=== PATIENT | female | born 1935 | race Caucasian/White ===

== ENCOUNTER → 2017-03-25 14:22 | Outpatient (CLI) | payer MEDICARE, BC, SELFPAY ==
--- NOTE | 2017-03-25 14:25 | HPBI_ITS ---
MAMMOGRAPHY - UNILATERAL SCREENING: RIGHT BREAST REASON FOR EXAM: Female, 82 years old. Routine annual screening examination (unilateral). PERTINENT HISTORY: Personal history of breast cancer. Prior left mastectomy and radiation therapy. TECHNIQUE: Digital unilateral breast jazmyn (3D mammographic acquisition) in the CC and MLO projections. 2-D mediolateral oblique (MLO) and craniocaudad (CC) views of both breasts were obtained. CAD: Full Field Digital Mammography with Computer Added Detection was performed. COMPARISON: Comparison is made with prior study dated March 20, 2016. FINDINGS: Breast Composition: There are scattered areas of fibroglandular density. There are no dominant masses or suspicious calcifications. No other significant abnormalities are identified. There has been no significant change since the prior study. BI/UNILAT RT SCRN W/CAD IMPRESSION: Stable unilateral screening mammogram. Yearly follow-up mammogram recommended. (A) ASSESSMENT CATEGORY: BIRADS Category 1: Negative. A letter regarding these results will be sent to the patient by the facility within 30 days. Approximately 10% of breast cancers are not detected by mammography. A normal mammogram should not delay biopsy of a clinically suspicious abnormality. [id number] Electronically Signed: Igor Rajan MD at 15:45 EST Tel [phone], Service support ,
== END ==
PROVIDERS: Family Provider Internal Medicine; PCP Internal Medicine; Visit Provider Internal Medicine
DX: Z12.31 Encounter for screening mammogram for malignant neoplasm of breast (principal); Z85.3 Personal history of malignant neoplasm of breast
CPT/HCPCS: 77061; 77063; 77067; G0279

== ENCOUNTER 2017-05-03 03:47 | Emergency (ER) | payer MEDICARE, BC, SELFPAY ==
[2017-05-03 03:48] VITALS: BP 157/85; PULSE 90; RESP 20; TEMP 36.6; O2SAT 96; BMI 31.2
--- NOTE | 2017-05-03 04:08 | CT_ITS ---
STUDY: CT BRAIN WITHOUT CONTRAST REASON FOR EXAM: Female, 82 years old. Injury RADIATION DOSAGE (If Supplied By Facility): CTDIvol = ( 44.99 ) mGy, DLP = ( 796.11 ) mGycm TECHNIQUE: Transaxial CT imaging of the brain was performed without administration of intravenous contrast material. Individualized dose optimization techniques were used for this CT. COMPARISON: 07/31/2015 FINDINGS: Normal soft tissue structures. There is hyperostosis frontalis internus. Normal size ventricles and extra-axial spaces for the patient's age. There are areas of decreased attenuation within the white matter tracts of the supratentorial brain, consistent with microvascular disease changes. Normal basal ganglia and thalami. Normal brainstem. Normal cerebellum. There is no intracranial hemorrhage. There are no findings of an acute ischemic infarction. Right ethmoid sinus disease. Mild bilateral mastoid sinus disease. CT/Brain/Head without Contrast IMPRESSION: No fracture or hemorrhage. Electronically Signed: Adeel Kwong MD at 4:59 EST Tel , Service support ,
--- NOTE | 2017-05-03 04:09 | EKG12_ITS ---
Test Reason : FALL Blood Pressure : / mmHG Vent. Rate : 082 BPM Atrial Rate : 082 BPM P-R Int : 182 ms QRS Dur : 090 ms QT Int : 400 ms P-R-T Axes : 091 -29 018 degrees QTc Int : 467 ms Normal sinus rhythm Inferior infarct , age undetermined Abnormal ECG Confirmed by BEE VAZQUEZ ([id number]), news assignment editor BERRY DEL ROSARIO ([id number]) on 05/06/2017 1:36:29 PM Referred By: Jessica Cohn Confirmed By:BEE VAZQUEZ
[2017-05-03 04:25] LABS: Absolute Lymphocyte Count 1.72 X10^3/ul (0.83-4.51); Absolute Neutrophil Count 5.8 X10^3/uL (2.0-7.7); Basophil# 0.03 X10^3/uL; Basophil% 0.4 % (0-1); Eosinophils% 1.2 % (0-5); Hematocrit 36.5 % (37-47); Hemoglobin 11.6 g/dl (12.0-15.0); Lymphocyte # 1.72 X10^3/ul (4.0); Mean Corp Hgb Conc 31.8 g/gl (32-36); Mean Corpuscular Hgb 29.1 pg (27.0-32.0); Mean Corpuscular Volume 91.7 fL (81-99); Mean Platelet Vol. 9.6 fl (6.2-12.0); Monocyte% 6.1 % (0-10); Neutrophil # 5.81 X10^3/uL (2.7-7.7); Neutrophil % 70.8 % (47-70); Platelet Count 222 K/mm3 (150-450); RBC Distribution Width SD 56.3 fl (35.1-43.9); Red Blood Count 3.98 M/mm3 (4.2-5.4); White Blood Count 8.2 K/mm3 (4.4-11.0)
[2017-05-03 04:26] LABS: POSITIVE COUNT NO; POSITIVE DIFFERENTIAL NO; POSITIVE MORPHOLOGY NO
[2017-05-03 04:34] LABS: International Normalized Ratio 2.7; Prothrombin Time (Protime)PT. 28.4 SECONDS (11.7-14.9)
--- NOTE | 2017-05-03 04:35 | ED.DCSUM_ITS ---
- ER Visit Summary Date of Service: 05/03/17 Chief Complaint: Skin tears History of Present Illness: The patient is a 82 F brought by EMS after a fall at home after getting up prior to arrival. She states she got up out of bed at prodromal lightheaded symptoms causing her to fall. She did bump the right side of her head on the ground. Denies any headache, nausea, vomiting. She is on Coumadin for history of PE. Also skin tears to the right upper and forearm. No active bleeding. Tetanus less than 5 years ago. Denies any pain in the extremities. No neck or back pain. No recent illness of cough or shortness of breath. No chest pains. No urinary symptoms. No recent nausea, vomiting, diarrhea. Physical Examination: General: Alert and oriented ?3, no acute distress HEENT: Normocephalic, small contusion right judaism. No hemotympanum, no facial bone tenderness. Moist mucosa membranes Neck: supple, nontender. Cardiovascular: Regular rate and rhythm, no murmurs Respiratory: Normal breath sounds, symmetric, no distress Abdomen: Soft, nontender, nondistended Extremities: Nontender, no edema, pulses intact ?4 Neuro: no focal neurological deficits. Skin: There is skin tear right distal posterior arm along with elbow, there is no active bleeding. Forearm noted skin flap superficial approximately 4 cm in length, no active bleeding. Test Results: EKG: Sinus, rate 82, no ST changes. T-wave inversion in leads III and V2. Old compared to previous EKG in July 2015. Labs hemoglobin 11.6, creatinine 0.92. Sodium 137, potassium 3.9. INR 2.7. CT head: No intracranial process. Emergency Department Course and Treatment: Patient no focal neurological deficits. Syncopal episode EKG and stable labs. CT head due to head injury is normal. Patient laceration flap was repaired using a total of 10, 5-0 nylon sutures with good approximation. There was stellate laceration with the flap requiring additional repair. Skin tears in elbow and upper arm superficial. Wound care discussed. Patient to follow-up with PCP for reevaluation and suture removal as an outpatient. She was ambulated in the department with no return of symptoms. She is to return to ED if any worsening symptoms. All questions were answered. Treatment Plan: [] Disposition: Discharge Impression: 1. Syncope 2. Right forearm laceration 3. Skin tears This note was generated with [employer] dictation software. It may contain incorrect words, spelling, and punctuation that were not noted in review of the chart prior to signing ED Disposition - Plan for ED Patient: Disposition: Home or Assisted Living Chief Complaint: Wound Diagnosis: Syncope, Forearm laceration, Skin tear Instructions: ED Fainting Unkn Cause, ED Laceration All, ED Avulsion Dermal Referrals: Jessica Cohn MD [Primary Care Provider] - 10 Day for suture removal
[2017-05-03 04:38] LABS: Anion Gap 7 (5-15); BUN 22 mg/dL (7-18); BUN/Creat Ratio 23.8 RATIO (10-20); Calcium,Total 8.8 mg/dL (8.5-10.1); Chloride 100 mmol/L (98-107); Creatinine, Serum 0.92 mg/dL (0.55-1.02); EST Glomerular Filtration Rate 62 mL/min (>60); Est Glom Filt Rate - Afr Amer 75 mL/min (>60); Estimated Creatinine Clearance 43.15 ml/min; Glucose 121 mg/dL (74-106); Potassium 3.9 mmol/L (3.5-5.1); Sodium Level 137 mmol/L (136-145)
[2017-05-03 05:44] VITALS: BP 168/88; PULSE 84; RESP 17; O2SAT 95
== END 2017-05-03 06:08 | disposition home or self-care (01) ==
PROVIDERS: Emergency Provider Emergency Medicine; Family Provider Internal Medicine; PCP Internal Medicine
DX: S51.811A Laceration without foreign body of right forearm, initial encounter (principal); R55 Syncope and collapse; S51.011A Laceration without foreign body of right elbow, initial encounter; S00.83XA Contusion of other part of head, initial encounter; W19.XXXA Unspecified fall, initial encounter; Y93.9 Activity, unspecified; Y92.9 Unspecified place or not applicable; I10 Essential (primary) hypertension; E78.00 Pure hypercholesterolemia, unspecified; E03.9 Hypothyroidism, unspecified; Z85.72 Personal history of non-Hodgkin lymphomas; Z86.711 Personal history of pulmonary embolism; Z79.01 Long term (current) use of anticoagulants; Z79.899 Other long term (current) drug therapy
CPT/HCPCS: 12002; 70450; 80048; 85025; 85610; 93005; 99285; A4216

== ENCOUNTER → 2017-06-07 15:08 | Outpatient (CLI) | payer MEDICARE, BC, SELFPAY ==
[2017-06-07 15:26] LABS: Prothrombin Time Fingerstick 36.2 SEC (11.9-14.4)
== END ==
PROVIDERS: Family Provider Internal Medicine; PCP Internal Medicine; Visit Provider Internal Medicine
DX: Z79.899 Other long term (current) drug therapy (principal); Z79.01 Long term (current) use of anticoagulants
CPT/HCPCS: 36416; 85610

== ENCOUNTER → 2017-06-18 11:12 | Outpatient (CLI) | payer MEDICARE, BC, SELFPAY ==
[2017-06-18 11:19] LABS: Mucous, Urine 0 SEEN /hpf (<or=2+)
[2017-06-18 12:24] LABS: Color, Urine Yellow (Yellow); Glucose, Dipstick Normal (Normal); Ketone-Dipstick Negative (Negative); Leukocyte Esterase-Dipstick 100 /ul (Negative); Nitrite-Dipstick Positive (Negative); Occult Blood-Urine 25 /ul (Negative); Protein-Dipstick Negative (Negative); Urine Bilirubin Dipstick Negative (Negative); Urine Clarity Sl. Cloudy (Clear); Urine Urobilinogen Normal (Normal); Urine pH 6.5 (5.0 - 8.0)
[2017-06-18 12:40] LABS: Bacteria 4+ /hpf (None Seen); Red Blood Cells-Urine 0-5 SEEN /hpf (0-5); Squamous Epithelial Cells - UA 0-5 SEEN /hpf (5-10); White Blood Cells 5-10 SEEN /hpf (0-5)
== END ==
PROVIDERS: Family Provider Internal Medicine; PCP Internal Medicine; Visit Provider Internal Medicine
DX: N39.0 Urinary tract infection, site not specified (principal)
CPT/HCPCS: 81001

== ENCOUNTER → 2017-06-26 11:32 | Outpatient (CLI) | payer MEDICARE, BC, SELFPAY ==
[2017-06-26 14:53] LABS: Cholesterol 151 mg/dL (200); High Density Lipoprotein 44 mg/dL; T4 Free Direct 1.05 ng/dL (0.76-1.46); Thyroid Stim Hormone (TSH) 1.65 uIU/mL (0.358-3.74); Triglycerides 201 mg/dL; Very Low Density Lipoprotein 40 mg/dL (5-40)
== END ==
PROVIDERS: Family Provider Internal Medicine; PCP Internal Medicine; Visit Provider Internal Medicine
DX: I10 Essential (primary) hypertension (principal); E03.9 Hypothyroidism, unspecified
CPT/HCPCS: 36415; 80061; 84439; 84443

== ENCOUNTER → 2017-12-18 12:23 | Outpatient (CLI) | payer MEDICARE, BC, SELFPAY ==
[2017-12-18 14:14] LABS: Erythrocyte Sedimentation Rate 42 mm/hr (0-30)
[2017-12-18 14:17] LABS: Immature Platelet Fraction 1.6 % (1.0-7.9); RET-HE 23.7 pg (30-35); Reticulocyte Count 2.06 % (0.5-1.5)
[2017-12-18 14:27] LABS: CRP 8.41 mg/L (0.0-3.0); Rheumatoid Factor < 10.0 IU/mL (<15)
[2017-12-20 04:13] LABS: Rapid Plasmin Reagin (RPR) NONREACTIVE (NONREACTIVE)
== END ==
PROVIDERS: Family Provider Internal Medicine; PCP Internal Medicine; Referring Provider Nurse Practitioner Acute Care; Visit Provider Nurse Practitioner Acute Care
DX: L40.50 Arthropathic psoriasis, unspecified (principal)
CPT/HCPCS: 36415; 85045; 85652; 86140; 86431; 86592

== ENCOUNTER 2017-12-27 17:17 | Inpatient (IN) | payer MEDICARE, BC, SELFPAY ==
[2017-12-27] VITALS (11 sets, daily range): BP systolic 115–193; BP diastolic 64–110; PULSE 82–141; RESP 17–24; TEMP 36.7–36.9; O2SAT 93–97; BMI 33.9; BMI 33.2
--- NOTE | 2017-12-27 17:35 | RAD_ITS ---
STUDY: X-RAY CHEST REASON FOR EXAM: Female, 82 years old. Shortness of breath TECHNIQUE: Single AP portable view of the chest. COMPARISON: 10/20/2013 FINDINGS: Lungs are mildly hypoinflated. Slight interstitial prominence in the perihilar regions suggesting pulmonary edema. Questionable right upper lobe infiltrate. Lungs are otherwise clear. There is no demonstrated pleural abnormality. There is moderate cardiac enlargement. Normal mediastinum and tobias. Normal visualized pulmonary arteries. There is atherosclerotic tortuosity of the aortic arch and descending thoracic aorta. There are diffuse degenerative changes of the visualized thoracic spine. Normal visualized ribs, clavicles, and shoulders. There is no demonstrated abnormality of the visualized soft tissue structures of the upper abdomen. RAD/Chest 1 View (Portable) IMPRESSION: Mildly hypoinflated lungs. Slight perihilar vascular/interstitial prominence. Questionable right upper lobe infiltrate. Electronically Signed: Mitchell Jeffers DO at 18:08 EDT Tel , Service support ,
--- NOTE | 2017-12-27 17:36 | EKG12_ITS ---
Test Reason : AFIB Blood Pressure : / mmHG Vent. Rate : 138 BPM Atrial Rate : 138 BPM P-R Int : 176 ms QRS Dur : 102 ms QT Int : 280 ms P-R-T Axes : 000 -62 051 degrees QTc Int : 424 ms Sinus tachycardia Left axis deviation Abnormal ECG Confirmed by MERCED BARDALES, LILIANE ([id number]), communications editor BERRY DEL ROSARIO ([id number]) on 12/30/2017 3:12:07 PM Referred By: ALFRED Confirmed By:LILIANE BLACKWOOD MD
[2017-12-27] MEDS: Aspirin 81 MG TAB.CHEW 324 MG PO (17:51)
[2017-12-27 17:52] LABS: Absolute Lymphocyte Count 2.03 X10^3/ul (0.83-4.51); Absolute Neutrophil Count 7.2 X10^3/uL (2.0-7.7); Basophil# 0.03 X10^3/uL; Basophil% 0.3 % (0-1); Eosinophil# 0.05 X10^3/uL; Eosinophils% 0.5 % (0-5); Lymphocyte # 2.03 X10^3/ul (4.0); Lymphocyte % 20.2 % (19-41); Mean Corp Hgb Conc 30.8 g/gl (32-36); Mean Corpuscular Hgb 28.9 pg (27.0-32.0); Mean Platelet Vol. 9.6 fl (6.2-12.0); Monocyte# 0.71 X10^3/uL; Monocyte% 7.1 % (0-10); Neutrophil % 71.6 % (47-70); Platelet Count 225 K/mm3 (150-450); RBC Distribution Width CV 17.1 % (11.6-14.6); RBC Distribution Width SD 58.6 fl (35.1-43.9); Red Blood Count 4.15 M/mm3 (4.2-5.4); White Blood Count 10.1 K/mm3 (4.4-11.0)
[2017-12-27 17:53] LABS: POSITIVE COUNT NO; POSITIVE DIFFERENTIAL NO; POSITIVE MORPHOLOGY NO
[2017-12-27] MEDS: Metoprolol Tartrate 5 MG/5 ML Vial IV (17:53)
[2017-12-27 17:55] LABS: Prothrombin Time (Protime)PT. 13.1 SECONDS (11.7-14.9)
[2017-12-27 17:56] LABS: Partial Thromboplast Time 28.4 Seconds (24.1-36.2)
--- NOTE | 2017-12-27 17:58 | EKG12_ITS ---
Test Reason : REPEAT EKG Blood Pressure : / mmHG Vent. Rate : 098 BPM Atrial Rate : 267 BPM P-R Int : 000 ms QRS Dur : 090 ms QT Int : 338 ms P-R-T Axes : 000 -61 033 degrees QTc Int : 431 ms Atrial flutter with variable A-V block Left axis deviation Abnormal ECG Confirmed by MERCED BARDALES, LILIANE ([id number]), television news video editor BERRY DEL ROSARIO ([id number]) on 12/30/2017 3:16:30 PM Referred By: Confirmed By:LILIANE BLACKWOOD MD
--- NOTE | 2017-12-27 18:00 | ED.VISSUMM ---
- ER Visit Summary Date of Service: 12/27/17 Chief Complaint: Irregular heart rate History of Present Illness: The patient is a 82 F who went to see her doctor today. She has had 1 week of bilateral leg swelling. She then developed a cough for several days. She also developed dyspnea on exertion and then dyspnea at rest. Her daughter has been sick with bronchitis and thought maybe she had the same. Was noted at her doctor's office that she had a variable heart rate anywhere from 80-130s. And she was sent to the emergency department. Patient has a history of hypertension high cholesterol. History of left-sided mastectomy due to breast cancer, non-Hodgkin's lymphoma and hypothyroidism. She is a long-term smoker. There is a questionable history of pulmonary embolism and the patient was on Coumadin but states that she was never formally told that she had a blood clot. She states that she has never had a stress test. Physical Examination: Gen: Well-nourished well-developed Head: Normocephalic atraumatic Eyes: Perrl EOMI ENT: TMs clear no rhinorrhea moist mucous membranes Neck: Supple no lymphadenopathy no JVD nontender CVS: Irregularly irregular tachycardic rhythm no murmurs normal S1-S2 Respiratory: No distress patient has rales bilaterally and rhonchi chest nontender Abdomen: Soft nontender nondistended normal bowel sounds no masses Back: Nontender Extremity: Nontender no edema Skin: Normal color no rash Neuro: alert orientated ?3 CN II-XII intact normal strength sensation reflexes gait cerebellar Psych: Normal affect normal mood Test Results: Initial EKG shows atrial fibrillation at a rate of 138 and repeat EKG demonstrates A. fib with a rate of 98. White count 10.1 hemoglobin of 12. INR 1 PTT 28.4. Magnesium 1.9. Lactic acid 0.9. Natruretic peptide 271.8. Troponin less than 0.015. 133. Chest x-ray shows possible right-sided infiltrate and right sided mass. CT [place] of the chest did not demonstrate any pulmonary embolism or dissection. Noted pulmonary hypertension, pulmonary edema, consolidation on the right and a spiculated lung nodule. Emergency Department Course and Treatment: Patient received IV metoprolol which is slowed her heart rate down into the 80s and her is remained in A. fib. She has received Lasix Lovenox Levaquin and aspirin. Her plan is admission into the hospital for further treatment and evaluation. Impression: 1. New onset atrial fibrillation with rapid ventricular response 2. Right-sided pneumonia 3. Spiculated lung nodule This note was generated with [employer] dictation software. It may contain incorrect words, spelling, and punctuation that were not noted in review of the chart prior to signing ED Disposition - Plan for ED Patient: Chief Complaint: Shortness of Breath Referrals: Danie Sparks MD [Primary Care Provider] -
[2017-12-27 18:07] LABS: ALB/GLOB Ratio 0.9 RATIO (0.9-2.4); AST(SGOT) 18 U/L (15-37); Alanine Aminotransfer ALT/SGPT 23 U/L (13-56); Albumin, Serum 3.4 g/dL (3.2-5.0); Alkaline Phosphatase 129 U/L (45-117); Anion Gap 8 (5-15); BUN 19 mg/dL (7-18); BUN/Creat Ratio 27.3 RATIO (10-20); Calcium,Total 8.9 mg/dL (8.5-10.1); Chloride 98 mmol/L (98-107); EST Glomerular Filtration Rate 86 mL/min (>60); Est Glom Filt Rate - Afr Amer 104 mL/min (>60); Globulin 3.7 g/dL (2.2-4.2); Glucose 103 mg/dL (74-106); Lipase 184 U/L (73-393); Magnesium 1.9 mg/dL (1.6-2.6); Potassium 3.8 mmol/L (3.5-5.1); Protein, Total 7.1 g/dL (6.4-8.2); Sodium Level 133 mmol/L (136-145)
--- NOTE | 2017-12-27 18:15 | CT_ITS ---
STUDY: CTA CHEST REASON FOR EXAM: Female, 82 years old. Shortness of breath RADIATION DOSAGE (If Supplied By Facility): CTDIvol = ( 17.58 ) mGy, DLP = ( 600.72 ) mGycm TECHNIQUE: The examination was performed with the intravenous administration of 100 ml of Isovue 370 contrast material. Post-processing of the angiographic images was performed, with multiplanar reformation and 3D reconstruction. Individualized dose optimization techniques were used for this CT. COMPARISON: None. FINDINGS: Grossly unremarkable thyroid Normal enhancement of the main pulmonary artery and right and left pulmonary arteries. Normal enhancement of the bilateral peripheral pulmonary arteries. There is no demonstrated pulmonary embolism. There is prominence of the main pulmonary arteries without peripheral pulmonary vascular congestion, suggesting pulmonary hypertension. There is atherosclerotic calcification of the aortic arch with tortuosity. There is no demonstrated aortic dissection. Moderate cardiomegaly. Normal pericardium. Normal mediastinum. Soft tissue prominence in the right hilar region measuring 2 x 2 centimeter. Normal visualized trachea and bronchi. Lungs are mildly hypoinflated. Mild diffuse interstitial edema and vascular congestion is noted. Right lower lobe consolidation with effusion. Mildly spiculated nodule in the right middle lobe noted measuring 9 x 6 mm. In the anterior right upper lobe, there is an area of possible scarring versus nodule measuring 2.9 cm. Normal pleura. Normal chest wall structures. There are degenerative changes of thoracic spine. Normal visualized upper abdomen. CT/CTA Chest W/WO Contrast IMPRESSION: 1. Negative for pulmonary embolism or thoracic aortic dissection 2. Pulmonary artery hypertension 3. Pulmonary edema suggesting early CHF. Right lower lobe consolidation and effusion 4. Spiculated nodule in the right middle lobe as above. Additional area of scarring or masslike consolidation in the anterior right upper lobe. Nonspecific right hilar soft tissue prominence. Malignancy cannot be excluded Electronically Signed: Mitchell Jeffers DO at 19:14 EDT Tel , Service support ,
[2017-12-27 18:16] LABS: Lactic Acid 0.9 mmol/L (0.4-2.0)
[2017-12-27 18:34] LABS: BNP,B-Type NATRIURETIC PEPTIDE 271.8 pg/mL (0-100)
[2017-12-27 19:50] LABS: Mucous, Urine 0 SEEN /hpf (<or=2+); Red Blood Cells-Urine 0 SEEN /hpf (0-5)
[2017-12-27 19:55] LABS: Color, Urine Yellow (Yellow); Glucose, Dipstick Normal (Normal); Ketone-Dipstick Negative (Negative); Leukocyte Esterase-Dipstick 100 /ul (Negative); Nitrite-Dipstick Negative (Negative); Occult Blood-Urine 10 /ul (Negative); Protein-Dipstick 30 mg/dl (Negative); Specific Gravity, Urine 1.005 (1.002-1.030); Urine Bilirubin Dipstick Negative (Negative); Urine Clarity Sl. Cloudy (Clear); Urine Urobilinogen Normal (Normal)
[2017-12-27] MEDS: Furosemide 100 MG/10 ML Vial 60 MG IV (20:02)
[2017-12-27] MEDS: levoFLOXacin IV 750 MG/150 ML BAG 100 MG IV (20:02)
--- NOTE | 2017-12-27 20:02 | PCM.HP.STD ---
Problem List (1) Atrial fibrillation with RVR Status: Acute (2) Tobacco abuse Status: Chronic (3) Heart failure Status: Acute Qualifiers: Heart failure chronicity: unspecified (4) Lung mass Status: Acute History of Present Illness Date of Admission: 12/27/17 Chief Complaint: irregular heart rate. The patient is a 82 year old F with a significant history of hypertension, hyperlipidemia, hypothyroidism, psoriasis; breast cancer status post mastectomy; non-Hodgkin's lymphoma; questionable PE treated with Coumadin who was sent from her PCPs office because of irregularly irregular heart rhythm on the same day of admission.. Patient went to her PCPs office because she was having flulike symptoms of runny nose; cough, tiredness for 1 week. Her daughter had bronchitis so patient and her daughter thought that the patient might had also developed bronchitis Associated with her symptoms is increasing swelling in her bilateral legs. She denies any orthopnea or PND. At the emergency department there was radiographic evidence of pulmonary infiltrates and spiculated mass. Patient was given Lasix IV; and Levaquin for probable pneumonia. Also patient was given metoprolol IV because she was found to be in A. fib with RVR which brought her heart rate from 140 into the 80s. Past Medical History Past Medical History (Chronic Problems): Chronic Problems (Last Reviewed 12/27/17 @ 20:54 by Chris Garcia MD) History of Coumadin therapy (Chronic) Osteopenia (Chronic) Chronic back pain (Chronic) History of ankle fracture (Chronic) Leg swelling (Chronic) Edema leg (Chronic) Tobacco abuse (Chronic) Tobacco abuse counseling (Chronic) History of non-Hodgkin's lymphoma (Chronic) Hypertension (Chronic) Hypercholesteremia (Chronic) Incontinence of urine (Chronic) Balance disorder (Chronic) Venous insufficiency (Chronic) Obesity (Chronic) Breast cancer, left (Chronic) Psoriasis of scalp (Chronic) History of sinus problem (Chronic) Ulcer (Chronic) Hypothyroidism (Chronic) Pulmonary embolism (Chronic) Osteoarthritis (Chronic) Depression (Chronic) Breast cancer (Chronic) Non Hodgkin's lymphoma (Chronic) Medical History: Medical History (Last Reviewed 12/27/17 @ 20:54 by Chris Garcia MD) Chronic back pain (Chronic) M54.9, G89.29 History of ankle fracture (Chronic) Z87.81 Psoriasis of scalp (Chronic) L40.9 History of hysterectomy (Acute) Z98.890, Z90.710 History of sinus problem (Chronic) Ulcer (Chronic) Hypothyroidism (Chronic) E03.9 Pulmonary embolism (Chronic) I26.99 Osteoarthritis (Chronic) M19.90 Depression (Chronic) F32.9 Breast cancer (Chronic) C50.919 Non Hodgkin's lymphoma (Chronic) C85.90 History of gout Z87.39 History of pelvic fracture Z87.81 Allergies amoxicillin Adverse Reaction (Severe, Verified 12/27/17 17:18) Nausea/Vom/Diarrhea Penicillins [PCN] Adverse Reaction (Severe, Verified 12/27/17 17:18) Unknown CAN NOT FUNCTION tape Allergy (Severe, Uncoded 12/27/17 17:18) bruising Home Medications: Ambulatory Orders Medication Instructions Recorded Lisinopril/Hydrochlorothiazide 1 tab PO DAILY 16 [Zestoretic 20-12.5 mg Tablet] apremilast 30 mg tablet 30 mg PO BID 05/16/17 clobetasol 0.05 % shampoo 1 applic TOPICAL QDAY 05/16/17 primidone 50 mg tablet 150 mg PO BID tab 18 metoprolol tartrate 25 mg tablet 25 mg PO BID #180 tab 08/29/17 Allopurinol [Zyloprim] 300 mg PO DAILY 12/27/17 Aspirin E.C. [Ecotrin] 81 mg PO DAILY 12/27/17 Cholecalciferol (Vitamin D3) 400 unit PO TID 12/27/17 [Vitamin D3] Duloxetine HCl 30 mg PO DAILY 12/27/17 Levothyroxine Sodium [Synthroid] 50 mcg PO DAILY 12/27/17 Pramipexole Di-HCl [Mirapex] 0.25 mg PO QHS 12/27/17 Pravastatin Sodium 40 mg PO QHS 12/27/17 Surgical History: Surgical History (Last Reviewed 12/27/17 @ 20:54 by Chris Garcia MD) Excision of skin cancer on nose (Acute) History of mastectomy Z98.890, Z90.10 history of skin graph on nose Surgical History: - Lives: With Family Smoking Status: Current every day smoker Tobacco Use: Cigarettes Alcohol: None - *Family History Paternal Family History: Family History (Last Reviewed 12/28/17 @ 02:04 by Crhis Garcia MD) Mother Breast cancer Hypertension Father Lung cancer Alcoholism Brother Asthma Alcoholism Cancer Depression Heart disease Hypertension Liver disease Sister Alcoholism Cancer Heart disease Hypertension Thyroid disorder History Items: - - Patient's father at the age of 75 from lung cancer. Patient's mother at the age of 55 from metastatic breast cancer. Review of Systems Constitutional: Denies: Chills, Fever, Weight Change HEENT: Reports: - - Rhinorrhea. Denies: Head Aches, Sinus Congestion, Sinus Drainage Cardiovascular: Reports: Edema. Denies: Chest Pain, Palpitations Respiratory: Reports: Cough, Shortness of Breath. Denies: Sputum production Gastrointestinal: Denies: Abdominal Pain, Nausea, Vomiting Genitourinary: Denies: Dysuria Musculoskeletal: Denies: Joint Pain, Joint Tenderness Skin: Denies: Rash, Wounds Neurological: Denies: Numbness, Tingling, Focal weakness Psychiatric: Denies: Anxiety, Depression, Homicidal Ideations, Suicidal Ideations Hematologic/ Lymphatic: Denies: Easy Bruising, Easy Bleeding VTE Information - Inpt Only VTE Present on Admission: No VTE Mechan Device Prophylaxis: None VTE Pharm Prophylaxis ordered?: No Reason prophylaxis not ordered:: Treatment Not Indicated - On treatment dose anticoagulation for A. fib. Patient Problems: Active and Suspected Problems (Last Reviewed 12/27/17 @ 20:54 by Chris Garcia MD) Atrial fibrillation with RVR (Acute) Heart failure (Acute) Lung mass (Acute) - Physical Exam General: Alert, Oriented x3, Cooperative HEENT: Atraumatic, PERRLA, EOMI, Normocephalic Neck: Supple, No JVD, Negative Carotid Bruits Lungs: Diminished Cardiovascular: No murmurs, Irregular Rate Abdomen: Bowel Sounds Present, Soft, Non Tender Extremities: Capillary Refill Less than 3 Seconds, Edema - Bilateral legs Skin: No rashes, No breakdown Musculoskeletal: No Tenderness to Palpation of Joints or Extremities Neurological: Cranial nerves II-XII grossly intact Psych/Mental Status: Normal Affect, Appropriate Vital Signs Temp Pulse Resp BP Pulse Ox 98.4 F 103 H 24 H 139/102 H 95 12/27/17 17:18 12/27/17 18:01 12/27/17 18:01 12/27/17 18:01 12/27/17 18:01 Oxygen Flow Rate (L/min) 2 Oxygen Delivery Method Nasal Cannula Weight: 92.4 kg Body Mass Index (BMI) 33.9 Laboratory Tests Past 24 Hrs 12/27/17 12/27/17 12/27/17 17:30 17:30 17:30 WBC 10.1 RBC 4.15 L Hgb 12.0 Hct 39.0 MCV 94.0 MCH 28.9 MCHC 30.8 L RDW 17.1 H RDW Differential 58.6 H Plt Count 225 MPV 9.6 Immature Gran % (Auto) 0.300 Neut % (Auto) 71.6 H Lymph % (Auto) 20.2 [place] % (Auto) 7.1 Eos % (Auto) 0.5 Baso % (Auto) 0.3 Absolute Neuts (auto) 7.2 Absolute Lymphs (auto) 2.03 Total Counted Not Reportable PT 13.1 INR 1.0 APTT 28.4 Sodium 133 L Potassium 3.8 Chloride 98 Carbon Dioxide 27.0 Anion Gap 8 BUN 19 H Creatinine 0.70 Estim Creat Clear Calc 39.70 Est GFR (MDRD) Af Amer 104 Est GFR (MDRD) Non-Af 86 BUN/Creatinine Ratio 27.3 H Glucose 103 Lactic Acid Calcium 8.9 Magnesium 1.9 Total Bilirubin 0.30 AST 18 ALT 23 Alkaline Phosphatase 129 H Troponin I < 0.015 B-Natriuretic Peptide Total Protein 7.1 Albumin 3.4 Globulin 3.7 Albumin/Globulin Ratio 0.9 Lipase 184 Urine Color Urine Clarity Urine pH Ur Specific [place] Urine Protein Urine Glucose (UA) Urine Ketones Urine Occult Blood Urine Nitrite Urine Bilirubin Urine Urobilinogen Ur Leukocyte Esterase Urine RBC Urine WBC Ur Squamous Epith Cells Urine Bacteria Urine Mucus 12/27/17 12/27/17 12/27/17 17:30 17:46 19:39 WBC RBC Hgb Hct MCV MCH MCHC RDW RDW Differential Plt Count MPV Immature Gran % (Auto) Neut % (Auto) Lymph % (Auto) [place] % (Auto) Eos % (Auto) Baso % (Auto) Absolute Neuts (auto) Absolute Lymphs (auto) Total Counted PT INR APTT Sodium Potassium Chloride Carbon Dioxide Anion Gap BUN Creatinine Estim Creat Clear Calc Est GFR (MDRD) Af Amer Est GFR (MDRD) Non-Af BUN/Creatinine Ratio Glucose Lactic Acid 0.9 Calcium Magnesium Total Bilirubin AST ALT Alkaline Phosphatase Troponin I B-Natriuretic Peptide 271.8 H Total Protein Albumin Globulin Albumin/Globulin Ratio Lipase Urine Color Pending Urine Clarity Pending Urine pH Pending Ur Specific [place] Pending Urine Protein Pending Urine Glucose (UA) Pending Urine Ketones Pending Urine Occult Blood Pending Urine Nitrite Pending Urine Bilirubin Pending Urine Urobilinogen Pending Ur Leukocyte Esterase Pending Urine RBC Pending Urine WBC Pending Ur Squamous Epith Cells Pending Urine Bacteria Pending Urine Mucus Pending Assessment/Plan All Active Problems (Last Reviewed 12/27/17 @ 20:54 by Chris Garcia MD) Atrial fibrillation with RVR (Acute) Heart failure (Acute) Lung mass (Acute) Malaise and fatigue (Acute) Acute sinusitis (Acute) Urinary tract infection (Acute) History of breast cancer in adulthood (Resolved) Excision of skin cancer on nose (Acute) History of hysterectomy (Acute) The patient is a 82 year old F with a significant history of hypertension, hyperlipidemia, hypothyroidism, psoriasis breast cancer status post mastectomy; non-Hodgkin's lymphoma; questionable PE treated with Coumadin who was sent from her PCPs office because of irregularly irregular heart rhythm and found to have Afib with RVR; radiographic evidence of pulmonary infiltrates and spiculated mass. Heart failure Unspecified at this time whether preserved ejection fraction or reduced ejection fraction. We will order echocardiogram in a.m. Home lisinopril with hydrochlorothiazide continued. Patient takes metoprolol tartrate at home. Will change metoprolol titrate to metoprolol succinate which has been studied for heart failure. Daily weights Fluid restriction Tariq wrap to bilateral lower extremities. Patient was treated with Levaquin at the emergency department. Patient has no fever, no chills;no elevated white count. She reports some mild shortness of breath. Pneumonia is less likely. A. fib with RVR Received treatment dose Lovenox in the emergency department and IV metoprolol Lovenox x1 dose in the a.m. Metoprolol p.o. as above Metoprolol IV as needed for heart rate >110. TSH unremarkable. Magnesium ordered. Echocardiogram ordered. Cardiology consulted to optimize management Spiculated mass The patient is a smoker; elderly and has a history of breast cancer placing patient at a higher risk of malignancy. Oncology consulted to optimize management. Hypertension emergency Patient noted to have blood pressure of 193/110 on admission. Her elevated blood pressure could have thrown her into flash pulmonary edema and A. fib. Metoprolol; Lisinopril and HCTZ as above Trend blood pressures and titrate blood pressure meds. Hypothyroidism Synthroid continued Tobacco abuse Counseled Nicotine ordered. Psoriasis Apremilast continued. DVT prophylaxis Not indicated in the setting of therapeutic treatment for A. fib. Code Visit Inpatient E&M: 39459 Init Hosp L3
[2017-12-27] MEDS: Enoxaparin 100 MG/ML Syringe 90 MG SC (20:03)
[2017-12-27 20:27] LABS: White Blood Cells 0-5 SEEN /hpf (0-5)
[2017-12-27 20:28] LABS: Bacteria 1+ /hpf (None Seen); Squamous Epithelial Cells - UA 0-5 SEEN /hpf (5-10)
--- NOTE | 2017-12-27 21:32 | ECHOD_ITS ---
Version 2 Reason For Study: CHF Procedure This was a 2D Doppler, Color Flow transthoracic echocardiogram. Myocardial strain analysis was performed in this exam to aid in the assessment of cardiac function. Exam performed portable in patient room. Left Ventricle Normal LV size. Mild concentric left ventricular hypertrophy. Left ventricular systolic function is normal. The estimated ejection fraction is 40 %. Unable to assess diastolic dysfunction due to arrhythmia. No regional wall motion abnormalities noted. Right Ventricle Normal RV size. Normal systolic function. Atria The left atrium is moderately enlarged. The right atrium is moderately enlarged. Mitral Valve Normal mitral valve. Mild (1+) eccentric mitral valve insufficiency. Tricuspid Valve Normal tricuspid valve. Mild to moderate (1-2+) tricuspid valve insufficiency. Pulmonary artery systolic pressure is 36 mmHg. Aortic Valve Trisinus/trileaflet aortic valve. Mild focal aortic valve calcification. Pulmonic Valve Normal pulmonic valve. Mild (1+) pulmonic valve insufficiency. Great Vessels Normal aortic root. The pulmonary artery is normal size. Normal inferior vena cava. Pericardium/Pleural No pericardial effusion. MMode/2D Measurements & Calculations LVIDd: 4.6 cm IVSd: 1.3 cm Ao root diam: 3.6 cm LVIDs: 3.5 cm LVPWd: 1.5 cm LA dimension: 4.6 cm RVDd: 3.5 cm FS: 24.3 % LAV(MOD-bp): 82.1 ml LVAd ap4: 22.9 cm2 SV(MOD-sp4): 26.7 ml LAV(MOD-bp) Indexed: 41.6 ml/m2 EDV(MOD-sp4): 57.8 ml LAV(MOD-sp2): 66.2 ml EDV(sp4-el): 60.2 ml LAV(MOD-sp4): 99.3 ml LVAs ap4: 15.2 cm2 ESV(MOD-sp4): 31.1 ml ESV(sp4-el): 31.5 ml EF(MOD-sp4): 46.2 % EF(sp4-el): 47.6 % SV(sp4-el): 28.7 ml LA A4 area: 27.2 cm2 RA A4 area: 25.4 cm2 Time Measurements MV dec time: 0.18 sec Doppler Measurements & Calculations MV E max william: 136.4 cm/sec Lat Peak E' William: 9.4 cm/sec Med Peak E' William: 9.0 cm/sec MV A max william: 46.9 cm/sec E/E' lat: 14.5 E/E' med: 15.2 MV E/A: 2.9 MV V2 max: 165.3 cm/sec Ao V2 max: 169.4 cm/sec LV V1 max: 135.2 cm/sec MV max P.9 mmHg Ao max P.5 mmHg LV V1 max P.4 mmHg MV V2 mean: 68.8 cm/sec MV mean P.7 mmHg MV V2 VTI: 30.8 cm PA V2 max: 74.1 cm/sec TR max william: 285.1 cm/sec TR max P.5 mmHg Interpretation Summary Normal LV size. Mild concentric left ventricular hypertrophy. Left ventricular systolic function is normal. The estimated ejection fraction is 40 %. Unable to assess diastolic dysfunction due to arrhythmia. The left atrium is moderately enlarged. The right atrium is moderately enlarged. Pulmonary artery systolic pressure is 36 mmHg. The global longitudinal strain = -16.7% (abnormal). The global longitudinal strain is mildly abnormal. Compared to previous study, the left ventricular systolic function has worsened.. Ordering Physician: Chris Garcia Referring Physician: Danie Sparks Performed By: Arturo Jaime RCS
[2017-12-27] MEDS: Pravastatin 40 MG Tablet PO (22:20)
[2017-12-27] MEDS: Pramipexole Di-HCl 0.25 MG Tablet PO (22:20)
[2017-12-27] MEDS: Metoprolol(XL)Succ 50 MG Tablet PO (22:21)
[2017-12-27] MEDS: 0.9% NaCl Peripheral Flush Adult/Peds IV (22:22)
[2017-12-28] VITALS (15 sets, daily range): BP systolic 101–145; BP diastolic 57–91; PULSE 71–105; RESP 16; TEMP 36.5–36.9; O2SAT 93–97
[2017-12-28] MEDS: Levothyroxine 50 MCG Tablet PO (06:20)
[2017-12-28] MEDS: Enoxaparin 100 MG/ML Syringe 90 MG SC (06:22)
[2017-12-28 06:32] LABS: Absolute Lymphocyte Count 1.87 X10^3/ul (0.83-4.51); Absolute Neutrophil Count 4.3 X10^3/uL (2.0-7.7); Basophil# 0.02 X10^3/uL; Basophil% 0.3 % (0-1); Eosinophil# 0.07 X10^3/uL; Hematocrit 35.1 % (37-47); Hemoglobin 10.8 g/dl (12.0-15.0); Lymphocyte # 1.87 X10^3/ul (4.0); Lymphocyte % 27.8 % (19-41); Mean Corp Hgb Conc 30.8 g/gl (32-36); Mean Corpuscular Hgb 29.1 pg (27.0-32.0); Mean Corpuscular Volume 94.6 fL (81-99); Mean Platelet Vol. 9.3 fl (6.2-12.0); Monocyte# 0.49 X10^3/uL; Monocyte% 7.3 % (0-10); Neutrophil # 4.26 X10^3/uL (2.7-7.7); Neutrophil % 63.3 % (47-70); POSITIVE COUNT NO; POSITIVE DIFFERENTIAL NO; POSITIVE MORPHOLOGY NO; Platelet Count 180 K/mm3 (150-450); RBC Distribution Width CV 16.9 % (11.6-14.6); RBC Distribution Width SD 58.4 fl (35.1-43.9); Red Blood Count 3.71 M/mm3 (4.2-5.4); White Blood Count 6.7 K/mm3 (4.4-11.0)
[2017-12-28 06:53] LABS: Anion Gap 8 (5-15); BUN 20 mg/dL (7-18); BUN/Creat Ratio 24.5 RATIO (10-20); Calcium,Total 8.7 mg/dL (8.5-10.1); Chloride 96 mmol/L (98-107); Creatinine, Serum 0.82 mg/dL (0.55-1.02); EST Glomerular Filtration Rate 71 mL/min (>60); Est Glom Filt Rate - Afr Amer 86 mL/min (>60); Estimated Creatinine Clearance 48.42 ml/min; Glucose 96 mg/dL (74-106); Potassium 3.7 mmol/L (3.5-5.1); Sodium Level 135 mmol/L (136-145)
[2017-12-28 06:58] LABS: Magnesium 1.7 mg/dL (1.6-2.6)
--- NOTE | 2017-12-28 07:54 | EKG12_ITS ---
Test Reason : A-FIB/FLUTTER Blood Pressure : / mmHG Vent. Rate : 075 BPM Atrial Rate : 278 BPM P-R Int : 000 ms QRS Dur : 090 ms QT Int : 426 ms P-R-T Axes : 000 -36 018 degrees QTc Int : 475 ms Atrial flutter with variable A-V block Left axis deviation Inferior infarct , age undetermined Abnormal ECG When compared with ECG of 27-DEC-2017 18:03, MANUAL COMPARISON REQUIRED, DATA IS UNCONFIRMED Confirmed by MERCED BARDALES, LILIANE ([id number]), legal editor BERRY DEL ROSARIO ([id number] on 01/02/2018 4:07:26 PM Referred By: Mallory Sherman Confirmed By:LILIANE BLACKWOOD MD
--- NOTE | 2017-12-28 08:05 | PCM.PROGNOTE ---
Patient Problems: Active and Suspected Problems (Last Updated 12/28/17 @ 09:46 by Nai Del Angel MD) Atrial fibrillation with RVR (Acute) Heart failure (Acute) Lung mass (Acute) Subjective: Chief complaint: Follow-up after admission for new onset A. fib with RVR, mild acute CHF, probable community acquired pneumonia and right lung nodule. Patient seen and examined. No acute events overnight. This morning, she reports that her breathing is better. She denied any chest pain or palpitations. She complains of cough with sputum production, yellow sputum. Denies fever chills. She stated that the sinus rhythm, blood pressure stable, pulse ox is 96% on 1 L. - Physical Exam General: Alert, Oriented x3, Cooperative, No apparent distress HEENT: Atraumatic, PERRLA, EOMI, Normocephalic Oral: Moist Mucosa, No Gingival or Mucosal Lesions/ Ulcerations Neck: Supple, No JVD, Negative Carotid Bruits, Trachea Midline, Thyroid Normal Size and Texture Lungs: Clear to auscultation, No rhonchi, No wheeze, No rales, Diminished Cardiovascular: Regular rate, Regular Rhythm, Normal S1, Normal S2, PMI Normal Abdomen: Bowel Sounds Present, Soft, Non Tender, Non-Distended, No Hepato-splenomegaly Extremities: No clubbing, No cyanosis, Edema - Trace edema. Skin: No rashes, No breakdown Lymphatic: No Cervical, Supraclavicular, or Inguinal Adenopathy Neurological: Cranial nerves II-XII grossly intact, Motor Exam 5/5 strength throughout Psych/Mental Status: Normal Affect, Appropriate, Alert and oriented to time, place, person, mood and affect Vital Signs Temp Pulse Resp BP Pulse Ox 97.7 F L 84 16 101/57 L 93 12/28/17 03:20 12/28/17 06:55 12/28/17 03:20 12/28/17 03:20 12/28/17 07:30 Oxygen Flow Rate (L/min) 1 Oxygen Delivery Method Nasal Cannula Weight: 199 lb 1.239 oz Body Mass Index (BMI) 33.2 Intake and Output for Last 24 Hours 12/26/17 12/27/17 12/28/17 23:59 23:59 23:59 Intake Total 833 / 833 Output Total 200 / 200 Balance 633 / 633 Microbiology Past 72 Hours 12/27/17 22:50 Influenza Types A,B Direct FA (MIRIAN) - Final Mucosa - Nasopharyngeal Laboratory Tests Past 24 Hrs 12/27/17 12/27/17 12/27/17 17:30 17:30 17:30 WBC 10.1 RBC 4.15 L Hgb 12.0 Hct 39.0 MCV 94.0 MCH 28.9 MCHC 30.8 L RDW 17.1 H RDW Differential 58.6 H Plt Count 225 MPV 9.6 Immature Gran % (Auto) 0.300 Neut % (Auto) 71.6 H Lymph % (Auto) 20.2 Schley % (Auto) 7.1 Eos % (Auto) 0.5 Baso % (Auto) 0.3 Absolute Neuts (auto) 7.2 Absolute Lymphs (auto) 2.03 Total Counted Not Reportable PT 13.1 INR 1.0 APTT 28.4 Sodium 133 L Potassium 3.8 Chloride 98 Carbon Dioxide 27.0 Anion Gap 8 BUN 19 H Creatinine 0.70 Estim Creat Clear Calc 39.70 Est GFR (MDRD) Af Amer 104 Est GFR (MDRD) Non-Af 86 BUN/Creatinine Ratio 27.3 H Glucose 103 Lactic Acid Calcium 8.9 Magnesium 1.9 Total Bilirubin 0.30 AST 18 ALT 23 Alkaline Phosphatase 129 H Troponin I < 0.015 B-Natriuretic Peptide Total Protein 7.1 Albumin 3.4 Globulin 3.7 Albumin/Globulin Ratio 0.9 Lipase 184 TSH Urine Color Urine Clarity Urine pH Ur Specific [place] Urine Protein Urine Glucose (UA) Urine Ketones Urine Occult Blood Urine Nitrite Urine Bilirubin Urine Urobilinogen Ur Leukocyte Esterase Urine RBC Urine WBC Ur Squamous Epith Cells Urine Bacteria Urine Mucus 12/27/17 12/27/17 12/27/17 17:30 17:30 17:46 WBC RBC Hgb Hct MCV MCH MCHC RDW RDW Differential Plt Count MPV Immature Gran % (Auto) Neut % (Auto) Lymph % (Auto) [place] % (Auto) Eos % (Auto) Baso % (Auto) Absolute Neuts (auto) Absolute Lymphs (auto) Total Counted PT INR APTT Sodium Potassium Chloride Carbon Dioxide Anion Gap BUN Creatinine Estim Creat Clear Calc Est GFR (MDRD) Af Amer Est GFR (MDRD) Non-Af BUN/Creatinine Ratio Glucose Lactic Acid 0.9 Calcium Magnesium Total Bilirubin AST ALT Alkaline Phosphatase Troponin I B-Natriuretic Peptide 271.8 H Total Protein Albumin Globulin Albumin/Globulin Ratio Lipase TSH 1.70 Urine Color Urine Clarity Urine pH Ur Specific [place] Urine Protein Urine Glucose (UA) Urine Ketones Urine Occult Blood Urine Nitrite Urine Bilirubin Urine Urobilinogen Ur Leukocyte Esterase Urine RBC Urine WBC Ur Squamous Epith Cells Urine Bacteria Urine Mucus 12/27/17 12/28/17 12/28/17 19:39 06:08 06:08 WBC 6.7 RBC 3.71 L Hgb 10.8 L Hct 35.1 L MCV 94.6 MCH 29.1 MCHC 30.8 L RDW 16.9 H RDW Differential 58.4 H Plt Count 180 MPV 9.3 Immature Gran % (Auto) 0.300 Neut % (Auto) 63.3 Lymph % (Auto) 27.8 [place] % (Auto) 7.3 Eos % (Auto) 1.0 Baso % (Auto) 0.3 Absolute Neuts (auto) 4.3 Absolute Lymphs (auto) 1.87 Total Counted Not Reportable PT INR APTT Sodium 135 L Potassium 3.7 Chloride 96 L Carbon Dioxide 31.0 Anion Gap 8 BUN 20 H Creatinine 0.82 Estim Creat Clear Calc 48.42 Est GFR (MDRD) Af Amer 86 Est GFR (MDRD) Non-Af 71 BUN/Creatinine Ratio 24.5 H Glucose 96 Lactic Acid Calcium 8.7 Magnesium Total Bilirubin AST ALT Alkaline Phosphatase Troponin I B-Natriuretic Peptide Total Protein Albumin Globulin Albumin/Globulin Ratio Lipase TSH Urine Color Yellow Urine Clarity Sl. Cloudy Urine pH 7.0 Ur Specific [place] 1.005 Urine Protein 30 H Urine Glucose (UA) Normal Urine Ketones Negative Urine Occult Blood 10 H Urine Nitrite Negative Urine Bilirubin Negative Urine Urobilinogen Normal Ur Leukocyte Esterase 100 H Urine RBC 0 SEEN Urine WBC 0-5 SEEN Ur Squamous Epith Cells 0-5 SEEN Urine Bacteria 1+ Urine Mucus 0 SEEN 12/28/17 06:08 WBC RBC Hgb Hct MCV MCH MCHC RDW RDW Differential Plt Count MPV Immature Gran % (Auto) Neut % (Auto) Lymph % (Auto) [place] % (Auto) Eos % (Auto) Baso % (Auto) Absolute Neuts (auto) Absolute Lymphs (auto) Total Counted PT INR APTT Sodium Potassium Chloride Carbon Dioxide Anion Gap BUN Creatinine Estim Creat Clear Calc Est GFR (MDRD) Af Amer Est GFR (MDRD) Non-Af BUN/Creatinine Ratio Glucose Lactic Acid Calcium Magnesium 1.7 Total Bilirubin AST ALT Alkaline Phosphatase Troponin I B-Natriuretic Peptide Total Protein Albumin Globulin Albumin/Globulin Ratio Lipase TSH Urine Color Urine Clarity Urine pH Ur Specific [place] Urine Protein Urine Glucose (UA) Urine Ketones Urine Occult Blood Urine Nitrite Urine Bilirubin Urine Urobilinogen Ur Leukocyte Esterase Urine RBC Urine WBC Ur Squamous Epith Cells Urine Bacteria Urine Mucus Clinical Impression(s) from Imaging Studies Chest X-Ray 12/27/17 17:35 IMPRESSION: Mildly hypoinflated lungs. Slight perihilar vascular/interstitial prominence. Questionable right upper lobe infiltrate. Electronically Signed: Mitchell Jeffers DO at 18:08 EDT Tel , Service support , Chest CTA 12/27/17 18:15 IMPRESSION: 1. Negative for pulmonary embolism or thoracic aortic dissection 2. Pulmonary artery hypertension 3. Pulmonary edema suggesting early CHF. Right lower lobe consolidation and effusion 4. Spiculated nodule in the right middle lobe as above. Additional area of scarring or masslike consolidation in the anterior right upper lobe. Nonspecific right hilar soft tissue prominence. Malignancy cannot be excluded Electronically Signed: Mitchell Jeffers DO at 19:14 EDT Tel , Service support , Medical Necessity - Tobacco Use Smoking Status: Current every day smoker Tobacco Use: Cigarettes Assessment/Plan All Active Problems (Last Updated 12/28/17 @ 09:46 by Nai Del Angel MD) Atrial fibrillation with RVR (Acute) Heart failure (Acute) Lung mass (Acute) This is an 82 years old female patient was sent from her PCPs office for irregular heart rate and shortness of breath, found to have new onset A. fib with RVR, mild acute CHF, probable pneumonia and right lung nodule. #1 new onset A. fib with RVR: Returning back to sinus rhythm. Telemetry today reviewed and revealed normal sinus rhythm, heart rate has been around 90s, blood pressure stable. EKG from yesterday reviewed, revealed A. fib with RVR, no acute ischemic changes. Troponin are negative. Serum electrolytes including potassium and magnesium were normal. TSH is normal. 2D echocardiogram done, awaiting the report. She is on oral metoprolol for rate control, started on Eliquis for anticoagulation. Cardiology consulted. Plan to continue same treatment. #2 acute CHF, unspecified type: She is on IV Lasix, started on lisinopril and metoprolol. 2D echocardiogram performed as above, awaiting the results. Her symptoms improved, she is down to 1 L of oxygen. #3 right lung nodule: CTA chest revealed right middle lobe nodule measuring about 9 x 6 mm. Patient is a longtime smoker. She is at high risk for lung cancer. Oncology consulted. #4 probable community-acquired pneumonia: This is based on chest x-ray and CTA chest findings. She has been complaining of cough with sputum over the last few days. She is afebrile, no leukocytosis. She received 1 dose of Levaquin in the ER. Plan to continue p.o. Levaquin empirically. #5 hypertension: Blood pressure stable, continue lisinopril and metoprolol. #6 hypothyroidism: TSH is normal, continue levothyroxine. #7 hyperlipidemia: Continue statins. #8 DVT prophylaxis: Started on Eliquis. Other chronic medical problems: Stable, continue current medications. #1 gout. #2 history of breast cancer. #3 history of non-Hodgkin's lymphoma. #4 hyperlipidemia. #5 depression. This note was generated with [employer] software. It may contain incorrect words, spelling, and punctuation that were not noted in checking the note before signing. Code Visit Inpatient E&M: 19773 Subs Hosp L2
[2017-12-28] MEDS: Furosemide 40 MG/4 ML Vial IV ×2 (09:00→17:34)
[2017-12-28] MEDS: Aspirin E.C. 81 MG Tablet PO (09:00)
[2017-12-28] MEDS: DULoxetine Hcl 30 MG Capsule PO (09:00)
[2017-12-28] MEDS: Primidone 50 MG Tablet 150 MG PO ×2 (09:00→17:34)
[2017-12-28] MEDS: Metoprolol(XL)Succ 50 MG Tablet PO (09:00)
[2017-12-28] MEDS: Allopurinol 300 MG Tablet PO (09:00)
[2017-12-28] MEDS: Lisinopril 20 MG Tablet PO (09:01)
[2017-12-28] MEDS: 0.9% NaCl Peripheral Flush Adult/Peds IV ×2 (09:01→17:34)
[2017-12-28] MEDS: hydroCHLOROthiazide 12.5mg 12.5 MG PO (09:01)
--- NOTE | 2017-12-28 09:03 | PCM.CONS.C ---
Reason for Consult Date of Consultation: 12/28/17 Reason for Consultation: Shortness of breath History of Present Illness: The patient is a 82 year old F with no previous cardiac history who presented to the emergency room because She has had 1 week of bilateral leg swelling. She then developed a cough for several days. She also developed dyspnea on exertion and then dyspnea at rest. Her daughter has been sick with bronchitis and thought maybe she had the same. She went to see her primary care physician and was noted at her doctor's office that she had a variable heart rate anywhere from 80-130s. And she was sent to the emergency department. Patient has a history of hypertension high cholesterol. History of left-sided mastectomy due to breast cancer, non-Hodgkin's lymphoma and hypothyroidism. She is a long-term smoker. There is a questionable history of pulmonary embolism and the patient was on Coumadin but states that she was never formally told that she had a blood clot. In the emergency room she was noted to be in atrial fibrillation with rapid ventricular response rate. She was admitted to the hospital and cardiology was called for further evaluation. Past Medical History Allergies/Adverse Reactions: Allergies amoxicillin Adverse Reaction (Severe, Verified 12/27/17 17:18) Nausea/Vom/Diarrhea Penicillins [PCN] Adverse Reaction (Severe, Verified 12/27/17 17:18) Unknown CAN NOT FUNCTION tape Allergy (Severe, Uncoded 12/27/17 17:18) bruising Home Medications: Ambulatory Orders Medication Instructions Recorded Lisinopril/Hydrochlorothiazide 1 tab PO DAILY 09/12/15 [Zestoretic 20-12.5 mg Tablet] apremilast 30 mg tablet 30 mg PO BID 05/16/17 clobetasol 0.05 % shampoo 1 applic TOPICAL QDAY 05/16/17 primidone 50 mg tablet 150 mg PO BID tab 06/17/17 metoprolol tartrate 25 mg tablet 25 mg PO BID #180 tab 08/29/17 Allopurinol [Zyloprim] 300 mg PO DAILY 12/27/17 Aspirin E.C. [Ecotrin] 81 mg PO DAILY 12/27/17 Cholecalciferol (Vitamin D3) 400 unit PO TID 12/27/17 [Vitamin D3] Duloxetine HCl 30 mg PO DAILY 12/27/17 Levothyroxine Sodium [Synthroid] 50 mcg PO DAILY 11/02/18 Pramipexole Di-HCl [Mirapex] 0.25 mg PO QHS 12/27/17 Pravastatin Sodium 40 mg PO QHS 12/27/17 Past Medical History (Chronic Problems): Chronic Problems (Last Reviewed 12/27/17 @ 20:54 by Chris Garcia MD) History of Coumadin therapy (Chronic) Osteopenia (Chronic) Chronic back pain (Chronic) History of ankle fracture (Chronic) Leg swelling (Chronic) Edema leg (Chronic) Tobacco abuse (Chronic) Tobacco abuse counseling (Chronic) History of non-Hodgkin's lymphoma (Chronic) Hypertension (Chronic) Hypercholesteremia (Chronic) Incontinence of urine (Chronic) Balance disorder (Chronic) Venous insufficiency (Chronic) Obesity (Chronic) Breast cancer, left (Chronic) Psoriasis of scalp (Chronic) History of sinus problem (Chronic) Ulcer (Chronic) Hypothyroidism (Chronic) Pulmonary embolism (Chronic) Osteoarthritis (Chronic) Depression (Chronic) Breast cancer (Chronic) Non Hodgkin's lymphoma (Chronic) Surgical History: mastectomy, - - *Family History Paternal Family History: Family History (Last Reviewed 12/28/17 @ 02:04 by Chris Garcia MD) Mother Breast cancer Hypertension Father Lung cancer Alcoholism Brother Asthma Alcoholism Cancer Depression Heart disease Hypertension Liver disease Sister Alcoholism Cancer Heart disease Hypertension Thyroid disorder History Items: - - Patient's father at the age of 75 from lung cancer. Patient's mother at the age of 55 from metastatic breast cancer. Lives: With Family Smoking Status: Current every day smoker Tobacco Use: Cigarettes Alcohol: None Drugs: None Review of Systems - Review of Systems General: Denies: Fever, Night Sweats, Fatigue Cardiovascular: Reports: Shortness of Breath, Shortness of Breath at Rest, Peripheral Edema. Denies: Chest Discomfort, Orthopnea, PND, Palpitations, Lightheadedness, Dizziness, Near Syncope, Syncope Respiratory: Denies: Cough, Sputum Production, Hemoptysis Gastrointestinal: Denies: Hematemesis, Hematochezia, Melena Genitourinary: Denies: Dysuria, Hematuria Muscoloskeletal: Denies: Myalgias Skin: Denies: Rash Neurological: Denies: Dizziness Psychiatric: Denies: Anxiety Endocrine: Denies: Unexplained Weight Loss Hematologic/ Lymphatic: Denies: Anemia Subjectve: Pleasant lady in no apparent distress Objective: Vital Signs Temp Pulse Resp BP Pulse Ox 97.7 F L 84 16 101/57 L 93 12/28/17 03:20 12/28/17 06:55 12/28/17 03:20 12/28/17 03:20 12/28/17 07:30 Oxygen Flow Rate (L/min) 1 Oxygen Delivery Method Nasal Cannula Weight: 199 lb 1.239 oz Body Mass Index (BMI) 33.2 Intake and Output for Last 24 Hours 12/26/17 12/27/17 12/28/17 23:59 23:59 23:59 Intake Total 833 / 833 Output Total 200 / 200 Balance 633 / 633 General: Awake, Alert, Oriented x 3 HEENT: PERRL, EOMI, Sclera Non Icteric Neck: Supple, Good ROM, No Lymph Node Enlargement Lungs: Diminished Kvng Bases Cardiovascular: Irregular Rhythm, Normal S1, Normal S2, No Murmurs, No Rubs, No Gallops Vascular: No Carotid Bruits, Normal Femoral Pulses, Normal Radial Pulses, Normal Dorsalis Pedal Pulse, Normal Posterior Tibial Pulses Abdomen: Bowel Sounds Present, Soft, Non Tender, No HSM, No Organomegaly Extremities: No Cyanosis, No Clubbing, Bilateral Edema +1 Neurological: No Focal Motor or Sensory Deficit 12/27/17 17:30: WBC 10.1, RBC 4.15 L, Hgb 12.0, Hct 39.0, MCV 94.0, MCH 28.9, MCHC 30.8 L, RDW 17.1 H, RDW Differential 58.6 H, Plt Count 225, MPV 9.6, Immature Gran % (Auto) 0.300, Neut % (Auto) 71.6 H, Lymph % (Auto) 20.2, [place] % (Auto) 7.1, Eos % (Auto) 0.5, Baso % (Auto) 0.3, Absolute Neuts (auto) 7.2, Total Counted Not Reportable 12/27/17 17:30: PT 13.1, INR 1.0, APTT 28.4 12/27/17 17:30: Sodium 133 L, Potassium 3.8, Chloride 98, Carbon Dioxide 27.0, Anion Gap 8, BUN 19 H, Creatinine 0.70, Est GFR (MDRD) Af Amer 104, Est GFR (MDRD) Non-Af 86, BUN/Creatinine Ratio 27.3 H, Glucose 103, Calcium 8.9, Magnesium 1.9, Total Bilirubin 0.30, Troponin I < 0.015 12/27/17 17:30: B-Natriuretic Peptide 271.8 H 12/27/17 17:46: Lactic Acid 0.9 12/27/17 19:39: Urine Color Yellow, Urine Clarity Sl. Cloudy, Urine pH 7.0, Ur Specific [place] 1.005, Urine Protein 30 H, Urine Glucose (UA) Normal, Urine Ketones Negative, Urine Occult Blood 10 H, Urine Nitrite Negative, Urine Bilirubin Negative, Urine Urobilinogen Normal, Ur Leukocyte Esterase 100 H, Urine RBC 0 SEEN, Urine WBC 0-5 SEEN 12/28/17 06:08: WBC 6.7, RBC 3.71 L, Hgb 10.8 L, Hct 35.1 L, MCV 94.6, MCH 29.1, MCHC 30.8 L, RDW 16.9 H, RDW Differential 58.4 H, Plt Count 180, MPV 9.3, Immature Gran % (Auto) 0.300, Neut % (Auto) 63.3, Lymph % (Auto) 27.8, [place] % (Auto) 7.3, Eos % (Auto) 1.0, Baso % (Auto) 0.3, Absolute Neuts (auto) 4.3, Total Counted Not Reportable 12/28/17 06:08: Sodium 135 L, Potassium 3.7, Chloride 96 L, Carbon Dioxide 31.0, Anion Gap 8, BUN 20 H, Creatinine 0.82, Est GFR (MDRD) Af Amer 86, Est GFR (MDRD) Non-Af 71, BUN/Creatinine Ratio 24.5 H, Glucose 96, Calcium 8.7 12/28/17 06:08: Magnesium 1.7 Rhythm: EKG: Atrial fibrillation with a rate of approximately 98 bpm ECHO: Mild reduction in global left ventricular systolic function estimated to be 45% plus minus Assessment/Plan 1. Congestive heart failure Patient presents with shortness of breath bilateral pitting edema elevated natruretic peptide level. The above together with the x-ray findings are consistent with congestive heart failure. The etiology is likely secondary to the atrial fibrillation. Recommendation would be to institute IV diuresis Increase beta-linda for better rate control Continue MAITE inhibitor due to left ventricular systolic dysfunction After her rate has been better controlled she will be scheduled for a noninvasive test for ischemia. 2. Hypertension Her blood pressure appears to be under good control but would continue to optimize it. Continue MAITE inhibitor and beta-linda. 3. Atrial fibrillation She does have atrial fibrillation with a rapid ventricular response rate. My recommendation will be to increase her beta-linda to 50 mg twice a day She will continue with anticoagulation and we can discuss whether she will continue with warfarin or a factor X inhibitor Thank you for allowing me to participate in the care of your patient. Please don't hesitate to call if any issues arise
--- NOTE | 2017-12-28 09:20 | CON.PCM_ITS ---
Reason for Consult Date of Consultation: 12/28/17 Reason for Consultation: Shortness of breath History of Present Illness: The patient is a 82 year old F with no previous cardiac history who presented to the emergency room because She has had 1 week of bilateral leg swelling. She then developed a cough for several days. She also developed dyspnea on exertion and then dyspnea at rest. Her daughter has been sick with bronchitis and thought maybe she had the same. She went to see her primary care physician and was noted at her doctor's office that she had a variable heart rate anywhere from 80-130s. And she was sent to the emergency department. Patient has a history of hypertension high cholesterol. History of left-sided mastectomy due to breast cancer, non-Hodgkin's lymphoma and hypothyroidism. She is a long-term smoker. There is a questionable history of pulmonary embolism and the patient was on Coumadin but states that she was never formally told that she had a blood clot. In the emergency room she was noted to be in atrial fibrillation with rapid ventricular response rate. She was admitted to the hospital and cardiology was called for further evaluation. Past Medical History Allergies/Adverse Reactions: Allergies amoxicillin Adverse Reaction (Severe, Verified 12/27/17 17:18) Nausea/Vom/Diarrhea Penicillins [PCN] Adverse Reaction (Severe, Verified 12/27/17 17:18) Unknown CAN NOT FUNCTION tape Allergy (Severe, Uncoded 12/27/17 17:18) bruising Home Medications: Ambulatory Orders Medication Instructions Recorded Lisinopril/Hydrochlorothiazide 1 tab PO DAILY 09/12/15 [Zestoretic 20-12.5 mg Tablet] apremilast 30 mg tablet 30 mg PO BID 05/16/17 clobetasol 0.05 % shampoo 1 applic TOPICAL QDAY 05/16/17 primidone 50 mg tablet 150 mg PO BID tab 06/17/17 metoprolol tartrate 25 mg tablet 25 mg PO BID #180 tab 08/29/17 Allopurinol [Zyloprim] 300 mg PO DAILY 12/27/17 Aspirin E.C. [Ecotrin] 81 mg PO DAILY 12/27/17 Cholecalciferol (Vitamin D3) 400 unit PO TID 12/27/17 [Vitamin D3] Duloxetine HCl 30 mg PO DAILY 12/27/17 Levothyroxine Sodium [Synthroid] 50 mcg PO DAILY 11/02/18 Pramipexole Di-HCl [Mirapex] 0.25 mg PO QHS 12/27/17 Pravastatin Sodium 40 mg PO QHS 12/27/17 Past Medical History (Chronic Problems): Chronic Problems (Last Reviewed 12/27/17 @ 20:54 by Chris Garcia MD) History of Coumadin therapy (Chronic) Osteopenia (Chronic) Chronic back pain (Chronic) History of ankle fracture (Chronic) Leg swelling (Chronic) Edema leg (Chronic) Tobacco abuse (Chronic) Tobacco abuse counseling (Chronic) History of non-Hodgkin's lymphoma (Chronic) Hypertension (Chronic) Hypercholesteremia (Chronic) Incontinence of urine (Chronic) Balance disorder (Chronic) Venous insufficiency (Chronic) Obesity (Chronic) Breast cancer, left (Chronic) Psoriasis of scalp (Chronic) History of sinus problem (Chronic) Ulcer (Chronic) Hypothyroidism (Chronic) Pulmonary embolism (Chronic) Osteoarthritis (Chronic) Depression (Chronic) Breast cancer (Chronic) Non Hodgkin's lymphoma (Chronic) Surgical History: mastectomy, - - *Family History Paternal Family History: Family History (Last Reviewed 12/28/17 @ 02:04 by Chris Garcia MD) Mother Breast cancer Hypertension Father Lung cancer Alcoholism Brother Asthma Alcoholism Cancer Depression Heart disease Hypertension Liver disease Sister Alcoholism Cancer Heart disease Hypertension Thyroid disorder History Items: - - Patient's father at the age of 75 from lung cancer. Patient's mother at the age of 55 from metastatic breast cancer. Lives: With Family Smoking Status: Current every day smoker Tobacco Use: Cigarettes Alcohol: None Drugs: None Review of Systems - Review of Systems General: Denies: Fever, Night Sweats, Fatigue Cardiovascular: Reports: Shortness of Breath, Shortness of Breath at Rest, Peripheral Edema. Denies: Chest Discomfort, Orthopnea, PND, Palpitations, Light headedness, Dizziness, Near Syncope, Syncope Respiratory: Denies: Cough, Sputum Production, Hemoptysis Gastrointestinal: Denies: Hematemesis, Hematochezia, Melena Genitourinary: Denies: Dysuria, Hematuria Muscoloskeletal: Denies: Myalgias Skin: Denies: Rash Neurological: Denies: Dizziness Psychiatric: Denies: Anxiety Endocrine: Denies: Unexplained Weight Loss Hematologic/ Lymphatic: Denies: Anemia Subjectve: Pleasant lady in no apparent distress Objective: Vital Signs Temp Pulse Resp BP Pulse Ox 97.7 F L 84 16 101/57 L 93 12/28/17 03:20 12/28/17 06:55 12/28/17 03:20 12/28/17 03:20 12/28/17 07:30 Oxygen Flow Rate (L/min) 1 Oxygen Delivery Method Nasal Cannula Weight: 199 lb 1.239 oz Body Mass Index (BMI) 33.2 Intake and Output for Last 24 Hours 12/26/17 12/27/17 12/28/17 23:59 23:59 23:59 Intake Total 833 / 833 Output Total 200 / 200 Balance 633 / 633 General: Awake, Alert, Oriented x 3 HEENT: PERRL, EOMI, Sclera Non Icteric Neck: Supple, Good ROM, No Lymph Node Enlargement Lungs: Diminished Kvng Bases Cardiovascular: Irregular Rhythm, Normal S1, Normal S2, No Murmurs, No Rubs, No Gallops Vascular: No Carotid Bruits, Normal Femoral Pulses, Normal Radial Pulses, Normal Dorsalis Pedal Pulse, Normal Posterior Tibial Pulses Abdomen: Bowel Sounds Present, Soft, Non Tender, No HSM, No Organomegaly Extremities: No Cyanosis, No Clubbing, Bilateral Edema +1 Neurological: No Focal Motor or Sensory Deficit 12/27/17 17:30: WBC 10.1, RBC 4.15 L, Hgb 12.0, Hct 39.0, MCV 94.0, MCH 28.9, MCHC 30.8 L, RDW 17.1 H, RDW Differential 58.6 H, Plt Count 225, MPV 9.6, Immature Gran % (Auto) 0.300, Neut % (Auto) 71.6 H, Lymph % (Auto) 20.2, Wolfe % (Auto) 7.1, Eos % (Auto) 0.5, Baso % (Auto) 0.3, Absolute Neuts (auto) 7.2, Total Counted Not Reportable 12/27/17 17:30: PT 13.1, INR 1.0, APTT 28.4 12/27/17 17:30: Sodium 133 L, Potassium 3.8, Chloride 98, Carbon Dioxide 27.0, Anion Gap 8, BUN 19 H, Creatinine 0.70, Est GFR (MDRD) Af Amer 104, Est GFR (MDRD) Non-Af 86, BUN/Creatinine Ratio 27.3 H, Glucose 103, Calcium 8.9, Magnesium 1.9, Total Bilirubin 0.30, Troponin I < 0.015 12/27/17 17:30: B-Natriuretic Peptide 271.8 H 12/27/17 17:46: Lactic Acid 0.9 12/27/17 19:39: Urine Color Yellow, Urine Clarity Sl. Cloudy, Urine pH 7.0, Ur Specific [place] 1.005, Urine Protein 30 H, Urine Glucose (UA) Normal, Urine Ketones Negative, Urine Occult Blood 10 H, Urine Nitrite Negative, Urine Bilirubin Negative, Urine Urobilinogen Normal, Ur Leukocyte Esterase 100 H, Urine RBC 0 SEEN, Urine WBC 0-5 SEEN 12/28/17 06:08: WBC 6.7, RBC 3.71 L, Hgb 10.8 L, Hct 35.1 L, MCV 94.6, MCH 29.1, MCHC 30.8 L, RDW 16.9 H, RDW Differential 58.4 H, Plt Count 180, MPV 9.3, Immature Gran % (Auto) 0.300, Neut % (Auto) 63.3, Lymph % (Auto) 27.8, Wolfe % (Auto) 7.3, Eos % (Auto) 1.0, Baso % (Auto) 0.3, Absolute Neuts (auto) 4.3, Total Counted Not Reportable 12/28/17 06:08: Sodium 135 L, Potassium 3.7, Chloride 96 L, Carbon Dioxide 31.0, Anion Gap 8, BUN 20 H, Creatinine 0.82, Est GFR (MDRD) Af Amer 86, Est GFR (MDRD) Non-Af 71, BUN/Creatinine Ratio 24.5 H, Glucose 96, Calcium 8.7 12/28/17 06:08: Magnesium 1.7 Rhythm: EKG: Atrial fibrillation with a rate of approximately 98 bpm ECHO: Mild reduction in global left ventricular systolic function estimated to be 45% plus minus Assessment/Plan 1. Congestive heart failure * Patient presents with shortness of breath bilateral pitting edema elevated natruretic peptide level. The above together with the x-ray findings are consistent with congestive heart failure. The etiology is likely secondary to the atrial fibrillation. * Recommendation would be to institute IV diuresis * Increase beta-linda for better rate control * Continue MAITE inhibitor due to left ventricular systolic dysfunction * After her rate has been better controlled she will be scheduled for a noninvasive test for ischemia. * 2. Hypertension * Her blood pressure appears to be under good control but would continue to optimize it. * Continue MAITE inhibitor and beta-linda. * 3. Atrial fibrillation * She does have atrial fibrillation with a rapid ventricular response rate. My recommendation will be to increase her beta-linda to 50 mg twice a day * She will continue with anticoagulation and we can discuss whether she will continue with warfarin or a factor X inhibitor * * Thank you for allowing me to participate in the care of your patient. Please don't hesitate to call if any issues arise
--- NOTE | 2017-12-28 10:40 | CASEMGMT ---
RN RANDEE Face to Face with patient for initial transition planning/care coordination assessment. RN CM introduced self and role at [facility]. Patient sitting in chair, alert and oriented. Patient willing to participate in assessment and is able to answer all questions appropriately. Care providers, pharmacy, and demographics verified. Patient wishes to discharge home, denies need for home health at this time. Patient states she has no further needs or concerns at this time. CM to follow for discharge planning needs that may arise. PCP: [facility]: Patient states she sees and neurologist Preferred Pharmacy: [facility] Insurance: Khris MAURICIO Prescription Benefit: BCBS Living Will/HPOA: LNOK: Daughter Living Arrangements: Patient lives with daughter in 1st floor apt. Transportation: Daughter DME/HHC: Patient has cane. Denies need for HHC. Currently on oxygen, will monitor need for home oxygen, patient ok with [employer] for DME Disposition Plan: Patient to discharge home with family support and follow-up plans in place. Sharon LOW, RN, CM
[2017-12-28] MEDS: levoFLOXacin 750 MG Tablet PO (12:15)
--- NOTE | 2017-12-28 16:30 | CON.PCM_ITS ---
Consult Referring Physician: Dr. Arenas Consult Results: Right middle lobe nodule and Hilar node. 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 In February 2012 she was diagnosed with left breast cancer, had left modified radical mastectomy and sentinel node biopsy on March 24, 2012 for stage IA(pT1c N0 M0) tumor size was 1.5 cm, sentinel node negative, ER/RI positive, HER-2 negative. She received adjuvant Arimidex from March 2012 to April 2017. She started Xgeva in February 2015 for osteopenia, bone density in February 2016 was normal so Xgeva was discontinued. She was admitted with SOB, CTA on 12/27/2017 showed 9 mm spiculated nodule in right middle lobe and right hilar nodule and possible scarring in right upper lobe. She is feeling better now. Past Medical History: Chronic Problems (Last Updated 12/28/17 @ 09:46 by Nai Del Angel MD) Tobacco abuse (Chronic) History of non-Hodgkin's lymphoma (Chronic) Hypertension (Chronic) Hypercholesteremia (Chronic) Obesity (Chronic) Breast cancer, left (Chronic) Hypothyroidism (Chronic) Pulmonary embolism (Chronic) Osteoarthritis (Chronic) Depression (Chronic) Past Medical/Surgical History: Past Medical History - Most Recent Inpatient Visit Past Medical History Start: 12/27/17 21:37 Text: Status: Complete Freq: ONCE Protocol: Document 12/27/17 22:03 HS (Rec: 12/27/17 22:06 [id number]) BMI Required to complete PMH What is Patient's BMI 33.2 Past Medical History Unable History Recalled Yes Query Text:Pt Unable/Family Not Present Neurologic Medical History Hx Stroke/TIA No Hx Dementia/Alzheimer's No Hx Parkinson's Disease No Hx Seizures No Hx Multiple Sclerosis No Hx Migraines No Cardiac Medical History VTE Present on Admission No Hx of Deep Vein Thrombosis/VTE/PE Unsure Hx Hypertension Yes Hx Chest Pain/Angina No Hx Heart Attack No Hx Cardiac Surgery/Stents/Etc. No Hx Heart Failure No Hx Pacemaker/AICD No Hx Irregular Heartbeat and/or Afib No Hx Anticoagulant Therapy Yes: Aspirin Query Text:(Coumadin, Aspirin, Plavix, Xarelto, etc.) Hx Pain in Legs when Walking/Leg Cramps No Respiratory Medical History Hx COPD No Hx Emphysema No Smoking Status Current every day smoker Tobacco Use Cigarettes Hx Tobacco Use in last 12 months Yes Sent to [facility] Yes Hx Sleep Apnea No Do you snore loudly (louder than talking No or can be heard through closed doors)? Do you often feel tired/ fatigued/ Yes sleepy during daytime? Has anyone observed you stop breathing No during sleep? STOP Results Positive GI Medical History Hx Ulcer No Hx Hepatitis No Hx Cirrhosis No Hx GI Bleed No Hx Unplanned Weight Loss No Genitourinary Medical History Indwelling Catheter in Place on Arrival/ No Admission Hx Renal Disease No Hx Dialysis No Musculoskeletal History Hx Arthritis No Hx Rheumatoid Arthritis No Endocrine Medical History Hx Diabetes No Hx Thyroid Disease Yes Hematologic Medical History Hx of Blood Transfusion No Hx of Transfusion in last 3 Months No Ever experience any problems with No transfusion(s)? Hx of Preganancy in last 3 Months N/A Nurse Filling Out Transfusion & [facility]SMUCKER Questions: Date: 12/27/17 Time: 22:06 Psycho/Social Medical History Hx Depression Yes Hx Anxiety Yes Hx Behavior Disorder No Hx Alcohol Use No Hx Substance Use No Other Medical History Hx Blood Disorders No Hx Anemia No Hx Cancer Yes: BREAST CANCER,NON- HOGDKINS Wound/Pressure Injury Present on Arrival No /Admission Query Text:If yes, chart assessment in Shift/Clinical Findings Central Line/PICC/VAD Present on Arrival No /Admission Antibiotics within last 7 days? No Risk for Readmission Number of Risk Factors 4 At Risk for Readmission Patient is At Risk For Readmission Patient is eligible for Call Back Y Past Medical History (Last Updated 12/28/17 @ 09:46 by Nai Del Angel MD) Hypothyroidism (Chronic) Pulmonary embolism (Chronic) Osteoarthritis (Chronic) Depression (Chronic) History of gout (Chronic) History of pelvic fracture (Chronic) Past Surgical History (Last Updated 12/28/17 @ 09:46 by Nai Del Angel MD) History of mastectomy (Acute) history of skin graph (Acute) Paternal Family History: Family History (Last Reviewed 12/28/17 @ 02:04 by Chris Garcia MD) Mother Breast cancer Hypertension Father Lung cancer Alcoholism Brother Asthma Alcoholism Cancer Depression Heart disease Hypertension Liver disease Sister Alcoholism Cancer Heart disease Hypertension Thyroid disorder Family History: - - Patient's father at the age of 75 from lung cancer. Patient's mother at the age of 55 from metastatic breast cancer. - Social History Lives: With Family Smoking Status: Current every day smoker Tobacco Use: Cigarettes Alcohol: None Drugs: None Allergies/Adverse Reactions: Allergy/AdvReac Type Severity Reaction Status Date / Time amoxicillin AdvReac Severe Nausea/Vom/ Verified 12/27/17 17:18 Diarrhea Penicillins [PCN] AdvReac Severe Unknown Verified 12/27/17 17:18 tape Allergy Severe bruising Uncoded 12/27/17 17:18 Review of Systems Constitutional:: Denies: Fever, Sweats, Weight loss, Appetite change, Chills Cardiovascular:: Denies: Chest pain, Palpitations, Dyspnea on exertion, Orthopnea, PND, Shortness of breath Respiratory: Denies: Cough, Hemoptysis, Shortness of Breath, Wheezing Gastrointestinal:: Denies: Abdominal pain, Nausea, Vomiting, Diarrhea, Constipat ion, Hematochezia Genitourinary: Denies: Dysuria, Hematuria, 15, Flank pain Musculoskeletal:: Reports: Arthritis Skin: Denies: Rash, Skin Changes, Wounds Neurological:: Reports: - - Using a walker to ambulate.. Denies: Headache, Dizziness, Visual changes, Tinnitus, Hearing loss Psychiatric: Denies: Anxiety, Depression, Homicidal Ideations, Suicidal Ideations Vital Signs Height 5 ft 5 in Weight: 90.3 kg Weight in Pounds 199.1 lbs Pulse Ox 96 Temperature 97.9 F Pulse Rate 93 Respiratory Rate 16 Blood Pressure 124/66 Blood Pressure Position Semi-Fowlers - Physical Exam General: Alert, Oriented x3, No apparent distress HEENT: Atraumatic, PERRLA, EOMI, Normocephalic Oropharynx:: Dry mucosa Neck:: Supple, Trachea midline. Negative for: JVD, bilateral Cardiac:: Normal S1, Normal S2, Irregular rate. Negative for: Murmur Lungs: Clear to auscultation, Excusion symmetrical. Negative for: Rhonchi, Wheezes Extremities:: Negative for: Cyanosis, Edema Neurological: Unsteady Gait - Using a walker. Laboratory Data: Microbiology 12/27/17 22:50 Influenza Types A,B Direct FA (MIRIAN) - Final Mucosa - Nasopharyngeal Laboratory Tests 12/28/17 12/28/17 12/28/17 Range/Units 06:08 06:08 06:08 WBC 6.7 (4.4-11.0) K/mm3 RBC 3.71 L (4.2-5.4) M/mm3 Hgb 10.8 L (12.0-15.0) g/dl Hct 35.1 L (37-47) % MCV 94.6 (81-99) fL MCH 29.1 (27.0-32.0) pg MCHC 30.8 L (32-36) g/gl RDW 16.9 H (11.6-14.6) % RDW Differential 58.4 H (35.1-43.9) fl Plt Count 180 (150-450) K/mm3 MPV 9.3 (6.2-12.0) fl Immature Gran % (Auto) 0.300 (0.0-0.9) % Neut % (Auto) 63.3 (47-70) % Lymph % (Auto) 27.8 (19-41) % [place] % (Auto) 7.3 (0-10) % Eos % (Auto) 1.0 (0-5) % Baso % (Auto) 0.3 (0-1) % Absolute Neuts (auto) 4.3 (2.0-7.7) X10^3/uL Absolute Lymphs (auto) 1.87 (0.83-4.51) X10^3/ul Total Counted Not Reportable PT (11.7-14.9) SECONDS INR APTT (24.1-36.2) Seconds Sodium 135 L (136-145) mmol/L Potassium 3.7 (3.5-5.1) mmol/L Chloride 96 L (98-107) mmol/L Carbon Dioxide 31.0 (21.0-32.0) mmol/L Anion Gap 8 (5-15) BUN 20 H (7-18) mg/dL Creatinine 0.82 (0.55-1.02) mg/dL Estim Creat Clear Calc 48.42 ml/min Est GFR (MDRD) Af Amer 86 (>60) mL/min Est GFR (MDRD) Non-Af 71 (>60) mL/min BUN/Creatinine Ratio 24.5 H (10-20) RATIO Glucose 96 (74-106) mg/dL Lactic Acid (0.4-2.0) mmol/L Calcium 8.7 (8.5-10.1) mg/dL Magnesium 1.7 (1.6-2.6) mg/dL Total Bilirubin (0.20-1.00) mg/dL AST (15-37) U/L ALT (13-56) U/L Alkaline Phosphatase (45-117) U/L Troponin I (<0.045) ng/mL B-Natriuretic Peptide (0-100) pg/mL Total Protein (6.4-8.2) g/dL Albumin (3.2-5.0) g/dL Globulin (2.2-4.2) g/dL Albumin/Globulin Ratio (0.9-2.4) RATIO Lipase (73-393) U/L TSH (0.358-3.74) uIU/mL Urine Color (Yellow) Urine Clarity (Clear) Urine pH (5.0 - 8.0) Ur Specific [place] (1.002-1.030) Urine Protein (Negative) mg/dl Urine Glucose (UA) (Normal) mg/dl Urine Ketones (Negative) mg/dl Urine Occult Blood (Negative) /ul Urine Nitrite (Negative) Urine Bilirubin (Negative) mg/dL Urine Urobilinogen (Normal) mg/dl Ur Leukocyte Esterase (Negative) /ul Urine RBC (0-5) /hpf Urine WBC (0-5) /hpf Ur Squamous Epith Cells (5-10) /hpf Urine Bacteria (None Seen) /hpf Urine Mucus (<or=2+) /hpf 12/27/17 12/27/17 12/27/17 Range/Units 19:39 17:46 17:30 WBC (4.4-11.0) K/mm3 RBC (4.2-5.4) M/mm3 Hgb (12.0-15.0) g/dl Hct (37-47) % MCV (81-99) fL MCH (27.0-32.0) pg MCHC (32-36) g/gl RDW (11.6-14.6) % RDW Differential (35.1-43.9) fl Plt Count (150-450) K/mm3 MPV (6.2-12.0) fl Immature Gran % (Auto) (0.0-0.9) % Neut % (Auto) (47-70) % Lymph % (Auto) (19-41) % [place] % (Auto) (0-10) % Eos % (Auto) (0-5) % Baso % (Auto) (0-1) % Absolute Neuts (auto) (2.0-7.7) X10^3/uL Absolute Lymphs (auto) (0.83-4.51) X10^3/ul Total Counted PT (11.7-14.9) SECONDS INR APTT (24.1-36.2) Seconds Sodium (136-145) mmol/L Potassium (3.5-5.1) mmol/L Chloride (98-107) mmol/L Carbon Dioxide (21.0-32.0) mmol/L Anion Gap (5-15) BUN (7-18) mg/dL Creatinine (0.55-1.02) mg/dL Estim Creat Clear Calc ml/min Est GFR (MDRD) Af Amer (>60) mL/min Est GFR (MDRD) Non-Af (>60) mL/min BUN/Creatinine Ratio (10-20) RATIO Glucose (74-106) mg/dL Lactic Acid 0.9 (0.4-2.0) mmol/L Calcium (8.5-10.1) mg/dL Magnesium (1.6-2.6) mg/dL Total Bilirubin (0.20-1.00) mg/dL AST (15-37) U/L ALT (13-56) U/L Alkaline Phosphatase (45-117) U/L Troponin I (<0.045) ng/mL B-Natriuretic Peptide (0-100) pg/mL Total Protein (6.4-8.2) g/dL Albumin (3.2-5.0) g/dL Globulin (2.2-4.2) g/dL Albumin/Globulin Ratio (0.9-2.4) RATIO Lipase (73-393) U/L TSH 1.70 (0.358-3.74) uIU/mL Urine Color Yellow (Yellow) Urine Clarity Sl. Cloudy (Clear) Urine pH 7.0 (5.0 - 8.0) Ur Specific [place] 1.005 (1.002-1.030) Urine Protein 30 H (Negative) mg/dl Urine Glucose (UA) Normal (Normal) mg/dl Urine Ketones Negative (Negative) mg/dl Urine Occult Blood 10 H (Negative) /ul Urine Nitrite Negative (Negative) Urine Bilirubin Negative (Negative) mg/dL Urine Urobilinogen Normal (Normal) mg/dl Ur Leukocyte Esterase 100 H (Negative) /ul Urine RBC 0 SEEN (0-5) /hpf Urine WBC 0-5 SEEN (0-5) /hpf Ur Squamous Epith Cells 0-5 SEEN (5-10) /hpf Urine Bacteria 1+ (None Seen) /hpf Urine Mucus 0 SEEN (<or=2+) /hpf 12/27/17 12/27/17 12/27/17 Range/Units 17:30 17:30 17:30 WBC (4.4-11.0) K/mm3 RBC (4.2-5.4) M/mm3 Hgb (12.0-15.0) g/dl Hct (37-47) % MCV (81-99) fL MCH (27.0-32.0) pg MCHC (32-36) g/gl RDW (11.6-14.6) % RDW Differential (35.1-43.9) fl Plt Count (150-450) K/mm3 MPV (6.2-12.0) fl Immature Gran % (Auto) (0.0-0.9) % Neut % (Auto) (47-70) % Lymph % (Auto) (19-41) % [place] % (Auto) (0-10) % Eos % (Auto) (0-5) % Baso % (Auto) (0-1) % Absolute Neuts (auto) (2.0-7.7) X10^3/uL Absolute Lymphs (auto) (0.83-4.51) X10^3/ul Total Counted PT 13.1 (11.7-14.9) SECONDS INR 1.0 APTT 28.4 (24.1-36.2) Seconds Sodium 133 L (136-145) mmol/L Potassium 3.8 (3.5-5.1) mmol/L Chloride 98 (98-107) mmol/L Carbon Dioxide 27.0 (21.0-32.0) mmol/L Anion Gap 8 (5-15) BUN 19 H (7-18) mg/dL Creatinine 0.70 (0.55-1.02) mg/dL Estim Creat Clear Calc 39.70 ml/min Est GFR (MDRD) Af Amer 104 (>60) mL/min Est GFR (MDRD) Non-Af 86 (>60) mL/min BUN/Creatinine Ratio 27.3 H (10-20) RATIO Glucose 103 (74-106) mg/dL Lactic Acid (0.4-2.0) mmol/L Calcium 8.9 (8.5-10.1) mg/dL Magnesium 1.9 (1.6-2.6) mg/dL Total Bilirubin 0.30 (0.20-1.00) mg/dL AST 18 (15-37) U/L ALT 23 (13-56) U/L Alkaline Phosphatase 129 H (45-117) U/L Troponin I < 0.015 (<0.045) ng/mL B-Natriuretic Peptide 271.8 H (0-100) pg/mL Total Protein 7.1 (6.4-8.2) g/dL Albumin 3.4 (3.2-5.0) g/dL Globulin 3.7 (2.2-4.2) g/dL Albumin/Globulin Ratio 0.9 (0.9-2.4) RATIO Lipase 184 (73-393) U/L TSH (0.358-3.74) uIU/mL Urine Color (Yellow) Urine Clarity (Clear) Urine pH (5.0 - 8.0) Ur Specific [place] (1.002-1.030) Urine Protein (Negative) mg/dl Urine Glucose (UA) (Normal) mg/dl Urine Ketones (Negative) mg/dl Urine Occult Blood (Negative) /ul Urine Nitrite (Negative) Urine Bilirubin (Negative) mg/dL Urine Urobilinogen (Normal) mg/dl Ur Leukocyte Esterase (Negative) /ul Urine RBC (0-5) /hpf Urine WBC (0-5) /hpf Ur Squamous Epith Cells (5-10) /hpf Urine Bacteria (None Seen) /hpf Urine Mucus (<or=2+) /hpf 12/27/ Range/Units 17:30 WBC 10.1 (4.4-11.0) K/mm3 RBC 4.15 L (4.2-5.4) M/mm3 Hgb 12.0 (12.0-15.0) g/dl Hct 39.0 (37-47) % MCV 94.0 (81-99) fL MCH 28.9 (27.0-32.0) pg MCHC 30.8 L (32-36) g/gl RDW 17.1 H (11.6-14.6) % RDW Differential 58.6 H (35.1-43.9) fl Plt Count 225 (150-450) K/mm3 MPV 9.6 (6.2-12.0) fl Immature Gran % (Auto) 0.300 (0.0-0.9) % Neut % (Auto) 71.6 H (47-70) % Lymph % (Auto) 20.2 (19-41) % [place] % (Auto) 7.1 (0-10) % Eos % (Auto) 0.5 (0-5) % Baso % (Auto) 0.3 (0-1) % Absolute Neuts (auto) 7.2 (2.0-7.7) X10^3/uL Absolute Lymphs (auto) 2.03 (0.83-4.51) X10^3/ul Total Counted Not Reportable PT (11.7-14.9) SECONDS INR APTT (24.1-36.2) Seconds Sodium (136-145) mmol/L Potassium (3.5-5.1) mmol/L Chloride (98-107) mmol/L Carbon Dioxide (21.0-32.0) mmol/L Anion Gap (5-15) BUN (7-18) mg/dL Creatinine (0.55-1.02) mg/dL Estim Creat Clear Calc ml/min Est GFR (MDRD) Af Amer (>60) mL/min Est GFR (MDRD) Non-Af (>60) mL/min BUN/Creatinine Ratio (10-20) RATIO Glucose (74-106) mg/dL Lactic Acid (0.4-2.0) mmol/L Calcium (8.5-10.1) mg/dL Magnesium (1.6-2.6) mg/dL Total Bilirubin (0.20-1.00) mg/dL AST (15-37) U/L ALT (13-56) U/L Alkaline Phosphatase (45-117) U/L Troponin I (<0.045) ng/mL B-Natriuretic Peptide (0-100) pg/mL Total Protein (6.4-8.2) g/dL Albumin (3.2-5.0) g/dL Globulin (2.2-4.2) g/dL Albumin/Globulin Ratio (0.9-2.4) RATIO Lipase (73-393) U/L TSH (0.358-3.74) uIU/mL Urine Color (Yellow) Urine Clarity (Clear) Urine pH (5.0 - 8.0) Ur Specific [place] (1.002-1.030) Urine Protein (Negative) mg/dl Urine Glucose (UA) (Normal) mg/dl Urine Ketones (Negative) mg/dl Urine Occult Blood (Negative) /ul Urine Nitrite (Negative) Urine Bilirubin (Negative) mg/dL Urine Urobilinogen (Normal) mg/dl Ur Leukocyte Esterase (Negative) /ul Urine RBC (0-5) /hpf Urine WBC (0-5) /hpf Ur Squamous Epith Cells (5-10) /hpf Urine Bacteria (None Seen) /hpf Urine Mucus (<or=2+) /hpf Diagnostic Data: Diagnostic Data Chest X-Ray 12/27/17 17:35 IMPRESSION: Mildly hypoinflated lungs. Slight perihilar vascular/interstitial prominence. Questionable right upper lobe infiltrate. Electronically Signed: Mitchell Jeffers DO at 18:08 EDT Tel , Service support , Chest CTA 12/27/17 18:15 IMPRESSION: 1. Negative for pulmonary embolism or thoracic aortic dissection 2. Pulmonary artery hypertension 3. Pulmonary edema suggesting early CHF. Right lower lobe consolidation and effusion 4. Spiculated nodule in the right middle lobe as above. Additional area of scarring or masslike consolidation in the anterior right upper lobe. Nonspecific right hilar soft tissue prominence. Malignancy cannot be excluded Electronically Signed: Mitchell Jeffers DO at 19:14 EDT Tel , Service support , Assessment and Plan History of Left breast cancer, NHL with Right Lung density, hilar node and RML. Discussed findings with Pt and daughter, needs further work up. Suggestion: Repeat CT chest and obtain Pulmonary consult for FOB and Bx. She will need a PET/CT as outpatient. Will follow up. Medications: Prescriptions This Visit Medication Instructions Recorded Allopurinol [Zyloprim] 300 mg PO DAILY 12/27/17 Aspirin E.C. [Ecotrin] 81 mg PO DAILY 12/27/17 Cholecalciferol (Vitamin D3) 400 unit PO TID 12/27/17 [Vitamin D3] Duloxetine HCl 30 mg PO DAILY 12/27/17 Levothyroxine Sodium [Synthroid] 50 mcg PO DAILY 12/27/17 Pramipexole Di-HCl [Mirapex] 0.25 mg PO QHS 12/27/17 Pravastatin Sodium 40 mg PO QHS 12/27/17 Medications Added to Medication List This Visit Category Date Time Status Allopurinol [Zyloprim] Med 12/28/17 08:00 Active 300 mg PO DAILYCM Apixaban [Eliquis] Med 12/28/17 22:00 Active 5 mg PO BID Duloxetine Hcl [Cymbalta] Med 12/28/17 10:00 Active 30 mg PO DAILY Furosemide [Lasix] Med 12/28/17 10:00 Active 40 mg IV BIDLX Lisinopril [Zestril] Med 12/28/17 10:00 Active 20 mg PO DAILY Metoprolol Tartrate [Lopressor (Beta Brittnee)] Med 12/28/17 22:00 Active 50 mg PO BID Primidone [Mysoline] Med 12/28/17 08:00 Active 150 mg PO BIDCM levoFLOXacin tablet [Levaquin tablet] Med 12/30/17 10:00 Active 750 mg PO Q48 Primary Care Provider: Danie Sparks MD Referring Provider: - Problem List (1) Lung mass Status: Acute (2) History of non-Hodgkin's lymphoma Status: Chronic Code Visit Office Visits / Consults: [id number] IP Consult [id number]
[2017-12-28] MEDS: APIXABAN 5 MG TABLET PO (21:26)
[2017-12-28] MEDS: Pravastatin 40 MG Tablet PO (21:26)
[2017-12-28] MEDS: Pramipexole Di-HCl 0.25 MG Tablet PO (21:27)
[2017-12-28] MEDS: Metoprolol Tartrate 50 MG Tablet PO (21:28)
[2017-12-29 03:10] VITALS: PULSE 80
[2017-12-29 03:30] VITALS: BP 94/50; PULSE 90; RESP 18; TEMP 37.2; O2SAT 95
[2017-12-29] MEDS: Levothyroxine 50 MCG Tablet PO (03:46)
[2017-12-29] MEDS: 0.9% NaCl Peripheral Flush Adult/Peds IV (05:53)
[2017-12-29 06:11] LABS: Absolute Lymphocyte Count 1.47 X10^3/ul (0.83-4.51); Absolute Neutrophil Count 3.6 X10^3/uL (2.0-7.7); Basophil# 0.02 X10^3/uL; Basophil% 0.3 % (0-1); Eosinophil# 0.06 X10^3/uL; Hematocrit 35.1 % (37-47); Hemoglobin 10.8 g/dl (12.0-15.0); Lymphocyte # 1.47 X10^3/ul (4.0); Lymphocyte % 25.3 % (19-41); Mean Corp Hgb Conc 30.8 g/gl (32-36); Mean Corpuscular Volume 94.1 fL (81-99); Mean Platelet Vol. 9.8 fl (6.2-12.0); Monocyte% 10.3 % (0-10); Neutrophil # 3.62 X10^3/uL (2.7-7.7); Neutrophil % 62.6 % (47-70); Platelet Count 180 K/mm3 (150-450); RBC Distribution Width CV 16.9 % (11.6-14.6); RBC Distribution Width SD 55.6 fl (35.1-43.9); Red Blood Count 3.73 M/mm3 (4.2-5.4); White Blood Count 5.8 K/mm3 (4.4-11.0)
[2017-12-29 06:13] LABS: POSITIVE COUNT NO; POSITIVE DIFFERENTIAL NO; POSITIVE MORPHOLOGY NO
[2017-12-29 06:18] LABS: Anion Gap 9 (5-15); BUN 27 mg/dL (7-18); BUN/Creat Ratio 26.5 RATIO (10-20); Calcium,Total 8.6 mg/dL (8.5-10.1); Chloride 95 mmol/L (98-107); Creatinine, Serum 1.02 mg/dL (0.55-1.02); EST Glomerular Filtration Rate 55 mL/min (>60); Est Glom Filt Rate - Afr Amer 67 mL/min (>60); Estimated Creatinine Clearance 38.92 ml/min; Glucose 96 mg/dL (74-106); Potassium 3.5 mmol/L (3.5-5.1); Sodium Level 135 mmol/L (136-145)
[2017-12-29 06:57] VITALS: PULSE 77
[2017-12-29 07:22] VITALS: O2SAT 95
--- NOTE | 2017-12-29 08:10 | CON.PCM_ITS ---
Problem List (1) Atrial fibrillation with RVR Status: Acute (2) Heart failure Status: Acute Qualifiers: Heart failure chronicity: unspecified (3) Tobacco abuse Status: Chronic (4) History of non-Hodgkin's lymphoma Status: Chronic (5) Hypertension Status: Chronic Qualifiers: Hypertension type: essential hypertension Qualified Code(s): I10 - Essential (primary) hypertension (6) Hypercholesteremia Status: Chronic (7) Obesity Status: Chronic Qualifiers: Body mass index: BMI 40.0-44.9 (8) Breast cancer, left Status: Chronic (9) Hypothyroidism Status: Chronic (10) Osteoarthritis Status: Chronic (11) Depression Status: Chronic Reason for Consult Date of Consultation: 12/29/17 Reason for Consultation: Lung nodule History of Present Illness: The patient is a 82 year old F, with past medical history listed below, who presented to [facility] on December 27, 2017 as a referral from her primary care physician. Patient reportedly presented complaining of a one- week of bilateral leg swelling, cough and dyspnea on exertion. While at the physician's office, patient was noted to have highly variable heart rate. Patient had no history of atrial fibrillation and was sent to the ER for evaluation. While in the emergency room, patient did have a CT of the chest for evaluation of possible PE that noted a right lower lobe nodule. Pulmonary has been consulted for recommendations. Patient reports subjective improvement following hospitalization. Patient has been treated with diuretic therapy and rate control. Patient is currently on Eliquis therapy and tolerating well. Patient denies any complications such as epistaxis, hemoptysis, melena or hematochezia. Patient feels her lower extremities are much improved compared to previous. Patient does report a remote history of non-Hodgkin's lymphoma in the groin. Patient did receive chemo and radiation and is reportedly in remission. Patient also reports a history of left breast cancer that did not require radiation or chemotherapy per the patient. Patient has never been told of previous lung nodules that she is aware of. Patient has had multiple CT scans and PET scans in the past secondary to her history of malignancy. Patient denies any chest pain, nausea, vomiting, fever or chills. Patient has had weight gain that she attributes to lower extremity edema. Patient feels her dyspnea on exertion is much improved compared to previous. Patient denies any environmental exposures such as TB or asbestos. Patient does report a [id number] smoking history, but quit some time ago. Patient did have a pulmonary function test in 2015, but does not routinely follow with pulmonary. Review of systems otherwise negative x10 systems. Past Medical History Past Medical History (Chronic Problems): Chronic Problems (Last Updated 12/28/17 @ 09:46 by Nai Del Angel MD) Tobacco abuse (Chronic) History of non-Hodgkin's lymphoma (Chronic) Hypertension (Chronic) Hypercholesteremia (Chronic) Obesity (Chronic) Breast cancer, left (Chronic) Hypothyroidism (Chronic) Pulmonary embolism (Chronic) Osteoarthritis (Chronic) Depression (Chronic) Medical History: Medical History (Last Updated 12/28/17 @ 09:46 by Nai Del Angel MD) Hypothyroidism (Chronic) E03.9 Pulmonary embolism (Chronic) I26.99 Osteoarthritis (Chronic) M19.90 Depression (Chronic) F32.9 History of gout Z87.39 History of pelvic fracture Z87.81 Allergies amoxicillin Adverse Reaction (Severe, Verified 12/27/17 17:18) Nausea/Vom/Diarrhea Penicillins [PCN] Adverse Reaction (Severe, Verified 12/27/17 17:18) Unknown CAN NOT FUNCTION tape Allergy (Severe, Uncoded 12/27/17 17:18) bruising Home Medications: Ambulatory Orders Medication Instructions Recorded Lisinopril/Hydrochlorothiazide 1 tab PO DAILY 09/12/15 [Zestoretic 20-12.5 mg Tablet] apremilast 30 mg tablet 30 mg PO BID 05/16/17 clobetasol 0.05 % shampoo 1 applic TOPICAL QDAY 05/16/17 primidone 50 mg tablet 150 mg PO BID tab 06/17/17 metoprolol tartrate 25 mg tablet 25 mg PO BID #180 tab 08/29/17 Allopurinol [Zyloprim] 300 mg PO DAILY 12/27/17 Aspirin E.C. [Ecotrin] 81 mg PO DAILY 12/27/17 Cholecalciferol (Vitamin D3) 400 unit PO TID 12/27/17 [Vitamin D3] Duloxetine HCl 30 mg PO DAILY 12/27/17 Levothyroxine Sodium [Synthroid] 50 mcg PO DAILY 12/27/17 Pramipexole Di-HCl [Mirapex] 0.25 mg PO QHS 12/27/17 Pravastatin Sodium 40 mg PO QHS 12/27/17 Surgical History: Surgical History (Last Updated 12/28/17 @ 09:46 by Nai Del Angel MD) History of mastectomy Z98.890, Z90.10 history of skin graph on nose Surgical History: mastectomy, - Lives: With Family Smoking Status: Current every day smoker Tobacco Use: Cigarettes Alcohol: None Drugs: None - *Family History Paternal Family History: Family History (Last Reviewed 12/28/17 @ 02:04 by Chris Garcia MD) Mother Breast cancer Hypertension Father Lung cancer Alcoholism Brother Asthma Alcoholism Cancer Depression Heart disease Hypertension Liver disease Sister Alcoholism Cancer Heart disease Hypertension Thyroid disorder History Items: - - Patient's father at the age of 75 from lung cancer. Patient's mother at the age of 55 from metastatic breast cancer. Review of Systems Comment: See HPI Patient Problems: Active and Suspected Problems (Last Updated 12/28/17 @ 09:46 by Nai Del Angel MD) Atrial fibrillation with RVR (Acute) Heart failure (Acute) Lung mass (Acute) Objective: CT of the chest was personally reviewed. Agree with formal interpretation. Patient does have what appears to be scar tissue versus round atelectasis in the right lower lobe. There are some areas of chronic interstitial thickening. Complete PFT (02/03/2015): Irreversible mild large airways obstructive ventilatory defect with a symmetric reduction diffusing capacity. (FVC 74%, FEV1 81%, TLC 87%, DLCO 52%) Echo (December 27, 2017): EF 40% with moderately enlarged atria. Pulmonary artery pressure estimated at 36 mmHg. There was a reduction in EF compared to previous study. - Physical Exam General: Alert, Oriented x3, Cooperative, No apparent distress, Well developed, Well nourished, - - Obese. Speaking in full sentences. HEENT: Atraumatic, PERRLA, EOMI, Normocephalic, - - No scleral icterus or injection noted. Oral: Moist Mucosa, No Gingival or Mucosal Lesions/ Ulcerations Neck: Supple, No JVD, No Nodes Lungs: No rhonchi, No wheeze, No rales, Diminished, - - No dullness to percussion. Symmetric expansion. Cardiovascular: Normal S1, Normal S2, No murmurs, Irregular Rate, No rub noted, No Gallop Abdomen: Bowel Sounds Present, Soft, Non Tender, Non-Distended, Obese Extremities: No clubbing, No cyanosis, Edema - Tariq bandages in place. 2+ lower extremity Skin: No rashes, No breakdown Musculoskeletal: No Tenderness to Palpation of Joints or Extremities Lymphatic: No Cervical, Supraclavicular, or Inguinal Adenopathy Neurological: Cranial nerves II-XII grossly intact, Neuro grossly intact, Motor Exam 5/5 strength throughout Psych/Mental Status: Alert and oriented to time, place, person, mood and affect Vital Signs Temp Pulse Resp BP Pulse Ox 37.2 C 77 18 94/50 L 95 12/29/17 03:30 12/29/17 06:57 12/29/17 03:30 12/29/17 03:30 12/29/17 07:22 Oxygen Flow Rate (L/min) 1 Oxygen Delivery Method Room Air Weight: 89 kg Body Mass Index (BMI) 33.2 Intake and Output for Last 24 Hours 12/27/17 12/28/17 12/29/17 23:59 23:59 22:59 Intake Total 1313 / 1313 270 / 270 Output Total 450 / 450 600 / 600 Balance 863 / 863 -330 / -330 Microbiology Past 72 Hours 12/27/17 22:50 Influenza Types A,B Direct FA (MIRIAN) - Final Mucosa - Nasopharyngeal Laboratory Tests Past 24 Hrs 12/29/17 12/29/17 05:22 05:22 WBC 5.8 RBC 3.73 L Hgb 10.8 L Hct 35.1 L MCV 94.1 MCH 29.0 MCHC 30.8 L RDW 16.9 H RDW Differential 55.6 H Plt Count 180 MPV 9.8 Immature Gran % (Auto) 0.500 Neut % (Auto) 62.6 Lymph % (Auto) 25.3 [place] % (Auto) 10.3 H Eos % (Auto) 1.0 Baso % (Auto) 0.3 Absolute Neuts (auto) 3.6 Absolute Lymphs (auto) 1.47 Total Counted Not Reportable Sodium 135 L Potassium 3.5 Chloride 95 L Carbon Dioxide 31.0 Anion Gap 9 BUN 27 H Creatinine 1.02 Estim Creat Clear Calc 38.92 Est GFR (MDRD) Af Amer 67 Est GFR (MDRD) Non-Af 55 L BUN/Creatinine Ratio 26.5 H Glucose 96 Calcium 8.6 Clinical Impression(s) from Imaging Studies Chest X-Ray 12/27/17 17:35 IMPRESSION: Mildly hypoinflated lungs. Slight perihilar vascular/interstitial prominence. Questionable right upper lobe infiltrate. Electronically Signed: Mitchell Jeffers DO at 18:08 EDT Tel , Service support , Chest CTA 12/27/17 18:15 IMPRESSION: 1. Negative for pulmonary embolism or thoracic aortic dissection 2. Pulmonary artery hypertension 3. Pulmonary edema suggesting early CHF. Right lower lobe consolidation and effusion 4. Spiculated nodule in the right middle lobe as above. Additional area of scarring or masslike consolidation in the anterior right upper lobe. Nonspecific right hilar soft tissue prominence. Malignancy cannot be excluded Electronically Signed: Mitchell Jeffers DO at 19:14 EDT Tel , Service support , Assessment/Plan All Active Problems (Last Updated 12/28/17 @ 09:46 by Nai Del Angel MD) Atrial fibrillation with RVR (Acute) Heart failure (Acute) Lung mass (Acute) RECOMMENDATIONS: 1. Okay to discharge from a pulmonary perspective 2. Follow-up in 4-6 weeks with nurse practitioner in our office for pulmonary function test and CT 3. Repeat CT chest at 3 months 4. Okay to discontinue antibiotics. No steroids indicated 5. Possible PET scan as an outpatient IMPRESSIONS: 1. Lung nodule Patient with a spiculated right middle lobe lung nodule. It is unclear if this represents a malignant process given patient's presentation of acute fluid overload with congestive heart failure. Patient does state that she would want to know if this were cancer and would be willing to undergo surgery or biopsy if necessary. Given its location, CT-guided biopsy would likely be indicated, but clinical suspicion for round atelectasis is significant. After review of the risks, benefits and alternatives, we will arrange for patient to follow-up in our office in 4-6 weeks. Patient can have complete pulmonary function test to ensure that she is still a resection candidate. Repeat CT scan can be completed at 3 months with possible PET scan if findings persist. 2. Acute combined CHF secondary to new onset A. fib with RVR Patient is being followed by cardiology. Patient's echocardiogram does show a reduction in EF compared to previous. Patient is tolerating anticoagulation well. Patient has responded to IV Lasix therapy. Patient is on medical management. Clinical suspicion for congestive heart failure leading to infiltrates noted on CT scan of the chest. Okay from my perspective to discontinue antibiotics as patient has not had any leukocytosis. Patient is not wheezing, so steroids are likely not indicated. 3. History of Hodgkin's lymphoma and breast cancer Patient does have a history of multiple cancers in the past. Patient presents with a new lung nodule. Patient is followed with oncology as an outpatient. See plan for lung nodule above. 4. Advanced age/hypertension/hypothyroidism/hyperlipidemia/gout/depression/obesity Complicates care, management, recovery and prognosis. Okay to continue baseline medications from my perspective. Code Visit Inpatient E&M: 82873 Init Hosp L2
--- NOTE | 2017-12-29 08:34 | PCM.PN.CARD ---
Subjectve: Doing better Objective: Vital Signs Temp Pulse Resp BP Pulse Ox 98.9 F 77 18 94/50 L 95 12/29/17 03:30 12/29/17 06:57 12/29/17 03:30 12/29/17 03:30 12/29/17 07:22 Oxygen Flow Rate (L/min) 1 Oxygen Delivery Method Room Air Weight: 196 lb 3.382 oz Body Mass Index (BMI) 33.2 Intake and Output for Last 24 Hours 12/27/17 12/28/17 12/29/17 23:59 23:59 22:59 Intake Total 1313 / 1313 270 / 270 Output Total 450 / 450 600 / 600 Balance 863 / 863 -330 / -330 General: Awake, Alert, Oriented x 3 HEENT: PERRL, EOMI, Sclera Non Icteric Neck: Supple, Good ROM, No Lymph Node Enlargement Lungs: Clear to auscultation Cardiovascular: Irregular Rhythm, Normal S1, Normal S2, No Murmurs, No Rubs, No Gallops Vascular: No Carotid Bruits, Normal Femoral Pulses, Normal Radial Pulses, Normal Dorsalis Pedal Pulse, Normal Posterior Tibial Pulses Abdomen: Bowel Sounds Present, Soft, Non Tender, No HSM, No Organomegaly Extremities: No Cyanosis, No Clubbing, No edema Skin: No Rashes Lymphatic: No Lymph Node Enlargement Neurological: No Focal Motor or Sensory Deficit Psych/Mental Status: Appropriate 12/29/17 05:22: WBC 5.8, RBC 3.73 L, Hgb 10.8 L, Hct 35.1 L, MCV 94.1, MCH 29.0, MCHC 30.8 L, RDW 16.9 H, RDW Differential 55.6 H, Plt Count 180, MPV 9.8, Immature Gran % (Auto) 0.500, Neut % (Auto) 62.6, Lymph % (Auto) 25.3, [place] % (Auto) 10.3 H, Eos % (Auto) 1.0, Baso % (Auto) 0.3, Absolute Neuts (auto) 3.6, Total Counted Not Reportable 12/29/17 05:22: Sodium 135 L, Potassium 3.5, Chloride 95 L, Carbon Dioxide 31.0, Anion Gap 9, BUN 27 H, Creatinine 1.02, Est GFR (MDRD) Af Amer 67, Est GFR (MDRD) Non-Af 55 L, BUN/Creatinine Ratio 26.5 H, Glucose 96, Calcium 8.6 Rhythm: EKG: ECHO: Stress Test: Cardiac Cath: PCI: CT Surgery: Holter monitor: EPS: PPM: CXR: Chest CT Scan: Medical Necessity - Tobacco Use Smoking Status: Current every day smoker Tobacco Use: Cigarettes Assessment/Plan 1. Congestive heart failure Patient presents with shortness of breath bilateral pitting edema elevated natruretic peptide level. The above together with the x-ray findings are consistent with congestive heart failure. The etiology is likely secondary to the atrial fibrillation. Recommendation would be to continue po diuresis Increase beta-linda for better rate control Continue MAITE inhibitor due to left ventricular systolic dysfunction After her rate has been better controlled she will be scheduled for a noninvasive test for ischemia. 2. Hypertension Her blood pressure appears to be under good control but would continue to optimize it. Continue MAITE inhibitor and beta-linda. 3. Atrial fibrillation She does have atrial fibrillation with a rapid ventricular response rate. My recommendation will be to increase her beta-linda to 50 mg twice a day She will continue with anticoagulation and we can discuss whether long-term she will continue with warfarin or a factor X inhibitor. This is due to possible interaction with the primidone. Thank you for allowing me to participate in the care of your patient. Please don't hesitate to call if any issues arise
--- NOTE | 2017-12-29 08:38 | PN.CARD_ITS ---
Subjectve: Doing better Objective: Vital Signs Temp Pulse Resp BP Pulse Ox 98.9 F 77 18 94/50 L 95 12/29/17 03:30 12/29/17 06:57 12/29/17 03:30 12/29/17 03:30 12/29/17 07:22 Oxygen Flow Rate (L/min) 1 Oxygen Delivery Method Room Air Weight: 196 lb 3.382 oz Body Mass Index (BMI) 33.2 Intake and Output for Last 24 Hours 12/27/17 12/28/17 12/29/17 23:59 23:59 22:59 Intake Total 1313 / 1313 270 / 270 Output Total 450 / 450 600 / 600 Balance 863 / 863 -330 / -330 General: Awake, Alert, Oriented x 3 HEENT: PERRL, EOMI, Sclera Non Icteric Neck: Supple, Good ROM, No Lymph Node Enlargement Lungs: Clear to auscultation Cardiovascular: Irregular Rhythm, Normal S1, Normal S2, No Murmurs, No Rubs, No Gallops Vascular: No Carotid Bruits, Normal Femoral Pulses, Normal Radial Pulses, Normal Dorsalis Pedal Pulse, Normal Posterior Tibial Pulses Abdomen: Bowel Sounds Present, Soft, Non Tender, No HSM, No Organomegaly Extremities: No Cyanosis, No Clubbing, No edema Skin: No Rashes Lymphatic: No Lymph Node Enlargement Neurological: No Focal Motor or Sensory Deficit Psych/Mental Status: Appropriate 12/29/17 05:22: WBC 5.8, RBC 3.73 L, Hgb 10.8 L, Hct 35.1 L, MCV 94.1, MCH 29.0, MCHC 30.8 L, RDW 16.9 H, RDW Differential 55.6 H, Plt Count 180, MPV 9.8, Immature Gran % (Auto) 0.500, Neut % (Auto) 62.6, Lymph % (Auto) 25.3, [place] % (Auto) 10.3 H, Eos % (Auto) 1.0, Baso % (Auto) 0.3, Absolute Neuts (auto) 3.6, Total Counted Not Reportable 12/29/17 05:22: Sodium 135 L, Potassium 3.5, Chloride 95 L, Carbon Dioxide 31.0, Anion Gap 9, BUN 27 H, Creatinine 1.02, Est GFR (MDRD) Af Amer 67, Est GFR (MDRD) Non-Af 55 L, BUN/Creatinine Ratio 26.5 H, Glucose 96, Calcium 8.6 Rhythm: EKG: ECHO: Stress Test: Cardiac Cath: PCI: CT Surgery: Holter monitor: EPS: PPM: CXR: Chest CT Scan: Medical Necessity - Tobacco Use Smoking Status: Current every day smoker Tobacco Use: Cigarettes Assessment/Plan 1. Congestive heart failure * Patient presents with shortness of breath bilateral pitting edema elevated natruretic peptide level. The above together with the x-ray findings are consistent with congestive heart failure. The etiology is likely secondary to the atrial fibrillation. * Recommendation would be to continue po diuresis * Increase beta-linda for better rate control * Continue MAITE inhibitor due to left ventricular systolic dysfunction * After her rate has been better controlled she will be scheduled for a noninvasive test for ischemia. * 2. Hypertension * Her blood pressure appears to be under good control but would continue to optimize it. * Continue MAITE inhibitor and beta-linda. * 3. Atrial fibrillation * She does have atrial fibrillation with a rapid ventricular response rate. My recommendation will be to increase her beta-linda to 50 mg twice a day * She will continue with anticoagulation and we can discuss whether long-term she will continue with warfarin or a factor X inhibitor. This is due to possible interaction with the primidone. * * Thank you for allowing me to participate in the care of your patient. Please don't hesitate to call if any issues arise
--- NOTE | 2017-12-29 08:59 | DCINST_ITS ---
- Discharge Diagnoses Current Active Problems: Current Active and Chronic Problems (Last Updated 12/28/17 @ 09:46 by Nai Del Angel MD) Atrial fibrillation with RVR (Acute) Heart failure (Acute) Lung mass (Acute) You will use the following diet at home:: Cardiac Your food should be the consistency of: Regular Discharge Activity: Return to Normal Activity Weight Bearing Status: Weight bearing as tolerated Call your doctor if you observe: Fever of 101 or Higher, Shortness of breath, Dizziness, Fainting spells, Swelling in the ankles, Chest pain, Increased palpitations (irregular heartbeat), Uncontrolled pain Instructions: Discharge Instructions for Heart Failure, Discharge Instructions for Atrial Fibrillation, Apixaban Oral tablet Allergies/Adverse Reactions: Allergies amoxicillin Adverse Reaction (Severe, Verified 12/27/17 17:18) Nausea/Vom/Diarrhea Penicillins [PCN] Adverse Reaction (Severe, Verified 12/27/17:18) Unknown CAN NOT FUNCTION tape Allergy (Severe, Uncoded 12/27/17 17:18) bruising Medications to take at Discharge Lisinopril/Hydrochlorothiazide [Zestoretic 20-12.5 mg Tablet] 1 tab PO DAILY 09/12/15 apremilast 30 mg tablet 30 mg PO BID 05/16/17 clobetasol 0.05 % shampoo 1 applic TOPICAL QDAY 05/16/17 primidone 50 mg tablet 150 mg PO BID tab 06/17/17 Allopurinol [Zyloprim] 300 mg PO DAILY 12/27/17 Cholecalciferol (Vitamin D3) [Vitamin D3] 400 unit PO TID 12/27/17 Duloxetine HCl 30 mg PO DAILY 12/27/17 Levothyroxine Sodium [Synthroid] 50 mcg PO DAILY 12/27/17 Pramipexole Di-HCl [Mirapex] 0.25 mg PO QHS 12/27/17 Pravastatin Sodium 40 mg PO QHS 12/27/17 Apixaban [Eliquis] 5 mg PO BID #90 tab 12/29/17 Furosemide [Lasix] 40 mg PO DAILY #30 tab 12/29/17 Metoprolol Tartrate [Lopressor (beta linda)] 50 mg PO BID #90 tab 12/29/17 The following prescriptions were given: Furosemide [Lasix] 40 mg PO DAILY #30 tab Apixaban [Eliquis] 5 mg PO BID #90 tab Metoprolol Tartrate [Lopressor (beta linda)] 50 mg PO BID #90 tab Primary Care Physician: Danie Sparks MD [Primary Care Provider] - Please follow up with your Primary Care Physician in: 1 week. Test Results: Test results from this visit will be discussed in further detail at your follow- up appointment, if applicable. Please Follow Up With: Yousif Santiago MD When: 2-4 weeks. Please Follow Up With: Blas Del Toro MD When: 4-6 weeks. Please Follow Up With: Chris Teixeira MD When: please call his office.
[2017-12-29 09:01] VITALS: BP 126/55; PULSE 99; RESP 16; TEMP 36.7; O2SAT 96
[2017-12-29] MEDS: Allopurinol 300 MG Tablet PO (09:01)
[2017-12-29] MEDS: Primidone 50 MG Tablet 150 MG PO (09:01)
[2017-12-29] MEDS: Lisinopril 20 MG Tablet PO (09:07)
[2017-12-29] MEDS: APIXABAN 5 MG TABLET PO (09:08)
[2017-12-29] MEDS: DULoxetine Hcl 30 MG Capsule PO (09:08)
[2017-12-29] MEDS: Furosemide 40 MG Tablet PO (09:08)
[2017-12-29 09:09] VITALS: PULSE 99
[2017-12-29] MEDS: Metoprolol Tartrate 50 MG Tablet PO (09:09)
--- NOTE | 2017-12-29 12:25 | PCM.DC.SUM ---
Discharge Date and Diagnosis Date of Admission: 12/27/17 Date of Discharge: 12/29/17 - Primary Discharge Diagnosis #1 new onset A. fib with RVR. #2 acute systolic CHF, secondary to acute A. fib with RVR. #3 right lung nodule. #4 pneumonia, ruled out. - Secondary Discharge Diagnosis Chronic Problems (Last Updated 12/28/17 @ 09:46 by Nai Del Angel MD) Tobacco abuse (Chronic) History of non-Hodgkin's lymphoma (Chronic) Hypertension (Chronic) Hypercholesteremia (Chronic) Obesity (Chronic) Breast cancer, left (Chronic) Hypothyroidism (Chronic) Pulmonary embolism (Chronic) Osteoarthritis (Chronic) Depression (Chronic) Hospital Course and Treatment Imaging Results: Clinical Impression(s) from Imaging Studies Chest X-Ray 12/27/17 17:35 IMPRESSION: Mildly hypoinflated lungs. Slight perihilar vascular/interstitial prominence. Questionable right upper lobe infiltrate. Electronically Signed: Mitchell Jeffers DO at 18:08 EDT Tel , Service support , Chest CTA 12/27/17 18:15 IMPRESSION: 1. Negative for pulmonary embolism or thoracic aortic dissection 2. Pulmonary artery hypertension 3. Pulmonary edema suggesting early CHF. Right lower lobe consolidation and effusion 4. Spiculated nodule in the right middle lobe as above. Additional area of scarring or masslike consolidation in the anterior right upper lobe. Nonspecific right hilar soft tissue prominence. Malignancy cannot be excluded Electronically Signed: Mitchell Jeffers DO at 19:14 EDT Tel , Service support , Dr. Santiago, cardiology. Dr. Del Toro, pulmonology. Dr. Teixeira, oncology. Procedures: 2-D Echocardiogram, EKG Summary of Care Provided: Patient seen and examined on the day of discharge and appeared to be stable to be discharged home. She has been off oxygen, no more shortness of breath. Her vital signs are stable. This is an 82 years old female patient was sent from her PCPs office for irregular heart rate and shortness of breath, found to have new onset A. fib with RVR, mild acute CHF and right lung nodule. #1 new onset A. fib with RVR: Treated with IV metoprolol and she returned back in sinus rhythm. With oral metoprolol, heart rate remained around 80s-90s, blood pressure was stable. 2D echocardiogram revealed ejection fraction of 40%, moderately enlarged right and left atrium, pulmonary artery pressure of 36. She was started on Eliquis for anticoagulation. Cardiology consulted and recommended medical therapy at this time, plan for noninvasive testing for cardiac ischemia as outpatient. Serum electrolytes and TSH were normal. Patient discharged home on metoprolol for rate control, on Eliquis for anticoagulation, plan for cardiac workup in 2-4 weeks for noninvasive cardiac testing. #2 acute systolic CHF,: Attributed to A. fib with RVR. Treated with IV Lasix as well as lisinopril and metoprolol. 2D echocardiogram reviewed as above. Initially, she required up to 2 L of oxygen and we were able to take her off oxygen and her pulse ox maintained on room air. She was discharged on Lasix 40 mg p.o. daily, discharged on metoprolol and lisinopril, plan to follow-up with cardiology as above. #3 right lung nodule: CTA chest revealed right middle lobe nodule measuring about 9 x 6 mm. Patient is a longtime smoker. Pulmonology consulted and recommended to repeat CT scan chest in 4-6 weeks, plan to follow-up with pulmonology as outpatient. #4 probable community-acquired pneumonia: Ruled out. Patient received 2 doses of oral Levaquin. #5 hypertension: Blood pressure stable, continued lisinopril and HCTZ, started on metoprolol. #6 hypothyroidism: TSH was normal, continued on levothyroxine. #7 hyperlipidemia: Continued on statins. Patient discharged home in a stable medical condition, discharged on Eliquis for anticoagulation, metoprolol for rate control for new onset A. fib with RVR, discharged on Lasix, lisinopril and metoprolol for CHF, plan to follow-up with cardiology in 2-4 weeks for noninvasive cardiac testing, follow-up with pulmonology in 4-[address] scan chest for right lower lung nodule, recommended follow-up with PCP in 1 week, follow-up with oncology according to Dr. Teixeira. This note was generated with trueAnthemation software. It may contain incorrect words, spelling, and punctuation that were not noted in checking the note before signing. - Physical Exam General: Alert, Cooperative, No apparent distress HEENT: Atraumatic, PERRLA, EOMI Oral: Moist Mucosa, No Gingival or Mucosal Lesions/ Ulcerations Neck: Supple, No JVD, Negative Carotid Bruits, Trachea Midline, Thyroid Normal Size and Texture Lungs: Clear to auscultation, Normal air movement, No rhonchi, No wheeze, No rales Cardiovascular: Regular rate, Regular Rhythm, Normal S1, Normal S2, PMI Normal Abdomen: Bowel Sounds Present, Soft, Non Tender, Non-Distended, No Hepato-splenomegaly, Obese Extremities: No clubbing, No cyanosis, Edema - Trace edema. Skin: No rashes, No breakdown Lymphatic: No Cervical, Supraclavicular, or Inguinal Adenopathy Neurological: Cranial nerves II-XII grossly intact, Neuro grossly intact Psych/Mental Status: Normal Affect, Appropriate Vital Signs Temp Pulse Resp BP Pulse Ox 98.1 F 99 16 126/55 H 96 12/29/17 09:01 12/29/17 09:09 12/29/17 09:01 12/29/17 09:01 12/29/17 09:01 Oxygen Flow Rate (L/min) 1 Oxygen Delivery Method Room Air Weight: 196 lb 3.382 oz Body Mass Index (BMI) 33.2 Intake and Output for Last 24 Hours 12/27/17 12/28/17 12/29/17 23:59 23:59 22:59 Intake Total 1313 / 1313 270 / 270 Output Total 450 / 450 600 / 600 Balance 863 / 863 -330 / -330 Microbiology Past 72 Hours 12/27/17 22:50 Influenza Types A,B Direct FA (MIRIAN) - Final Mucosa - Nasopharyngeal Laboratory Tests Past 24 Hrs 12/29/17 12/29/17 05:22 05:22 WBC 5.8 RBC 3.73 L Hgb 10.8 L Hct 35.1 L MCV 94.1 MCH 29.0 MCHC 30.8 L RDW 16.9 H RDW Differential 55.6 H Plt Count 180 MPV 9.8 Immature Gran % (Auto) 0.500 Neut % (Auto) 62.6 Lymph % (Auto) 25.3 [place] % (Auto) 10.3 H Eos % (Auto) 1.0 Baso % (Auto) 0.3 Absolute Neuts (auto) 3.6 Absolute Lymphs (auto) 1.47 Total Counted Not Reportable Sodium 135 L Potassium 3.5 Chloride 95 L Carbon Dioxide 31.0 Anion Gap 9 BUN 27 H Creatinine 1.02 Estim Creat Clear Calc 38.92 Est GFR (MDRD) Af Amer 67 Est GFR (MDRD) Non-Af 55 L BUN/Creatinine Ratio 26.5 H Glucose 96 Calcium 8.6 Discharge Activity: Return to Normal Activity Weight Bearing Status: Weight bearing as tolerated Call your doctor if you observe: Fever of 101 or Higher, Shortness of breath, Dizziness, Fainting spells, Swelling in the ankles, Chest pain, Increased palpitations (irregular heartbeat), Uncontrolled pain Home Medications: Medications to take at Discharge Lisinopril/Hydrochlorothiazide [Zestoretic 20-12.5 mg Tablet] 1 tab PO DAILY 09/12/15 apremilast 30 mg tablet 30 mg PO BID 05/16/17 clobetasol 0.05 % shampoo 1 applic TOPICAL QDAY 05/16/17 primidone 50 mg tablet 150 mg PO BID tab 06/17/17 Allopurinol [Zyloprim] 300 mg PO DAILY 12/27/17 Cholecalciferol (Vitamin D3) [Vitamin D3] 400 unit PO TID 12/27/17 Duloxetine HCl 30 mg PO DAILY 12/27/17 Levothyroxine Sodium [Synthroid] 50 mcg PO DAILY 12/27/17 Pramipexole Di-HCl [Mirapex] 0.25 mg PO QHS 12/27/17 Pravastatin Sodium 40 mg PO QHS 12/27/17 Apixaban [Eliquis] 5 mg PO BID #90 tab 12/29/17 Furosemide [Lasix] 40 mg PO DAILY #30 tab 12/29/17 Metoprolol Tartrate [Lopressor (beta linda)] 50 mg PO BID #90 tab 12/29/17 Following Prescrptions Were Given to Patient: Furosemide [Lasix] 40 mg PO DAILY #30 tab Apixaban [Eliquis] 5 mg PO BID #90 tab Metoprolol Tartrate [Lopressor (beta linda)] 50 mg PO BID #90 tab Primary Care Physician: Danie Sparks MD [Primary Care Provider] - Please follow up with your Primary Care Physician in: 1 week. Please Follow Up With: Yousif Santiago MD When: 2-4 weeks. Please Follow Up With: Blas Del Toro MD When: 4-6 weeks. Please Follow Up With: Chris Teixeira MD When: please call his office. Patient Instructions: Apixaban Oral tablet, Discharge Instructions for Atrial Fibrillation, Discharge Instructions for Heart Failure Medical Necessity - Tobacco Use Smoking Status: Current every day smoker Tobacco Use: Cigarettes Meaningful Use Info Meaningful Use Diagnoses (Choose all that apply): CHF - CHF MAITE/ARB ordered at discharge?: Yes Documented LVEF (%): 40 Code Visit Inpatient E&M: 71296 Disch Hosp
--- NOTE | 2017-12-29 12:32 | DS.PCM_ITS ---
Discharge Date and Diagnosis Date of Admission: 12/27/17 Date of Discharge: 12/29/17 - Primary Discharge Diagnosis #1 new onset A. fib with RVR. #2 acute systolic CHF, secondary to acute A. fib with RVR. #3 right lung nodule. #4 pneumonia, ruled out. - Secondary Discharge Diagnosis Chronic Problems (Last Updated 12/28/17 @ 09:46 by Nai Del Angel MD) Tobacco abuse (Chronic) History of non-Hodgkin's lymphoma (Chronic) Hypertension (Chronic) Hypercholesteremia (Chronic) Obesity (Chronic) Breast cancer, left (Chronic) Hypothyroidism (Chronic) Pulmonary embolism (Chronic) Osteoarthritis (Chronic) Depression (Chronic) Hospital Course and Treatment Imaging Results: Clinical Impression(s) from Imaging Studies Chest X-Ray 12/27/17 17:35 IMPRESSION: Mildly hypoinflated lungs. Slight perihilar vascular/interstitial prominence. Questionable right upper lobe infiltrate. Electronically Signed: Mitchell Jeffers DO at 18:08 EDT Tel , Service support , Chest CTA 12/27/17 18:15 IMPRESSION: 1. Negative for pulmonary embolism or thoracic aortic dissection 2. Pulmonary artery hypertension 3. Pulmonary edema suggesting early CHF. Right lower lobe consolidation and effusion 4. Spiculated nodule in the right middle lobe as above. Additional area of scarring or masslike consolidation in the anterior right upper lobe. Nonspecific right hilar soft tissue prominence. Malignancy cannot be excluded Electronically Signed: Mitchell Jeffers DO at 19:14 EDT Tel , Service support , Dr. Santiago, cardiology. Dr. Del Toro, pulmonology. Dr. Teixeira, oncology. Procedures: 2-D Echocardiogram, EKG Summary of Care Provided: Patient seen and examined on the day of discharge and appeared to be stable to be discharged home. She has been off oxygen, no more shortness of breath. Her vital signs are stable. This is an 82 years old female patient was sent from her PCPs office for irregular heart rate and shortness of breath, found to have new onset A. fib with RVR, mild acute CHF and right lung nodule. #1 new onset A. fib with RVR: Treated with IV metoprolol and she returned back in sinus rhythm. With oral metoprolol, heart rate remained around 80s-90s, blood pressure was stable. 2D echocardiogram revealed ejection fraction of 40%, moderately enlarged right and left atrium, pulmonary artery pressure of 36. She was started on Eliquis for anticoagulation. Cardiology consulted and mariana mmended medical therapy at this time, plan for noninvasive testing for cardiac ischemia as outpatient. Serum electrolytes and TSH were normal. Patient discharged home on metoprolol for rate control, on Eliquis for anticoagulation, plan for cardiac workup in 2-4 weeks for noninvasive cardiac testing. #2 acute systolic CHF,: Attributed to A. fib with RVR. Treated with IV Lasix as well as lisinopril and metoprolol. 2D echocardiogram reviewed as above. Initially, she required up to 2 L of oxygen and we were able to take her off oxygen and her pulse ox maintained on room air. She was discharged on Lasix 40 mg p.o. daily, discharged on metoprolol and lisinopril, plan to follow-up with cardiology as above. #3 right lung nodule: CTA chest revealed right middle lobe nodule measuring about 9 x 6 mm. Patient is a longtime smoker. Pulmonology consulted and recommended to repeat CT scan chest in 4-6 weeks, plan to follow-up with pulmonology as outpatient. #4 probable community-acquired pneumonia: Ruled out. Patient received 2 doses of oral Levaquin. #5 hypertension: Blood pressure stable, continued lisinopril and HCTZ, started on metoprolol. #6 hypothyroidism: TSH was normal, continued on levothyroxine. #7 hyperlipidemia: Continued on statins. Patient discharged home in a stable medical condition, discharged on Eliquis for anticoagulation, metoprolol for rate control for new onset A. fib with RVR, discharged on Lasix, lisinopril and metoprolol for CHF, plan to follow-up with cardiology in 2-4 weeks for noninvasive cardiac testing, follow-up with pulmonology in 4-[address] scan chest for right lower lung nodule, recommended follow-up with PCP in 1 week, follow-up with oncology according to Dr. Teixeira. This note was generated with E96ation software. It may contain incorrect words, spelling, and punctuation that were not noted in checking the note before signing. - Physical Exam General: Alert, Cooperative, No apparent distress HEENT: Atraumatic, PERRLA, EOMI Oral: Moist Mucosa, No Gingival or Mucosal Lesions/ Ulcerations Neck: Supple, No JVD, Negative Carotid Bruits, Trachea Midline, Thyroid Normal Size and Texture Lungs: Clear to auscultation, Normal air movement, No rhonchi, No wheeze, No rales Cardiovascular: Regular rate, Regular Rhythm, Normal S1, Normal S2, PMI Normal Abdomen: Bowel Sounds Present, Soft, Non Tender, Non-Distended, No Hepato- splenomegaly, Obese Extremities: No clubbing, No cyanosis, Edema - Trace edema. Skin: No rashes, No breakdown Lymphatic: No Cervical, Supraclavicular, or Inguinal Adenopathy Neurological: Cranial nerves II-XII grossly intact, Neuro grossly intact Psych/Mental Status: Normal Affect, Appropriate Vital Signs Temp Pulse Resp BP Pulse Ox 98.1 F 99 16 126/55 H 96 12/29/17 09:01 12/29/17 09:09 12/29/17 09:01 12/29/17 09:01 12/29/17 09:01 Oxygen Flow Rate (L/min) 1 Oxygen Delivery Method Room Air Weight: 196 lb 3.382 oz Body Mass Index (BMI) 33.2 Intake and Output for Last 24 Hours 12/27/17 12/28/17 12/29/17 23:59 23:59 22:59 Intake Total 1313 / 1313 270 / 270 Output Total 450 / 450 600 / 600 Balance 863 / 863 -330 / -330 Microbiology Past 72 Hours 12/27/17 22:50 Influenza Types A,B Direct FA (MIRIAN) - Final Mucosa - Nasopharyngeal Laboratory Tests Past 24 Hrs 12/29/17 12/29/17 05:22 05:22 WBC 5.8 RBC 3.73 L Hgb 10.8 L Hct 35.1 L MCV 94.1 MCH 29.0 MCHC 30.8 L RDW 16.9 H RDW Differential 55.6 H Plt Count 180 MPV 9.8 Immature Gran % (Auto) 0.500 Neut % (Auto) 62.6 Lymph % (Auto) 25.3 [place] % (Auto) 10.3 H Eos % (Auto) 1.0 Baso % (Auto) 0.3 Absolute Neuts (auto) 3.6 Absolute Lymphs (auto) 1.47 Total Counted Not Reportable Sodium 135 L Potassium 3.5 Chloride 95 L Carbon Dioxide 31.0 Anion Gap 9 BUN 27 H Creatinine 1.02 Estim Creat Clear Calc 38.92 Est GFR (MDRD) Af Amer 67 Est GFR (MDRD) Non-Af 55 L BUN/Creatinine Ratio 26.5 H Glucose 96 Calcium 8.6 Discharge Activity: Return to Normal Activity Weight Bearing Status: Weight bearing as tolerated Call your doctor if you observe: Fever of 101 or Higher, Shortness of breath, Dizziness, Fainting spells, Swelling in the ankles, Chest pain, Increased palpitations (irregular heartbeat), Uncontrolled pain Home Medications: Medications to take at Discharge Lisinopril/Hydrochlorothiazide [Zestoretic 20-12.5 mg Tablet] 1 tab PO DAILY 09/12/15 apremilast 30 mg tablet 30 mg PO BID 05/16/17 clobetasol 0.05 % shampoo 1 applic TOPICAL QDAY 05/16/17 primidone 50 mg tablet 150 mg PO BID tab 06/17/17 Allopurinol [Zyloprim] 300 mg PO DAILY 12/27/17 Cholecalciferol (Vitamin D3) [Vitamin D3] 400 unit PO TID 12/27/17 Duloxetine HCl 30 mg PO DAILY 12/27/17 Levothyroxine Sodium [Synthroid] 50 mcg PO DAILY 12/27/17 Pramipexole Di-HCl [Mirapex] 0.25 mg PO QHS 12/27/17 Pravastatin Sodium 40 mg PO QHS 12/27/17 Apixaban [Eliquis] 5 mg PO BID #90 tab 12/29/17 Furosemide [Lasix] 40 mg PO DAILY #30 tab 12/29/17 Metoprolol Tartrate [Lopressor (beta linda)] 50 mg PO BID #90 tab 12/29/17 Following Prescrptions Were Given to Patient: Furosemide [Lasix] 40 mg PO DAILY #30 tab Apixaban [Eliquis] 5 mg PO BID #90 tab Metoprolol Tartrate [Lopressor (beta linda)] 50 mg PO BID #90 tab Primary Care Physician: Danie Sparks MD [Primary Care Provider] - Please follow up with your Primary Care Physician in: 1 week. Please Follow Up With: Yousif Santiago MD When: 2-4 weeks. Please Follow Up With: Blas Del Toro MD When: 4-6 weeks. Please Follow Up With: Chris Teixeira MD When: please call his office. Patient Instructions: Apixaban Oral tablet, Discharge Instructions for Atrial Fibrillation, Discharge Instructions for Heart Failure Medical Necessity - Tobacco Use Smoking Status: Current every day smoker Tobacco Use: Cigarettes Meaningful Use Info Meaningful Use Diagnoses (Choose all that apply): CHF - CHF MAITE/ARB ordered at discharge?: Yes Documented LVEF (%): 40 Code Visit Inpatient E&M: 62046 Disch Hosp
--- NOTE | 2017-12-30 13:34 | CASEMGMT ---
RN CM DC PHONE CALL DISCHARGE DATE: 08/28/17 DISCHARGE DISPOSITION: Home LACE/STRATA: 11/27 No answer. Message left introducing role of CM and purpose of call. Call back information given. Latesha LOW RN AC
== END 2017-12-29 10:07 | disposition home or self-care (01) | DRG 308 ==
LOC: ED 20:43 → PCU 20:54
PROVIDERS: Admitting Provider Hospitalist; Emergency Provider Emergency Medicine; Family Provider Internal Medicine; PCP Internal Medicine; Visit Provider Hospitalist
DX: I48.91 Unspecified atrial fibrillation (principal); I50.21 Acute systolic (congestive) heart failure; I11.0 Hypertensive heart disease with heart failure; R91.1 Solitary pulmonary nodule; E03.9 Hypothyroidism, unspecified; M19.90 Unspecified osteoarthritis, unspecified site; F17.210 Nicotine dependence, cigarettes, uncomplicated; L40.9 Psoriasis, unspecified; M10.9 Gout, unspecified; Z85.72 Personal history of non-Hodgkin lymphomas; F32.9 Major depressive disorder, single episode, unspecified; Z90.10 Acquired absence of unspecified breast and nipple; E66.9 Obesity, unspecified; Z85.3 Personal history of malignant neoplasm of breast; Z68.33 Body mass index [BMI] 33.0-33.9, adult; E78.00 Pure hypercholesterolemia, unspecified
CPT/HCPCS: 36415; 71045; 71275; 80048; 80053; 81001; 83605; 83690; 83735; 83880; 84443; 84484; 85025; 85610; 85730; 87040; 87804; 93005; 93306; 99283; J7050; Q9957; Q9967; A4216; J1940

== ENCOUNTER 2018-01-07 12:01 | Emergency (ER) | payer MEDICARE, BC, SELFPAY ==
[2018-01-07] VITALS (7 sets, daily range): BP systolic 105–165; BP diastolic 57–100; PULSE 72–128; RESP 16–23; TEMP 36.4; O2SAT 93–97; BMI 31.1
--- NOTE | 2018-01-07 12:30 | RAD_ITS ---
STUDY: X-RAY CHEST REASON FOR EXAM: Female, 82 years old. Shortness of breath. Fluid retention. TECHNIQUE: Single AP portable view of the chest. COMPARISON: Comparison is made with prior study dated December 27, 2017. FINDINGS: EKG electrodes are seen Increased vascular markings and central vascular congestion in keeping with CHF. Scattered calcified granulomas. There is no demonstrated pleural abnormality. Normal size heart. Normal mediastinum and tobias. Normal visualized pulmonary arteries. There is atherosclerotic tortuosity of the aortic arch and descending thoracic aorta. Normal visualized thoracic spine. Normal visualized ribs, clavicles, and shoulders. There is no demonstrated abnormality of the visualized soft tissue structures of the upper abdomen. RAD/Chest 1 View (Portable) IMPRESSION: Mild cardiomegaly. Findings in keeping with a mild degree of CHF. Electronically Signed: Igor Rajan MD at 13:50 EST Tel [phone], Service support ,
--- NOTE | 2018-01-07 12:30 | EKG12_ITS ---
Test Reason : Blood Pressure : / mmHG Vent. Rate : 133 BPM Atrial Rate : 141 BPM P-R Int : 000 ms QRS Dur : 090 ms QT Int : 326 ms P-R-T Axes : 000 -54 014 degrees QTc Int : 485 ms Atrial fibrillation with rapid ventricular response Left axis deviation Inferior infarct ,age undetermined Anterior infarct , age undetermined Abnormal ECG Confirmed by MERCED BARDALES, LILIANE ([id number]), senior editor BERRY DEL ROSARIO ([id number]) on 01/10/2018 2:41:45 PM Referred By: Danie Sparks Confirmed By:LILIANE BLACKWOOD MD
[2018-01-07] MEDS: Metoprolol Tartrate 5 MG/5 ML Vial IV ×2 (12:39→14:19)
[2018-01-07] MEDS: Aspirin 81 MG TAB.CHEW 324 MG PO (12:40)
[2018-01-07 12:59] LABS: Absolute Lymphocyte Count 1.75 X10^3/ul (0.83-4.51); Absolute Neutrophil Count 5.8 X10^3/uL (2.0-7.7); Basophil# 0.03 X10^3/uL; Basophil% 0.4 % (0-1); Eosinophil# 0.04 X10^3/uL; Eosinophils% 0.5 % (0-5); Hematocrit 36.7 % (37-47); Hemoglobin 11.1 g/dl (12.0-15.0); Lymphocyte # 1.75 X10^3/ul (4.0); Lymphocyte % 21.3 % (19-41); Mean Corp Hgb Conc 30.2 g/gl (32-36); Mean Corpuscular Hgb 28.7 pg (27.0-32.0); Mean Corpuscular Volume 94.8 fL (81-99); Monocyte% 7.3 % (0-10); Neutrophil # 5.78 X10^3/uL (2.7-7.7); Neutrophil % 70.3 % (47-70); Platelet Count 249 K/mm3 (150-450); RBC Distribution Width SD 58.8 fl (35.1-43.9); Red Blood Count 3.87 M/mm3 (4.2-5.4); White Blood Count 8.2 K/mm3 (4.4-11.0)
[2018-01-07 13:00] LABS: POSITIVE COUNT NO; POSITIVE DIFFERENTIAL NO; POSITIVE MORPHOLOGY NO
[2018-01-07 13:18] LABS: Anion Gap 7 (5-15); BUN 27 mg/dL (7-18); BUN/Creat Ratio 30.5 RATIO (10-20); Calcium,Total 8.8 mg/dL (8.5-10.1); Chloride 98 mmol/L (98-107); Creatinine, Serum 0.88 mg/dL (0.55-1.02); EST Glomerular Filtration Rate 65 mL/min (>60); Est Glom Filt Rate - Afr Amer 79 mL/min (>60); Estimated Creatinine Clearance 45.12 ml/min; Glucose 99 mg/dL (74-106); Potassium 3.4 mmol/L (3.5-5.1); Sodium Level 136 mmol/L (136-145)
--- NOTE | 2018-01-07 13:43 | ED.DCSUM_ITS ---
- ER Visit Summary Date of Service: 01/07/18 Chief Complaint: Shortness of breath History of Present Illness: The patient is a [address] Santiago and Dr. Sparks. She reports that she had new onset of atrial fibrillation earlier this month. She was discharged from the hospital December 29. She reports is been short of breath since December 30. She states that she cannot since palpitations. She reports that her shortness of breath is moderate when she walks around. It is unchanged with laying flat. She reports she has a light cough that is productive yellow sputum without blood. No fever or chills. She denies any chest pain. Physical Examination: Vitals: 97.5, 165/92, 128, 16, 95% on room air which is not hypoxic. General: Well-nourished and well-developed. Head: Normocephalic atraumatic. Neck: Supple, no lymphadenopathy. No JVD. Nontender. Cardiovascular: Tachycardic irregular rhythm with a 2 out of 6 systolic murmur. Respiratory: No respiratory distress. Clear to auscultation bilaterally. No crackles. Abdominal: Soft, nontender, nondistended, normal bowel sounds. No guarding, rebound, or peritoneal signs. Back: Nontender. Extremities: Nontender, 1+ edema of the lower extremities bilaterally. Skin: Normal color, no rash. Neurologic: Alert and oriented ?3. Cranial nerves II through XII are intact. Normal strength and sensation. Psych: Normal affect. Test Results: EKG is A. fib at 133 and is unchanged from December 28. Troponin is negative. Chem-7 is more for BUN of 27. CBC is more for an H&H 10.8 and 35.1. Chest x-ray shows cardiomegaly and mild CHF. Emergency Department Course and Treatment: Patient was given Lopressor IV, aspirin p.o., and Lasix IV. She feels much improved and is resting comfortably. Her heart rate has decreased into the 80s. Treatment Plan: Patient was discussed with Dr. Santiago. She has had a full evaluation for this this month already. [place] that admission to the hospital would only result in changing her medications. Patient would like to go home. She will have her metoprolol increased to 75 mg twice a day. Instructed follow- up Dr. Santiago this month as previously scheduled. Return to the emergency department for any worsening symptoms. Disposition: To home in improved and stable condition. Impression: 1. Atrial fibrillation with RVR. 2. Coagulopathy on Eliquis. 3. Mild CHF. This note was generated with femenin[employer] dictation software. It may contain incorrect words, spelling, and punctuation that were not noted in review of the chart prior to signing ED Disposition - Plan for ED Patient: Disposition: Home or Assisted Living Chief Complaint: Shortness of Breath Instructions: ED Afib Prescriptions: Metoprolol Tartrate 75 mg PO BID #60 tablet Referrals: Yousif Santiago MD [STAFF PHYSICIAN] - Keep Rene appointment Additional Instructions: Increase your metoprolol to 75 mg twice a day. If you check and your heart rate is more than 110 take another 25 mg of metoprolol.
[2018-01-07] MEDS: Furosemide 40 MG/4 ML Vial IV (14:19)
[2018-01-07] MEDS: Metoprolol Tartrate 25 MG Tablet PO (14:19)
== END 2018-01-07 15:42 | disposition home or self-care (01) ==
LOC: ED 12:44
PROVIDERS: Emergency Provider Emergency Medicine; Family Provider Internal Medicine; PCP Internal Medicine
DX: I48.91 Unspecified atrial fibrillation (principal); R79.1 Abnormal coagulation profile; Z79.01 Long term (current) use of anticoagulants; I11.0 Hypertensive heart disease with heart failure; I50.9 Heart failure, unspecified; R01.1 Cardiac murmur, unspecified; E78.00 Pure hypercholesterolemia, unspecified; E03.9 Hypothyroidism, unspecified; F32.9 Major depressive disorder, single episode, unspecified; M19.90 Unspecified osteoarthritis, unspecified site; M10.9 Gout, unspecified; L40.9 Psoriasis, unspecified; Z85.72 Personal history of non-Hodgkin lymphomas; Z86.711 Personal history of pulmonary embolism; Z79.899 Other long term (current) drug therapy; Z87.891 Personal history of nicotine dependence
CPT/HCPCS: 71045; 80048; 84484; 85025; 93005; 96374; 96375; 99285; J7030; A4216; J1940

== ENCOUNTER → 2018-01-29 10:24 | Outpatient (CLI) | payer MEDICARE, BC, SELFPAY ==
[2018-01-28 14:26] VITALS: BMI 33.3
== END ==
PROVIDERS: Family Provider Internal Medicine; PCP Internal Medicine; Referring Provider Nurse Practitioner Family; Visit Provider Nurse Practitioner Family
DX: L97.922 Non-pressure chronic ulcer of unspecified part of left lower leg with fat layer exposed (principal)
CPT/HCPCS: 87070; 87077; 87186; 87205

== ENCOUNTER → 2018-02-10 12:49 | Outpatient (CLI) | payer MEDICARE, BC, SELFPAY ==
[2018-02-04 10:21] VITALS: BMI 33.3
== END ==
PROVIDERS: Family Provider Internal Medicine; PCP Internal Medicine; Referring Provider Internal Medicine Cardiovascular Disease; Visit Provider Internal Medicine Cardiovascular Disease
DX: I50.42 Chronic combined systolic (congestive) and diastolic (congestive) heart failure (principal); I27.21 Secondary pulmonary arterial hypertension; I48.92 Unspecified atrial flutter; I43 Cardiomyopathy in diseases classified elsewhere; I36.1 Nonrheumatic tricuspid (valve) insufficiency
CPT/HCPCS: 93225; 93226

== ENCOUNTER → 2018-03-19 14:44 | Outpatient (CLI) | payer MEDICARE, BC, SELFPAY ==
[2018-03-11 14:58] VITALS: BMI 33.3
--- NOTE | 2018-03-19 14:47 | CT_ITS ---
STUDY: CT CHEST WITH CONTRAST REASON FOR EXAM: Female, 82 years old. Lung nodule. History of breast cancer with left mastectomy. History of pleural effusion and pericardial effusion. RADIATION DOSAGE (If Supplied By Facility): CTDIvol = ( 17.4 ) mGy, DLP = ( 484.78 ) mGycm TECHNIQUE: Transaxial imaging was performed following intravenous administration of 100 ml of Isovue 300 contrast material. Multiplanar coronal and sagittal images were reformatted. Individualized dose optimization techniques were used for this CT. COMPARISON: CTA of the chest, December 27, 2017. CT of the chest, November 16, 2013. FINDINGS: The lungs are well expanded. There is no enlarging area of consolidation along the medial aspect of the right upper lobe with associated volume loss. There is a 6 mm calcified granuloma along the horizontal fissure adjacent to the above area of collapse. This appears stable. There is a 6 mm nodular density in the right middle lobe seen on image 39 of series 4 which appears unchanged from the previous study. The small area of consolidation in the medial aspect of the right middle lobe which appears to have increased in size when compared to the previous examination. This is best seen on image 67 of series 4. No spiculated right middle lobe mass is seen to correlate with the previous examination.. There is a right pleural effusion with atelectasis which appears increased when compared to the previous examination. Vague groundglass infiltrates are again seen throughout both lungs most marked in the lower lobes. The heart is enlarged. There is minimal pericardial thickening versus minimal pericardial fluid.. There are calcifications of the coronary arteries. There are fatty centered paratracheal lymph nodes one containing calcifications which appear stable. Minimal AP window lymphadenopathy is also again noted. Normal hilar regions. Normal enhanced pulmonary arteries. There is atherosclerotic calcification of the aortic arch with tortuosity and elongation of the aortic arch and descending thoracic aorta. There is an increased kyphosis of the thoracic spine. There is evidence of left mastectomy. There is a stable calcification in the left thyroid. Calcified granulomata are again seen within the spleen. There is no change in abdominal findings when compared to the prior study. Small retrocrural lymph nodes are again noted on the right. CT/Chest WITH Contrast IMPRESSION: 1. Enlarging areas of consolidation/mass in the medial right upper lobe and right middle lobe when compared to the prior study. 2. Stable nodular density in the right upper lobe. No spiculated mass is seen in the right middle lobe as described on the prior study. 3. Enlarging right pleural effusion. 4. Vague stable groundglass infiltrates throughout both lungs. 5. Stable cardiomegaly. Stable mediastinal lymphadenopathy. 6. No other interval change. Electronically Signed: Eddie Sanderson DO at 16:48 EST Tel [phone], Service support ,
--- OUTSIDE RECORDS SUMMARY | 2018-05-21 15:40 | XMS RPT_ITS ---
:1935 Author Organization OHIP Support Name Relationship Address Phone R Unavailable Unavailable Unavailable SEGUNDO, MANSANETTE Unavailable [address] + [place] [address] R Unavailable Unavailable Unavailable SEGUNDO, MANSANETTE Unavailable A[address] + [place] [address] R Unavailable Unavailable Unavailable SEGUNDO, MANSANETTE Unavailable [address] + [place] [address] R Unavailable Unavailable Unavailable SEGUNDO, MANSANETTE Unavailable [address] + [place] [address] R Unavailable Unavailable Unavailable SEGUNDO, MANSANETTE Unavailable [address] + [place] [address] R Unavailable Unavailable Unavailable SEGUNDO, MANSANETTE Unavailable [address] + [place] [address] R Unavailable Unavailable Unavailable SEGUNDO, MANSANETTE Unavailable [address] + [place] [address] R Unavailable Unavailable Unavailable SEGUNDO, MANSANETTE Unavailable [address] + [place] [address] R Unavailable Unavailable Unavailable SEGUNDO, MANSANETTE Unavailable [address] + [place] [address] R Unavailable Unavailable Unavailable SEGUNDO, MANSANETTE Unavailable [address] + [place] [address] R Unavailable Unavailable Unavailable SEGUNDO, MANSANETTE Unavailable [address] + [place] [address] R Unavailable Unavailable Unavailable SEGUNDO, MANSANETTE Unavailable [address] + [place] [address] R Unavailable Unavailable Unavailable SEGUNDO, MANSANETTE Unavailable [address] + [place] [address] R Unavailable Unavailable Unavailable SEGUNDO, MANSANETTE Unavailable [address] + [place] [address] R Unavailable Unavailable Unavailable SEGUNDO, MANSANETTE Unavailable [address] + [place] [address] R Unavailable Unavailable Unavailable SEGUNDO, MANSANETTE Unavailable [address] + [place] [address] R Unavailable Unavailable Unavailable SEGUNDO, MANSANETTE Unavailable [address] + [place] [address] R Unavailable Unavailable Unavailable SEGUNDO, MANSANETTE Unavailable [address] + [place] [address] R Unavailable Unavailable Unavailable SEGUNDO, MANSANETTE Unavailable [address] + [place] [address] R Unavailable Unavailable Unavailable SEGUNDO, MANSANETTE Unavailable [address] + [place] [address] R Unavailable Unavailable Unavailable SEGUNDO, MANSANETTE Unavailable [address] + [place] [address] R Unavailable Unavailable Unavailable SEGUNDO, MANSANETTE Unavailable [address] + [place] [address] R Unavailable Unavailable Unavailable SEGUNDO, MANSANETTE Unavailable [address] + [place] [address] R Unavailable Unavailable Unavailable SEGUNDO, MANSANETTE Unavailable [address] + [place] [address] R Unavailable Unavailable Unavailable SEGUNDO, MANSANETTE Unavailable [address] + [place] [address] R Unavailable Unavailable Unavailable SEGUNDO, MANSANETTE Unavailable [address] + [place] [address] [place] [address] R Unavailable Unavailable Unavailable SEGUNDO, MANSANETTE Unavailable [address] + [place] [address] R Unavailable Unavailable Unavailable SEGUNDO, MANSANETTE Unavailable [address] + [place] [address] R Unavailable Unavailable Unavailable SEGUNDO, MANSANETTE Unavailable [address] + [place] [address] R Unavailable Unavailable Unavailable SEGUNDO, MANSANETTE Unavailable [address] + [place] [address] R Unavailable Unavailable Unavailable SEGUNDO, MANSANETTE Unavailable [address] + [place] [address] R Unavailable Unavailable Unavailable SEGUNDO, MANSANETTE Unavailable [address] + [place] [address] R Unavailable Unavailable Unavailable SEGUNDO, MANSANETTE Unavailable [address] + [place] [address] R Unavailable Unavailable Unavailable SEGUNDO, MANSANETTE Unavailable [address] + [place] [address] R Unavailable Unavailable Unavailable SEGUNDO, MANSANETTE Unavailable [address] + [place] [address] R Unavailable Unavailable Unavailable SEGUNDO, MANSANETTE Unavailable [address] + [place] [address] R Unavailable Unavailable Unavailable SEGUNDO, MANSANETTE Unavailable [address] + [place] [address] R Unavailable Unavailable Unavailable SEGUNDO, MANSANETTE Unavailable [address] + [place] [address] R Unavailable Unavailable Unavailable SEGUNDO, MANSANETTE Unavailable [address] + [place] [address] Care Team Providers Name Role Phone GERARDO MELENDEZ Referring Unavailable GERARDO MELENDEZ Referring Unavailable GERARDO MELENDEZ Referring Unavailable AMARI WRIGHT ([facility]) Attending Unavailable AMARI WRIGHT ([facility]) Referring Unavailable AMARI WRIGHT (NITRIC ACID CONCENTRATOR OPERATOR) Attending Unavailable AMARI WRIGHT (NITRIC ACID CONCENTRATOR OPERATOR) Referring Unavailable GANTA, GERARDO Referring Unavailable Bubba De Leon EMERGENCY DEPT TECH-C Attending Unavailable Oleghe, Efewongbe Referring Unavailable Jack, Yousif Attending Unavailable Jack, Yousif Referring Unavailable Oleghe, Efewongbe Primary Care Unavailable Shayy Castaneda Attending Unavailable Shayy Castaneda Referring Unavailable Oleghe, Efewongbe Primary Care Unavailable Jack, Rogers Attending Unavailable Jack, Yousif Referring Unavailable Oleghe, Efewongbe Attending Unavailable Oleghe, Efewongbe Referring Unavailable Chris Teixeira Attending Unavailable Chris Teixeira Referring Unavailable Oleghe, Efewongbe Primary Care Unavailable Jack, Rogers Consulting Unavailable Blas Del Toro Consulting Unavailable Chris Teixeira Attending Unavailable Oleghe, Efewongbe Referring Unavailable Oleghe, Efewongbe Primary Care Unavailable Chris Teixeira Attending Unavailable Ganta, Gerardo Primary Care Unavailable Chris Teixeira Consulting Unavailable Ganta, Gerardo Primary Care Unavailable Kodak Thurston Attending Unavailable Oleghe, Efewongbe Attending Unavailable Ganta, Gerardo Referring Unavailable Ganta, Gerardo Primary Care Unavailable Oleghe, Efewongbe Attending Unavailable Oleghe, Efewongbe Referring Unavailable Ganta, Gerardo Primary Care Unavailable Oleghe, Efewongbe Attending Unavailable Ganta, Gerardo Referring Unavailable Ganta, Gerardo Primary Care Unavailable Oleghe, Efewongbe Attending Unavailable Oleghe, Efewongbe Referring Unavailable Oleghe, Efewongbe Primary Care Unavailable Oleghe, Efewongbe Attending Unavailable Oleghe, Efewongbe Primary Care Unavailable Oleghe, Efewongbe Attending Unavailable Oleghe, Efewongbe Referring Unavailable Oleghe, Efewongbe Primary Care Unavailable Oleghe, Efewongbe Attending Unavailable Oleghe, Efewongbe Referring Unavailable Oleghe, Efewongbe Primary Care Unavailable Oleghe, Efewongbe Attending Unavailable Oleghe, Efewongbe Referring Unavailable Oleghe, Efewongbe Primary Care Unavailable Chris Teixeira Attending Unavailable Oleghe, Efewongbe Referring Unavailable Oleghe, Efewongbe Primary Care Unavailable Chris Teixeira Consulting Unavailable Mallory Sherman EMERGENCY DEPT TECH-C Attending Unavailable LaneOvidioa EMERGENCY DEPT TECH-C Referring Unavailable Olee, Efewongbe Primary Care Unavailable Lane Mallory EMERGENCY DEPT TECH-C Attending Unavailable Lane, [place] EMERGENCY DEPT TECH-C Referring Unavailable Olee, Efewongbe Primary Care Unavailable Evangelina Ross Attending Unavailable Bubba De Leon EMERGENCY DEPT TECH-C Attending Unavailable Olee, Efewongbe Referring Unavailable Oleghe, Efewongbe Primary Care Unavailable Agyepong, Chris Admitting Unavailable Jack, Rogers Consulting Unavailable Ashelfah, Ghasem Attending Unavailable Prah, Chris Consulting Unavailable Alverto, Blas Consulting Unavailable Agyepong, Chris Admitting Unavailable Agyepong, Chris Attending Unavailable Oleghe, Efewongbe Primary Care Unavailable Jack, Rogers Consulting Unavailable Agyepong, Chris Consulting Unavailable Agyepong, Chris Admitting Unavailable Ashelfah, Ghasem Attending Unavailable Oleghe, Efewongbe Primary Care Unavailable Jack, Rogers Consulting Unavailable Ali, Asaf Consulting Unavailable Ashelfah, Ghasem Consulting Unavailable Ashelfah, Ghasem Referring Unavailable Agyepong, Chris Admitting Unavailable Praaraceli, Chris Attending Unavailable Oleghe, Efewongbe Primary Care Unavailable Jack, Yousif Consulting Unavailable Prah, Chris Consulting Unavailable Ashelfah, Ghasem Consulting Unavailable Agyepong, Chris Admitting Unavailable Jack, Rogers Attending Unavailable Oleghe, Efewongbe Primary Care Unavailable Jack, Rogers Consulting Unavailable Prah, Chris Consulting Unavailable Alverto, Blas Consulting Unavailable Ashelfah, Ghasem Consulting Unavailable Agyepong, Chris Admitting Unavailable Ashelfah, Ghasem Attending Unavailable Oleghe, Efewongbe Primary Care Unavailable Jack, Rogers Consulting Unavailable Prah, Chris Consulting Unavailable Alverto, Blas Consulting Unavailable Ashelfah, Ghasem Consulting Unavailable Agyepong, Chris Admitting Unavailable Blas Del Toro Attending Unavailable Oleghe, Efewongbe Primary Care Unavailable Jack, Rogers Consulting Unavailable Prah, Chris Consulting Unavailable Alverto, Blas Consulting Unavailable Ashelfah, Ghasem Consulting Unavailable Prah, Chris Attending Unavailable Oleghe, Efewongbe Referring Unavailable Oleghe, Efewongbe Primary Care Unavailable Prah, Chris Consulting Unavailable Bubba De Leon EMERGENCY DEPT TECH-C Attending Unavailable Oleghe, Efewongbe Referring Unavailable Oleghe, Efewongbe Primary Care Unavailable Pedro Muhammad Attending Unavailable Yousif Santiago Attending Unavailable Chris Garcia Referring Unavailable Shayy Castaneda Attending Unavailable Oleghe, Efewongbe Referring Unavailable July Hummel Attending Unavailable Jack, Rogers Attending Unavailable Oleghe, Efewongbe Referring Unavailable De Leon, Bubba EMERGENCY DEPT TECH-C Attending Unavailable Oleghe, Efewongbe Referring Unavailable De LeonBubba EMERGENCY DEPT TECH-C Attending Unavailable De Leon, Bubba EMERGENCY DEPT TECH-C Referring Unavailable Oleghe, Efewongbe Primary Care Unavailable Nolt, Cassidy Attending Unavailable PROBLEMS PROBLEMS DATE TYPE CONDITION / CODE ATTENDING STATUS SOURCE 01/29/2018 Unknown L97.922 - De Leon Bubba Active [place] Non-pressure chronic EMERGENCY DEPT TECH-C Community ulcer of unspecified Hospital part of left lower Repository leg with fat layer exposed / L97.922(ICD-10) 01/22/2018 Unknown I10 - Essential Jack, Rogers Active [place] (primary) Community hypertension / Hospital I10(ICD-10) Repository 01/22/2018 Unknown I48.91 - Unspecified Jack, Rogers Active [place] atrial fibrillation Community / I48.91(ICD-10) Hospital Repository 01/22/2018 Unknown I50.42 - Chronic Jack, Rogers Active [place] combined systolic Community (congestive) and Hospital diastolic Repository (congestive) heart failure / I50.42(ICD-10) 01/15/2018 Unknown R91.1 - Solitary Castaneda, Active [place] pulmonary nodule / [facility] R91.1(ICD-10) Hospital Repository 01/15/2018 Unknown R06.02 - Shortness Castaneda, Active [place] of breath / [facility] R06.02(ICD-10) Hospital Repository 01/07/2018 Unknown R00.0 - Tachycardia, De LeonBubba smith Active [place] unspecified / EMERGENCY DEPT TECH-C Community R00.0(ICD-10) Hospital Repository 01/02/2018 Unknown C50.912 - Malignant Chris Teixeira Active [place] neoplasm of Community unspecified site of Hospital left female breast / Repository C50.912(ICD-10) 01/02/2018 Unknown Z85.3 - Personal Chris Teixeira Active [place] history of malignant Community neoplasm of breast / Hospital Z85.3(ICD-10) Repository 11/18/2017 Unknown Z85.72 - Personal Chris Teixeira Active [place] history of Community [facility] lymphomas / Repository Z85.72(ICD-10) 07/11/2017 Unknown Z78.0 - Asymptomatic Oleghe, Active [place] menopausal state / [facility] Z78.0(ICD-10) Hospital Repository 06/18/2017 Unknown N39.0 - Urinary Oleghe, Active [place] tract infection, [facility] site not specified / Hospital N39.0(ICD-10) Repository 06/17/2017 Unknown E03.9 - Oleghe, Active [place] Hypothyroidism, [facility] unspecified / Hospital E03.9(ICD-10) Repository 05/16/2017 Unknown G89.29 - Other Oleghe, Active [place] chronic pain / [facility] G89.29(ICD-10) Hospital Repository 08/31/2016 Active Other specified NA Active [place] hypothyroidism / [facility] E03.8(ICD-10) [place] Repository 08/31/2016 Active 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0210 0.55-1.02 mg/dL High CREATININE WB 1.3 Performed By: #### L9100.0200 #### [facility] Point of Care [address] [place], [place] [address] CHEST WITH CONTRAST Observed: 03/19/2018 Status: F Source: [place] 2:47 PM [facility] REPOSITORY [facility] Imaging Services [address] [place] [address] Chest WITH Contrast MR#: [id number] Acct: [id number] Name: JANESSA RAYMOND Rep #: [id number] : 1935 F 82 From: Eddie Sanderson DO PCP: Danie Sparks MD Status: REG CLI Study: Chest WITH Contrast Date of Exam: 03/19/18 Exam# [id number] Ordering Dr: Chris Teixeira MD STUDY: CT CHEST WITH CONTRAST REASON FOR EXAM: Female, 82 years old. Lung nodule. History of breast cancer with left mastectomy. History of pleural effusion and pericardial effusion. RADIATION DOSAGE (If Supplied By Facility): CTDIvol = ( 17.4 ) mGy, DLP = ( 484.78 ) mGycm TECHNIQUE: Transaxial imaging was performed following intravenous administration of 100 ml of Isovue 300 contrast material. Multiplanar coronal and sagittal images were reformatted. Individualized dose optimization techniques were used for this CT. COMPARISON: CTA of the chest, December 27, 2017. CT of the chest, November 16, 2013. FINDINGS: The lungs are well expanded. There is no enlarging area of consolidation along the medial aspect of the right upper lobe with associated volume loss. There is a 6 mm calcified granuloma along the horizontal fissure adjacent to the above area of collapse. This appears stable. There is a 6 mm nodular density in the right middle lobe seen on image 39 of series 4 which appears unchanged from the previous study. The small area of consolidation in the medial aspect of the right middle lobe which appears to have increased in size when compared to the previous examination. This is best seen on image 67 of series 4. No spiculated right middle lobe mass is seen to correlate with the previous examination.. There is a right pleural effusion with atelectasis which appears increased when compared to the previous examination. Vague groundglass infiltrates are again seen throughout both lungs most marked in the lower lobes. The heart is enlarged. There is minimal pericardial thickening versus minimal pericardial fluid.. There are calcifications of the coronary arteries. There are fatty centered paratracheal lymph nodes one containing calcifications which appear stable. Minimal AP window lymphadenopathy is also again noted. Normal hilar regions. Normal enhanced pulmonary arteries. There is atherosclerotic calcification of the aortic arch with tortuosity and elongation of the aortic arch and descending thoracic aorta. There is an increased kyphosis of the thoracic spine. There is evidence of left mastectomy. There is a stable calcification in the left thyroid. Calcified granulomata are again seen within the spleen. There is no change in abdominal findings when compared to the prior study. Small retrocrural lymph nodes are again noted on the right. CT/Chest WITH Contrast IMPRESSION: 1. Enlarging areas of consolidation/mass in the medial right upper lobe and right middle lobe when compared to the prior study. 2. Stable nodular density in the right upper lobe. No spiculated mass is seen in the right middle lobe as described on the prior study. 3. Enlarging right pleural effusion. 4. Vague stable groundglass infiltrates throughout both lungs. 5. Stable cardiomegaly. Stable mediastinal lymphadenopathy. 6. No other interval change. Electronically Signed: Eddie Sanderson DO at 16:48 EST Tel [phone], Service support , CC: Danie Sparks MD; Chris Teixeira MD Outfitter Cabin: Signed INTERNAL MEDICINE Observed: 03/11/2018 Status: F Source: [place] OFFICE VISIT 4:49 PM [facility] [address] [place] [address] [address] [place] [address] OFFICE VISIT Date of Service: 03/11/18 MR#: [id number] Acct: [id number] Name: JANESSA RAYMOND Rep #: [id number] : 1935 Provider: Danie Sparks MD Age/Sex: 82/F Location: [facility] Status: Signed Intake Vital Signs03/11/18 Body Mass Index (BMI) 33.3 03/11/18 Height 5 ft 5 in Intake Visit Reasons: 6 wk FU Chief Complaint: f/u visit Is patient in pain?: No Allergies amoxicillin Adverse Reaction (Severe, Verified 02/04/18 10:16) Nausea/Vom/Diarrhea Penicillins [PCN] Adverse Reaction (Severe, Verified 02/04/18 10:16) Unknown tape Allergy (Severe, Uncoded 02/04/18 10:16) bruising Medications apremilast 30 mg tablet 30 mg PO BID 05/16/17 [History Confirmed 02/04/18] clobetasol 0.05 % shampoo 1 applic TOPICAL QDAY 05/16/17 [History Confirmed 02/04/18] Allopurinol [Zyloprim] 300 mg PO DAILY 12/27/17 [History Confirmed 02/04/18] Cholecalciferol (Vitamin D3) [Vitamin D3] 400 unit PO TID 12/27/17 [History Confirmed 02/04/18] Duloxetine HCl 30 mg PO DAILY 12/27/17 [History Confirmed 02/04/18] Levothyroxine Sodium [Synthroid] 50 mcg PO DAILY 12/27/17 [History Confirmed 02/04/18] Pramipexole Di-HCl [Mirapex] 0.25 mg PO QHS 12/27/17 [History Confirmed 02/04/18] nicotine 21mg/24hr-14mg/24hr-7mg/24hr daily transderm patch,sequential 1 patch TRANSDERMAL QDAY #70 patch 01/10/18 [Rx Confirmed 02/04/18] apixaban 5 mg tablet 5 mg PO BID #180 tab 01/22/18 [Rx Confirmed 02/04/18] furosemide 40 mg tablet 40 mg PO DAILY #90 tab 01/22/18 [Rx Confirmed 02/04/18] lisinopril 20 mg-hydrochlorothiazide 12.5 mg tablet 1 tab PO DAILY #90 tab 01/22/18 [Rx Confirmed 02/04/18] metoprolol tartrate 100 mg tablet 100 mg PO BID #60 tab 01/22/18 [Rx Confirmed 02/04/18] pravastatin 40 mg tablet 40 mg PO DAILY #90 tab 01/22/18 [Rx Confirmed 02/04/18] buspirone 5 mg tablet 5 mg PO BID #60 tab 01/28/18 [Rx Confirmed 02/04/18] levofloxacin 500 mg tablet 500 mg PO DAILY #7 tab 01/31/18 [Rx Confirmed 02/04/18] fluconazole 200 mg tablet 200 mg PO .weekly tab 02/04/18 [History Confirmed 02/04/18] diltiazem CD 120 mg capsule,extended release 24 hr 120 mg PO DAILY #30 cap 02/14/18 [Rx] gabapentin 100 mg capsule 100 mg PO DAILY cap 03/11/18 [History Confirmed 03/11/18] Post menopausal: Yes PFSH Medical History Chronic combined systolic and diastolic CHF (congestive heart failure) (Acute) Atrial flutter with controlled response (Acute) Hyperlipidemia (Chronic) Essential (primary) hypertension (Chronic) Lung nodule (Acute) Atrial fibrillation with RVR (Resolved 12/27/17) Tobacco abuse (Chronic) Pulmonary embolism (Chronic) Anxiety and depression (Chronic) Breast cancer, left (Chronic) History of gout (Chronic) History of pelvic fracture (Chronic) Hypothyroidism (Chronic) Non-Hodgkin lymphoma (Chronic) Obesity (Chronic) Osteoarthritis (Chronic) Surgical History History of mastectomy (Resolved) history of skin graph (Resolved) Family History Mother Breast cancer Hypertension Father Lung cancer Alcoholism Brother Asthma Alcoholism Cancer Depression Heart disease Hypertension Liver disease Sister Alcoholism Cancer Heart disease Hypertension Thyroid disorder Social History Smoking Status: Former smoker quit date: 01/14/18 pack-years: 20 how long ago did patient quit smokin, 1ppd second hand exposure: Yes alcohol intake: never substance use type: does not use what type of physical activity do you participate in: walking frequency: daily HPI HPI Chief Complaint: f/u visit Details: JANESSA RAYMOND, is a 82yo F who presents to the office today for follow-up of her chronic medical conditions. She has no acute concerns at this time. Her daughter is concerned about falls and weakness which is become more profound since her hospital admission. She walks with a walker however her daughter states that she still appears very unsteady and is not able to do as much. Her daughter is her primary palliative care physician and is concerned that it may become more difficult to care for her. She denies any history/current episodes of irregular heart beat or palpitations. She also denies chest pain or shortness of breath. ROS Const Constitutional: No weight change, body ache, chills, fatigue, sleep problems, fever(s), change in appetite, snoring, weakness, frequent falls, headache(s) or excessive sweating Eyes Eyes: No change in vision, eye pain, light sensitivity or blurry vision ENT ENT: No headache(s), abnormal hearing, ear pain, tinnitus, nasal congestion, sore throat or neck pain Resp Respiratory: No snoring, cough, shortness of breath or wheezing Cardio Cardiology: No excessive sweating, chest pain at rest, chest pain with exertion, shortness of breath, dyspnea on exertion, palpitations, orthopnea or lightheadedness Gastro GI: No abdominal pain, change in bowel habits, constipation, diarrhea, vomiting, nausea/dyspepsia or cramping Genitourinary-Female: No burning urination, painful urination, urinary incontinence, urinary frequency, abnormal vaginal bleeding, pelvic pain or other Musc Musculoskeletal: No neck pain, abnormal walking, joint pain, back pain, limited range of motion, numbness or tingling Skin Skin: No redness, dry skin, itching, lesions, wounds or rash Neuro Neurology: No weakness, frequent falls, headache(s), abnormal hearing, abnormal walking, numbness, tingling, abnormal speech, dizziness or memory loss Psych Psychiatric: No change in appetite, No memory loss, No anxiety, No depression, No Thoughts of harming yourself/Others Endo Endocrine: No fatigue, excessive sweating, cold intolerance, increased thirst/drinking, heat intolerance, flushing or increased hunger Aller/Imm Allergy/Immunologic: No wheezing, itchy eyes, hives or seasonal allergy symptoms Diogo/Lymp Hematologic/Lymphatic: No easy bleeding, easy bruising or enlarged lymph nodes Exam Const General: cooperative, no acute distress Orientation: alert, awake, oriented x3 [facility] Head: atraumatic, normocephalic, normal to inspection Ears: hearing grossly normal bilaterally Resp Effort AND Inspection: normal respiratory effort, able to speak in complete sentences Auscultation: Bilateral: Clear to Auscultation Cardio Rate: regular rate Heart Sounds: S1 normal, S2 normal GI Palpation: soft, no hepatosplenomegaly Neuro General: alert, awake, oriented x3, moves all extremities, CN's II-XI intact bilaterally Extrem Other: Bilateral pitting edema extending up to the knees. 2+. Psych Appearance: grossly normal Mood: congruent mood Affect: normal affect Assessment AND Plan 1. Physical debility R53.81 Plan Patient and daughter admits that she is not able to do as much as she used to. Concern for falls. Referred to physical therapy. Orders Referrals: 2. Hypertension I10 Plan Blood pressure appears to be in the low end today at 104/66 mmHg. She states that at home her blood pressure is an average around 120. I have advised that they keep a log and call the office on Saturday. If blood pressure remains persistently low, will adjust her medications. For now continue current medication. Increased fluid intake recommended. 3. Screening for breast cancer Z12.31 Plan Mammogram ordered. Follow-up with results. This note was generated with Hyleteation software. It may contain incorrect words, spelling, and punctuation that were not noted in checking the note before signing. Plan Detail Other Orders Orders: Coding Level of Care Code Off vis,est,level 3 Diagnoses Physical debility R53.81 Hypertension I10 Screening for breast cancer Z12.31 03/11/18 1649 <Electronically signed by Danie Sparks MD> Date Danie Sparks MD Cosigner Signature: Date (if applicable) CC: PROGRESS Observed: 02/13/2018 Status: COMPLETED Source: [place] 1:29 PM [facility] [place] REPOSITORY O ID: [id number] Author: Karen (Rn) Codi Glass, RN Service: (none) Author Type: Registered Nurse Type: Progress Notes Filed: 02/13/2018 1:29 PM Note Text: PRIMARY CARE COORDINATION QUICK NOTE Provider Action/FYI Noted. No need for care coordination at this time. Patient identified by name and date . Eda Colin RN., BSN Accountant Controller INTERNAL MEDICINE Observed: 02/04/2018 Status: F Source: [place] OFFICE VISIT 11:03 AM [facility] [place] REPOSITORY [facility] [address] [place] [address] [address] [place] [address] OFFICE VISIT Date of Service: 02/04/18 MR#: [id number] Acct: [id number] Name: JANESSA RAYMOND Rep #: [id number] : 1935 Provider: Bubba De Leon NP Age/Sex: 82/F Location: [facility] Status: Signed Intake Vital Signs02/04/18 Body Mass Index (BMI) 33.3 02/04/18 Height 5 ft 5 in 02/04/18 Weight: 195 lb 02/04/18 Body Mass Index (BMI) 32.4 02/04/18 Blood Pressure 97/63 02/04/18 Blood Pressure Location Lt brachial Intake Visit Reasons: recheck wound, may be getting worse Chief Complaint: Wound on leg drg AND bleeds Is patient in pain?: No Allergies amoxicillin Adverse Reaction (Severe, Verified 02/04/18 10:16) Nausea/Vom/Diarrhea Penicillins [PCN] Adverse Reaction (Severe, Verified 02/04/18 10:16) Unknown tape Allergy (Severe, Uncoded 02/04/18 10:16) bruising Medications apremilast 30 mg tablet 30 mg PO BID 05/16/17 [History Confirmed 02/04/18] clobetasol 0.05 % shampoo 1 applic TOPICAL QDAY 05/16/17 [History Confirmed 02/04/18] primidone 50 mg tablet 150 mg PO BID tab 06/17/17 [History Confirmed 02/04/18] Allopurinol [Zyloprim] 300 mg PO DAILY 12/27/17 [History Confirmed 02/04/18] Cholecalciferol (Vitamin D3) [Vitamin D3] 400 unit PO TID 12/27/17 [History Confirmed 02/04/18] Duloxetine HCl 30 mg PO DAILY 12/27/17 [History Confirmed 02/04/18] Levothyroxine Sodium [Synthroid] 50 mcg PO DAILY 12/27/17 [History Confirmed 02/04/18] Pramipexole Di-HCl [Mirapex] 0.25 mg PO QHS 12/27/17 [History Confirmed 02/04/18] nicotine 21mg/24hr-14mg/24hr-7mg/24hr daily transderm patch,sequential 1 patch TRANSDERMAL QDAY #70 patch 01/10/18 [Rx Confirmed 02/04/18] apixaban 5 mg tablet 5 mg PO BID #180 tab 01/22/18 [Rx Confirmed 02/04/18] furosemide 40 mg tablet 40 mg PO DAILY #90 tab 01/22/18 [Rx Confirmed 02/04/18] lisinopril 20 mg-hydrochlorothiazide 12.5 mg tablet 1 tab PO DAILY #90 tab 01/22/18 [Rx Confirmed 02/04/18] metoprolol tartrate 100 mg tablet 100 mg PO BID #60 tab 01/22/18 [Rx Confirmed 02/04/18] pravastatin 40 mg tablet 40 mg PO DAILY #90 tab 01/22/18 [Rx Confirmed 02/04/18] buspirone 5 mg tablet 5 mg PO BID #60 tab 01/28/18 [Rx Confirmed 02/04/18] levofloxacin 500 mg tablet 500 mg PO DAILY #7 tab 01/31/18 [Rx Confirmed 02/04/18] fluconazole 200 mg tablet 200 mg PO .weekly tab 02/04/18 [History Confirmed 02/04/18] [facility] Medical History Chronic combined systolic and diastolic CHF (congestive heart failure) (Acute) Atrial flutter with controlled response (Acute) Hyperlipidemia (Chronic) Essential (primary) hypertension (Chronic) Lung nodule (Acute) Atrial fibrillation with RVR (Resolved 12/27/17) Tobacco abuse (Chronic) Pulmonary embolism (Chronic) Anxiety and depression (Chronic) Breast cancer, left (Chronic) History of gout (Chronic) History of pelvic fracture (Chronic) Hypothyroidism (Chronic) Non-Hodgkin lymphoma (Chronic) Obesity (Chronic) Osteoarthritis (Chronic) Surgical History History of mastectomy (Resolved) history of skin graph (Resolved) Family History Mother Breast cancer Hypertension Father Lung cancer Alcoholism Brother Asthma Alcoholism Cancer Depression Heart disease Hypertension Liver disease Sister Alcoholism Cancer Heart disease Hypertension Thyroid disorder Social History Smoking Status: Former smoker quit date: 01/14/18 pack-years: 20 how long ago did patient quit smokin, 1ppd second hand exposure: Yes alcohol intake: never substance use type: does not use what type of physical activity do you participate in: walking frequency: daily HPI HPI Chief Complaint: Wound on leg drg AND bleeds Details: JANESSA RAYMOND, is a 82 F who presents to the office today for a follow-up of her nonhealing wound to left lower extremity. She has a past medical history as listed above. The patient states that she is concerned because after she removes the dressing, her daughter notes some bleeding. They do note that overall the size of the wound is improving. A wound culture was done previously which showed Pseudomonas RNS and the patient was started on Levaquin which she is tolerating well. She has 2 days left. She denies any systemic signs of infection. The only other complaint she has is lower extremity edema which she has not been using her compression stockings for due to the pain from the wound. She does note she was seen by dermatology regarding skin irritation to the right lower extremity and he diagnosed her with a fungal infection and started her on weekly fluconazole. The patient otherwise denies any fever, chills, nausea, vomiting, worsening shortness of breath, chest pain or pressure, palpitations, orthopnea, syncope or presyncopal episodes. ROS Const Constitutional: No chills, fatigue, fever(s), frequent falls, malaise, weakness, sleep problems or change in appetite Eyes Eyes: No blurry vision, change in vision, double vision, discharge or visual disturbances ENT ENT: No abnormal hearing, ear pain, ear pressure, tinnitus or dizziness/vertigo Resp Respiratory: No cough, shortness of breath or wheezing Cardio Cardiology: No chest pain at rest, chest pain with exertion, shortness of breath, dyspnea on exertion, generalized swelling, irregular heart rhythm, lightheadedness, orthopnea, fast heart rate or palpitations Gastro GI: No abdominal pain, change in bowel habits, constipation, diarrhea, nausea/dyspepsia or vomiting Genitourinary-Female: No difficulty urinating, burning urination, painful urination, urinary incontinence, urinary frequency, urinary urgency, urinary hesitancy, urinary retention, Frequent nighttime urination/ nocturia, sexual problems, genital lesions, abnormal vaginal bleeding, pelvic pain, vaginal dryness, vaginal odor or Vaginal Itching Musc Musculoskeletal: No joint pain, back pain, joint swelling, limited range of motion, numbness or tingling Skin Skin: Positive for wounds (Both lower legs); no change in skin color, itching or rash Breast Breast: No breast lump or breast pain Neuro Neurology: No frequent falls, weakness, visual disturbances, abnormal hearing, numbness, tingling, unsteady gait/balance, dizziness, loss of vision or memory loss Psych Psychiatric: No change in appetite, No memory loss, No anxiety, No depression, No Thoughts of harming yourself/Others Endo Endocrine: No fatigue, heat intolerance, increased thirst/drinking, increased hunger or increased urination Aller/Imm Allergy/Immunologic: No wheezing, itchy eyes or seasonal allergy symptoms Diogo/Lymp Hematologic/Lymphatic: No easy bleeding, easy bruising or enlarged lymph nodes Exam Const General: cooperative, comfortable, no acute distress Nutritional Appearance: well nourished, obese Orientation: alert, oriented x3 Limitations: mental status not altered Resp Effort AND Inspection: normal respiratory effort, able to speak in complete sentences, normal respiratory pattern, symmetric chest movement, no audible wheezes, no cough Auscultation: Bilateral: Clear to Auscultation Cardio Palpation: normal PMI Rate: regular rate Rhythm: abnormal rhythm Heart Sounds: S1 normal, S2 normal Skin Other: Nonhealing ulcer to left lower extremity with adherent slough present in moderate amount of drainage on bandage that is serosanguineous. Measurements are 3 x 2 x 0.1 cm less than 1 cm of erythema extending from the wound bed, overall size and site appearance seems to be improving Neuro General: alert, awake, oriented x3, CN's II-XI intact bilaterally Speech: speech normal Gait: normal gait Motor: muscle tone normal throughout Extrem General: edema Laterality: bilateral Location: Bilateral lower extremeties Psych Appearance: grossly normal Mental Status: mental status grossly normal Affect: anxious affect Attitude: cooperative Thought Process: normal Assessment AND Plan Problems 1. Nonhealing ulcer of left lower extremity with fat layer exposed L97.922 Plan The patient was seen and examined and patient and daughter was updated on the plan of care. Overall, the appearance of the wound and the size of the wound is improving and the patient is tolerating her antibiotic well as the culture did show Pseudomonas. The patients wound care will consist of: Elayne moistened dressing changes daily. Patient to continue with compression stockings for edema management and encourage leg elevation and salt restriction. Patient educated on the importance of diet on wound healing and instructed to increase protein and vitamin C intake. Patient verbalized understanding. Patient and daughter educated on signs and symptoms of cellulitis and infection that would require urgent medical attention. Patient to follow-up in 2 weeks or sooner if needed. Discussed with patient and daughter that if they continue to have concern for wound healing, that a referral to the wound healing center will be indicated Plan Detail Follow Up 2 Weeks Coding Level of Care Code Off vis,est,level 3 Diagnoses Nonhealing ulcer of left lower extremity with fat layer exposed L97.922 02/04/18 1103 <Electronically signed by Bubba ROSA> Date Bubba ROSA Cosigner Signature: Date (if applicable) CC: Observed: 01/29/2018 Status: F Source: [place] CULTURE, WOUND 10:34 AM [facility] [place] REPOSITORY Gram Stain Gram Stain 3+ Red Blood Cells 2+ Gram negative rods Wound Culture ORGANISM 1: Pseudomonas aeroginosa Amount Growth 3+ ORGANISM 2: Staphylococcus cohnii urealyti Amount Growth Rare ORGANISM 3: Staphylococcus epidermidis Amount Growth Rare Pseudomonas aeroginosa: REACTION Cefepime $ <=1 S Ceftazidime *NF 2 S Ciprofloxacin $ <=0.25 S Gentamicin $ <=1 S Imipenem *NF 0.5 S Levofloxacin $ 0.25 S Piperacillin/Tazobactam $$ <=4 S Tobramycin $ <=1 S (NF) indicates non-formulary drug at [facility]. Approval by Infectious Disease Specialist required before non-formulary drugs may be ordered and/or dispensed. Staphylococcus cohnii urealyti: REACTION Benzylpenicillin NF 0.12 R Cefoxitin *NF + Clindamycin $$ 2 I Inducable Clindamycin Resistan - Erythromycin $ >=8 R Gentamicin $ <=0.5 S Levofloxacin $ 0.5 S Oxacillin NF 0.5 R Tigecycline $$$$ <=0.12 S Rifampin $$ <=0.5 S Tetracycline NF <=1 S Vancomycin $ <=0.5 S (NF) indicates non-formulary drug at [facility]. Approval by Infectious Disease Specialist required before non-formulary drugs may be ordered and/or dispensed. * CLSI guidelines does not recommend testing of cephalosporins. This interpretation is deduced from Beta-lactam/penicillin results. Staphylococcus epidermidis: REACTION Benzylpenicillin NF >=0.5 R Cefoxitin *NF - Clindamycin $$ <=0.25 S Inducable Clindamycin Resistan - Erythromycin $ >=8 R Gentamicin $ <=0.5 S Levofloxacin $ <=0.12 S Linezolid $$$$ 1 S Oxacillin NF <=0.25 S Tigecycline $$$$ <=0.12 S Rifampin $$ <=0.5 S Tetracycline NF 2 S Vancomycin $ 1 S (NF) indicates non-formulary drug at [facility]. Approval by Infectious Disease Specialist required before non-formulary drugs may be ordered and/or dispensed. * CLSI guidelines does not recommend testing of cephalosporins. This interpretation is deduced from Beta-lactam/penicillin results. Performed By: #### M100.1400 #### [facility] [place], [address] INTERNAL MEDICINE Observed: 01/29/2018 Status: F Source: [place] OFFICE VISIT 8:45 AM [facility] [address] [place] [address] [address] [place] [address] OFFICE VISIT Date of Service: 01/28/18 MR#: [id number] Acct: [id number] Name: JANESSA RAYMOND Rep #: [id number] : 1935 Provider: Bubba De Leon NP Age/Sex: 82/F Location: [facility] Status: Signed Intake Vital Signs01/28/18 Body Mass Index (BMI) 33.3 01/28/18 Height 5 ft 5 in 01/28/18 Weight: 198 lb 01/28/18 Body Mass Index (BMI) 32.9 01/28/18 Blood Pressure 116/72 Intake Visit Reasons: 3 MO F/U Chief Complaint: Acute anxiety and sore to left lower leg Is patient in pain?: No Allergies amoxicillin Adverse Reaction (Severe, Verified 01/28/18 14:22) Nausea/Vom/Diarrhea Penicillins [PCN] Adverse Reaction (Severe, Verified 01/28/18 14:22) Unknown tape Allergy (Severe, Uncoded 01/28/18 14:22) bruising Medications apremilast 30 mg tablet 30 mg PO BID 05/16/17 [History Confirmed 01/28/18] clobetasol 0.05 % shampoo 1 applic TOPICAL QDAY 05/16/17 [History Confirmed 01/28/18] primidone 50 mg tablet 150 mg PO BID tab 06/17/17 [History Confirmed 01/28/18] Allopurinol [Zyloprim] 300 mg PO DAILY 12/27/17 [History Confirmed 01/28/18] Cholecalciferol (Vitamin D3) [Vitamin D3] 400 unit PO TID 12/27/17 [History Confirmed 01/28/18] Duloxetine HCl 30 mg PO DAILY 12/27/17 [History Confirmed 01/28/18] Levothyroxine Sodium [Synthroid] 50 mcg PO DAILY 12/27/17 [History Confirmed 01/28/18] Pramipexole Di-HCl [Mirapex] 0.25 mg PO QHS 12/27/17 [History Confirmed 01/28/18] nicotine 21mg/24hr-14mg/24hr-7mg/24hr daily transderm patch,sequential 1 patch TRANSDERMAL QDAY #70 patch 01/10/18 [Rx Confirmed 01/28/18] apixaban 5 mg tablet 5 mg PO BID #180 tab 01/22/18 [Rx Confirmed 01/28/18] furosemide 40 mg tablet 40 mg PO DAILY #90 tab 01/22/18 [Rx Confirmed 01/28/18] lisinopril 20 mg-hydrochlorothiazide 12.5 mg tablet 1 tab PO DAILY #90 tab 01/22/18 [Rx Confirmed 01/28/18] metoprolol tartrate 100 mg tablet 100 mg PO BID #60 tab 01/22/18 [Rx Confirmed 01/28/18] pravastatin 40 mg tablet 40 mg PO DAILY #90 tab 01/22/18 [Rx Confirmed 01/28/18] buspirone 5 mg tablet 5 mg PO BID #60 tab 01/28/18 [Rx Confirmed 01/28/18] [facility] Medical History Chronic combined systolic and diastolic CHF (congestive heart failure) (Acute) Atrial flutter with controlled response (Acute) Hyperlipidemia (Chronic) Essential (primary) hypertension (Chronic) Lung nodule (Acute) Atrial fibrillation with RVR (Resolved 12/27/17) Tobacco abuse (Chronic) Pulmonary embolism (Chronic) Anxiety and depression (Chronic) Breast cancer, left (Chronic) History of gout (Chronic) History of pelvic fracture (Chronic) Hypothyroidism (Chronic) Non-Hodgkin lymphoma (Chronic) Obesity (Chronic) Osteoarthritis (Chronic) Surgical History History of mastectomy (Resolved) history of skin graph (Resolved) Family History Mother Breast cancer Hypertension Father Lung cancer Alcoholism Brother Asthma Alcoholism Cancer Depression Heart disease Hypertension Liver disease Sister Alcoholism Cancer Heart disease Hypertension Thyroid disorder Social History Smoking Status: Former smoker quit date: 01/14/18 pack-years: 20 how long ago did patient quit smokin, 1ppd second hand exposure: Yes alcohol intake: never substance use type: does not use what type of physical activity do you participate in: walking frequency: daily HPI HPI Chief Complaint: Acute anxiety and sore to left lower leg Details: JANESSA RAYMOND, is a 82 F who presents to the office today for acute visit open sore to left lower leg and complaints of anxiety. She has a past medical history as listed above. Patient states that she has been more anxious lately and is wondering if there is a medication she can try to help with her anxiety. Denies any depression denies any thoughts of harming self or others. She does also bring up a sore to her left lower leg. She is unsure what exactly happened but states that she may have bumped it approximately a week ago and it has been draining clear fluid and is very tender to touch. She has been using Neosporin and a Band-Aid over it so far. She denies any systemic signs of infection at this time. She does note that her swelling in her lower extremities have increased somewhat, however this is due to her not being able to wear her compression stockings due to the left lower extremity ulcer. She denies any fever, chills, nausea, vomiting, worsening shortness of breath, chest pain or pressure, palpitations, syncope or presyncopal episodes ROS Const Constitutional: Positive for fatigue; no chills, fever(s), frequent falls, malaise, weakness, sleep problems or change in appetite Eyes Eyes: No blurry vision, change in vision, double vision, discharge or visual disturbances ENT ENT: Positive for ear pressure (Bilat); no abnormal hearing, ear pain, tinnitus or dizziness/vertigo Resp Respiratory: No cough, shortness of breath or wheezing Cardio Cardiology: Positive for dyspnea on exertion and generalized swelling (Feet); no chest pain at rest, chest pain with exertion, shortness of breath, irregular heart rhythm, lightheadedness, orthopnea, fast heart rate or palpitations Gastro GI: No abdominal pain, change in bowel habits, constipation, diarrhea, nausea/dyspepsia or vomiting Genitourinary-Female: No difficulty urinating, burning urination, painful urination, urinary incontinence, urinary frequency, urinary urgency, urinary hesitancy, urinary retention, Frequent nighttime urination/ nocturia, sexual problems, genital lesions, abnormal vaginal bleeding, pelvic pain, vaginal dryness, vaginal odor or Vaginal Itching Musc Musculoskeletal: No joint pain, back pain, joint swelling, limited range of motion, numbness or tingling Skin Skin: Positive for wounds (Left castillo) and sores (Rt Castillo); no change in skin color, itching or rash Breast Breast: No breast lump or breast pain Neuro Neurology: No frequent falls, weakness, visual disturbances, abnormal hearing, numbness, tingling, unsteady gait/balance, dizziness, loss of vision or memory loss Psych Psychiatric: No change in appetite, No memory loss, Positive for anxiety, No depression, No Thoughts of harming yourself/Others Endo Endocrine: Positive for fatigue; no heat intolerance, increased thirst/drinking, increased hunger or increased urination Aller/Imm Allergy/Immunologic: No wheezing, itchy eyes or seasonal allergy symptoms Diogo/Lymp Hematologic/Lymphatic: No easy bleeding, easy bruising or enlarged lymph nodes Exam Const General: cooperative, comfortable, no acute distress Nutritional Appearance: well nourished, obese Orientation: alert, oriented x3 Limitations: mental status not altered Resp Effort AND Inspection: normal respiratory effort, able to speak in complete sentences, normal respiratory pattern, symmetric chest movement, no audible wheezes, no cough Auscultation: Bilateral: Clear to Auscultation Cardio Palpation: normal PMI Rate: regular rate Rhythm: abnormal rhythm irregularly irregular Heart Sounds: S1 normal, S2 normal Skin Other: Nonhealing ulcer to left lower extremity with adherent slough present in moderate amount of drainage on bandage that is serosanguineous. Measurements are 4 x 3 x 0.1 cm less than 1 cm of erythema extending from the wound bed Neuro General: alert, awake, oriented x3, CN's II-XI intact bilaterally Speech: speech normal Gait: normal gait Motor: muscle tone normal throughout Extrem General: edema Laterality: bilateral Location: Bilateral lower extremeties Severity: 1+ and pitting Psych Appearance: grossly normal Mental Status: mental status grossly normal Affect: anxious affect Attitude: cooperative Thought Process: normal Assessment AND Plan 1. Nonhealing ulcer of left lower extremity with fat layer exposed L97.922 Plan The patient was seen and examined and patient and daughter was updated on the plan of care. The patients wound care will consist of: Elayne moistened dressing changes daily, started kit given to patient. Wound cultures were collected. Patient to continue with compression stockings for edema management and encourage leg elevation and salt restriction. Patient educated on the importance of diet on wound healing and instructed to increase protein and vitamin C intake. Patient verbalized understanding. Patient and daughter educated on signs and symptoms of cellulitis and infection that would require urgent medical attention. Patient to follow-up in 2 weeks or sooner if needed. Patient does not wish to follow- up at the wound center at this time Orders Orders: 2. Anxiety F41.9 Plan Patient does have complaints of anxiety. Discussed that treatment with benzodiazepines is appropriate at this time due to the fall risk. We will try her on a low-dose BuSpar and titrate up as necessary. Will follow in 2 weeks. Layo disclaimer Plan Detail Other Medications New: Follow Up 2 weeks or sooner Coding Level of Care Code Off vis,est,level 3 Diagnoses Nonhealing ulcer of left lower extremity with fat layer exposed L97.922 Anxiety F41.9 01/29/18 0845 <Electronically signed by Bubba ROSA> Date Bubba ROSA Cosigner Signature: Date (if applicable) CC: PROGRESS Observed: 01/27/2018 Status: COMPLETED Source: [place] 12:52 PM [facility] REPOSITORY HNO ID: [id number] Author: Katerin Heard Service: (none) Author Type: Electronic Console Display Operator Type: Progress Notes Filed: 02/13/2018 1:29 PM Note Text: [facility] LEAD [place] TENDER QUICKNOTE Provider Action/FYI: Recent Hospitalizations, ED, Observations [facility] ED 05/03/17 CHRONIC DX: HTN CARE GAPS: None Patient identified by name and . Thank you, Katerin Heard, [facility] Electronic Console Display Operator [facility] Project [phone] [id number] Observed: 01/27/2018 Status: COMPLETED Source: [place] 12:00 AM [facility] REPOSITORY Patient Outreach (INTMWS) JOANNE RAYMONDGEETHA Fartun ([id number]) 1935 F Date Time Provider Department 01/27/18 KATERIN HEARD) INTMWS During your visit today, we recorded the following information about you: Katerin Heard MA 02/13/2018 1:29 PM Signed [facility] LE[facility] [place] TENDER QUICKNOTE Provider Action/FYI: Recent Hospitalizations, ED, Observations [facility] ED 05/03/17 CHRONIC DX: HTN CARE GAPS: None Patient identified by name and . Thank you, Katerin Heard [facility] Electronic Console Display Operator [facility] Project [phone] Karen Glass, RN, RN 02/13/2018 1:29 PM Signed PRIMARY CARE COORDINATION QUICK NOTE Provider Action/FYI Noted. No need for care coordination at this time. Patient identified by name and date . Eda Colin RN., BSN Accountant Controller Allergies As of Date: 01/27/2018 Noted Allergy Reaction AUGMENTIN (AMOXICILLIN-POT CLAVUL*06/20/2015 10 - Anaphylaxis NEURONTIN (GABAPENTIN) 05/11/2016 1 - Mental Status Change PENICILLINS 06/20/2015 10 - Anaphylaxis Date Reviewed: 05/14/2017 Reviewed by: Christiana Rocha RN - Fully Assessed Reason for Visit: Floor Space Allocator - Other [3602] Cmt: ACO Prescriptions as of 01/27/2018 Sig: ALLOPURINOL 300 MG TABLET Take 1 tablet by mouth once d* ANASTROZOLE 1 MG TABLET Take 1 tablet by mouth once d* APREMILAST 30 MG TABLET Take 1 tablet by mouth twice * CLOBETASOL 0.05 % SHAMPOO Apply 1 application to affect* ECONAZOLE 1 % TOPICAL CREAM Apply to affected area once * LEVOTHYROXINE 50 MCG TABLET Take 1 tablet by mouth once d* LISINOPRIL 20 MG-HYDROCHLOROT* Take 1 tablet by mouth twice * METOPROLOL TARTRATE 25 MG TAB* Take 1 tablet by mouth twice * MUPIROCIN 2 % TOPICAL OINTMENT Apply 1 application to affect* PRAVASTATIN 80 MG TABLET Take 0.5 tablets by mouth onc* PRIMIDONE 50 MG TABLET Take 1 tablet by mouth four t* TRAMADOL 50 MG TABLET Take 1 tablet by mouth twice * VENLAFAXINE ER 75 MG CAPSULE,* Take 1 capsule by mouth once * WARFARIN 1 MG TABLET 10 mgs on M,W, F and 7.5 mgs * WARFARIN 1 MG TABLET 10 mgs on M,W, F and 7.5 mgs * WARFARIN 5 MG TABLET 10 mgs on M,W, F and 7.5 mgs * Problem List As Of Date 01/27/2018 Noted Resolved 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 Essential hypertension with goal blood pressure*INVALID FOR* More... Mixed hyperlipidemia [E78.2] INVALID FOR* More... Malignant neoplasm of lower-inner quadrant of l*INVALID FOR* More... Polyp of colon [K63.5] INVALID FOR* More... Chronic anticoagulation [Z79.01] INVALID FOR* More... Non Hodgkin's lymphoma (HCC) [C85.90] INVALID FOR* More... Overlapping malignant neoplasm of female breast*INVALID FOR* More... More... Tobacco abuse disorder [Z72.0] INVALID FOR* More... Encounter Status:Closed by KAREN GARCIA on 02/13/18 CARDIOLOGY VISIT Observed: 01/22/2018 Status: F Source: [place] REPORT 11:58 AM [facility] [place] REPOSITORY [facility] [address] [place] [address] OFFICE VISIT Date of Service: 01/22/18 MR#: [id number] Acct: [id number] Name: JANESSA RAYMOND Rep #: [id number] : 1935 Provider: Yousif Santiago MD Age/Sex: 82/F Location: [facility] Status: Signed HPI HPI Chief Complaint: Posthospitalization follow-up for shortness of breath Details: JANESSA RAYMOND, is a 82 F who presents to the office today for a follow-up visit. She is a lady who had presented to the hospital with shortness of breath and was noted to be in congestive heart failure. She was started on beta-linda MAITE inhibitor and diuresis was instituted. She is done well since discharge but says that she is still somewhat short of breath. She has had no dizziness or diaphoresis no near syncope or syncope. She thinks her weight has still been fluctuating. She has been compliant with her medications and has also been compliant with her diet. Her daughter has been fixing for her a salt free diet. Her physical exam today demonstrates clear lung morillo irregular rate and rhythm and no pedal edema. Intake Vital Signs01/22/18 Height 5 ft 5 in Intake Visit Reasons: DC 11-4 (2-4 wks) NEW to [facility] Allergies amoxicillin Adverse Reaction (Severe, Verified 01/22/18 08:26) Nausea/Vom/Diarrhea Penicillins [PCN] Adverse Reaction (Severe, Verified 01/22/18 08:26) Unknown tape Allergy (Severe, Uncoded 01/22/18 08:26) bruising Medications Lisinopril/Hydrochlorothiazide [Zestoretic 20-12.5 mg Tablet] 1 tab PO DAILY 09/12/15 [History Confirmed 01/22/18] apremilast 30 mg tablet 30 mg PO BID 05/16/17 [History Confirmed 01/22/18] clobetasol 0.05 % shampoo 1 applic TOPICAL QDAY 05/16/17 [History Confirmed 01/22/18] primidone 50 mg tablet 150 mg PO BID tab 06/17/17 [History Confirmed 01/22/18] Allopurinol [Zyloprim] 300 mg PO DAILY 12/27/17 [History Confirmed 01/22/18] Cholecalciferol (Vitamin D3) [Vitamin D3] 400 unit PO TID 12/27/17 [History Confirmed 01/22/18] Duloxetine HCl 30 mg PO DAILY 12/27/17 [History Confirmed 01/22/18] Levothyroxine Sodium [Synthroid] 50 mcg PO DAILY 12/27/17 [History Confirmed 01/22/18] Pramipexole Di-HCl [Mirapex] 0.25 mg PO QHS 12/27/17 [History Confirmed 01/22/18] Apixaban [Eliquis] 5 mg PO BID #90 tab 12/29/17 [Rx Confirmed 01/22/18] Furosemide [Lasix] 40 mg PO DAILY #30 tab 12/29/17 [Rx Confirmed 01/22/18] nicotine 21mg/24hr-14mg/24hr-7mg/24hr daily transderm patch,sequential 1 patch TRANSDERMAL QDAY #70 patch 01/10/18 [Rx Confirmed 01/22/18] metoprolol tartrate 50 mg tablet 75 mg PO BID #90 tab 01/14/18 [Rx Confirmed 01/22/18] pravastatin 40 mg tablet 40 mg PO DAILY 01/22/18 [History Confirmed 01/22/18] [facility] Medical History Chronic combined systolic and diastolic CHF (congestive heart failure) (Acute) Atrial flutter with controlled response (Acute) Hyperlipidemia (Chronic) Essential (primary) hypertension (Chronic) Lung nodule (Acute) Atrial fibrillation with RVR (Resolved 12/27/17) Tobacco abuse (Chronic) Pulmonary embolism (Chronic) Anxiety and depression (Chronic) Breast cancer, left (Chronic) Hypothyroidism (Chronic) Non-Hodgkin lymphoma (Chronic) Obesity (Chronic) Osteoarthritis (Chronic) History of gout (Chronic) History of pelvic fracture (Chronic) Surgical History History of mastectomy (Resolved) history of skin graph (Resolved) Family History Mother Breast cancer Hypertension Father Lung cancer Alcoholism Brother Asthma Alcoholism Cancer Depression Heart disease Hypertension Liver disease Sister Alcoholism Cancer Heart disease Hypertension Thyroid disorder Social History Smoking Status: Former smoker quit date: 01/14/18 pack-years: 20 how long ago did patient quit smokin, 1ppd second hand exposure: Yes alcohol intake: never substance use type: does not use what type of physical activity do you participate in: walking frequency: daily ROS Const Const: Positive for fatigue (increase fatigue); negative for weakness, difficulty sleeping, frequent falls, excessive sweating or headache(s) Eyes Eyes: Negative for loss of peripheral vision, transient loss of vision, blurry vision, tunnel vision or double vision ENT ENT: Negative for headache(s), dizziness, Nosebleed/epistaxis or balance problems Cardio Chest Pain: No Palpitations: No Edema: Bilateral (BLE edema, compression stocking in place ) Muscle aches with walking: None Resp Respiratory: Positive for SOB with activity (SOB with little activity) and SOB at rest; negative for SOB orthopnea\SOB lying down, paroxysmal nocturnal dyspnea or Cough Additional Details: Diminished T/O GI GI: Negative nausea, heartburn, black,tarry stools or vomiting : Negative for hematuria Musc Musc: Negative for balance problems, muscle aches/ myalgia, muscle weakness or joint pain Skin Skin: Negative non-healing lesions, unusual bruising or rash Neuro Neuro: Negative for weakness, frequent falls, headache(s), blurry vision, double vision, dizziness, lightheadedness, orthostatic symptoms, near syncope, syncope or lack of coordination Diogo Hematologic/Lymphatic: Negative for easy bruising or easy bleeding Endo Endo: Positive for fatigue (increase fatigue); negative for excessive sweating or increased thirst/drinking Psych Psych: Negative for anxiety or depression Allergy Allergy/Immunology: Negative for hives, Negative for rash Cardiology Exam Const Appearance: cooperative, healthy appearing, well developed, well groomed and no acute distress Nutritional Appearance: well nourished and average body habitus Orientation: alert, awake and oriented x3 Head Head: normal to inspection, normocephalic and atraumatic Ears: hearing grossly normal bilaterally and external ears normal Nose: external nose normal, nasal mucous membranes and turbinates normal, nares normal, septum normal, no nasal discharge Face and Sinus: face symmetric Mouth: oral mucosae normal, tongue normal, oropharynx normal and moist mucous membranes Teeth and gingiva: dentition normal Throat: posterior oropharynx normal, tonsils normal and uvula midline Eyes General: appearance normal, both eyes and all related structures Eyelids: eyelids normal Conjunctivae: conjunctivae normal Pupils: PERRL, normal by confrontation and accommodation normal EOM: EOM intact bilaterally Neck Neck: normal visual inspection, trachea midline and no JVD JVD: +5 Carotids: normal carotid upstroke and bounding pulses Chest Chest inspection: normal inspection of the chest, symmetric chest movement and normal respiratory effort Auscultation: Bilateral: Clear to Auscultation Cardio Palpation: normal PMI Rhythm: irregular rhythm Heart sounds: S1 normal and S2 normal GI GI: normal to inspection, soft, no hepatosplenomegaly and bowel sounds present Neuro General: alert, awake, oriented x3, no focal sensory deficit, gait normal and moves all extremities Skin Skin: no rashes or lesions noted Extremities Pulses: Normal: Right Femoral Pulse, Left Femoral Pulse, Right Dorsalis Pedis Pulse, Left Dorsalis Pedis Pulse, Right Posterior Tibial Pulse, Left Posterior Tibial Pulse, Right Radial Pulse, Left Radial Pulse Lower Extremity Edema: None: Bilateral Musculoskel Musculoskeletal: No joint tenderness Psych Psychological: normal affect Assessment AND Plan 1. New onset atrial fibrillation I48.91 Plan She does continue to have the atrial fibrillation. My recommendation would be for us to increase the metoprolol to 100 mg twice a day to see whether this would better control her heart rate. Perhaps this would help her with some of the shortness of breath. She would also continue on the anticoagulation with the apixaban. 2. Essential (primary) hypertension I10 Plan Her blood pressure appears to be under fairly good control on the current medical therapy. With the increase in the metoprolol however I suspect it may improve some more. 3. Chronic combined systolic and diastolic CHF (congestive heart failure) I50.42 Plan She does have a history of heart failure with elevated natruretic peptide levels as well as an echocardiogram demonstrating an ejection fraction of 40%. Her pulmonary artery systolic pressure was estimated to be 36 mmHg. She does have moderate biatrial enlargement. I would recommend continuing the beta-linda and the diuretics as well as the salt restriction. Plan Detail Other Medications New: Follow Up 3 Months (jhr) Coding Level of Care Code Off vis,est,level 5 Diagnoses New onset atrial fibrillation I48.91 Essential (primary) hypertension I10 Chronic combined systolic and diastolic CHF (congestive heart failure) I50.42 Coding Level of Care Code Off vis,est,level 5 Diagnoses New onset atrial fibrillation I48.91 Essential (primary) hypertension I10 Chronic combined systolic and diastolic CHF (congestive heart failure) I50.42 01/22/18 1158 <Electronically signed by Yousif Santiago MD> Date Yousif Santiago MD Cosigner Signature: Date (if applicable) CC: Danie Sparks MD PULMONARY VISIT REPORT Observed: 01/15/2018 Status: F Source: [place] 3:47 PM [facility] [place] REPOSITORY [facility] of [address] [place] [address] OFFICE VISIT Date of Service: 01/15/18 MR#: [id number] Acct: [id number] Name: JANESSA RAYMOND Rep #: [id number] : 1935 Provider: Shayy Castaneda Age/Sex: 82/F [facility] Status: Signed Assessment AND Plan 1. Lung nodule R91.1 Plan New. Plan to reevaluate the nodule with a repeat CT of the chest at 3 months. Follow-up with Dr. Del Toro after repeat CT is obtained. Discussed the case with Dr. Teixeira, we will work in conjunction regarding this nodule. Orders Orders: 2. Combined systolic and diastolic heart failure, unspecified HF chronicity I50.40 Plan Complicates exam, plan, care and prognosis. 3. Tobacco abuse Z72.0 Plan Improving, continue to encourage smoking cessation. Discussed strategy options when encountering triggers. Obtaining ulnar function test to determine if years of smoking has caused the patient to have COPD. She has had pulmonary function test in the past but this is approximately 8-10 years ago. She denies any shortness of breath, no indication for inhalers at this time will revisit once PFTs can be reviewed. 4. Atrial fibrillation with RVR I48.91 Plan Complicates plan, care, exam and prognosis. Plan Detail Other Orders Orders: Follow Up 3 Months (A) HPI HPI Comments Details: This is a 82 year old very pleasant F, currently under the care of Danie Sparks MD, here to follow up after a recent hospitalization at [facility], from December 27 - December 29, 2017 for new onset A. fib with RVR, acute systolic heart failure, right lung nodule. The hospital stay was relatively uncomplicated. 17 pages of hospital documentation was reviewed, and found to be significant for a chest x-ray completed on December 27 showing mildly hypoinflated lungs, slight perihilar vascular/interstitial prominence, questionable right upper lobe infiltrate. CTA of the chest completed on December 27 was negative for pulmonary embolism but did show pulmonary arterial hypertension, pulmonary edema suggestive of early CHF, right lower lobe consolidation and effusion, spiculated nodule in the right middle lobe. Echocardiogram showed an EF of 40%, moderately enlarged right and left atrium, pulmonary artery pressure estimated to be 36 mmHg. Upon discharge, the patient placed on 40 mg of Lasix daily, Eliquis 5 mg twice daily and Lopressor 50 mg twice daily. Today, she presents to the office ambulatory with the assistance of a wheeled walker, on room air and accompanied by her daughter. She has been smoke free since hospital discharge, she is using nicotine replacement patches. She does report shortness of breath on exertion only, denies any shortness of breath at rest or with conversation. She does report some persistent fatigue. She denies any cough, sputum production or hemoptysis. She denies any wheezing, chest tightness, chest pain or palpitations. She has not screens any fever, chills or body aches. She is checking her oxygen saturations randomly and states that they are around 90% at all times. Intake Vital Signs01/15/18 Height 5 ft 5 in 01/15/18 Weight: 195 lb Intake Visit Reasons: hospital f/u Accompanied by: Daughter Allergies amoxicillin Adverse Reaction (Severe, Verified 01/15/18 12:38) Nausea/Vom/Diarrhea Penicillins [PCN] Adverse Reaction (Severe, Verified 01/15/18 12:38) Unknown tape Allergy (Severe, Uncoded 01/15/18 12:38) bruising Medications Lisinopril/Hydrochlorothiazide [Zestoretic 20-12.5 mg Tablet] 1 tab PO DAILY 09/12/15 [History Confirmed 01/15/18] apremilast 30 mg tablet 30 mg PO BID 05/16/17 [History Confirmed 01/15/18] clobetasol 0.05 % shampoo 1 applic TOPICAL QDAY 05/16/17 [History Confirmed 01/15/18] primidone 50 mg tablet 150 mg PO BID tab 06/17/17 [History Confirmed 01/15/18] Allopurinol [Zyloprim] 300 mg PO DAILY 12/27/17 [History Confirmed 01/15/18] Cholecalciferol (Vitamin D3) [Vitamin D3] 400 unit PO TID 12/27/17 [History Confirmed 01/15/18] Duloxetine HCl 30 mg PO DAILY 12/27/17 [History Confirmed 01/15/18] Levothyroxine Sodium [Synthroid] 50 mcg PO DAILY 12/27/17 [History Confirmed 01/15/18] Pramipexole Di-HCl [Mirapex] 0.25 mg PO QHS 12/27/17 [History Confirmed 01/15/18] Pravastatin Sodium 40 mg PO QHS 12/27/17 [History Confirmed 01/15/18] Apixaban [Eliquis] 5 mg PO BID #90 tab 12/29/17 [Rx Confirmed 01/15/18] Furosemide [Lasix] 40 mg PO DAILY #30 tab 12/29/17 [Rx Confirmed 01/15/18] nicotine 21mg/24hr-14mg/24hr-7mg/24hr daily transderm patch,sequential 1 patch TRANSDERMAL QDAY #70 patch 01/10/18 [Rx Confirmed 01/15/18] metoprolol tartrate 50 mg tablet 75 mg PO BID #90 tab 01/14/18 [Rx Confirmed 01/15/18] [facility] Medical History Hypothyroidism (Chronic) Pulmonary embolism (Chronic) Osteoarthritis (Chronic) Depression (Chronic) History of gout (Chronic) History of pelvic fracture (Chronic) Surgical History History of mastectomy (Acute) history of skin graph (Acute) Family History Mother Breast cancer Hypertension Father Lung cancer Alcoholism Brother Asthma Alcoholism Cancer Depression Heart disease Hypertension Liver disease Sister Alcoholism Cancer Heart disease Hypertension Thyroid disorder Social History Smoking Status: Former smoker how long ago did patient quit smokin, 1ppd second hand exposure: Yes alcohol intake: never substance use type: does not use what type of physical activity do you participate in: walking frequency: daily Review of Systems Const CONSTITUTIONAL: Negative anorexia, body ache, chills, daytime sleepiness, fever(s), night sweats, oral thrush, stops breathing during sleep, weight loss, sleeping in chair, fatigue, weight loss, weight gain, frequent colds, seasonal allergies, other, headache(s) or orthopnea EETM Ear Nose Throat Mouth: Positive hearing normal; negative hard of hearing, hoarseness, dry mouth in morning, change in vision, itchy eyes, eye pain, swallowing Difficulty, ear pain, nose bleed, headache(s), mouth pain, nasal congestion, nasal discharge, post nasal drip, sinus pain, sinus pressure, sore throat or other Cardio Cardiovascular: Negative chest pain, chest pain at rest, chest pain with activity, irregular heart rhythm, edema, shortness of breath when lying down, palpitations, murmur or other Resp Respiratory: Positive as per HPI and shortness of breath shortness of breath: Positive with activity; negative pain with cough, wheezing, chest congestion, cough, chest tightness, pain on inspiration, inhalers, increase use of rescue inhalers, snoring, apnea or other Gastro Gastrointestional: Negative bloody stools, change in appetite, difficulty swallowing, reflux, hematemesis, melena stool, loose stool, constipation or other Genitourinary: Negative blood in urine, nocturia, pain with urination or other Musc Musculoskeletal: Negative body pain, back pain, neck pain or other Skin/Breast Skin/Breast: Negative dry skin, itching, rash, unusual bruising, breast lump or other Neuro Neurological: Negative restless legs, confusion, weakness or other Psych Psychocological: Positive anxiety; negative abnormal sleep pattern, thoughts of hurting self/others, hopelessness or other Lymph Lymphatic: Negative easy bleeding, easy bruising, swollen lymph nodes or other Exam Const Constitutional: Positive conversant, cooperative, in no acute respiratory distress, healthy appearing, well developed, well nourished and good hygiene Head Head: Positive normocephalic and atraumatic; negative cyanosis of lips/distal nose Eyes Eye: Positive clear conjunctiva; negative nystagmus or scleral abnormality Ears Ear: Positive hearing normal and external ears normal; negative hard of hearing Nose Nose: Positive external nose normal and no nasal discharge; negative epistaxis Mouth Mouth: Positive oral mucosae normal, no lesions and dentures; negative post nasal drip, malodorous breath or oral thrush present Mallampati Score: I: Mallampati Score Neck Neck: Positive normal visual inspection, full ROM and trachea midline; negative lymphadenopathy, JVD or tender Chest Wall Chest: Positive symmetric chest movement and increased A/P diameter Resp lung sounds: Positive clear to auscultation, diminished, normal respiratory effort and prolonged expiratory time; negative wheezes, rhonchi, rales, dullness to percussion or wheeze present on forced exhalation Cardio Cardiac: Positive regular rate, regular rhythm, S1 normal and S2 normal; negative murmur GI GI: Positive normal to inspection; negative distended Genitourinary: Positive deferred Musc Musculoskeletal: Positive steady gait, ROM normal and using an assistive device for ambulation; negative kyphosis or scoliosis Skin Pulmonary Skin Exam: Positive intact; negative rash Pulses Pulse: Yes pulses normal x4 extremities Extremities Extremities: Yes capillary refill normal, No cyanosis, No clubbing, No edema Neuro Neurologic: Yes conversant, Yes no focal neuro deficits, Yes normal concentration, Yes understands questions, Yes cooperative, Yes normal cognition, Yes normal coordination, No tremor Lymph Lymphatic: No lymphadenopathy, No tenderness, No cervical adenopathy Psych Appearance: Positive grossly normal, eye contact and well kempt Mental Status: Positive mental status grossly normal Mood: Positive congruent mood Affect: Positive normal affect Coding Level of Care Code Off vis,est,level 4 Diagnoses Lung nodule R91.1 Combined systolic and diastolic heart failure, unspecified HF chronicity I50.40 Heart failure type: combined systolic and diastolic Heart failure chronicity: unspecified Tobacco abuse Z72.0 Atrial fibrillation with RVR I48.91 01/15/18 1547 <Electronically signed by Shayy HEC> Date Shayy Castaneda EMERGENCY DEPT TECH-C Cosigner Signature: Date (if applicable) CC: Danie Sparks MD 12 LEAD ELECTROCARDIOGRAM Observed: 01/10/2018 Status: F Source: [place] 2:42 PM [facility] [place] REPOSITORY [facility] Cardiovascular Services [address] [place] [address] 12 Lead EKG 01/07/18 1226 MR#: [id number] Acct: [id number] Name: JANESSA RAYMOND Rep #: [id number] : 1935 82 From: Yousif Santiago MD Attending Dr: Status: DEP ER Ordering Dr: Perdo Muhammad MD Date: 01/07/18 Location: ED Sex: F C Admitted: Test Reason : Blood Pressure : / mmHG Vent. Rate : 133 BPM Atrial Rate : 141 BPM P-R Int : 000 ms QRS Dur : 090 ms QT Int : 326 ms P-R-T Axes : 000 -54 014 degrees QTc Int : 485 ms Atrial fibrillation with rapid ventricular response Left axis deviation Inferior infarct ,age undetermined Anterior infarct , age undetermined Abnormal ECG Confirmed by YOUSIF SANTIAGO MD ([id number]), graphic editor BERRY DEL ROSARIO ([id number]) on 01/10/2018 2:41:45 PM Referred By: Danie Sparks Confirmed By:YOUSIF SANTIAGO MD 01/10/18 1441 Date Yousif Santiago MD CC: Danie Sparks MD; Pedro Muhammad MD Signed INTERNAL MEDICINE Observed: 01/09/2018 Status: F Source: [place] OFFICE VISIT 11:29 AM [facility] [address] [place], [place] [address] OFFICE VISIT Date of Service: 01/07/18 MR#: [id number] Acct: [id number] Name: JANESSA RAYMOND Rep #: [id number] : 1935 Provider: Bubba De Leon NP Age/Sex: 82/F Location: [facility] Status: Signed Intake Vital Signs01/07/18 Height 5 ft 5 in 01/07/18 Weight: 197 lb 01/07/18 Body Mass Index (BMI) 32.8 01/07/18 Blood Pressure 133/89 H 01/07/18 Blood Pressure Location Rt brachial Intake Visit Reasons: S/P HOSP Chief Complaint: Post Hosp f/u Is patient in pain?: No Allergies amoxicillin Adverse Reaction (Severe, Verified 01/07/18 10:42) Nausea/Vom/Diarrhea Penicillins [PCN] Adverse Reaction (Severe, Verified 01/07/18 10:42) Unknown tape Allergy (Severe, Uncoded 01/07/18 10:42) bruising Medications Lisinopril/Hydrochlorothiazide [Zestoretic 20-12.5 mg Tablet] 1 tab PO DAILY 09/12/15 [History Confirmed 01/07/18] apremilast 30 mg tablet 30 mg PO BID 05/16/17 [History Confirmed 01/07/18] clobetasol 0.05 % shampoo 1 applic TOPICAL QDAY 05/16/17 [History Confirmed 01/07/18] primidone 50 mg tablet 150 mg PO BID tab 06/17/17 [History Confirmed 01/07/18] Allopurinol [Zyloprim] 300 mg PO DAILY 12/27/17 [History Confirmed 01/07/18] Cholecalciferol (Vitamin D3) [Vitamin D3] 400 unit PO TID 12/27/17 [History Confirmed 01/07/18] Duloxetine HCl 30 mg PO DAILY 12/27/17 [History Confirmed 01/07/18] Levothyroxine Sodium [Synthroid] 50 mcg PO DAILY 12/27/17 [History Confirmed 01/07/18] Pramipexole Di-HCl [Mirapex] 0.25 mg PO QHS 12/27/17 [History Confirmed 01/07/18] Pravastatin Sodium 40 mg PO QHS 12/27/17 [History Confirmed 01/07/18] Apixaban [Eliquis] 5 mg PO BID #90 tab 12/29/17 [Rx Confirmed 01/07/18] Furosemide [Lasix] 40 mg PO DAILY #30 tab 12/29/17 [Rx Confirmed 01/07/18] Metoprolol Tartrate [Lopressor (beta linda)] 50 mg PO BID #90 tab 12/29/17 [Rx Confirmed 01/07/18] Metoprolol Tartrate 75 mg PO BID #60 tab 01/07/18 [Rx] [facility] Medical History Hypothyroidism (Chronic) Pulmonary embolism (Chronic) Osteoarthritis (Chronic) Depression (Chronic) History of gout (Chronic) History of pelvic fracture (Chronic) Surgical History History of mastectomy (Acute) history of skin graph (Acute) Family History Mother Breast cancer Hypertension Father Lung cancer Alcoholism Brother Asthma Alcoholism Cancer Depression Heart disease Hypertension Liver disease Sister Alcoholism Cancer Heart disease Hypertension Thyroid disorder Social History Smoking Status: Former smoker alcohol intake: never substance use type: does not use what type of physical activity do you participate in: walking frequency: daily HPI HPI Chief Complaint: Post Hosp f/u Details: JANESSA RAYMOND, is a 82 F who presents to the office today for hospital follow-up for A. fib RVR and CHF exacerbation. Patient has a past medical history as listed above. Patient was recently discharged from [facility] on December 29 where she was treated for new onset A. fib with RVR, acute systolic CHF and right lung nodule. While at the hospital she was started on metoprolol and Lasix she converted to sinus rhythm before discharge with a heart rate around 80s-90s. Patient presents in office today with complaints of shortness of breath at rest and with exertion, worsening lower extremity edema and a 6 pound weight gain in 3 days. She does note occasional palpitations. She states that she continues to have a chronic productive cough of clear yellow sputum. She otherwise denies any fever, chills, nausea, vomiting, chest pain or pressure, syncope or presyncopal episodes. ROS Const Constitutional: No chills, fatigue, fever(s), frequent falls, malaise, weakness, sleep problems or change in appetite Eyes Eyes: No blurry vision, change in vision, double vision, discharge or visual disturbances ENT ENT: No abnormal hearing, ear pain, ear pressure, tinnitus or dizziness/vertigo Resp Respiratory: Positive for cough Cough: Yes non-productive and productive; no shortness of breath or wheezing Cardio Cardiology: Positive for shortness of breath (Heavy breathing), dyspnea on exertion, generalized swelling (Both ankles,Hands) and other (Chest pressure - Occassional); no chest pain at rest, chest pain with exertion, irregular heart rhythm, lightheadedness, orthopnea, fast heart rate or palpitations Gastro GI: No abdominal pain, change in bowel habits, constipation, diarrhea, nausea/dyspepsia or vomiting Genitourinary-Female: No difficulty urinating, burning urination, painful urination, urinary incontinence, urinary frequency, urinary urgency, urinary hesitancy, urinary retention, Frequent nighttime urination/ nocturia, sexual problems, genital lesions, abnormal vaginal bleeding, pelvic pain, vaginal dryness, vaginal odor or Vaginal Itching Musc Musculoskeletal: No joint pain, back pain, joint swelling, limited range of motion, muscle weakness, numbness or tingling Skin Skin: No change in skin color, itching, rash or wounds Breast Breast: No breast lump or breast pain Neuro Neurology: No frequent falls, weakness, abnormal hearing, numbness, tingling, unsteady gait/balance, dizziness, loss of vision, memory loss or visual disturbances Psych Psychiatric: No memory loss, No anxiety, No change in appetite, No depression, No Thoughts of harming yourself/Others Endo Endocrine: No fatigue, heat intolerance, increased thirst/drinking, increased hunger or increased urination Aller/Imm Allergy/Immunologic: No wheezing, itchy eyes or seasonal allergy symptoms Diogo/Lymp Hematologic/Lymphatic: No easy bleeding, easy bruising or enlarged lymph nodes Exam Const General: cooperative, comfortable, no acute distress Nutritional Appearance: well nourished, obese Orientation: alert, oriented x3 Limitations: mental status not altered Eyes General: appearance normal, both eyes and all related structures Resp Effort AND Inspection: normal respiratory effort, able to speak in complete sentences, normal respiratory pattern, symmetric chest movement, no audible wheezes, no cough Auscultation: Bilateral: Diminished Lung Sounds, Expiratory Wheezes Cardio Palpation: normal PMI Rate: tachycardic Rhythm: abnormal rhythm irregularly irregular Heart Sounds: normal S1 and S2, no click, no gallops, no murmurs, no rubs Musc Musculoskeletal: No muscle weakness Skin General: no rashes or lesions noted, elasticity normal, turgor normal Lesions: no lesions Rashes: no rashes Neuro General: alert, awake, oriented x3, CN's II-XI intact bilaterally Speech: speech normal Gait: normal gait Motor: muscle tone normal throughout Extrem General: normal to inspection, normal gait, pedal edema bilaterally Location: of the foot Severity: pitting and 2+, of the leg Severity: 2+ and pitting and of the ankle Severity: pitting and 2+ Psych Appearance: grossly normal Mental Status: mental status grossly normal Affect: normal affect Attitude: cooperative Thought Process: normal Assessment AND Plan Problems 1. Atrial fibrillation with RVR I48.91 2. SOB (shortness of breath) R06.02 Plan Previous hospital admission as described above. She continues to have complaints of dyspnea at rest and on exertion and feelings of intermittent palpitations. She is compliant with her anticoagulation. EKG in office revealed atrial fibrillation with a ventricular rate of 120s-150s. Patient appears to be back in A. fib RVR with worsening of her CHF. Patient instructed to go to [facility] emergency room, daughter present in office will transport patient. Report called to Dr. Rubin at [facility] emergency room. Patient educated to reschedule her follow-up appointment after she has been evaluated in ED. Orders Orders: Coding Level of Care Code Off vis,est,level 3 Diagnoses Atrial fibrillation with RVR I48.91 SOB (shortness of breath) R06.02 01/09/18 1129 <Electronically signed by Bubba ROSA> Date Bubba ROSA Cosigner Signature: Date (if applicable) CC: EMERGENCY DEPARTMENT Observed: 01/07/2018 Status: F Source: [place] SUMMARY 4:46 PM [facility] REPOSITORY [facility] Medical Records Department [address] [place] [address] Emergency Department Summary 01/07/18 1341 MR#: [id number] Acct: [id number] Name: JANESSA RAYMOND Rep #: [id number] : 1935 82 From: Pedro Muhammad MD PCP: Danie Sparks MD Status: DEP ER - ER Visit Summary Date of Service: 01/07/18 Chief Complaint: Shortness of breath History of Present Illness: The patient is a [address] Santiago and Dr. Sparks. She reports that she had new onset of atrial fibrillation earlier this month. She was discharged from the hospital December 29. She reports is been short of breath since December 30. She states that she cannot since palpitations. She reports that her shortness of breath is moderate when she walks around. It is unchanged with laying flat. She reports she has a light cough that is productive yellow sputum without blood. No fever or chills. She denies any chest pain. Physical Examination: Vitals: 97.5, 165/92, 128, 16, 95% on room air which is not hypoxic. General: Well-nourished and well-developed. Head: Normocephalic atraumatic. Neck: Supple, no lymphadenopathy. No JVD. Nontender. Cardiovascular: Tachycardic irregular rhythm with a 2 out of 6 systolic murmur. Respiratory: No respiratory distress. Clear to auscultation bilaterally. No crackles. Abdominal: Soft, nontender, nondistended, normal bowel sounds. No guarding, rebound, or peritoneal signs. Back: Nontender. Extremities: Nontender, 1+ edema of the lower extremities bilaterally. Skin: Normal color, no rash. Neurologic: Alert and oriented 3. Cranial nerves II through XII are intact. Normal strength and sensation. Psych: Normal affect. Test Results: EKG is A. fib at 133 and is unchanged from December 28. Troponin is negative. Chem-7 is more for BUN of 27. CBC is more for an H AND H 10.8 and 35.1. Chest x-ray shows cardiomegaly and mild CHF. Emergency Department Course and Treatment: Patient was given Lopressor IV, aspirin p.o., and Lasix IV. She feels much improved and is resting comfortably. Her heart rate has decreased into the 80s. Treatment Plan: Patient was discussed with Dr. Santiago. She has had a full evaluation for this this month already. [place] that admission to the hospital would only result in changing her medications. Patient would like to go home. She will have her metoprolol increased to 75 mg twice a day. Instructed follow-up Dr. Santiago this month as previously scheduled. Return to the emergency department for any worsening symptoms. Disposition: To home in improved and stable condition. Impression: 1. Atrial fibrillation with RVR. 2. Coagulopathy on Eliquis. 3. Mild CHF. This note was generated with [employer] software. It may contain incorrect words, spelling, and punctuation that were not noted in review of the chart prior to signing ED Disposition - Plan for ED Patient: Disposition: Home or Assisted Living Chief Complaint: Shortness of Breath Instructions: ED Afib Prescriptions: Metoprolol Tartrate 75 mg PO BID #60 tablet Referrals: Yousif Santiago MD [STAFF PHYSICIAN] - Keep Rene appointment Additional Instructions: Increase your metoprolol to 75 mg twice a day. If you check and your heart rate is more than 110 take another 25 mg of metoprolol. What to do if you have Problems For any increased pain, shortness of breath, bleeding, nausea or vomiting, chest pain, or any unexpected problems, contact your Primary Care Provider. Call [employer] [facility] ([phone]) or report to the closest Emergency Room. Call 911 if necessary. 01/07/18 0049 <Electronically signed by Pedro Muhammad MD> Date Pedro Muhammad MD Cosigner Signature (If Indicated): Date CC: Danie Sparks MD CBC W/DIFF, AUTOMATED Collected: 01/07/2018 Status: F Source: [place] 12:50 PM [facility] REPOSITORY TYPE CODE TESTS RESULT OUT OF RANGE REFERENCE UNITS LAB L100.1000 4.4-11.0 K/mm3 Normal WBC 8.2 LAB L100.1200 4.2-5.4 M/mm3 Low RBC 3.87 LAB L100.1300 12.0-15.0 g/dl Low HGB 11.1 LAB L100.1400 37-47 % Low HCT 36.7 LAB L100.1500 81-99 fL Normal MCV 94.8 LAB L100.1600 27.0-32.0 pg Normal MCH 28.7 LAB L100.1700 32-36 g/gl Low MCHC 30.2 LAB L100.1810 11.6-14.6 % High RDW CV 17.0 LAB L100.1820 35.1-43.9 fl High RDW SD 58.8 LAB L100.1900 150-450 K/mm3 Normal PLT 249 LAB L100.2000 6.2-12.0 fl Normal MPV 10.0 LAB L100.2100 47-70 % High NEUT% 70.3 LAB L100.2200 19-41 % Normal LY% 21.3 LAB L100.2300 0-10 % Normal MONO% 7.3 LAB L100.2400 0-5 % Normal EO% 0.5 LAB L100.2500 0-1 % Normal BASO% 0.4 LAB L100.2550 0.0-0.9 % Normal IM GRAN % 0.200 Result Comment: IG% - Immature Granulocytes (promyelocytes, myelocytes and metamyelocytes) > 1% indicates that a LEFT SHIFT is Present. LAB L100.2620 2.0-7.7 X10 3/uL Normal Absolute Neut 5.8 LAB L100.2720 0.83-4.51 X10 3/ul Normal Absolute Lymph 1.75 Performed By: #### L100.0100 #### [facility] [place], [address] BASIC METABOLIC Collected: 01/07/2018 Status: F Source: [place] PROFILE (BMP) 12:50 PM [facility] REPOSITORY TYPE CODE TESTS RESULT OUT OF RANGE REFERENCE UNITS LAB L501.0100 74-106 mg/dL Normal GLU 99 Result Comment: Please note revised GLUCOSE reference range effective 2017. LAB L501.1000 7-18 mg/dL High BUN 27 LAB L501.1100 0.55-1.02 mg/dL Normal CREAT,SERUM 0.88 Result Comment: The validity of the calculated GFR AND GFRAA in patients over 70 years has not been determined. Clinical correlation is essential. LAB L501.1110 >60 mL/min Normal EST GFR 65 Result Comment: Non- GFR Calc LAB L501.1115 >60 mL/min Normal EST GFR - AA 79 Result Comment: GFR Calc LAB L501.1255 ml/min Normal Estimated CRCL 45.12 LAB L501.1300 10-20 RATIO High BUN/CRE 30.5 LAB L501.2200 8.5-10 mg/dL Normal .1 CA 8.8 LAB L501.5300 136-14 mmol/L Normal 5 NA 136 LAB L501.5600 3.5-5. mmol/L Low 1 K 3.4 LAB L501.5900 98-107 mmol/L Normal CL 98 LAB L501.6100 21.0-3 mmol/L Normal 2.0 CO2 31.0 LAB L501.6200 5-15 Normal GAP 7 Performed By: #### L500.2500, L501.4010 #### [facility] [address] [place], [address] TROPONIN-I Collected: 01/07/2018 Status: F Source: [place] 12:50 PM [facility] [place] REPOSITORY TYPE CODE TESTS RESULT OUT OF RANGE REFERENCE UNITS LAB L501.4010 <0.045 ng/mL Normal < 0.015 TROPONIN-I Result Comment: TROPONIN-I EXPECTED VALUES <0.045 Negative 0.045 - 0.590 Consistent with Cardiac Damage > OR = 0.600 Critical Value Not every elevated troponin is indicative of IN. These values should be used with clinical judgement in examining the patient's clinical picture for diagnosis. To establish a diagnosis of IN versus myocardial injury, there must be a demonstrated rise and/or fall in the troponin values, in addition to ischemic symptoms, EKG changes, new regional wall motion abnormality, and/or angiographical evidence. PLEASE NOTE: REFERENCE RANGES EDITED 17 Performed By: #### L500.2500, L501.4010 #### [facility] [address] [place], [address] CHEST 1 VIEW Observed: 01/07/2018 Status: F Source: [place] (PORTABLE) 12:32 PM [facility] REPOSITORY [facility] Imaging Services [address] [place] [address] Chest 1 View (Portable) MR#: [id number] Acct: [id number] Name: JANESSA RAYMOND Rep #: [id number] : 1935 F 82 From: Igor Rajan MD PCP: Danie Sparks MD Status: REG ER Study: Chest 1 View (Portable) Date of Exam: 01/07/18 Exam# [id number] Ordering Dr: Pedro Muhammad MD STUDY: X-RAY CHEST REASON FOR EXAM: Female, 82 years old. Shortness of breath. Fluid retention. TECHNIQUE: Single AP portable view of the chest. COMPARISON: Comparison is made with prior study dated December 27, 2017. FINDINGS: EKG electrodes are seen Increased vascular markings and central vascular congestion in keeping with CHF. Scattered calcified granulomas. There is no demonstrated pleural abnormality. Normal size heart. Normal mediastinum and tobias. Normal visualized pulmonary arteries. There is atherosclerotic tortuosity of the aortic arch and descending thoracic aorta. Normal visualized thoracic spine. Normal visualized ribs, clavicles, and shoulders. There is no demonstrated abnormality of the visualized soft tissue structures of the upper abdomen. RAD/Chest 1 View (Portable) IMPRESSION: Mild cardiomegaly. Findings in keeping with a mild degree of CHF. Electronically Signed: Igor Rajan MD at 13:50 EST Tel [phone], Service support , CC: Danie Sparks MD; Pedro Muhammad MD Outfitter Cabin: Signed ONCOLOGY VISIT REPORT Observed: 01/02/2018 Status: F Source: [place] 4:47 PM [facility] REPOSITORY [facility] [place] [address] [place] [address] OFFICE VISIT Date of Service: 01/02/18 1335 MR#: [id number] Acct: [id number] Name: JANESSA RAYMOND Rep #: [id number] : 1935 From: Chris Teixeira MD Age/Sex: 82/F Location: OMD Status: Signed Subjective - Date of Service Date of Service:: 01/02/18 - Chief Complaint F/u for Left breast cancer. 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 In February 2012 she was diagnosed with left breast cancer, had left modified radical mastectomy and sentinel node biopsy on March 24, 2012 for stage IA(pT1c N0 M0) tumor size was 1.5 cm, sentinel node negative, ER/NH positive, HER-2 negative. She then started an Arimidex in March 2012. She started Xgeva in February 2015 for osteopenia, bone density in February 2016 was normal so Xgeva was discontinued. She stopped Arimidex in April 2017. She was admitted to [facility] , CTA on 12/27/2017 showed RML nodule 9mm, soft tissue prominence R hilar area. She was seen by Pulmonary, repeat CT was suggested in 6 weeks. Comes for follow up. - Past Medical/Social History Past Medical History Past Medical History: Depression,Hypertension,Osteoarthritis,Pulmonary embolism,Hypothyroidism Other Past Medical History: ULCERS SINUS PROBLEMS Cancer: Breast cancer,Lymphoma,Skin cancer Past Surgical History Surgical: Hysterectomy,Mastectomy Other Surgical History: EXCISION SKIN CANCER ON NOSE Family History Paternal Past Medical History: Unknown Paternal History of Cancer Lung cancer Maternal Past Medical History: Unknown Maternal History of Cancer: Breast cancer Social History Social History: No changes Smoking Status Current every day smoker Review of Systems Constitutional:: Reports: Fatigue. Denies: Fever, Sweats Cardiovascular:: Reports: Irregular heartbeat Respiratory: Denies: Cough, Hemoptysis, Shortness of Breath, Wheezing Gastrointestinal:: Denies: Abdominal pain, Nausea, Vomiting, Diarrhea, Constipation, Hematochezia Genitourinary: Denies: Dysuria, Hematuria, 15, Flank pain Musculoskeletal:: Denies: Back pain, Myalgia, Arthralgia Vital Signs Height 5 ft 5 in Weight: 89.902 kg Weight in Pounds 198.2 lbs Pulse Ox 95 - Physical Exam General: Alert, Oriented x3, No apparent distress HEENT: Atraumatic, PERRLA, EOMI, Normocephalic Oropharynx:: Dry mucosa Neck:: Supple, Trachea midline. Negative for: JVD, bilateral Cardiac:: Irregular rate Lungs: Clear to auscultation, Excusion symmetrical. Negative for: Rhonchi, Wheezes Assessment and Plan H/O Left breast cancer stage IA. Has finished 5 yrs of adjuvant Arimidex H/O NHL. New R lung nodule and hilar density. Plan is to obtain CT chest in 6 weeks. RTC 6 weeks with CBC, CMP. Primary Care Provider: Gerardo Melendez Referring Provider: - Problem List (1) Breast cancer, left Status: Chronic (2) History of non-Hodgkin's lymphoma Status: Chronic (3) Lung nodule Status: Acute Code Visit Office Visits / Consults: 18805 OV L4 Est 01/02/18 1647 <Electronically signed by Chris Teixeira MD> Date Chris Teixeira MD Cosigner Signature: Date (if applicable) CC: 12 LEAD ELECTROCARDIOGRAM Observed: 01/02/2018 Status: F Source: [place] 4:07 PM [facility] [place] REPOSITORY [facility] Cardiovascular Services [address] [place] [address] 12 Lead EKG 12/28/17 0811 MR#: [id number] Acct: [id number] Name: JANESSA RAYMOND Rep #: [id number] : 1935 82 From: Yousif Santiago MD Attending Dr: Nai Del Angel Status: DIS IN Ordering Dr: Nai Del Angel MD Date: 12/28/17 Location: [facility] Sex: F C Admitted: 12/27/17 Test Reason : A-FIB/FLUTTER Blood Pressure : / mmHG Vent. Rate : 075 BPM Atrial Rate : 278 BPM P-R Int : 000 ms QRS Dur : 090 ms QT Int : 426 ms P-R-T Axes : 000 -36 018 degrees QTc Int : 475 ms Atrial flutter with variable A-V block Left axis deviation Inferior infarct , age undetermined Abnormal ECG When compared with ECG of 27-DEC-2017 18:03, MANUAL COMPARISON REQUIRED, DATA IS UNCONFIRMED Confirmed by JACK BARDALES, YOUSIF ([id number]), graphic editor BERRY DEL ROSARIO ([id number]) on 01/02/2018 4:07:26 PM Referred By: Mallory Sherman Confirmed By:YOUSIF SANTIAGO MD 01/02/18 1607 Date Yousif Santiago MD CC: Danie Sparks MD; Nai Del Angel Signed INTERNAL MEDICINE Observed: 01/01/2018 Status: F Source: [place] OFFICE VISIT 1:20 PM [facility] [address] [place] [address] [address] [place] [address] OFFICE VISIT Date of Service: 12/27/17 MR#: [id number] Acct: [id number] Name: JANESSA RAYMOND Rep #: [id number] : 1935 Provider: Bubba De Leon NP Age/Sex: 82/F Location: [facility] Status: Signed Intake Vital Signs12/27/17 Height 5 ft 5 in 12/27/17 Weight: 203 lb 12/27/17 Body Mass Index (BMI) 33.7 12/27/17 Blood Pressure 157/82 H 12/27/17 Blood Pressure Location Rt brachial Intake Visit Reasons: cold/feeling lousy Chief Complaint: cough, chest congestion, wheezing Is patient in pain?: No Allergies amoxicillin Adverse Reaction (Severe, Verified 12/27/17 17:18) Nausea/Vom/Diarrhea Penicillins [PCN] Adverse Reaction (Severe, Verified 12/27/17:18) Unknown tape Allergy (Severe, Uncoded 12/27/17 17:18) bruising Medications Lisinopril/Hydrochlorothiazide [Zestoretic 20-12.5 mg Tablet] 1 tab PO DAILY 16 [History Confirmed 12/27/17] apremilast 30 mg tablet 30 mg PO BID 05/16/17 [History Confirmed 12/27/17] clobetasol 0.05 % shampoo 1 applic TOPICAL QDAY 05/16/17 [History Confirmed 12/27/17] primidone 50 mg tablet 150 mg PO BID tab 06/17/17 [History Confirmed 12/27/17] Allopurinol [Zyloprim] 300 mg PO DAILY 12/27/17 [History Confirmed 12/27/17] Cholecalciferol (Vitamin D3) [Vitamin D3] 400 unit PO TID 12/27/17 [History Confirmed 12/27/17] Duloxetine HCl 30 mg PO DAILY 12/27/17 [History Confirmed 12/27/17] Levothyroxine Sodium [Synthroid] 50 mcg PO DAILY 12/27/17 [History Confirmed 12/27/17] Pramipexole Di-HCl [Mirapex] 0.25 mg PO QHS 12/27/17 [History Confirmed 12/27/17] Pravastatin Sodium 40 mg PO QHS 12/27/17 [History Confirmed 12/27/17] Apixaban [Eliquis] 5 mg PO BID #90 tab 12/29/17 [Rx] Furosemide [Lasix] 40 mg PO DAILY #30 tab 12/29/17 [Rx] Metoprolol Tartrate [Lopressor (beta linda)] 50 mg PO BID #90 tab 12/29/17 [Rx] [facility] Medical History Chronic back pain (Chronic) History of ankle fracture (Chronic) Psoriasis of scalp (Chronic) History of hysterectomy (Acute) History of sinus problem (Chronic) Ulcer (Chronic) Hypothyroidism (Chronic) Pulmonary embolism (Chronic) Osteoarthritis (Chronic) Depression (Chronic) Breast cancer (Chronic) Non Hodgkin's lymphoma (Chronic) History of gout (Chronic) History of pelvic fracture (Chronic) Surgical History Excision of skin cancer on nose (Acute) History of mastectomy (Acute) history of skin graph (Acute) Family History Mother Breast cancer Hypertension Father Lung cancer Alcoholism Brother Asthma Alcoholism Cancer Depression Heart disease Hypertension Liver disease Sister Alcoholism Cancer Heart disease Hypertension Thyroid disorder Social History Smoking Status: Current every day smoker alcohol intake: never substance use type: does not use what type of physical activity do you participate in: walking frequency: daily HPI HPI Chief Complaint: cough, chest congestion, wheezing Details: JANESSA RAYMOND, is a 82 F who presents to the office today for an acute visit of cough, chest congestion, shortness of breath, and wheezing. She has a past medical history as listed above which is significant for a 30-ngce-dmin smoking history and past PE. The patient states that approximately 3 or 4 days ago she noted a productive cough of yellow sputum, wheezing, increasing shortness of breath, and chest congestion as well. She has not taken any zthf-liw-hbovjre medications for this. She states that this is caused her to have an increase in fatigue as well. She denies any sick contacts. She denies any other aggravating or relieving factors. She otherwise denies any fever, chills, nausea, vomiting, orthopnea, lower extremity edema,chest pain or pressure, syncope or presyncopal episodes. ROS Const Constitutional: Positive for headache(s); no chills, fatigue, fever(s), frequent falls, malaise, weakness, sleep problems or change in appetite Eyes Eyes: No blurry vision, change in vision, double vision, discharge or visual disturbances ENT ENT: Positive for nasal congestion, facial pain and headache(s); no abnormal hearing, ear pain, ear pressure, tinnitus or dizziness/vertigo Resp Respiratory: Positive for cough Cough: Yes productive, wheezing and change in phlegm color (yellow); no shortness of breath Cardio Cardiology: Positive for shortness of breath and generalized swelling (Ankles); no chest pain at rest, chest pain with exertion, dyspnea on exertion, irregular heart rhythm, lightheadedness, orthopnea, fast heart rate or palpitations Gastro GI: No abdominal pain, change in bowel habits, constipation, diarrhea, nausea/dyspepsia or vomiting Genitourinary-Female: No difficulty urinating, burning urination, painful urination, urinary incontinence, urinary frequency, urinary urgency, urinary hesitancy, urinary retention, Frequent nighttime urination/ nocturia, sexual problems, genital lesions, abnormal vaginal bleeding, pelvic pain, vaginal dryness, vaginal odor or Vaginal Itching Musc Musculoskeletal: No joint pain, back pain, joint swelling, limited range of motion, muscle weakness, numbness or tingling Skin Skin: No change in skin color, itching, rash or wounds Breast Breast: No breast lump or breast pain Neuro Neurology: Positive for headache(s); no frequent falls, weakness, abnormal hearing, numbness, tingling, unsteady gait/balance, dizziness, loss of vision, memory loss or visual disturbances Psych Psychiatric: No memory loss, No anxiety, No change in appetite, No depression, No Thoughts of harming yourself/Others Endo Endocrine: No fatigue, heat intolerance, increased thirst/drinking, increased hunger or increased urination Aller/Imm Allergy/Immunologic: Positive for wheezing; no itchy eyes or seasonal allergy symptoms Diogo/Lymp Hematologic/Lymphatic: No easy bleeding, easy bruising or enlarged lymph nodes Exam Const General: cooperative, acute distress mild, anxious Nutritional Appearance: obese Orientation: alert, awake, oriented x3 Resp Effort AND Inspection: normal respiratory effort, normal respiratory pattern, symmetric chest movement, no audible wheezes, no cough Auscultation: Bilateral: Diminished Lung Sounds, Inspiratory Wheezes, Expiratory Wheezes Cardio Rate: tachycardic Rhythm: abnormal rhythm irregularly irregular Musc Musculoskeletal: No muscle weakness Skin General: no rashes or lesions noted, elasticity normal, turgor normal Lesions: no lesions Rashes: no rashes Neuro General: alert, awake, oriented x3, CN's II-XI intact bilaterally Speech: speech normal Gait: normal gait Motor: muscle tone normal throughout Extrem General: normal to inspection, normal gait, no edema, no pedal edema Psych Appearance: grossly normal Mental Status: mental status grossly normal Affect: normal affect Attitude: cooperative Thought Process: normal Assessment AND Plan Problems 1. Dyspnea R06.00 2. Tachycardia R00.0 Plan Patient's heart rate is irregularly irregular and tachycardic with an apical pulse of 126, clinical concern for atrial fibrillation with RVR. Patient states that she has never had history of atrial fibrillation. Given her multiple comorbidities, current complaints, and prior history of pulmonary embolism, referred patient to emergency department. Report was given to ER physician. Patient's daughter to drive patient to the emergency department. Orders Orders: Plan Detail Follow Up 1 week or sooner if needed Coding Level of Care Code Off vis,est,level 3 Diagnoses Dyspnea R06.00 Tachycardia R00.0 01/01/18 1320 <Electronically signed by Bubba ROSA> Date Bubba ROSA Cosigner Signature: Date (if applicable) CC: 12 LEAD ELECTROCARDIOGRAM Observed: 12/30/2017 Status: F Source: [place] 3:16 PM [facility] [place] REPOSITORY [facility] Cardiovascular Services [address] [place] [id number] 12 Lead EKG 12/27/17 1803 MR#: [id number] Acct: [id number] Name: JANESSA RAYMOND Rep #: [id number] : 1935 82 From: Yousif Santiago MD Attending Dr: Nai Del Angel Status: DIS IN Ordering Dr: Jackson Wild DO Date: 12/27/17 Location: [facility] Sex: F C Admitted: 12/27/17 Test Reason : REPEAT EKG Blood Pressure : / mmHG Vent. Rate : 098 BPM Atrial Rate : 267 BPM P-R Int : 000 ms QRS Dur : 090 ms QT Int : 338 ms P-R-T Axes : 000 -61 033 degrees QTc Int : 431 ms Atrial flutter with variable A-V block Left axis deviation Abnormal ECG Confirmed by JACK BARDALES, YOUSIF ([id number]), graphic editor BERRY DEL ROSARIO ([id number]) on 12/30/2017 3:16:30 PM Referred By: DELMA Confirmed By:YOUSIF SANTIAGO MD 12/30/17 151 Date Yousif Santiago MD CC: Jackson Wild DO; Danie Sparks MD; Nai Del Angel Signed 12 LEAD ELECTROCARDIOGRAM Observed: 12/30/2017 Status: F Source: [place] 3:12 PM [facility] Cardiovascular Services [address] [place] [address] 12 Lead EKG 12/27/17 1729 MR#: [id number] Acct: [id number] Name: JANESSA RAYMOND Rep #: [id number] : 1935 82 From: Yousif Santiago MD Attending Dr: Nai Del Angel Status: DIS IN Ordering Dr: Jackson Wild DO Date: 12/27/17 Location: [facility] Sex: F C Admitted: 12/27/17 Test Reason : AFIB Blood Pressure : / mmHG Vent. Rate : 138 BPM Atrial Rate : 138 BPM P-R Int : 176 ms QRS Dur : 102 ms QT Int : 280 ms P-R-T Axes : 000 -62 051 degrees QTc Int : 424 ms Sinus tachycardia Left axis deviation Abnormal ECG Confirmed by YOUSIF SANTIAGO MD ([id number]), graphic editor BERRY DEL ROSARIO ([id number]) on 12/30/2017 3:12:07 PM Referred By: ALFRED Confirmed By:YOUSIF SANTIAGO MD 12/30/17 151 Date Yousif Santiago MD CC: Jackson Wild DO; Danie Sparks MD; Nai Del Angel Signed CONSULTATION Observed: 12/30/2017 Status: F Source: [place] 9:54 AM [facility] REPOSITORY [facility] Medical Records Department [address] [place] [address] Consultation 12/29/17 0805 MR#: [id number] Acct: [id number] Name: JANESSA RAYMOND Rep #: [id number] : 1935 82 From: Blas Del Toro MD PCP: Danie Sparks MD Status: DIS IN Y Location: [place] [address] Problem List (1) Atrial fibrillation with RVR Status: Acute (2) Heart failure Status: Acute Qualifiers: Heart failure chronicity: unspecified (3) Tobacco abuse Status: Chronic (4) History of non-Hodgkin's lymphoma Status: Chronic (5) Hypertension Status: Chronic Qualifiers: Hypertension type: essential hypertension Qualified Code(s): I10 - Essential (primary) hypertension (6) Hypercholesteremia Status: Chronic (7) Obesity Status: Chronic Qualifiers: Body mass index: BMI 40.0-44.9 (8) Breast cancer, left Status: Chronic (9) Hypothyroidism Status: Chronic (10) Osteoarthritis Status: Chronic (11) Depression Status: Chronic Reason for Consult Date of Consultation: 12/29/17 Reason for Consultation: Lung nodule History of Present Illness: The patient is a 82 year old F, with past medical history listed below, who presented to [facility] on December 27, 2017 as a referral from her primary care physician. Patient reportedly presented complaining of a one-week of bilateral leg swelling, cough and dyspnea on exertion. While at the physician's office, patient was noted to have highly variable heart rate. Patient had no history of atrial fibrillation and was sent to the ER for evaluation. While in the emergency room, patient did have a CT of the chest for evaluation of possible PE that noted a right lower lobe nodule. Pulmonary has been consulted for recommendations. Patient reports subjective improvement following hospitalization. Patient has been treated with diuretic therapy and rate control. Patient is currently on Eliquis therapy and tolerating well. Patient denies any complications such as epistaxis, hemoptysis, melena or hematochezia. Patient feels her lower extremities are much improved compared to previous. Patient does report a remote history of non-Hodgkin's lymphoma in the groin. Patient did receive chemo and radiation and is reportedly in remission. Patient also reports a history of left breast cancer that did not require radiation or chemotherapy per the patient. Patient has never been told of previous lung nodules that she is aware of. Patient has had multiple CT scans and PET scans in the past secondary to her history of malignancy. Patient denies any chest pain, nausea, vomiting, fever or chills. Patient has had weight gain that she attributes to lower extremity edema. Patient feels her dyspnea on exertion is much improved compared to previous. Patient denies any environmental exposures such as TB or asbestos. Patient does report a 24-vcyk-kezu smoking history, but quit some time ago. Patient did have a pulmonary function test in 2015, but does not routinely follow with pulmonary. Review of systems otherwise negative x10 systems. Past Medical History Past Medical History (Chronic Problems): Chronic Problems (Last Updated 12/28/17 @ 09:46 by Nai Del Angel MD) Tobacco abuse (Chronic) History of non-Hodgkin's lymphoma (Chronic) Hypertension (Chronic) Hypercholesteremia (Chronic) Obesity (Chronic) Breast cancer, left (Chronic) Hypothyroidism (Chronic) Pulmonary embolism (Chronic) Osteoarthritis (Chronic) Depression (Chronic) Medical History: Medical History (Last Updated 12/28/17 @ 09:46 by Nai Del Angel MD) Hypothyroidism (Chronic) E03.9 Pulmonary embolism (Chronic) I26.99 Osteoarthritis (Chronic) M19.90 Depression (Chronic) F32.9 History of gout Z87.39 History of pelvic fracture Z87.81 Allergies amoxicillin Adverse Reaction (Severe, Verified 12/27/17 17:18) Nausea/Vom/Diarrhea Penicillins [PCN] Adverse Reaction (Severe, Verified 12/27/17 17:18) Unknown CAN NOT FUNCTION tape Allergy (Severe, Uncoded 12/27/17 17:18) bruising Home Medications: Ambulatory Orders Medication Instructions Recorded Lisinopril/Hydrochlorothiazide 1 tab PO DAILY 09/11/16 [Zestoretic 20-12.5 mg Tablet] Surgical History: Surgical History (Last Updated 12/28/17 @ 09:46 by Nai Del Angel MD) History of mastectomy Z98.890, Z90.10 history of skin graph on nose Surgical History: mastectomy, - Lives: With Family Smoking Status: Current every day smoker Tobacco Use: Cigarettes Alcohol: None Drugs: None - *Family History Paternal Family History: Family History (Last Reviewed 12/28/17 @ 02:04 by Chris Garcia MD) Mother Breast cancer Hypertension Father Lung cancer Alcoholism Brother Asthma Alcoholism Cancer Depression Heart disease Hypertension Liver disease Sister Alcoholism Cancer Heart disease Hypertension Thyroid disorder History Items: - - Patient's father at the age of 75 from lung cancer. Patient's mother at the age of 55 from metastatic breast cancer. Review of Systems Comment: See HPI Patient Problems: Active and Suspected Problems (Last Updated 12/28/17 @ 09:46 by Nai Del Angel MD) Atrial fibrillation with RVR (Acute) Heart failure (Acute) Lung mass (Acute) Objective: CT of the chest was personally reviewed. Agree with formal interpretation. Patient does have what appears to be scar tissue versus round atelectasis in the right lower lobe. There are some areas of chronic interstitial thickening. Complete PFT (02/03/2015): Irreversible mild large airways obstructive ventilatory defect with a symmetric reduction diffusing capacity. (FVC 74%, FEV1 81%, TLC 87%, DLCO 52%) Echo (December 27, 2017): EF 40% with moderately enlarged atria. Pulmonary artery pressure estimated at 36 mmHg. There was a reduction in EF compared to previous study. - Physical Exam General: Alert, Oriented x3, Cooperative, No apparent distress, Well developed, Well nourished, - - Obese. Speaking in full sentences. HEENT: Atraumatic, PERRLA, EOMI, Normocephalic, - - No scleral icterus or injection noted. Oral: Moist Mucosa, No Gingival or Mucosal Lesions/ Ulcerations Neck: Supple, No JVD, No Nodes Lungs: No rhonchi, No wheeze, No rales, Diminished, - - No dullness to percussion. Symmetric expansion. Cardiovascular: Normal S1, Normal S2, No murmurs, Irregular Rate, No rub noted, No Gallop Abdomen: Bowel Sounds Present, Soft, Non Tender, Non-Distended, Obese Extremities: No clubbing, No cyanosis, Edema - Maite bandages in place. 2+ lower extremity Skin: No rashes, No breakdown Musculoskeletal: No Tenderness to Palpation of Joints or Extremities Lymphatic: No Cervical, Supraclavicular, or Inguinal Adenopathy Neurological: Cranial nerves II-XII grossly intact, Neuro grossly intact, Motor Exam 5/5 strength throughout Psych/Mental Status: Alert and oriented to time, place, person, mood and affect Vital Signs Temp Pulse Resp BP Pulse Ox 37.2 C 77 18 94/50 L 95 12/29/17 03:30 12/29/17 06:57 12/29/17 03:30 12/29/17 03:30 12/29/17 07:22 Oxygen Flow Rate (L/min) 1 Oxygen Delivery Method Room Air Weight: 89 kg Body Mass Index (BMI) 33.2 Intake and Output for Last 24 Hours Intake Total 1313 / 1313 270 / 270 Output Total 450 / 450 600 / 600 Balance 863 / 863 -330 / -330 Microbiology Past 72 Hours 12/27/17 22:50 Influenza Types A,B Direct FA (MIRIAN) - Final Mucosa - Nasopharyngeal Laboratory Tests Past 24 Hrs WBC 5.8 RBC 3.73 L Hgb 10.8 L Hct 35.1 L MCV 94.1 MCH 29.0 MCHC 30.8 L Clinical Impression(s) from Imaging Studies Chest X-Ray 12/27/17 17:35 IMPRESSION: Mildly hypoinflated lungs. Slight perihilar vascular/interstitial prominence. Questionable right upper lobe infiltrate. Electronically Signed: Mitchell Jeffers DO at 18:08 EDT Tel , Service support , Chest CTA 12/27/17 18:15 IMPRESSION: 1. Negative for pulmonary embolism or thoracic aortic dissection 2. Pulmonary artery hypertension 3. Pulmonary edema suggesting early CHF. Right lower lobe consolidation and effusion 4. Spiculated nodule in the right middle lobe as above. Additional area of scarring or masslike consolidation in the anterior right upper lobe. Nonspecific right hilar soft tissue prominence. Malignancy cannot be excluded Electronically Signed: Mitchell Jeffers DO at 19:14 EDT Tel , Service support , Assessment/Plan All Active Problems (Last Updated 12/28/17 @ 09:46 by Nai Del Angel MD) Atrial fibrillation with RVR (Acute) Heart failure (Acute) Lung mass (Acute) RECOMMENDATIONS: 1. Okay to discharge from a pulmonary perspective 2. Follow-up in 4-6 weeks with nurse practitioner in our office for pulmonary function test and CT 3. Repeat CT chest at 3 months 4. Okay to discontinue antibiotics. No steroids indicated 5. Possible PET scan as an outpatient IMPRESSIONS: 1. Lung nodule Patient with a spiculated right middle lobe lung nodule. It is unclear if this represents a malignant process given patient's presentation of acute fluid overload with congestive heart failure. Patient does state that she would want to know if this were cancer and would be willing to undergo surgery or biopsy if necessary. Given its location, CT-guided biopsy would likely be indicated, but clinical suspicion for round atelectasis is significant. After review of the risks, benefits and alternatives, we will arrange for patient to follow-up in our office in 4-6 weeks. Patient can have complete pulmonary function test to ensure that she is still a resection candidate. Repeat CT scan can be completed at 3 months with possible PET scan if findings persist. 2. Acute combined CHF secondary to new onset A. fib with RVR Patient is being followed by cardiology. Patient's echocardiogram does show a reduction in EF compared to previous. Patient is tolerating anticoagulation well. Patient has responded to IV Lasix therapy. Patient is on medical management. Clinical suspicion for congestive heart failure leading to infiltrates noted on CT scan of the chest. Okay from my perspective to discontinue antibiotics as patient has not had any leukocytosis. Patient is not wheezing, so steroids are likely not indicated. 3. History of Hodgkin's lymphoma and breast cancer Patient does have a history of multiple cancers in the past. Patient presents with a new lung nodule. Patient is followed with oncology as an outpatient. See plan for lung nodule above. 4. Advanced age/hypertension/hypothyroidism/hyperlipidemia/gout/depression/obesity Complicates care, management, recovery and prognosis. Okay to continue baseline medications from my perspective. Code Visit Inpatient E AND M: 54043 Init Hosp L2 12/30/17 0954 <Electronically signed by Blas Del Toro MD> Date Blas Del Toro MD Cosigner Signature (if applicable): Date CC: Blas Del Toro MD; Yousif Santiago MD; Danie Sparks MD; Chirs Teixeira MD Signed CONSULTATION Observed: 12/30/2017 Status: F Source: [place] 7:17 AM [facility] [place] REPOSITORY [facility] Medical Records Department [address] [place] [address] Consultation 12/28/17 0903 MR#: [id number] Acct: [id number] Name: JANESSA RAYMOND Rep #: [id number] : 1935 82 From: Yousif Santiago MD PCP: Danie Sparks MD Status: DIS IN Y Location: [place] [address]-1 Reason for Consult Date of Consultation: 12/28/17 Reason for Consultation: Shortness of breath History of Present Illness: The patient is a 82 year old F with no previous cardiac history who presented to the emergency room because She has had 1 week of bilateral leg swelling. She then developed a cough for several days. She also developed dyspnea on exertion and then dyspnea at rest. Her daughter has been sick with bronchitis and thought maybe she had the same. She went to see her primary care physician and was noted at her doctor's office that she had a variable heart rate anywhere from 80-130s. And she was sent to the emergency department. Patient has a history of hypertension high cholesterol. History of left-sided mastectomy due to breast cancer, non-Hodgkin's lymphoma and hypothyroidism. She is a long- term smoker. There is a questionable history of pulmonary embolism and the patient was on Coumadin but states that she was never formally told that she had a blood clot. In the emergency room she was noted to be in atrial fibrillation with rapid ventricular response rate. She was admitted to the hospital and cardiology was called for further evaluation. Past Medical History Allergies/Adverse Reactions: Allergies amoxicillin Adverse Reaction (Severe, Verified 12/27/17 17:18) Nausea/Vom/Diarrhea Penicillins [PCN] Adverse Reaction (Severe, Verified 12/27/17 17:18) Unknown CAN NOT FUNCTION tape Allergy (Severe, Uncoded 12/27/17 17:18) bruising Home Medications: Ambulatory Orders Medication Instructions Recorded Lisinopril/Hydrochlorothiazide 1 tab PO DAILY 09/12/15 [Zestoretic 20-12.5 mg Tablet] Past Medical History (Chronic Problems): Chronic Problems (Last Reviewed 12/27/17 @ 20:54 by Chris Garcia MD) History of Coumadin therapy (Chronic) Osteopenia (Chronic) Chronic back pain (Chronic) History of ankle fracture (Chronic) Leg swelling (Chronic) Edema leg (Chronic) Tobacco abuse (Chronic) Tobacco abuse counseling (Chronic) History of non-Hodgkin's lymphoma (Chronic) Hypertension (Chronic) Hypercholesteremia (Chronic) Incontinence of urine (Chronic) Balance disorder (Chronic) Venous insufficiency (Chronic) Obesity (Chronic) Breast cancer, left (Chronic) Psoriasis of scalp (Chronic) History of sinus problem (Chronic) Ulcer (Chronic) Hypothyroidism (Chronic) Pulmonary embolism (Chronic) Osteoarthritis (Chronic) Depression (Chronic) Breast cancer (Chronic) Non Hodgkin's lymphoma (Chronic) Surgical History: mastectomy, - - *Family History Paternal Family History: Family History (Last Reviewed 12/28/17 @ 02:04 by Chris Garcia MD) Mother Breast cancer Hypertension Father Lung cancer Alcoholism Brother Asthma Alcoholism Cancer Depression Heart disease Hypertension Liver disease Sister Alcoholism Cancer Heart disease Hypertension Thyroid disorder History Items: - - Patient's father at the age of 75 from lung cancer. Patient's mother at the age of 55 from metastatic breast cancer. Lives: With Family Smoking Status: Current every day smoker Tobacco Use: Cigarettes Alcohol: None Drugs: None Review of Systems - Review of Systems General: Denies: Fever, Night Sweats, Fatigue Cardiovascular: Reports: Shortness of Breath, Shortness of Breath at Rest, Peripheral Edema. Denies: Chest Discomfort, Orthopnea, PND, Palpitations, Lightheadedness, Dizziness, Near Syncope, Syncope Respiratory: Denies: Cough, Sputum Production, Hemoptysis Gastrointestinal: Denies: Hematemesis, Hematochezia, Melena Genitourinary: Denies: Dysuria, Hematuria Muscoloskeletal: Denies: Myalgias Skin: Denies: Rash Neurological: Denies: Dizziness Psychiatric: Denies: Anxiety Endocrine: Denies: Unexplained Weight Loss Hematologic/ Lymphatic: Denies: Anemia Subjectve: Pleasant lady in no apparent distress Objective: Vital Signs Temp Pulse Resp BP Pulse Ox 97.7 F L 84 16 101/57 L 93 12/28/17 03:20 11/03/18 06:55 12/28/17 03:20 12/28/17 03:20 12/28/17 07:30 Oxygen Flow Rate (L/min) 1 Oxygen Delivery Method Nasal Cannula Weight: 199 lb 1.239 oz Body Mass Index (BMI) 33.2 Intake and Output for Last 24 Hours Intake Total 833 / 833 Output Total 200 / 200 Balance 633 / 633 General: Awake, Alert, Oriented x 3 HEENT: PERRL, EOMI, Sclera Non Icteric Neck: Supple, Good ROM, No Lymph Node Enlargement Lungs: Diminished Kvng Bases Cardiovascular: Irregular Rhythm, Normal S1, Normal S2, No Murmurs, No Rubs, No Gallops Vascular: No Carotid Bruits, Normal Femoral Pulses, Normal Radial Pulses, Normal Dorsalis Pedal Pulse, Normal Posterior Tibial Pulses Abdomen: Bowel Sounds Present, Soft, Non Tender, No HSM, No Organomegaly Extremities: No Cyanosis, No Clubbing, Bilateral Edema +1 Neurological: No Focal Motor or Sensory Deficit 12/27/17 17:30: WBC 10.1, RBC 4.15 L, Hgb 12.0, Hct 39.0, MCV 94.0, MCH 28.9, MCHC 30.8 L, RDW 17.1 H, RDW Differential 58.6 H, Plt Count 225, MPV 9.6, Immature Gran % (Auto) 0.300, Neut % (Auto) 71.6 H, Lymph % (Auto) 20.2, Traill % (Auto) 7.1, Eos % (Auto) 0.5, Baso % (Auto) 0.3, Absolute Neuts (auto) 7.2, Total Counted Not Reportable 12/27/17 17:30: PT 13.1, INR 1.0, APTT 28.4 12/27/17 17:30: Sodium 133 L, Potassium 3.8, Chloride 98, Carbon Dioxide 27.0, Anion Gap 8, BUN 19 H, Creatinine 0.70, Est GFR (MDRD) Af Amer 104, Est GFR (MDRD) Non-Af 86, BUN/Creatinine Ratio 27.3 H, Glucose 103, Calcium 8.9, Magnesium 1.9, Total Bilirubin 0.30, Troponin I < 0.015 12/27/17 17:30: B-Natriuretic Peptide 271.8 H 12/27/17 17:46: Lactic Acid 0.9 12/27/17 19:39: Urine Color Yellow, Urine Clarity Sl. Cloudy, Urine pH 7.0, Ur Specific Remus 1.005, Urine Protein 30 H, Urine Glucose (UA) Normal, Urine Ketones Negative, Urine Occult Blood 10 H, Urine Nitrite Negative, Urine Bilirubin Negative, Urine Urobilinogen Normal, Ur Leukocyte Esterase 100 H, Urine RBC 0 SEEN, Urine WBC 0-5 SEEN 12/28/17 06:08: WBC 6.7, RBC 3.71 L, Hgb 10.8 L, Hct 35.1 L, MCV 94.6, MCH 29.1, MCHC 30.8 L, RDW 16.9 H, RDW Differential 58.4 H, Plt Count 180, MPV 9.3, Immature Gran % (Auto) 0.300, Neut % (Auto) 63.3, Lymph % (Auto) 27.8, Traill % (Auto) 7.3, Eos % (Auto) 1.0, Baso % (Auto) 0.3, Absolute Neuts (auto) 4.3, Total Counted Not Reportable 12/28/17 06:08: Sodium 135 L, Potassium 3.7, Chloride 96 L, Carbon Dioxide 31.0, Anion Gap 8, BUN 20 H, Creatinine 0.82, Est GFR (MDRD) Af Amer 86, Est GFR (MDRD) Non-Af 71, BUN/Creatinine Ratio 24.5 H, Glucose 96, Calcium 8.7 12/28/17 06:08: Magnesium 1.7 Rhythm: EKG: Atrial fibrillation with a rate of approximately 98 bpm ECHO: Mild reduction in global left ventricular systolic function estimated to be 45% plus minus Assessment/Plan 1. Congestive heart failure * Patient presents with shortness of breath bilateral pitting edema elevated natruretic peptide level. The above together with the x-ray findings are consistent with congestive heart failure. The etiology is likely secondary to the atrial fibrillation. * Recommendation would be to institute IV diuresis * Increase beta-linda for better rate control * Continue MAITE inhibitor due to left ventricular systolic dysfunction * After her rate has been better controlled she will be scheduled for a noninvasive test for ischemia. * 2. Hypertension * Her blood pressure appears to be under good control but would continue to optimize it. * Continue MAITE inhibitor and beta-linda. * 3. Atrial fibrillation * She does have atrial fibrillation with a rapid ventricular response rate. My recommendation will be to increase her beta-linda to 50 mg twice a day * She will continue with anticoagulation and we can discuss whether she will continue with warfarin or a factor X inhibitor * * Thank you for allowing me to participate in the care of your patient. Please don't hesitate to call if any issues arise 12/30/17 0717 <Electronically signed by Yousif Santiago MD> Date Yousif Santiago MD Cosigner Signature (if applicable): Date CC: Blas Del Toro MD; Yousif Santiago MD; Danie Sparks MD; Chris Teixeira MD Signed DISCHARGE SUMMARY Observed: 12/29/2017 Status: F Source: [place] 12:34 PM [facility] [place] REPOSITORY [facility] Medical Records Department [address] [place] [address] Discharge Summary 12/29/17 1225 MR#: [id number] Acct: [id number] Name: JANESSA RAYMOND Rep #: [id number] : 1935 82 From: Nai Del Angel MD PCP: Danie Sparks MD Status: DIS IN Y Location: [place] [address]-1 Discharge Date and Diagnosis Date of Admission: 12/27/17 Date of Discharge: 12/29/17 - Primary Discharge Diagnosis #1 new onset A. fib with RVR. #2 acute systolic CHF, secondary to acute A. fib with RVR. #3 right lung nodule. #4 pneumonia, ruled out. - Secondary Discharge Diagnosis Chronic Problems (Last Updated 12/28/17 @ 09:46 by Nai Del Angel MD) Tobacco abuse (Chronic) History of non-Hodgkin's lymphoma (Chronic) Hypertension (Chronic) Hypercholesteremia (Chronic) Obesity (Chronic) Breast cancer, left (Chronic) Hypothyroidism (Chronic) Pulmonary embolism (Chronic) Osteoarthritis (Chronic) Depression (Chronic) Hospital Course and Treatment Imaging Results: Clinical Impression(s) from Imaging Studies Chest X-Ray 12/27/17 17:35 IMPRESSION: Mildly hypoinflated lungs. Slight perihilar vascular/interstitial prominence. Questionable right upper lobe infiltrate. Electronically Signed: Mitchell JeffersDO at 18:08 EDT Tel , Service support , Chest CTA 12/27/17 18:15 IMPRESSION: 1. Negative for pulmonary embolism or thoracic aortic dissection 2. Pulmonary artery hypertension 3. Pulmonary edema suggesting early CHF. Right lower lobe consolidation and effusion 4. Spiculated nodule in the right middle lobe as above. Additional area of scarring or masslike consolidation in the anterior right upper lobe. Nonspecific right hilar soft tissue prominence. Malignancy cannot be excluded Electronically Signed: Mitchell DO Aury at 19:14 EDT Tel , Service support , Dr. Santiago, cardiology. Dr. Del Toro, pulmonology. Dr. Teixeira, oncology. Procedures: 2-D Echocardiogram, EKG Summary of Care Provided: Patient seen and examined on the day of discharge and appeared to be stable to be discharged home. She has been off oxygen, no more shortness of breath. Her vital signs are stable. This is an 82 years old female patient was sent from her PCPs office for irregular heart rate and shortness of breath, found to have new onset A. fib with RVR, mild acute CHF and right lung nodule. #1 new onset A. fib with RVR: Treated with IV metoprolol and she returned back in sinus rhythm. With oral metoprolol, heart rate remained around 80s-90s, blood pressure was stable. 2D echocardiogram revealed ejection fraction of 40%, moderately enlarged right and left atrium, pulmonary artery pressure of 36. She was started on Eliquis for anticoagulation. Cardiology consulted and recommended medical therapy at this time, plan for noninvasive testing for cardiac ischemia as outpatient. Serum electrolytes and TSH were normal. Patient discharged home on metoprolol for rate control, on Eliquis for anticoagulation, plan for cardiac workup in 2-4 weeks for noninvasive cardiac testing. #2 acute systolic CHF,: Attributed to A. fib with RVR. Treated with IV Lasix as well as lisinopril and metoprolol. 2D echocardiogram reviewed as above. Initially, she required up to 2 L of oxygen and we were able to take her off oxygen and her pulse ox maintained on room air. She was discharged on Lasix 40 mg p.o. daily, discharged on metoprolol and lisinopril, plan to follow-up with cardiology as above. #3 right lung nodule: CTA chest revealed right middle lobe nodule measuring about 9 x 6 mm. Patient is a longtime smoker. Pulmonology consulted and recommended to repeat CT scan chest in 4-6 weeks, plan to follow-up with pulmonology as outpatient. #4 probable community-acquired pneumonia: Ruled out. Patient received 2 doses of oral Levaquin. #5 hypertension: Blood pressure stable, continued lisinopril and HCTZ, started on metoprolol. #6 hypothyroidism: TSH was normal, continued on levothyroxine. #7 hyperlipidemia: Continued on statins. Patient discharged home in a stable medical condition, discharged on Eliquis for anticoagulation, metoprolol for rate control for new onset A. fib with RVR, discharged on Lasix, lisinopril and metoprolol for CHF, plan to follow-up with cardiology in 2-4 weeks for noninvasive cardiac testing, follow-up with pulmonology in 4-[address] scan chest for right lower lung nodule, recommended follow-up with PCP in 1 week, follow-up with oncology according to Dr. Teixeira. This note was generated with [employer] dictation software. It may contain incorrect words, spelling, and punctuation that were not noted in checking the note before signing. - Physical Exam General: Alert, Cooperative, No apparent distress HEENT: Atraumatic, PERRLA, EOMI Oral: Moist Mucosa, No Gingival or Mucosal Lesions/ Ulcerations Neck: Supple, No JVD, Negative Carotid Bruits, Trachea Midline, Thyroid Normal Size and Texture Lungs: Clear to auscultation, Normal air movement, No rhonchi, No wheeze, No rales Cardiovascular: Regular rate, Regular Rhythm, Normal S1, Normal S2, PMI Normal Abdomen: Bowel Sounds Present, Soft, Non Tender, Non-Distended, No Hepato-splenomegaly, Obese Extremities: No clubbing, No cyanosis, Edema - Trace edema. Skin: No rashes, No breakdown Lymphatic: No Cervical, Supraclavicular, or Inguinal Adenopathy Neurological: Cranial nerves II-XII grossly intact, Neuro grossly intact Psych/Mental Status: Normal Affect, Appropriate Vital Signs Temp Pulse Resp BP Pulse Ox 98.1 F 99 16 126/55 H 96 12/29/17 09:01 12/29/17 09:09 12/29/17 09:01 12/29/17 09:01 12/29/17 09:01 Oxygen Flow Rate (L/min) 1 Oxygen Delivery Method Room Air Weight: 196 lb 3.382 oz Body Mass Index (BMI) 33.2 Intake and Output for Last 24 Hours Intake Total 1313 / 1313 270 / 270 Output Total 450 / 450 600 / 600 Balance 863 / 863 -330 / -330 Microbiology Past 72 Hours 12/27/17 22:50 Influenza Types A,B Direct FA ([facility]) - Final Mucosa - Nasopharyngeal Laboratory Tests Past 24 Hrs WBC 5.8 RBC 3.73 L Hgb 10.8 L Hct 35.1 L MCV 94.1 MCH 29.0 MCHC 30.8 L Discharge Activity: Return to Normal Activity Weight Bearing Status: Weight bearing as tolerated Call your doctor if you observe: Fever of 101 or Higher, Shortness of breath, Dizziness, Fainting spells, Swelling in the ankles, Chest pain, Increased palpitations (irregular heartbeat), Uncontrolled pain Home Medications: Medications to take at Discharge Lisinopril/Hydrochlorothiazide [Zestoretic 20-12.5 mg Tablet] 1 tab PO DAILY 09/12/15 apremilast 30 mg tablet 30 mg PO BID 05/16/17 clobetasol 0.05 % shampoo 1 applic TOPICAL QDAY 05/16/17 primidone 50 mg tablet 150 mg PO BID tab 06/17/17 Allopurinol [Zyloprim] 300 mg PO DAILY 12/27/17 Cholecalciferol (Vitamin D3) [Vitamin D3] 400 unit PO TID 12/27/17 Duloxetine HCl 30 mg PO DAILY 12/27/17 Levothyroxine Sodium [Synthroid] 50 mcg PO DAILY 11/02/18 Pramipexole Di-HCl [Mirapex] 0.25 mg PO QHS 12/27/17 Pravastatin Sodium 40 mg PO QHS 12/27/17 Apixaban [Eliquis] 5 mg PO BID #90 tab 12/29/17 Furosemide [Lasix] 40 mg PO DAILY #30 tab 12/29/17 Metoprolol Tartrate [Lopressor (beta linda)] 50 mg PO BID #90 tab 12/29/17 Following Prescrptions Were Given to Patient: Furosemide [Lasix] 40 mg PO DAILY #30 tab Apixaban [Eliquis] 5 mg PO BID #90 tab Metoprolol Tartrate [Lopressor (beta linda)] 50 mg PO BID #90 tab Primary Care Physician: Danie Sparks MD [Primary Care Provider] - Please follow up with your Primary Care Physician in: 1 week. Please Follow Up With: Yousif Santiago MD When: 2-4 weeks. Please Follow Up With: Blas Del Toro MD When: 4-6 weeks. Please Follow Up With: Chris Teixeira MD When: please call his office. Patient Instructions: Apixaban Oral tablet, Discharge Instructions for Atrial Fibrillation, Discharge Instructions for Heart Failure Medical Necessity - Tobacco Use Smoking Status: Current every day smoker Tobacco Use: Cigarettes Meaningful Use Info Meaningful Use Diagnoses (Choose all that apply): CHF - CHF MAITE/ARB ordered at discharge?: Yes Documented LVEF (%): 40 Code Visit Inpatient E AND M: 99677 Disch Hosp 12/29/17 1234 <Electronically signed by Nai Del Angel MD> Date Nai Del Angel MD Cosigner Signature (if applicable): Date CC: Blas Del Toro MD; Yousif Santiago MD; Danie Sparks MD; Nai Del Angel; Chris Teixeira MD Signed DISCHARGE INSTRUCTION Observed: 12/29/2017 Status: F Source: [place] 8:59 AM [facility] [place] REPOSITORY [facility] Medical Records Department [address] [place] [address] Instructions for Home/Discharge Instructions 12/29/17 0856 MR#: [id number] Acct: [id number] Name: JANESSA RAYMOND Rep #: [id number] : 1935 82 From: Nai Del Angel MD PCP: Danie Sparks MD Status: ADM IN - Discharge Diagnoses Current Active Problems: Current Active and Chronic Problems (Last Updated 12/28/17 @ 09:46 by Nai Del Angel MD) Atrial fibrillation with RVR (Acute) Heart failure (Acute) Lung mass (Acute) You will use the following diet at home:: Cardiac Your food should be the consistency of: Regular Discharge Activity: Return to Normal Activity Weight Bearing Status: Weight bearing as tolerated Call your doctor if you observe: Fever of 101 or Higher, Shortness of breath, Dizziness, Fainting spells, Swelling in the ankles, Chest pain, Increased palpitations (irregular heartbeat), Uncontrolled pain Instructions: Discharge Instructions for Heart Failure, Discharge Instructions for Atrial Fibrillation, Apixaban Oral tablet Allergies/Adverse Reactions: Allergies amoxicillin Adverse Reaction (Severe, Verified 12/27/17 17:18) Nausea/Vom/Diarrhea Penicillins [PCN] Adverse Reaction (Severe, Verified 12/27/17 17:18) Unknown CAN NOT FUNCTION tape Allergy (Severe, Uncoded 12/27/17 17:18) bruising Medications to take at Discharge Lisinopril/Hydrochlorothiazide [Zestoretic 20-12.5 mg Tablet] 1 tab PO DAILY 09/12/15 apremilast 30 mg tablet 30 mg PO BID 05/16/17 clobetasol 0.05 % shampoo 1 applic TOPICAL QDAY 05/16/17 primidone 50 mg tablet 150 mg PO BID tab 06/17/17 Allopurinol [Zyloprim] 300 mg PO DAILY 12/27/17 Cholecalciferol (Vitamin D3) [Vitamin D3] 400 unit PO TID 12/27/17 Duloxetine HCl 30 mg PO DAILY 12/27/17 Levothyroxine Sodium [Synthroid] 50 mcg PO DAILY 12/27/17 Pramipexole Di-HCl [Mirapex] 0.25 mg PO QHS 12/27/17 Pravastatin Sodium 40 mg PO QHS 12/27/17 Apixaban [Eliquis] 5 mg PO BID #90 tab 12/29/17 Furosemide [Lasix] 40 mg PO DAILY #30 tab 12/29/17 Metoprolol Tartrate [Lopressor (beta linda)] 50 mg PO BID #90 tab 12/29/17 The following prescriptions were given: Furosemide [Lasix] 40 mg PO DAILY #30 tab Apixaban [Eliquis] 5 mg PO BID #90 tab Metoprolol Tartrate [Lopressor (beta linda)] 50 mg PO BID #90 tab Primary Care Physician: Danie Spraks MD [Primary Care Provider] - Please follow up with your Primary Care Physician in: 1 week. Test Results: Test results from this visit will be discussed in further detail at your follow-up appointment, if applicable. Please Follow Up With: Yousif Santiago MD When: 2-4 weeks. Please Follow Up With: Blas Del Toro MD When: 4-6 weeks. Please Follow Up With: Chris Teixeira MD When: please call his office. 12/29/17 0859 <Electronically signed by Nai Del Angel MD> Date Nai Del Angel MD CC: Blas Del Toro MD; Yousif Santiago MD; Danie Sparks MD; Chris Teixeira MD CBC W/DIFF, AUTOMATED Collected: 12/29/2017 Status: F Source: [place] 5:22 AM [facility] REPOSITORY TYPE CODE TESTS RESULT OUT OF RANGE REFERENCE UNITS LAB L100.1000 4.4-11.0 K/mm3 Normal WBC 5.8 LAB L100.1200 4.2-5.4 M/mm3 Low RBC 3.73 LAB L100.1300 12.0-15.0 g/dl Low HGB 10.8 LAB L100.1400 37-47 % Low HCT 35.1 LAB L100.1500 81-99 fL Normal MCV 94.1 LAB L100.1600 27.0-32.0 pg Normal MCH 29.0 LAB L100.1700 32-36 g/gl Low MCHC 30.8 LAB L100.1810 11.6-14.6 % High RDW CV 16.9 LAB L100.1820 35.1-43.9 fl High RDW SD 55.6 LAB L100.1900 150-450 K/mm3 Normal PLT 180 LAB L100.2000 6.2-12.0 fl Normal MPV 9.8 LAB L100.2100 47-70 % Normal NEUT% 62.6 LAB L100.2200 19-41 % Normal LY% 25.3 LAB L100.2300 0-10 % High MONO% 10.3 LAB L100.2400 0-5 % Normal EO% 1.0 LAB L100.2500 0-1 % Normal BASO% 0.3 LAB L100.2550 0.0-0.9 % Normal IM GRAN % 0.500 Result Comment: IG% - Immature Granulocytes (promyelocytes, myelocytes and metamyelocytes) > 1% indicates that a LEFT SHIFT is Present. LAB L100.2620 2.0-7.7 X10 3/uL Normal Absolute Neut 3.6 LAB L100.2720 0.83-4.51 X10 3/ul Normal Absolute Lymph 1.47 Performed By: #### L100.0100 #### [facility] [address] [place], [address] BASIC METABOLIC Collected: 12/29/2017 Status: F Source: [place] PROFILE ([facility]) 5:22 AM [facility] [place] REPOSITORY TYPE CODE TESTS RESULT OUT OF RANGE REFERENCE UNITS LAB L501.0100 74-106 mg/dL Normal GLU 96 Result Comment: Please note revised GLUCOSE reference range effective 2017. LAB L501.1000 7-18 mg/dL High BUN 27 LAB L501.1100 0.55-1.02 mg/dL Normal CREAT,SERUM 1.02 Result Comment: The validity of the calculated GFR AND GFRAA in patients over 70 years has not been determined. Clinical correlation is essential. LAB L501.1110 >60 mL/min Low EST GFR 55 Result Comment: Non- GFR Calc LAB L501.1115 >60 mL/min Normal EST GFR - AA 67 Result Comment: GFR Calc LAB L501.1255 ml/min Normal Estimated CRCL 38.92 LAB L501.1300 10-20 RATIO High BUN/CRE 26.5 LAB L501.2200 8.5-10 mg/dL Normal .1 CA 8.6 LAB L501.5300 136-14 mmol/L Low 5 NA 135 LAB L501.5600 3.5-5. mmol/L Normal 1 K 3.5 LAB L501.5900 98-107 mmol/L Low CL 95 LAB L501.6100 21.0-3 mmol/L Normal 2.0 CO2 31.0 LAB L501.6200 5-15 Normal GAP 9 Performed By: #### L500.2500 #### [facility] [address] [place], [address] CONSULTATION Observed: 12/28/2017 Status: F Source: [place] 5:15 PM [facility] [place] REPOSITORY [facility] Medical Records Department [address] [place] [address] Consultation 12/28/17 1629 MR#: [id number] Acct: [id number] Name: JANESSA RAYMOND Rep #: [id number] : 1935 82 From: Chris Teixeira MD PCP: Danie Sparks MD Status: ADM IN Location: [place] [address] Consult Referring Physician: Dr. Arenas Consult Results: Right middle lobe nodule and Hilar node. 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 In February 2012 she was diagnosed with left breast cancer, had left modified radical mastectomy and sentinel node biopsy on March 24, 2012 for stage IA(pT1c N0 M0) tumor size was 1.5 cm, sentinel node negative, ER/NH positive, HER-2 negative. She received adjuvant Arimidex from March 2012 to April 2017. She started Xgeva in February 2015 for osteopenia, bone density in February 2016 was normal so Xgeva was discontinued. She was admitted with SOB, CTA on 12/27/2017 showed 9 mm spiculated nodule in right middle lobe and right hilar nodule and possible scarring in right upper lobe. She is feeling better now. Past Medical History: Chronic Problems (Last Updated 12/28/17 @ 09:46 by Nai Del Angel MD) Tobacco abuse (Chronic) History of non-Hodgkin's lymphoma (Chronic) Hypertension (Chronic) Hypercholesteremia (Chronic) Obesity (Chronic) Breast cancer, left (Chronic) Hypothyroidism (Chronic) Pulmonary embolism (Chronic) Osteoarthritis (Chronic) Depression (Chronic) Past Medical/Surgical History: Past Medical History - Most Recent Inpatient Visit Past Medical History Start: 12/27/17 21:37 Text: Status: Complete Freq: ONCE Protocol: Document 12/27/17 22:03 HS (Rec: 12/27/17 22:06 [id number]) BMI Required to complete PMH What is Patient's BMI 33.2 Past Medical History Unable History Recalled Yes Query Text:Pt Unable/Family Not Present Neurologic Medical History Hx Stroke/TIA No Hx Dementia/Alzheimer's No Hx Parkinson's Disease No Hx Seizures No Hx Multiple Sclerosis No Hx Migraines No Cardiac Medical History VTE Present on Admission No Hx of Deep Vein Thrombosis/VTE/PE Unsure Hx Hypertension Yes Hx Chest Pain/Angina No Hx Heart Attack No Hx Cardiac Surgery/Stents/Etc. No Hx Heart Failure No Hx Pacemaker/AICD No Hx Irregular Heartbeat and/or Afib No Hx Anticoagulant Therapy Yes: Aspirin Query Text:(Coumadin, Aspirin, Plavix, Xarelto, etc.) Hx Pain in Legs when Walking/Leg Cramps No Respiratory Medical History Hx COPD No Hx Emphysema No Smoking Status Current every day smoker Tobacco Use Cigarettes Hx Tobacco Use in last 12 months Yes Sent to [facility] Yes Hx Sleep Apnea No Do you snore loudly (louder than talking No or can be heard through closed doors)? Do you often feel tired/ fatigued/ Yes sleepy during daytime? Has anyone observed you stop breathing No during sleep? STOP Results Positive GI Medical History Hx Ulcer No Hx Hepatitis No Hx Cirrhosis No Hx GI Bleed No Hx Unplanned Weight Loss No Genitourinary Medical History Indwelling Catheter in Place on Arrival/ No Admission Hx Renal Disease No Hx Dialysis No Musculoskeletal History Hx Arthritis No Hx Rheumatoid Arthritis No Endocrine Medical History Hx Diabetes No Hx Thyroid Disease Yes Hematologic Medical History Hx of Blood Transfusion No Hx of Transfusion in last 3 Months No Ever experience any problems with No transfusion(s)? Hx of Preganancy in last 3 Months N/A Nurse Filling Out Transfusion AND [facility]SMUCKER Questions: Date: 12/27/17 Time: 22:06 Psycho/Social Medical History Hx Depression Yes Hx Anxiety Yes Hx Behavior Disorder No Hx Alcohol Use No Hx Substance Use No Other Medical History Hx Blood Disorders No Hx Anemia No Hx Cancer Yes: BREAST CANCER,NON- HOGDKINS Wound/Pressure Injury Present on Arrival No /Admission Query Text:If yes, chart assessment in Shift/Clinical Findings Central Line/PICC/VAD Present on Arrival No /Admission Antibiotics within last 7 days? No Risk for Readmission Number of Risk Factors 4 At Risk for Readmission Patient is At Risk For Readmission Patient is eligible for Call Back Y Past Medical History (Last Updated 12/28/17 @ 09:46 by Nai Del Angel MD) Hypothyroidism (Chronic) Pulmonary embolism (Chronic) Osteoarthritis (Chronic) Depression (Chronic) History of gout (Chronic) History of pelvic fracture (Chronic) Past Surgical History (Last Updated 12/28/17 @ 09:46 by Nai Del Angel MD) History of mastectomy (Acute) history of skin graph (Acute) Paternal Family History: Family History (Last Reviewed 12/28/17 @ 02:04 by Chris Garcia MD) Mother Breast cancer Hypertension Father Lung cancer Alcoholism Brother Asthma Alcoholism Cancer Depression Heart disease Hypertension Liver disease Sister Alcoholism Cancer Heart disease Hypertension Thyroid disorder Family History: - - Patient's father at the age of 75 from lung cancer. Patient's mother at the age of 55 from metastatic breast cancer. - Social History Lives: With Family Smoking Status: Current every day smoker Tobacco Use: Cigarettes Alcohol: None Drugs: None Allergies/Adverse Reactions: Allergy/AdvReac Type Severity Reaction Status Date / Time amoxicillin AdvReac Severe Nausea/Vom/ Verified 12/27/17 17:18 Review of Systems Constitutional:: Denies: Fever, Sweats, Weight loss, Appetite change, Chills Cardiovascular:: Denies: Chest pain, Palpitations, Dyspnea on exertion, Orthopnea, PND, Shortness of breath Respiratory: Denies: Cough, Hemoptysis, Shortness of Breath, Wheezing Gastrointestinal:: Denies: Abdominal pain, Nausea, Vomiting, Diarrhea, Constipation, Hematochezia Genitourinary: Denies: Dysuria, Hematuria, 15, Flank pain Musculoskeletal:: Reports: Arthritis Skin: Denies: Rash, Skin Changes, Wounds Neurological:: Reports: - - Using a walker to ambulate.. Denies: Headache, Dizziness, Visual changes, Tinnitus, Hearing loss Psychiatric: Denies: Anxiety, Depression, Homicidal Ideations, Suicidal Ideations Vital Signs Height 5 ft 5 in Weight: 90.3 kg Weight in Pounds 199.1 lbs Pulse Ox 96 - Physical Exam General: Alert, Oriented x3, No apparent distress HEENT: Atraumatic, PERRLA, EOMI, Normocephalic Oropharynx:: Dry mucosa Neck:: Supple, Trachea midline. Negative for: JVD, bilateral Cardiac:: Normal S1, Normal S2, Irregular rate. Negative for: Murmur Lungs: Clear to auscultation, Excusion symmetrical. Negative for: Rhonchi, Wheezes Extremities:: Negative for: Cyanosis, Edema Neurological: Unsteady Gait - Using a walker. Laboratory Data: Microbiology 12/27/17 22:50 Influenza Types A,B Direct FA ([facility]) - Final Mucosa - Nasopharyngeal Laboratory Tests WBC 6.7 (4.4-11.0) K/mm3 WBC 10.1 (4.4-11.0) K/mm3 Diagnostic Data: Diagnostic Data Chest X-Ray 12/27/17 17:35 IMPRESSION: Mildly hypoinflated lungs. Slight perihilar vascular/interstitial prominence. Questionable right upper lobe infiltrate. Electronically Signed: Mitchell Jeffers DO at 18:08 EDT Tel , Service support , Chest CTA 12/27/17 18:15 IMPRESSION: 1. Negative for pulmonary embolism or thoracic aortic dissection 2. Pulmonary artery hypertension 3. Pulmonary edema suggesting early CHF. Right lower lobe consolidation and effusion 4. Spiculated nodule in the right middle lobe as above. Additional area of scarring or masslike consolidation in the anterior right upper lobe. Nonspecific right hilar soft tissue prominence. Malignancy cannot be excluded Electronically Signed: Mitchell Jeffers DO at 19:14 EDT Tel , Service support , Assessment and Plan History of Left breast cancer, NHL with Right Lung density, hilar node and RML. Discussed findings with Pt and daughter, needs further work up. Suggestion: Repeat CT chest and obtain Pulmonary consult for FOB and Bx. She will need a PET/CT as outpatient. Will follow up. Medications: Prescriptions This Visit Medication Instructions Recorded Medications Added to Medication List This Visit Allopurinol [Zyloprim] Med 12/28/17 08:00 Active Primary Care Provider: Danie Sparks MD Referring Provider: - Problem List (1) Lung mass Status: Acute (2) History of non-Hodgkin's lymphoma Status: Chronic Code Visit Office Visits / Consults: [id number] IP Consult L5 12/28/17 9075 <Electronically signed by Chris Teixeira MD> Date Chris Teixeira MD Cosigner Signature (if applicable): Date CC: Yousif Santiago MD; Danie Sparks MD; Chris Teixeira MD Signed ECHOCARDIOGRAM COMPLETE Observed: 12/28/2017 Status: F Source: [place] 11:33 AM [facility] [place] REPOSITORY [facility] Cardiovascular Services [address] [place] [id number] Echo Complete 12/28/17 0802 MR#: [id number] Acct: [id number] Name: JANESSA RAYMOND Rep #: [id number] : 1935 82 From: Yousif Santiago MD Attending Dr: Nai Del Angel Status: ADM IN Ordering Dr: Chris Garcia MD Date: 12/27/17 Location: [facility] Sex: F C Admitted: 12/27/17 Version 2 Reason For Study: CHF Procedure This was a 2D Doppler, Color Flow transthoracic echocardiogram. Myocardial strain analysis was performed in this exam to aid in the assessment of cardiac function. Exam performed portable in patient room. Left Ventricle Normal LV size. Mild concentric left ventricular hypertrophy. Left ventricular systolic function is normal. The estimated ejection fraction is 40 %. Unable to assess diastolic dysfunction due to arrhythmia. No regional wall motion abnormalities noted. Right Ventricle Normal RV size. Normal systolic function. Atria The left atrium is moderately enlarged. The right atrium is moderately enlarged. Mitral Valve Normal mitral valve. Mild (1+) eccentric mitral valve insufficiency. Tricuspid Valve Normal tricuspid valve. Mild to moderate (1-2+) tricuspid valve insufficiency. Pulmonary artery systolic pressure is 36 mmHg. Aortic Valve Trisinus/trileaflet aortic valve. Mild focal aortic valve calcification. Pulmonic Valve Normal pulmonic valve. Mild (1+) pulmonic valve insufficiency. Great Vessels Normal aortic root. The pulmonary artery is normal size. Normal inferior vena cava. Pericardium/Pleural No pericardial effusion. MMode/2D Measurements AND Calculations LVIDd: 4.6 cm IVSd: 1.3 cm Ao root diam: 3.6 cm LVIDs: 3.5 cm LVPWd: 1.5 cm LA dimension: 4.6 cm RVDd: 3.5 cm FS: 24.3 % LAV(MOD-bp): 82.1 ml LVAd ap4: 22.9 cm2 SV(MOD-sp4): 26.7 ml LAV(MOD-bp) Indexed: 41.6 ml/m2 EDV(MOD-sp4): 57.8 ml LAV(MOD-sp2): 66.2 ml EDV(sp4-el): 60.2 ml LAV(MOD-sp4): 99.3 ml LVAs ap4: 15.2 cm2 ESV(MOD-sp4): 31.1 ml ESV(sp4-el): 31.5 ml EF(MOD-sp4): 46.2 % EF(sp4-el): 47.6 % SV(sp4-el): 28.7 ml LA A4 area: 27.2 cm2 RA A4 area: 25.4 cm2 Time Measurements MV dec time: 0.18 sec Doppler Measurements AND Calculations MV E max carlota: 136.4 cm/sec Lat Peak E' Carlota: 9.4 cm/sec Med Peak E' Carlota: 9.0 cm/sec MV A max carlota: 46.9 cm/sec E/E' lat: 14.5 E/E' med: 15.2 MV E/A: 2.9 MV V2 max: 165.3 cm/sec Ao V2 max: 169.4 cm/sec LV V1 max: 135.2 cm/sec MV max P.9 mmHg Ao max P.5 mmHg LV V1 max P.4 mmHg MV V2 mean: 68.8 cm/sec MV mean P.7 mmHg MV V2 VTI: 30.8 cm PA V2 max: 74.1 cm/sec TR max carlota: 285.1 cm/sec TR max P.5 mmHg Interpretation Summary Normal LV size. Mild concentric left ventricular hypertrophy. Left ventricular systolic function is normal. The estimated ejection fraction is 40 %. Unable to assess diastolic dysfunction due to arrhythmia. The left atrium is moderately enlarged. The right atrium is moderately enlarged. Pulmonary artery systolic pressure is 36 mmHg. The global longitudinal strain = -16.7% (abnormal). The global longitudinal strain is mildly abnormal. Compared to previous study, the left ventricular systolic function has worsened.. Ordering Physician: Chris Garcia Referring Physician: Danie Sparks Performed By: Arturo Jaime RCS 12/28/17 1133 Date Yousif Santiago MD CC: Danie Sparks MD; Nai Del Angel; Chris Garcia MD Date Dictated: 12/28/17 0802 Date Transcribed: 12/28/17 113 Outfitter Cabin: Signed HISTORY AND PHYSICAL Observed: 12/28/2017 Status: F Source: [place] EXAM 6:46 AM [facility] REPOSITORY [facility] Medical Records Department [address] [place] [address] History and Physical 12/27/172001 MR#: [id number] Acct: [id number] Name: JANESSA RAYMOND Rep #: [id number] : 1935 82 From: Chris Garcia MD PCP: Danie Sparks MD Status: ADM IN Location: [place] [id number] Problem List (1) Atrial fibrillation with RVR Status: Acute (2) Tobacco abuse Status: Chronic (3) Heart failure Status: Acute Qualifiers: Heart failure chronicity: unspecified (4) Lung mass Status: Acute History of Present Illness Date of Admission: 12/27/17 Chief Complaint: irregular heart rate. The patient is a 82 year old F with a significant history of hypertension, hyperlipidemia, hypothyroidism, psoriasis; breast cancer status post mastectomy; non-Hodgkin's lymphoma; questionable PE treated with Coumadin who was sent from her PCPs office because of irregularly irregular heart rhythm on the same day of admission.. Patient went to her PCPs office because she was having flulike symptoms of runny nose; cough, tiredness for 1 week. Her daughter had bronchitis so patient and her daughter thought that the patient might had also developed bronchitis Associated with her symptoms is increasing swelling in her bilateral legs. She denies any orthopnea or PND. At the emergency department there was radiographic evidence of pulmonary infiltrates and spiculated mass. Patient was given Lasix IV; and Levaquin for probable pneumonia. Also patient was given metoprolol IV because she was found to be in A. fib with RVR which brought her heart rate from 140 into the 80s. Past Medical History Past Medical History (Chronic Problems): Chronic Problems (Last Reviewed 12/27/17 @ 20:54 by Chris Garcia MD) History of Coumadin therapy (Chronic) Osteopenia (Chronic) Chronic back pain (Chronic) History of ankle fracture (Chronic) Leg swelling (Chronic) Edema leg (Chronic) Tobacco abuse (Chronic) Tobacco abuse counseling (Chronic) History of non-Hodgkin's lymphoma (Chronic) Hypertension (Chronic) Hypercholesteremia (Chronic) Incontinence of urine (Chronic) Balance disorder (Chronic) Venous insufficiency (Chronic) Obesity (Chronic) Breast cancer, left (Chronic) Psoriasis of scalp (Chronic) History of sinus problem (Chronic) Ulcer (Chronic) Hypothyroidism (Chronic) Pulmonary embolism (Chronic) Osteoarthritis (Chronic) Depression (Chronic) Breast cancer (Chronic) Non Hodgkin's lymphoma (Chronic) Medical History: Medical History (Last Reviewed 12/27/17 @ 20:54 by Chris Garcia MD) Chronic back pain (Chronic) M54.9, G89.29 History of ankle fracture (Chronic) Z87.81 Psoriasis of scalp (Chronic) L40.9 History of hysterectomy (Acute) Z98.890, Z90.710 History of sinus problem (Chronic) Ulcer (Chronic) Hypothyroidism (Chronic) E03.9 Pulmonary embolism (Chronic) I26.99 Osteoarthritis (Chronic) M19.90 Depression (Chronic) F32.9 Breast cancer (Chronic) C50.919 Non Hodgkin's lymphoma (Chronic) C85.90 History of gout Z87.39 History of pelvic fracture Z87.81 Allergies amoxicillin Adverse Reaction (Severe, Verified 12/27/17 17:18) Nausea/Vom/Diarrhea Penicillins [PCN] Adverse Reaction (Severe, Verified 12/27/17 17:18) Unknown CAN NOT FUNCTION tape Allergy (Severe, Uncoded 12/27/17 17:18) bruising Home Medications: Ambulatory Orders Medication Instructions Recorded Lisinopril/Hydrochlorothiazide 1 tab PO DAILY 16 [Zestoretic 20-12.5 mg Tablet] Surgical History: Surgical History (Last Reviewed 12/27/17 @ 20:54 by Chris Garcia MD) Excision of skin cancer on nose (Acute) History of mastectomy Z98.890, Z90.10 history of skin graph on nose Surgical History: - Lives: With Family Smoking Status: Current every day smoker Tobacco Use: Cigarettes Alcohol: None - *Family History Paternal Family History: Family History (Last Reviewed 12/28/17 @ 02:04 by Chris Garcia MD) Mother Breast cancer Hypertension Father Lung cancer Alcoholism Brother Asthma Alcoholism Cancer Depression Heart disease Hypertension Liver disease Sister Alcoholism Cancer Heart disease Hypertension Thyroid disorder History Items: - - Patient's father at the age of 75 from lung cancer. Patient's mother at the age of 55 from metastatic breast cancer. Review of Systems Constitutional: Denies: Chills, Fever, Weight Change HEENT: Reports: - - Rhinorrhea. Denies: Head Aches, Sinus Congestion, Sinus Drainage Cardiovascular: Reports: Edema. Denies: Chest Pain, Palpitations Respiratory: Reports: Cough, Shortness of Breath. Denies: Sputum production Gastrointestinal: Denies: Abdominal Pain, Nausea, Vomiting Genitourinary: Denies: Dysuria Musculoskeletal: Denies: Joint Pain, Joint Tenderness Skin: Denies: Rash, Wounds Neurological: Denies: Numbness, Tingling, Focal weakness Psychiatric: Denies: Anxiety, Depression, Homicidal Ideations, Suicidal Ideations Hematologic/ Lymphatic: Denies: Easy Bruising, Easy Bleeding VTE Information - Inpt Only VTE Present on Admission: No VTE Mechan Device Prophylaxis: None VTE Pharm Prophylaxis ordered?: No Reason prophylaxis not ordered:: Treatment Not Indicated - On treatment dose anticoagulation for A. fib. Patient Problems: Active and Suspected Problems (Last Reviewed 12/27/17 @ 20:54 by Chris Garcia MD) Atrial fibrillation with RVR (Acute) Heart failure (Acute) Lung mass (Acute) - Physical Exam General: Alert, Oriented x3, Cooperative HEENT: Atraumatic, PERRLA, EOMI, Normocephalic Neck: Supple, No JVD, Negative Carotid Bruits Lungs: Diminished Cardiovascular: No murmurs, Irregular Rate Abdomen: Bowel Sounds Present, Soft, Non Tender Extremities: Capillary Refill Less than 3 Seconds, Edema - Bilateral legs Skin: No rashes, No breakdown Musculoskeletal: No Tenderness to Palpation of Joints or Extremities Neurological: Cranial nerves II-XII grossly intact Psych/Mental Status: Normal Affect, Appropriate Vital Signs Temp Pulse Resp BP Pulse Ox 98.4 F 103 H 24 H 139/102 H 95 12/27/17 17:18 12/27/17 18:01 12/27/17 18:01 12/27/17 18:01 12/27/17 18:01 Oxygen Flow Rate (L/min) 2 Oxygen Delivery Method Nasal Cannula Weight: 92.4 kg Body Mass Index (BMI) 33.9 Laboratory Tests Past 24 Hrs WBC RBC Hgb Hct MCV MCH MCHC RDW RDW Differential Plt Count Assessment/Plan All Active Problems (Last Reviewed 12/27/17 @ 20:54 by Chris Garcia MD) Atrial fibrillation with RVR (Acute) Heart failure (Acute) Lung mass (Acute) Malaise and fatigue (Acute) Acute sinusitis (Acute) Urinary tract infection (Acute) History of breast cancer in adulthood (Resolved) Excision of skin cancer on nose (Acute) History of hysterectomy (Acute) The patient is a 82 year old F with a significant history of hypertension, hyperlipidemia, hypothyroidism, psoriasis breast cancer status post mastectomy; non-Hodgkin's lymphoma; questionable PE treated with Coumadin who was sent from her PCPs office because of irregularly irregular heart rhythm and found to have Afib with RVR; radiographic evidence of pulmonary infiltrates and spiculated mass. Heart failure Unspecified at this time whether preserved ejection fraction or reduced ejection fraction. We will order echocardiogram in a.m. Home lisinopril with hydrochlorothiazide continued. Patient takes metoprolol tartrate at home. Will change metoprolol titrate to metoprolol succinate which has been studied for heart failure. Daily weights Fluid restriction Maite wrap to bilateral lower extremities. Patient was treated with Levaquin at the emergency department. Patient has no fever, no chills;no elevated white count. She reports some mild shortness of breath. Pneumonia is less likely. A. fib with RVR Received treatment dose Lovenox in the emergency department and IV metoprolol Lovenox x1 dose in the a.m. Metoprolol p.o. as above Metoprolol IV as needed for heart rate >110. TSH unremarkable. Magnesium ordered. Echocardiogram ordered. Cardiology consulted to optimize management Spiculated mass The patient is a smoker; elderly and has a history of breast cancer placing patient at a higher risk of malignancy. Oncology consulted to optimize management. Hypertension emergency Patient noted to have blood pressure of 193/110 on admission. Her elevated blood pressure could have thrown her into flash pulmonary edema and A. fib. Metoprolol; Lisinopril and HCTZ as above Trend blood pressures and titrate blood pressure meds. Hypothyroidism Synthroid continued Tobacco abuse Counseled Nicotine ordered. Psoriasis Apremilast continued. DVT prophylaxis Not indicated in the setting of therapeutic treatment for A. fib. Code Visit Inpatient E AND M: 60933 Init Hosp L3 12/28/17 0646 <Electronically signed by Chris Garcia MD> Date Chris Garcia MD Cosigner Signature: Date (if applicable) CC: Danie Sparks MD; Chris Garcia MD Signed CBC W/DIFF, AUTOMATED Collected: 12/28/2017 Status: F Source: [place] 6:08 AM [facility] REPOSITORY TYPE CODE TESTS RESULT OUT OF RANGE REFERENCE UNITS LAB L100.1000 4.4-11.0 K/mm3 Normal WBC 6.7 LAB L100.1200 4.2-5.4 M/mm3 Low RBC 3.71 LAB L100.1300 12.0-15.0 g/dl Low HGB 10.8 LAB L100.1400 37-47 % Low HCT 35.1 LAB L100.1500 81-99 fL Normal MCV 94.6 LAB L100.1600 27.0-32.0 pg Normal MCH 29.1 LAB L100.1700 32-36 g/gl Low MCHC 30.8 LAB L100.1810 11.6-14.6 % High RDW CV 16.9 LAB L100.1820 35.1-43.9 fl High RDW SD 58.4 LAB L100.1900 150-450 K/mm3 Normal PLT 180 LAB L100.2000 6.2-12.0 fl Normal MPV 9.3 LAB L100.2100 47-70 % Normal NEUT% 63.3 LAB L100.2200 19-41 % Normal LY% 27.8 LAB L100.2300 0-10 % Normal MONO% 7.3 LAB L100.2400 0-5 % Normal EO% 1.0 LAB L100.2500 0-1 % Normal BASO% 0.3 LAB L100.2550 0.0-0.9 % Normal IM GRAN % 0.300 Result Comment: IG% - Immature Granulocytes (promyelocytes, myelocytes and metamyelocytes) > 1% indicates that a LEFT SHIFT is Present. LAB L100.2620 2.0-7.7 X10 3/uL Normal Absolute Neut 4.3 LAB L100.2720 0.83-4.51 X10 3/ul Normal Absolute Lymph 1.87 Performed By: #### L100.0100 #### [facility] [address] [place], [address] BASIC METABOLIC Collected: 12/28/2017 Status: F Source: [place] PROFILE ([facility]) 6:08 AM [facility] REPOSITORY TYPE CODE TESTS RESULT OUT OF RANGE REFERENCE UNITS LAB L501.0100 74-106 mg/dL Normal GLU 96 Result Comment: Please note revised GLUCOSE reference range effective 2017. LAB L501.1000 7-18 mg/dL High BUN 20 LAB L501.1100 0.55-1.02 mg/dL Normal CREAT,SERUM 0.82 Result Comment: The validity of the calculated GFR AND GFRAA in patients over 70 years has not been determined. Clinical correlation is essential. LAB L501.1110 >60 mL/min Normal EST GFR 71 Result Comment: Non- GFR Calc LAB L501.1115 >60 mL/min Normal EST GFR - AA 86 Result Comment: GFR Calc LAB L501.1255 ml/min Normal Estimated CRCL 48.42 LAB L501.1300 10-20 RATIO High BUN/CRE 24.5 LAB L501.2200 8.5-10 mg/dL Normal .1 CA 8.7 LAB L501.5300 136-14 mmol/L Low 5 NA 135 LAB L501.5600 3.5-5. mmol/L Normal 1 K 3.7 LAB L501.5900 98-107 mmol/L Low CL 96 LAB L501.6100 21.0-3 mmol/L Normal 2.0 CO2 31.0 LAB L501.6200 5-15 Normal GAP 8 Performed By: #### L500.2500 #### [facility] [address] [place], [place], [address] MAGNESIUM Collected: 12/28/2017 Status: F Source: [place] 6:08 AM [facility] REPOSITORY TYPE CODE TESTS RESULT OUT OF RANGE REFERENCE UNITS LAB L501.5200 1.6-2.6 mg/dL Normal MG 1.7 Performed By: #### L501.5200 #### [facility]. [place], [place], [address] Observed: 12/27/2017 Status: F Source: [place] INFLUENZA A+B (RAPID 10:50 PM [facility]ES[place]) REPOSITORY FLU A/B Rapid Negative test results should be confirmed by culture. Order Rapid Viral Culture for Influenzae A+B (533709) if clinically indicated. Influenza Ag, Direct Presumptive NEGATIVE for Influenza A/B Antigen (See Note) Performed By: #### M101.0101 #### [facility] [address] [place] [address], [address] EMERGENCY DEPARTMENT Observed: 12/27/2017 Status: F Source: [place] SUMMARY 10:44 PM [facility] REPOSITORY [facility] Medical Records Department [facility] [place] [address] Emergency Department Summary 12/27/17 1800 MR#: [id number] Acct: [id number] Name: JANESSA RAYMOND Rep #: [id number] : 1935 82 From: Jackson Wild DO PCP: Danie Sparks MD Status: ADM IN - ER Visit Summary Date of Service: 12/27/17 Chief Complaint: Irregular heart rate History of Present Illness: The patient is a 82 F who went to see her doctor today. She has had 1 week of bilateral leg swelling. She then developed a cough for several days. She also developed dyspnea on exertion and then dyspnea at rest. Her daughter has been sick with bronchitis and thought maybe she had the same. Was noted at her doctor's office that she had a variable heart rate anywhere from 80-130s. And she was sent to the emergency department. Patient has a history of hypertension high cholesterol. History of left-sided mastectomy due to breast cancer, non-Hodgkin's lymphoma and hypothyroidism. She is a long-term smoker. There is a questionable history of pulmonary embolism and the patient was on Coumadin but states that she was never formally told that she had a blood clot. She states that she has never had a stress test. Physical Examination: Gen: Well-nourished well-developed Head: Normocephalic atraumatic Eyes: Perrl EOMI ENT: TMs clear no rhinorrhea moist mucous membranes Neck: Supple no lymphadenopathy no JVD nontender CVS: Irregularly irregular tachycardic rhythm no murmurs normal S1-S2 Respiratory: No distress patient has rales bilaterally and rhonchi chest nontender Abdomen: Soft nontender nondistended normal bowel sounds no masses Back: Nontender Extremity: Nontender no edema Skin: Normal color no rash Neuro: alert orientated 3 CN II-XII intact normal strength sensation reflexes gait cerebellar Psych: Normal affect normal mood Test Results: Initial EKG shows atrial fibrillation at a rate of 138 and repeat EKG demonstrates A. fib with a rate of 98. White count 10.1 hemoglobin of 12. INR 1 PTT 28.4. Magnesium 1.9. Lactic acid 0.9. Natruretic peptide 271.8. Troponin less than 0.015. 133. Chest x-ray shows possible right-sided infiltrate and right sided mass. CT [place] of the chest did not demonstrate any pulmonary embolism or dissection. Noted pulmonary hypertension, pulmonary edema, consolidation on the right and a spiculated lung nodule. Emergency Department Course and Treatment: Patient received IV metoprolol which is slowed her heart rate down into the 80s and her is remained in A. fib. She has received Lasix Lovenox Levaquin and aspirin. Her plan is admission into the hospital for further treatment and evaluation. Impression: 1. New onset atrial fibrillation with rapid ventricular response 2. Right-sided pneumonia 3. Spiculated lung nodule This note was generated with Hyleteation software. It may contain incorrect words, spelling, and punctuation that were not noted in review of the chart prior to signing ED Disposition - Plan for ED Patient: Chief Complaint: Shortness of Breath Referrals: Danie Sparks MD [Primary Care Provider] - What to do if you have Problems For any increased pain, shortness of breath, bleeding, nausea or vomiting, chest pain, or any unexpected problems, contact your Primary Care Provider. Call [facility] ([phone]) or report to the closest Emergency Room. Call 911 if necessary. 12/27/17 2244 <Electronically signed by Jackson Wild DO> Date Jackson Wild DO Cosigner Signature (If Indicated): Date CC: Danie Sparks MD Observed: 12/27/2017 Status: F Source: [place] CULTURE, BLOOD (WB) 8:00 PM [facility] REPOSITORY No growth in 5 days. Performed By: #### M200.1000 #### [facility] [address] [place], [address] Observed: 12/27/2017 Status: F Source: [place] CULTURE, BLOOD (WB) 7:40 PM [facility] REPOSITORY No growth in 5 days. Performed By: #### M200.1000 #### [facility] [address] [facility] [place], [place], [address] URINALYSIS, COMPLETE Collected: 12/27/2017 Status: F Source: [place] 7:39 PM [facility] REPOSITORY Order Comment: How was Urine Obtained? CLEAN CATCH TYPE CODE TESTS RESULT OUT OF RANGE REFERENCE UNITS LAB L400.3000 Yellow COLOR Normal Yellow LAB L400.3050 Clear Normal CLARITY Sl. Cloudy LAB L400.3200 Normal mg/dl Normal GLUCOSE, UR Normal LAB L400.3300 Negative mg/dL Normal BILIRUBIN URINE Negative LAB L400.3400 Negative mg/dl Normal KETONE UR Negative LAB L400.3465 1.002-1.030 Normal SP.GR. DIPSTX 1.005 LAB L400.3550 5.0 - 8.0 pH UR Normal 7.0 LAB L400.3600 Negative mg/dl High PROT 30 DIPSTX LAB L400.3700 Normal mg/dl Normal UROBILI Normal LAB L400.3750 Negative Normal NITRITE UR Negative LAB L400.3780 Negative /ul High 10 OCCULT BLOOD-UR LAB L400.3800 Negative /ul High LEUK ESTERASE 100 LAB L400.4050 0-5 /hpf WBC Normal 0-5 SEEN LAB L400.4100 0-5 /hpf 0 Normal RBC-UA SEEN LAB L400.4150 5-10 /hpf SQUAM Normal EPI 0-5 SEEN LAB L400.4300 None Seen /hpf 1+ Normal BACTERIA LAB L400.4350 <or=2+ /hpf 0 Normal MUCUS, URINE SEEN Performed By: #### L400.0001 #### [facility] [address] [facility] [place], [address] CTA CHEST W/WO Observed: 12/27/2017 Status: F Source: [place] CONTRAST 6:16 PM [facility] REPOSITORY [facility] Imaging Services [address] [place] [address] CTA Chest W/WO Contrast MR#: [id number] Acct: [id number] Name: JANESSA RAYMOND Rep #: [id number] : 1935 F 82 From: Mitchell Jeffers DO PCP: Danie Sparks MD Status: REG ER Study: CTA Chest W/WO Contrast Date of Exam: 12/27/17 Exam# [id number] Ordering Dr: Jackson Wild DO STUDY: CTA CHEST REASON FOR EXAM: Female, 82 years old. Shortness of breath RADIATION DOSAGE (If Supplied By Facility): CTDIvol = ( 17.58 ) mGy, DLP = ( 600.72 ) mGycm TECHNIQUE: The examination was performed with the intravenous administration of 100 ml of Isovue 370 contrast material. Post-processing of the angiographic images was performed, with multiplanar reformation and 3D reconstruction. Individualized dose optimization techniques were used for this CT. COMPARISON: None. FINDINGS: Grossly unremarkable thyroid Normal enhancement of the main pulmonary artery and right and left pulmonary arteries. Normal enhancement of the bilateral peripheral pulmonary arteries. There is no demonstrated pulmonary embolism. There is prominence of the main pulmonary arteries without peripheral pulmonary vascular congestion, suggesting pulmonary hypertension. There is atherosclerotic calcification of the aortic arch with tortuosity. There is no demonstrated aortic dissection. Moderate cardiomegaly. Normal pericardium. Normal mediastinum. Soft tissue prominence in the right hilar region measuring 2 x 2 centimeter. Normal visualized trachea and bronchi. Lungs are mildly hypoinflated. Mild diffuse interstitial edema and vascular congestion is noted. Right lower lobe consolidation with effusion. Mildly spiculated nodule in the right middle lobe noted measuring 9 x 6 mm. In the anterior right upper lobe, there is an area of possible scarring versus nodule measuring 2.9 cm. Normal pleura. Normal chest wall structures. There are degenerative changes of thoracic spine. Normal visualized upper abdomen. CT/CTA Chest W/WO Contrast IMPRESSION: 1. Negative for pulmonary embolism or thoracic aortic dissection 2. Pulmonary artery hypertension 3. Pulmonary edema suggesting early CHF. Right lower lobe consolidation and effusion 4. Spiculated nodule in the right middle lobe as above. Additional area of scarring or masslike consolidation in the anterior right upper lobe. Nonspecific right hilar soft tissue prominence. Malignancy cannot be excluded Electronically Signed: Mitchell Jeffers DO at 19:14 EDT Tel , Service support , CC: Jackson Wild DO; Danie Sparks MD Outfitter Cabin: Signed LACTIC ACID Collected: 12/27/2017 Status: F Source: [place] 5:46 PM [facility] REPOSITORY Order Comment: Yes/No query for Sepsis Lactate Rule Y TYPE CODE TESTS RESULT OUT OF RANGE REFERENCE UNITS LAB L503.6005 0.4-2.0 mmol/L Normal LACTIC ACID 0.9 Performed By: #### L503.6005 #### [facility] [address] [facility] [place], [address] CHEST 1 VIEW Observed: 12/27/2017 Status: F Source: [place] (PORTABLE) 5:38 PM [facility] REPOSITORY [facility] Imaging Services [address] [place] [address] Chest 1 View (Portable) MR#: [id number] Acct: [id number] Name: JANESSA RAYMOND Rep #: [id number] : 1935 F 82 From: Mitchell Jeffers DO PCP: Danie Sparks MD Status: REG ER Study: Chest 1 View (Portable) Date of Exam: 12/27/17 Exam# [id number] Ordering Dr: Jackson Wild DO STUDY: X-RAY CHEST REASON FOR EXAM: Female, 82 years old. Shortness of breath TECHNIQUE: Single AP portable view of the chest. COMPARISON: 10/20/2013 FINDINGS: Lungs are mildly hypoinflated. Slight interstitial prominence in the perihilar regions suggesting pulmonary edema. Questionable right upper lobe infiltrate. Lungs are otherwise clear. There is no demonstrated pleural abnormality. There is moderate cardiac enlargement. Normal mediastinum and tobias. Normal visualized pulmonary arteries. There is atherosclerotic tortuosity of the aortic arch and descending thoracic aorta. There are diffuse degenerative changes of the visualized thoracic spine. Normal visualized ribs, clavicles, and shoulders. There is no demonstrated abnormality of the visualized soft tissue structures of the upper abdomen. RAD/Chest 1 View (Portable) IMPRESSION: Mildly hypoinflated lungs. Slight perihilar vascular/interstitial prominence. Questionable right upper lobe infiltrate. Electronically Signed: Mitchell Jeffers DO at 18:08 EDT Tel , Service support , CC: Jackson Wild DO; Danie Sparks MD Outfitter Cabin: Signed CBC W/DIFF, AUTOMATED Collected: 12/27/2017 Status: F Source: [place] 5:30 PM [facility] REPOSITORY TYPE CODE TESTS RESULT OUT OF RANGE REFERENCE UNITS LAB L100.1000 4.4-11.0 K/mm3 Normal WBC 10.1 LAB L100.1200 4.2-5.4 M/mm3 Low RBC 4.15 LAB L100.1300 12.0-15.0 g/dl Normal HGB 12.0 LAB L100.1400 37-47 % Normal HCT 39.0 LAB L100.1500 81-99 fL Normal MCV 94.0 LAB L100.1600 27.0-32.0 pg Normal MCH 28.9 LAB L100.1700 32-36 g/gl Low MCHC 30.8 LAB L100.1810 11.6-14.6 % High RDW CV 17.1 LAB L100.1820 35.1-43.9 fl High RDW SD 58.6 LAB L100.1900 150-450 K/mm3 Normal PLT 225 LAB L100.2000 6.2-12.0 fl Normal MPV 9.6 LAB L100.2100 47-70 % High NEUT% 71.6 LAB L100.2200 19-41 % Normal LY% 20.2 LAB L100.2300 0-10 % Normal MONO% 7.1 LAB L100.2400 0-5 % Normal EO% 0.5 LAB L100.2500 0-1 % Normal BASO% 0.3 LAB L100.2550 0.0-0.9 % Normal IM GRAN % 0.300 Result Comment: IG% - Immature Granulocytes (promyelocytes, myelocytes and metamyelocytes) > 1% indicates that a LEFT SHIFT is Present. LAB L100.2620 2.0-7.7 X10 3/uL Normal Absolute Neut 7.2 LAB L100.2720 0.83-4.51 X10 3/ul Normal Absolute Lymph 2.03 Performed By: #### L100.0100 #### [facility] [address] [place], [address] COMPREHENSIVE METABOLIC Collected: 12/27/2017 Status: F Source: [facility] 5:30 PM [facility] REPOSITORY TYPE CODE TESTS RESULT OUT OF RANGE REFERENCE UNITS LAB L501.0100 74-106 mg/dL Normal GLU 103 Result Comment: Fasting Glucose result from 100 to 125 mg/dL suggests IMPAIRED HOMEOSTASIS per A.D.A. criteria. Please note revised GLUCOSE reference range effective 2017. LAB L501.1000 7-18 mg/dL High BUN 19 LAB L501.1100 0.55-1.02 mg/dL Normal CREAT,SERUM 0.70 Result Comment: The validity of the calculated GFR AND GFRAA in patients over 70 years has not been determined. Clinical correlation is essential. LAB L501.1110 >60 mL/min Normal EST GFR 86 Result Comment: Non- GFR Calc LAB L501.1115 >60 mL/min Normal EST GFR - AA 104 Result Comment: GFR Calc LAB L501.1255 ml/min Normal Estimated CRCL 39.70 LAB L501.1300 10-20 RATIO High BUN/CRE 27.3 LAB L501.1500 6.4-8. g/dL Normal 2 T PROT 7.1 LAB L501.1800 3.2-5. g/dL Normal 0 ALB 3.4 LAB L501.1950 2.2-4. g/dL Normal 2 GLOB 3.7 LAB L501.2000 0.9-2. RATIO Normal 4 A/G 0.9 LAB L501.2200 8.5-10 mg/dL Normal .1 CA 8.9 LAB L501.4100 15-37 U/L Normal AST 18 LAB L501.4305 45-117 U/L High ALK P 129 LAB L501.4405 13-56 U/L Normal ALT 23 LAB L501.4600 0.20-1 mg/dL Normal .00 T BILI 0.30 LAB L501.5300 136-14 mmol/L Low 5 NA 133 LAB L501.5600 3.5-5. mmol/L Normal 1 K 3.8 LAB L501.5900 98-107 mmol/L Normal CL 98 LAB L501.6100 21.0-3 mmol/L Normal 2.0 CO2 27.0 LAB L501.6200 5-15 Normal GAP 8 Performed By: #### L500.4050, L501.2450, L501.4010, L501.5200 #### [facility] [address] [place], [place], [address] LIPASE Collected: 12/27/2017 Status: F Source: [place] 5:30 PM [facility] REPOSITORY TYPE CODE TESTS RESULT OUT OF RANGE REFERENCE UNITS LAB L501.2450 73-393 U/L Normal LIPASE 184 Performed By: #### L500.4050, L501.2450, L501.4010, L501.5200 #### [facility] [address] [place], [place], [address] TROPONIN-I Collected: 12/27/2017 Status: F Source: [place] 5:30 [facility] REPOSITORY TYPE CODE TESTS RESULT OUT OF RANGE REFERENCE UNITS LAB L501.4010 <0.045 ng/mL Normal < 0.015 TROPONIN-I Result Comment: TROPONIN-I EXPECTED VALUES <0.045 Negative 0.045 - 0.590 Consistent with Cardiac Damage > OR = 0.600 Critical Value Not every elevated troponin is indicative of IN. These values should be used with clinical judgement in examining the patient's clinical picture for diagnosis. To establish a diagnosis of IN versus myocardial injury, there must be a demonstrated rise and/or fall in the troponin values, in addition to ischemic symptoms, EKG changes, new regional wall motion abnormality, and/or angiographical evidence. PLEASE NOTE: REFERENCE RANGES EDITED 17 Performed By: #### L500.4050, L501.2450, L501.4010, L501.5200 #### [facility] [address] [place], [address] MAGNESIUM Collected: 12/27/2017 Status: F Source: [place] 5:30 PM [facility] REPOSITORY TYPE CODE TESTS RESULT OUT OF RANGE REFERENCE UNITS LAB L501.5200 1.6-2.6 mg/dL Normal MG 1.9 Performed By: #### L500.4050, L501.2450, L501.4010, L501.5200 #### [facility] [address] [place], [address] PROTHROMBIN TIME W/INR Collected: 12/27/2017 Status: F Source: [place] 5:30 PM [facility] REPOSITORY TYPE CODE TESTS RESULT OUT OF RANGE REFERENCE UNITS LAB L300.4150 11.7-14.9 SECONDS Normal PROTIME 13.1 LAB L300.4200 Normal INR 1.0 Performed By: #### L300.3900, L300.4310 #### [facility] [place], [address] PARTIAL THROMBOPLAST Collected: 12/27/2017 Status: F Source: [place] TIME 5:30 PM [facility] REPOSITORY TYPE CODE TESTS RESULT OUT OF RANGE REFERENCE UNITS LAB L300.4310 24.1-36.2 Seconds Normal PTT 28.4 Performed By: #### L300.3900, L300.4310 #### [facility] [address] [place], [address] BNP,B-TYPE NATRIURETIC Collected: 12/27/2017 Status: F Source: [place] 5:30 PM [facility] REPOSITORY TYPE CODE TESTS RESULT OUT OF RANGE REFERENCE UNITS LAB L503.6620 0-100 pg/mL High B-TYPE 271.8 ANJU PEP Performed By: #### L503.6620 #### [facility] [address] [place], [address] THYROID STIM HORMONE Collected: 12/27/2017 Status: F Source: [place] (TSH) 5:30 PM [facility] REPOSITORY TYPE CODE TESTS RESULT OUT OF RANGE REFERENCE UNITS LAB L501.9520 0.358-3.74 uIU/mL Normal TSH 1.70 Performed By: #### L501.9520 #### [facility] [address], [address] ERYTHROCYTE SED RATE Collected: 12/18/2017 Status: F Source: [place] 12:28 PM [facility] REPOSITORY TYPE CODE TESTS RESULT OUT OF RANGE REFERENCE UNITS LAB L102.0000 0-30 mm/hr High SED RATE 42 Performed By: #### L101.9900, L100.9950 #### [facility] [address] [place], [address] RETIC PANEL Collected: 12/18/2017 Status: F Source: [place] 12:28 PM [facility] REPOSITORY TYPE CODE TESTS RESULT OUT OF RANGE REFERENCE UNITS LAB L101.0000 0.5-1.5 % High RETIC 2.06 LAB L101.0060 3.00-15.90 % High IM RET FRACTION 17.20 LAB L101.0090 30-35 pg Low RET-HE 23.7 LAB L101.0110 1.0-7.9 % Normal IPF 1.6 Result Comment: Low PLT + Low IPF suggest a bone marrow production disorder Low PLT + high IPF suggests peripheral destruction (e.g.ITP, TTP, HIT, DIC, autoimmune) or bone marrow recovery Trending of serial IPF measurements is recommended when evaluating for bone marrow respones Value above normal range indicates an increase in RBC cellular response from bone marrow. Performed By: #### L101.9900, L100.9950 #### [facility] [address] [place], [place], [id number] CRP Collected: 12/18/2017 Status: F Source: [place] 12:28 PM [facility] REPOSITORY TYPE CODE TESTS RESULT OUT OF RANGE REFERENCE UNITS LAB L501.6710 0.0-3.0 mg/L High 8.41 C-REACTIVE PROT Result Comment: C-Reactive Protein (CRP) provides useful information for the diagnosis, therapy and monitoring of inflammatory processes and associated diseases. For the evaluation of Relative Risk for Cardiovascular Disease, a High Sensitivity CRP (HSCRP) should be ordered. Performed By: #### L501.6710, L505.7010 #### [facility] [address] [place], [address] RHEUMATOID FACTOR Collected: 12/18/2017 Status: F Source: [place] 12:28 PM [facility] REPOSITORY TYPE CODE TESTS RESULT OUT OF RANGE REFERENCE UNITS LAB L505.7010 <15 IU/mL Normal RHEUMATOID FAC < 10.0 Performed By: #### L501.6710, L505.7010 #### [facility] [address] [place], [address] RAPID PLASMIN REAGIN Collected: 12/18/2017 Status: F Source: [place] (RPR) 12:28 PM [facility] REPOSITORY TYPE CODE TESTS RESULT OUT OF REFERENCE UNITS RANGE LAB L700.5000 NONREACTIVE NONREACTIVE Normal RPR Performed By: #### L700.5000 #### [facility] [address] [place], [address] ONCOLOGY VISIT REPORT Observed: 11/18/2017 Status: F Source: [place] 11:05 AM [facility] REPOSITORY [facility] [address] [place] [address] OFFICE VISIT Date of Service: 11/18/17 1046 MR#: [id number] Acct: [id number] Name: JANESSA RAYMOND Rep #: [id number] : 1935 From: Chris Teixeira MD Age/Sex: 82/F Location: OMD Status: Signed Subjective - Date of Service Date of Service:: 11/18/17 - Chief Complaint F/u for Left breast cancer. 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 In February 2012 she was diagnosed with left breast cancer, had left modified radical mastectomy and sentinel node biopsy on March 24, 2012 for stage IA(pT1c N0 M0) tumor size was 1.5 cm, sentinel node negative, ER/NH positive, HER-2 negative. She then started an Arimidex in March 2012. She started Xgeva in February 2015 for osteopenia, bone density in February 2016 was normal so Xgeva was discontinued. She stopped Arimidex in April 2017, comes in for follow-up. - Past Medical/Social History Past Medical History Past Medical History: Depression,Hypertension,Osteoarthritis,Pulmonary embolism,Hypothyroidism Other Past Medical History: ULCERS SINUS PROBLEMS Cancer: Breast cancer,Lymphoma,Skin cancer Past Surgical History Surgical: Hysterectomy,Mastectomy Other Surgical History: EXCISION SKIN CANCER ON NOSE Family History Paternal Past Medical History: Unknown Paternal History of Cancer Lung cancer Maternal Past Medical History: Unknown Maternal History of Cancer: Breast cancer Social History Social History: No changes Smoking Status Current every day smoker Review of Systems Constitutional:: Denies: Fever, Sweats, Weight loss, Appetite change, Chills Cardiovascular:: Denies: Chest pain, Palpitations, Dyspnea on exertion, Orthopnea, PND, Shortness of breath Respiratory: Denies: Cough, Hemoptysis, Shortness of Breath, Wheezing Gastrointestinal:: Denies: Abdominal pain, Nausea, Vomiting, Diarrhea, Constipation, Hematochezia Genitourinary: Denies: Dysuria, Hematuria, 15, Flank pain Musculoskeletal:: Denies: Back pain, Myalgia, Arthralgia Skin: Denies: Rash, Skin Changes, Wounds Neurological:: Denies: Headache, Dizziness, Visual changes, Tinnitus, Hearing loss Psychiatric: Denies: Anxiety, Depression, Homicidal Ideations, Suicidal Ideations Vital Signs Height 5 ft 5 in Weight: 84.822 kg Weight in Pounds 187.0 lbs Pulse Ox 97 - Physical Exam General: Alert, Oriented x3, No apparent distress HEENT: Atraumatic, PERRLA, EOMI, Normocephalic Oropharynx:: Dry mucosa Neck:: Supple, Trachea midline. Negative for: JVD, bilateral Cardiac:: Regular rate, Regular rhythm, Normal S1, Normal S2. Negative for: Murmur Lungs: Clear to auscultation, Excusion symmetrical. Negative for: Rhonchi, Wheezes Abdomen:: Bowel sounds x 4, Soft, Non-tender, Non-distended. Negative for: Hepatosplenomegaly Neurological: Neuro grossly intact Skin:: Negative for: Lesions, Rash, Petechiae, Ecchymosis Psychiatric:: Appropriate affect, Euthymic Lymphatics:: Negative for: Cervical lymphadenopathy, Supraclavicular lymphadenopathy, Axillary lymphadenopathy Breast:: - - R breast-no masses, L breast MRM scar. Laboratory Data: Laboratory Tests WBC 8.8 (4.4-11.0) K/mm3 RBC 4.31 (4.2-5.4) M/mm3 Hgb 12.8 (12.0-15.0) g/dl Assessment and Plan H/O Left breast cancer stage IA. No evidence of disease. Has finished 5 yrs of adjuvant Arimidex H/O NHL, no evidence of disease. Plan is to continue observation. She wants close follow up intervals. RTC 6 months with CBC, CMP. Medications: Prescriptions This Visit Medication Instructions Recorded Duloxetine Hcl [Cymbalta] 20 mg PO DAILY 11/18/17 Primary Care Provider: Gerardo Melendez Referring Provider: - Problem List (1) Breast cancer, left Status: Chronic (2) History of non-Hodgkin's lymphoma Status: Chronic Code Visit Office Visits / Consults: 01199 OV L3 Est 11/18/17 1105 <Electronically signed by Chris Teixeira MD> Date Chris Teixeira MD Cosigner Signature: Date (if applicable) CC: CBC W/DIFF, AUTOMATED Collected: 11/18/2017 Status: F Source: [place] 9:57 AM [facility] REPOSITORY Order Comment: Reason for Laboratory Test . TYPE CODE TESTS RESULT OUT OF RANGE REFERENCE UNITS LAB L100.1000 4.4-11.0 K/mm3 Normal WBC 8.8 LAB L100.1200 4.2-5.4 M/mm3 Normal RBC 4.31 LAB L100.1300 12.0-15.0 g/dl Normal HGB 12.8 LAB L100.1400 37-47 % Normal HCT 40.5 LAB L100.1500 81-99 fL Normal MCV 94.0 LAB L100.1600 27.0-32.0 pg Normal MCH 29.7 LAB L100.1700 32-36 g/gl Low MCHC 31.6 LAB L100.1810 11.6-14.6 % High RDW CV 17.5 LAB L100.1820 35.1-43.9 fl High RDW SD 58.7 LAB L100.1900 150-450 K/mm3 Normal PLT 205 LAB L100.2000 6.2-12.0 fl Normal MPV 9.0 LAB L100.2100 47-70 % Normal NEUT% 69.9 LAB L100.2200 19-41 % Normal LY% 22.6 LAB L100.2300 0-10 % Normal MONO% 5.9 LAB L100.2400 0-5 % Normal EO% 1.1 LAB L100.2500 0-1 % Normal BASO% 0.3 LAB L100.2550 0.0-0.9 % Normal IM GRAN % 0.200 Result Comment: IG% - Immature Granulocytes (promyelocytes, myelocytes and metamyelocytes) > 1% indicates that a LEFT SHIFT is Present. LAB L100.2620 2.0-7.7 X10 3/uL Normal Absolute Neut 6.2 LAB L100.2720 0.83-4.51 X10 3/ul Normal Absolute Lymph 2.00 Performed By: #### L100.0100 #### [facility] [address] [place], [place], [address] COMPREHENSIVE METABOLIC Collected: 11/18/2017 Status: F Source: [place] 9:57 AM [facility] REPOSITORY Order Comment: Reason for Laboratory Test . TYPE CODE TESTS RESULT OUT OF RANGE REFERENCE UNITS LAB L501.0100 74-106 mg/dL Normal GLU 92 Result Comment: Please note revised GLUCOSE reference range effective 2017. LAB L501.1000 7-18 mg/dL High BUN 19 LAB L501.1100 0.55-1.02 mg/dL Normal CREAT,SERUM 0.80 Result Comment: The validity of the calculated GFR AND GFRAA in patients over 70 years has not been determined. Clinical correlation is essential. LAB L501.1110 >60 mL/min Normal EST GFR 73 Result Comment: Non- GFR Calc LAB L501.1115 >60 mL/min Normal EST GFR - AA 88 Result Comment: GFR Calc LAB L501.1255 ml/min Normal Estimated CRCL 49.63 LAB L501.1300 10-20 RATIO High BUN/CRE 23.8 LAB L501.1500 6.4-8. g/dL Normal 2 T PROT 7.1 LAB L501.1800 3.2-5. g/dL Normal 0 ALB 3.2 LAB L501.1950 2.2-4. g/dL Normal 2 GLOB 3.9 LAB L501.2000 0.9-2. RATIO Low 4 A/G 0.8 LAB L501.2200 8.5-10 mg/dL Normal .1 CA 9.0 LAB L501.4100 15-37 U/L Normal AST 15 LAB L501.4305 45-117 U/L High ALK P 124 LAB L501.4405 13-56 U/L Normal ALT 19 LAB L501.4600 0.20-1 mg/dL Normal .00 T BILI 0.20 LAB L501.5300 136-14 mmol/L Normal 5 NA 136 LAB L501.5600 3.5-5. mmol/L Normal 1 K 3.9 LAB L501.5900 98-107 mmol/L Normal CL 99 LAB L501.6100 21.0-3 mmol/L Normal 2.0 CO2 32.0 LAB L501.6200 5-15 Normal GAP 5 Performed By: #### L500.4050 #### [facility] [address] [place], [address] PROGRESS Observed: 11/13/2017 Status: COMPLETED Source: [place] 10:19 AM [facility] REPOSITORY [facility] ID: [id number] Author: Alem Harris Service: (none) Author Type: Registered Nurse Type: Progress Notes Filed: 11/13/2017 10:23 AM Note Text: PRIMARY CARE COORDINATION CHART REVIEW Patient identified for Care Coordination from: [facility] Project Last PCP office visit: 05/13/2017 Next OV: Visit date not found CHRONIC DX: None CARE GAPS: DTap, penumovax. UTILIZATION WITHIN THE LAST 12 MONTHS: ? ED: none ? HOSPITAL: none ? SNF: none PRIMARY CARE COORDINATION OUTREACH PLAN: No Care Coordination needs at this time Alem Harris professor of family medicine Accountant Controller Internal Medicine [facility] CNPTOUTREACH Observed: 11/13/2017 Status: COMPLETED Source: [place] 12:00 AM [facility] REPOSITORY Patient Outreach (INTMWS) SEGUNDOJANESSA ([id number]) 1935 F Date Time Provider Department 11/13/17 ALEM TATE During your visit today, we recorded the following information about you: Alem Day RN 11/13/2017 10:23 AM Signed PRIMARY CARE COORDINATION CHART REVIEW Patient identified for Care Coordination from: [employer]CO Project Last PCP office visit: 05/13/2017 Next OV: Visit date not found CHRONIC DX: None CARE GAPS: DTap, penumovax. UTILIZATION WITHIN THE LAST 12 MONTHS: ? ED: none ? HOSPITAL: none ? SNF: none PRIMARY CARE COORDINATION OUTREACH PLAN: No Care Coordination needs at this time Alem Harris RN Ambulatory Accountant Controller Internal Medicine [facility] Allergies As of Date: 11/13/2017 Noted Allergy Reaction AUGMENTIN (AMOXICILLIN-POT CLAVUL*06/20/2015 10 - Anaphylaxis NEURONTIN (GABAPENTIN) 05/11/2016 1 - Mental Status Change PENICILLINS 06/20/2015 10 - Anaphylaxis Date Reviewed: 05/14/2017 Reviewed by: Christiana Rocha RN - Fully Assessed Reason for Visit: Accountant Controller Chronic Care [2360] Prescriptions as of 11/13/2017 Sig: WARFARIN 1 MG TABLET TAKE 10 MG MWF AND 12.5 MG TT* MUPIROCIN 2 % TOPICAL OINTMENT Apply 1 application to affect* WARFARIN 5 MG TABLET 10 mgs on M,W, F and 7.5 mgs * WARFARIN 1 MG TABLET 10 mgs on M,W, F and 7.5 mgs * WARFARIN 1 MG TABLET 10 mgs on M,W, F and 7.5 mgs * LEVOTHYROXINE 50 MCG TABLET Take 1 tablet by mouth once d* LISINOPRIL 20 MG-HYDROCHLOROT* Take 1 tablet by mouth twice * METOPROLOL TARTRATE 25 MG TAB* Take 1 tablet by mouth twice * VENLAFAXINE ER 75 MG CAPSULE,* Take 1 capsule by mouth once * ALLOPURINOL 300 MG TABLET Take 1 tablet by mouth once d* PRAVASTATIN 80 MG TABLET Take 0.5 tablets by mouth onc* PRIMIDONE 50 MG TABLET Take 1 tablet by mouth four t* APREMILAST 30 MG TABLET Take 1 tablet by mouth twice * CLOBETASOL 0.05 % SHAMPOO Apply 1 application to affect* ECONAZOLE 1 % TOPICAL CREAM Apply to affected area once * TRAMADOL 50 MG TABLET Take 1 tablet by mouth twice * ANASTROZOLE 1 MG TABLET Take 1 tablet by mouth once d* Problem List As Of Date 11/13/2017 Noted Resolved 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 Essential hypertension with goal blood pressure*INVALID FOR* More... Mixed hyperlipidemia [E78.2] INVALID FOR* More... Malignant neoplasm of lower-inner quadrant of l*INVALID FOR* More... Polyp of colon [K63.5] INVALID FOR* More... Chronic anticoagulation [Z79.01] INVALID FOR* More... Non Hodgkin's lymphoma (HCC) [C85.90] INVALID FOR* More... Overlapping malignant neoplasm of female breast*INVALID FOR* More... More... Tobacco abuse disorder [Z72.0] INVALID FOR* More... Encounter Status:Closed by ALEM HARRIS on 11/13/17 INTERNAL MEDICINE Observed: 10/15/2017 Status: F Source: [place] OFFICE VISIT 9:26 AM [facility] [address] [place] [address] [place] [address] OFFICE VISIT Date of Service: 10/14/17 MR#: [id number] Acct: [id number] Name: JANESSA RAYMOND Rep #: [id number] : 1935 Provider: Danie Sparks MD Age/Sex: 82/F Location: [facility] Status: Signed Intake Vital Signs10/14/17 Height 5 ft 5 in 10/14/17 Weight: 185 lb 10/14/17 Body Mass Index (BMI) 30.7 10/14/17 Blood Pressure 138/82 10/14/17 Blood Pressure Location Rt brachial Intake Visit Reasons: SICK Chief Complaint: upset stomach, chills Is patient in pain?: No Allergies amoxicillin Adverse Reaction (Severe, Verified 10/08/17 13:41) Nausea/Vom/Diarrhea Penicillins [PCN] Adverse Reaction (Severe, Verified 10/08/17 13:41) Unknown tape Allergy (Severe, Uncoded 10/08/17 13:41) bruising Medications Levothyroxine [Synthroid] 50 mcg PO DAILY 07/31/15 [History Confirmed 07/11/17] Lisinopril/Hydrochlorothiazide [Zestoretic 20-12.5 mg Tablet] 1 ea PO DAILY 09/12/15 [History Confirmed 07/11/17] Anastrozole [Arimidex] 1 mg PO DAILY 08/27/16 [History Confirmed 07/11/17] apremilast 30 mg tablet 30 mg PO BID 05/16/17 [History Confirmed 07/11/17] clobetasol 0.05 % shampoo 1 applic TOPICAL QDAY 05/16/17 [History Confirmed 07/11/17] pravastatin 80 mg tablet 40 mg PO DAILY 05/16/17 [History Confirmed 07/11/17] primidone 50 mg tablet 150 mg PO BID tab 06/17/17 [History Confirmed 07/11/17] metoprolol tartrate 25 mg tablet 25 mg PO BID #180 tab 08/29/17 [Rx] allopurinol 300 mg tablet 300 mg PO DAILY #90 tab 10/08/17 [Rx Confirmed 10/08/17] duloxetine 30 mg capsule,delayed release 30 mg PO QDAY #90 cap 10/08/17 [Rx Confirmed 10/08/17] duloxetine 30 mg capsule,delayed release 30 mg PO QDAY #20 cap 10/14/17 [Rx Confirmed 10/14/17] levofloxacin 500 mg tablet 500 mg PO QDAY #10 tab 10/14/17 [Rx Confirmed 10/14/17] promethazine 12.5 mg tablet 12.5 mg PO Q12H PRN #14 tab 10/14/17 [Rx Confirmed 10/14/17] PFSH Medical History Chronic back pain (Chronic) History of ankle fracture (Chronic) Psoriasis of scalp (Chronic) History of sinus problem (Chronic) Ulcer (Chronic) Hypothyroidism (Chronic) Pulmonary embolism (Chronic) Osteoarthritis (Chronic) Depression (Chronic) Breast cancer (Chronic) Non Hodgkin's lymphoma (Chronic) History of gout (Chronic) History of pelvic fracture (Chronic) Surgical History Excision of skin cancer on nose (Acute) History of hysterectomy (Acute) History of mastectomy (Acute) history of skin graph (Acute) Family History Mother Breast cancer Hypertension Father Lung cancer Alcoholism Brother Asthma Alcoholism Cancer Depression Heart disease Hypertension Liver disease Sister Alcoholism Cancer Heart disease Hypertension Thyroid disorder Social History Smoking Status: Light Smoker (<10/day) alcohol intake: never substance use type: does not use what type of physical activity do you participate in: walking frequency: daily HPI HPI Chief Complaint: upset stomach, chills Details: JANESSA RAYMOND, is an 82yo F who presents to the office today with concerns about feeling of unwell. She reports nausea, nasal congestion, bilateral ear pain, chills and fever which has been ongoing for at least 8 days however, said to have worsened over the weekend. There is associated poor appetite. She denies any change in her bowel habit. No history of sick contact. She has a chronic tobacco abuse history however, denies any known history of COPD. ROS Const Constitutional: Positive for body ache, chills, fatigue, fever(s), weakness and headache(s); no weight change, sleep problems, change in appetite, snoring, frequent falls or excessive sweating Eyes Eyes: No change in vision, eye pain, light sensitivity or blurry vision ENT ENT: Positive for headache(s) and nasal discharge; no abnormal hearing, ear pain, tinnitus, nasal congestion, sore throat or neck pain Resp Respiratory: Positive for cough Cough: Yes productive; no snoring, shortness of breath or wheezing Cardio Cardiology: No excessive sweating, chest pain at rest, chest pain with exertion, shortness of breath, dyspnea on exertion, palpitations, orthopnea or lightheadedness Gastro GI: Positive for vomiting and nausea/dyspepsia; no change in bowel habits, constipation or cramping Genitourinary-Female: No burning urination, painful urination, urinary incontinence, urinary frequency, abnormal vaginal bleeding, pelvic pain or other Musc Musculoskeletal: No neck pain, abnormal walking, joint pain, back pain, limited range of motion, numbness or tingling Skin Skin: No redness, dry skin, itching, lesions, wounds or rash Neuro Neurology: Positive for weakness and headache(s); no frequent falls, abnormal hearing, abnormal walking, numbness, tingling, abnormal speech, dizziness or memory loss Psych Psychiatric: No change in appetite, No memory loss, No anxiety, No depression, No Thoughts of harming yourself/Others Endo Endocrine: Positive for fatigue; no excessive sweating, cold intolerance, increased thirst/drinking, heat intolerance, flushing or increased hunger Aller/Imm Allergy/Immunologic: No wheezing, itchy eyes, hives or seasonal allergy symptoms Diogo/Lymp Hematologic/Lymphatic: No easy bleeding, easy bruising or enlarged lymph nodes Exam Const General: cooperative, no acute distress Orientation: alert, awake, oriented x3 HENMT Head: atraumatic, normocephalic Ears: hearing grossly normal bilaterally Resp Effort AND Inspection: normal respiratory effort, able to speak in complete sentences Auscultation: Bilateral: Diminished Lung Sounds Cardio Rate: regular rate Rhythm: regular rhythm Heart Sounds: S1 normal, S2 normal GI Inspection: obesity Palpation: soft, no hepatosplenomegaly Neuro General: alert, awake, oriented x3, moves all extremities Extrem General: pedal edema Psych Appearance: grossly normal Mental Status: mental status grossly normal Affect: normal affect Assessment AND Plan 1. Acute sinusitis J01.90 Plan Symptoms ongoing for about 8 - 10 days and have been worsening. Associated feeling of chills and subjective fever. Prescription for levofloxacin sent. Flonase, Tylenol and Airborne immune supplements also recommended along with increased fluid intake and rest. Advised to call with any worsening or concerns. 2. Malaise and fatigue R53.81; R53.83 Plan Secondary to the above. Plan as above. This note was generated with [employer] dictation software. It may contain incorrect words, spelling, and punctuation that were not noted in checking the note before signing. Plan Detail Other Medications New: Coding Level of Care Code Off vis,est,level 4 Diagnoses Acute sinusitis J01.90 Malaise and fatigue R53.81; R53.83 10/15/17 0926 <Electronically signed by Danie Sparks MD> Date Danie Sparks MD Cosigner Signature: Date (if applicable) CC: INTERNAL MEDICINE Observed: 10/08/2017 Status: F Source: [place] OFFICE VISIT 4:43 PM [facility] [address] [place] [address] [place] [address] OFFICE VISIT Date of Service: 10/08/17 MR#: [id number] Acct: [id number] Name: JANESSA RAYMOND Rep #: [id number] : 1935 Provider: Danie Sparks MD Age/Sex: 82/F Location: [facility] [place] Status: Signed Intake Vital Signs10/08/17 Height 5 ft 5 in 10/08/17 Weight: 189 lb 10/08/17 Body Mass Index (BMI) 31.4 10/08/17 Blood Pressure 123/74 Intake Visit Reasons: 3 MO FU Chief Complaint: 3 mo FU Is patient in pain?: No Allergies amoxicillin Adverse Reaction (Severe, Verified 10/08/17 13:41) Nausea/Vom/Diarrhea Penicillins [PCN] Adverse Reaction (Severe, Verified 10/08/17 13:41) Unknown tape Allergy (Severe, Uncoded 10/08/17 13:41) bruising Medications Levothyroxine [Synthroid] 50 mcg PO DAILY 07/31/15 [History Confirmed 07/11/17] Lisinopril/Hydrochlorothiazide [Zestoretic 20-12.5 mg Tablet] 1 ea PO DAILY 09/12/15 [History Confirmed 07/11/17] Anastrozole [Arimidex] 1 mg PO DAILY 08/27/16 [History Confirmed 07/11/17] apremilast 30 mg tablet 30 mg PO BID 05/16/17 [History Confirmed 07/11/17] clobetasol 0.05 % shampoo 1 applic TOPICAL QDAY 05/16/17 [History Confirmed 07/11/17] pravastatin 80 mg tablet 40 mg PO DAILY 05/16/17 [History Confirmed 07/11/17] primidone 50 mg tablet 150 mg PO BID tab 06/17/17 [History Confirmed 07/11/17] metoprolol tartrate 25 mg tablet 25 mg PO BID #180 tab 08/29/17 [Rx] allopurinol 300 mg tablet 300 mg PO DAILY #90 tab 10/08/17 [Rx Confirmed 10/08/17] duloxetine 30 mg capsule,delayed release 30 mg PO QDAY #90 cap 10/08/17 [Rx Confirmed 10/08/17] PFSH Medical History Chronic back pain (Chronic) History of ankle fracture (Chronic) Psoriasis of scalp (Chronic) History of sinus problem (Chronic) Ulcer (Chronic) Hypothyroidism (Chronic) Pulmonary embolism (Chronic) Osteoarthritis (Chronic) Depression (Chronic) Breast cancer (Chronic) Non Hodgkin's lymphoma (Chronic) History of gout (Chronic) History of pelvic fracture (Chronic) Surgical History Excision of skin cancer on nose (Acute) History of hysterectomy (Acute) History of mastectomy (Acute) history of skin graph (Acute) Family History Mother Breast cancer Hypertension Father Lung cancer Alcoholism Brother Asthma Alcoholism Cancer Depression Heart disease Hypertension Liver disease Sister Alcoholism Cancer Heart disease Hypertension Thyroid disorder Social History Smoking Status: Light Smoker (<10/day) alcohol intake: never substance use type: does not use what type of physical activity do you participate in: walking frequency: daily HPI HPI Chief Complaint: 3 mo FU Details: JANESSA RAYMOND, is a 82yo F who presents to the office today for follow-up of her chronic medical conditions. She reports concerns with persistent/worsening depression. She has been on Effexor for about 11 years however appears to have now stalled. She has not been on any other medication but Effexor. She does not report any suicidal or homicidal ideations or attempts. ROS Const Constitutional: No chills, fatigue, fever(s), frequent falls, malaise, weakness, sleep problems or change in appetite Eyes Eyes: No blurry vision, change in vision, double vision, discharge or visual disturbances ENT ENT: No abnormal hearing, ear pain, ear pressure, tinnitus or dizziness/vertigo Resp Respiratory: Positive for cough (Especially @ night) Cough: Yes productive and chest congestion; no shortness of breath or wheezing Cardio Cardiology: No chest pain at rest, chest pain with exertion, shortness of breath, dyspnea on exertion, generalized swelling, irregular heart rhythm, lightheadedness, orthopnea, fast heart rate or palpitations Gastro GI: No abdominal pain, change in bowel habits, constipation, diarrhea, nausea/dyspepsia or vomiting Genitourinary-Female: No difficulty urinating, burning urination, painful urination, urinary incontinence, urinary frequency, urinary urgency, urinary hesitancy, urinary retention, Frequent nighttime urination/ nocturia, sexual problems, genital lesions, abnormal vaginal bleeding, pelvic pain, vaginal dryness, vaginal odor or Vaginal Itching Musc Musculoskeletal: Positive for abnormal walking; no joint pain, back pain, joint swelling, limited range of motion, numbness or tingling Skin Skin: No change in skin color, itching, rash or wounds Breast Breast: No breast lump or breast pain Neuro Neurology: Positive for unsteady gait/balance and abnormal walking; no frequent falls, weakness, abnormal hearing, numbness, tingling, dizziness, loss of vision, memory loss or visual disturbances Psych Psychiatric: No memory loss, Positive for anxiety, No change in appetite, Positive for depression, No Thoughts of harming yourself/Others Endo Endocrine: No fatigue, heat intolerance, increased thirst/drinking, increased hunger or increased urination Aller/Imm Allergy/Immunologic: No wheezing, itchy eyes or seasonal allergy symptoms Diogo/Lymp Hematologic/Lymphatic: No easy bleeding, easy bruising or enlarged lymph nodes Exam Const General: cooperative, no acute distress Orientation: alert, awake, oriented x3 [facility] Head: atraumatic, normocephalic Ears: hearing grossly normal bilaterally Resp Effort AND Inspection: normal respiratory effort, able to speak in complete sentences Auscultation: Bilateral: Diminished Lung Sounds Cardio Rate: regular rate Rhythm: regular rhythm Heart Sounds: S1 normal, S2 normal GI Inspection: obesity Palpation: soft, no hepatosplenomegaly Neuro General: alert, awake, oriented x3, moves all extremities Extrem General: pedal edema Psych Appearance: grossly normal Mental Status: mental status grossly normal Affect: normal affect Assessment AND Plan 1. Depression F32.9 Plan Not very well controlled. Has had significant worsening lately. Taper off Effexor. Start Cymbalta 30 mg nightly. Follow-up in 6 weeks. Advised to call with any worsening or concerns. 2. Tobacco abuse Z72.0 Plan Still ongoing. Could not afford Chantix. Believes that she can try and do this cold turkey. Patient was strongly advised/encouraged to quit. 3. Essential hypertension I10 Plan Optimally controlled. Continue current medication and lifestyle modifications. Follow-up at next visit. This note was generated with [employer] dictation software. It may contain incorrect words, spelling, and punctuation that were not noted in checking the note before signing. Plan Detail Other Medications New: Discontinued: Follow Up 6 Weeks Coding Level of Care Code Off vis,est,level 3 Diagnoses Depression F32.9 Tobacco abuse Z72.0 Essential hypertension I10 Hypertension type: essential hypertension 10/08/17 1643 <Electronically signed by Danie Sparks MD> Date Danie Sparks MD Cosign Signature: Date (if applicable) CC: INTERNAL MEDICINE Observed: 07/12/2017 Status: F Source: [place] OFFICE VISIT 1:45 PM [facility] [address] [place] [address] [address] [place] [address] OFFICE VISIT Date of Service: 07/11/17 MR#: [id number] Acct: [id number] Name: JANESSA RAYMOND Rep #: [id number] : 1935 Provider: Danie Sparks MD Age/Sex: 82/F Location: [facility] Status: Signed Intake Vital Signs07/11/17 Height 5 ft 5 in 07/11/17 Weight: 187 lb 07/11/17 Body Mass Index (BMI) 31.1 07/11/17 Blood Pressure 148/76 Intake Visit Reasons: 2 WK FU Chief Complaint: Follow - Up, BW results, wants Rx for stopping smoke Is patient in pain?: No Allergies amoxicillin Adverse Reaction (Severe, Verified 07/11/17 14:40) Nausea/Vom/Diarrhea Penicillins [PCN] Adverse Reaction (Severe, Verified 07/11/17 14:40) Unknown tape Allergy (Severe, Uncoded 07/11/17 14:40) bruising Medications Levothyroxine [Synthroid] 50 mcg PO DAILY 07/31/15 [History Confirmed 07/11/17] Lisinopril/Hydrochlorothiazide [Zestoretic 20-12.5 mg Tablet] 1 ea PO DAILY 09/12/15 [History Confirmed 07/11/17] Metoprolol Tartrate [Lopressor (Beta Linda)] 25 mg PO BID 09/12/15 [History Confirmed 07/11/17] Allopurinol [Zyloprim] 300 mg PO DAILY 08/27/16 [History Confirmed 07/11/17] Anastrozole [Arimidex] 1 mg PO DAILY 08/27/16 [History Confirmed 07/11/17] Venlafaxine HCl 75 mg PO DAILY 08/27/16 [History Confirmed 07/11/17] apremilast 30 mg tablet 30 mg PO BID 05/16/17 [History Confirmed 07/11/17] clobetasol 0.05 % shampoo 1 applic TOPICAL QDAY 05/16/17 [History Confirmed 07/11/17] pravastatin 80 mg tablet 40 mg PO DAILY 05/16/17 [History Confirmed 07/11/17] ciprofloxacin 250 mg tablet 250 mg PO Q12H #10 tab 06/17/17 [Rx Confirmed 07/11/17] primidone 50 mg tablet 150 mg PO BID tab 06/17/17 [History Confirmed 07/11/17] varenicline 0.5 mg (11)-1 mg (42) tablets in a dose pack See Label Instructions PO PER PKG DIR #53 tab 07/11/17 [Rx Confirmed 07/11/17] varenicline 1 mg tablet 1 mg PO BID 84 Days #168 tab 07/11/17 [Rx Confirmed 07/11/17] PFSH Medical History Chronic back pain (Chronic) History of ankle fracture (Chronic) Psoriasis of scalp (Chronic) History of sinus problem (Chronic) Ulcer (Chronic) Hypothyroidism (Chronic) Pulmonary embolism (Chronic) Osteoarthritis (Chronic) Depression (Chronic) Breast cancer (Chronic) Non Hodgkin's lymphoma (Chronic) History of gout (Chronic) History of pelvic fracture (Chronic) Surgical History Excision of skin cancer on nose (Acute) History of hysterectomy (Acute) History of mastectomy (Acute) history of skin graph (Acute) Family History Mother Breast cancer Hypertension Father Lung cancer Alcoholism Brother Asthma Alcoholism Cancer Depression Heart disease Hypertension Liver disease Sister Alcoholism Cancer Heart disease Hypertension Thyroid disorder Social History Smoking Status: Light Smoker (<10/day) alcohol intake: never substance use type: does not use what type of physical activity do you participate in: walking frequency: daily HPI HPI Chief Complaint: Follow - Up, BW results, wants Rx for stopping smoke Details: JANESSA RAYMOND, is an 82yo F who presents to the office today for follow up. She was seen about 2 weeks ago and managed for UTI. Symptoms have now resolved. She has an over 40 pack year history of smoking however, she now wants to quit smoking. She has tried Chantix successfully in the past and would like to try it again. Per patient, she was recently taken off her anastrozole by her oncologist. ROS Const Constitutional: No chills, fatigue, fever(s), frequent falls, malaise, weakness, sleep problems or change in appetite Eyes Eyes: No blurry vision, change in vision, double vision, discharge or visual disturbances ENT ENT: No abnormal hearing, ear pain, ear pressure, tinnitus or dizziness/vertigo Resp Respiratory: No cough, shortness of breath or wheezing Cardio Cardiology: No chest pain at rest, chest pain with exertion, shortness of breath, dyspnea on exertion, generalized swelling, irregular heart rhythm, lightheadedness, orthopnea, fast heart rate or palpitations Gastro GI: No abdominal pain, change in bowel habits, constipation, diarrhea, nausea/dyspepsia or vomiting Genitourinary-Female: No difficulty urinating, burning urination, painful urination, urinary incontinence, urinary frequency, urinary urgency, urinary hesitancy, urinary retention, Frequent nighttime urination/ nocturia, sexual problems, genital lesions, abnormal vaginal bleeding, pelvic pain, vaginal dryness, vaginal odor or Vaginal Itching Musc Musculoskeletal: No back pain, joint swelling, limited range of motion, numbness or tingling Skin Skin: No change in skin color, itching, rash or wounds Breast Breast: No breast lump or breast pain Neuro Neurology: No frequent falls, weakness, abnormal hearing, numbness, tingling, unsteady gait/balance, dizziness, loss of vision, memory loss or visual disturbances Psych Psychiatric: No memory loss, No anxiety, No change in appetite, No depression, No Thoughts of harming yourself/Others Endo Endocrine: No fatigue, heat intolerance, increased thirst/drinking, increased hunger or increased urination Aller/Imm Allergy/Immunologic: No wheezing, itchy eyes or seasonal allergy symptoms Diogo/Lymp Hematologic/Lymphatic: No easy bleeding, easy bruising or enlarged lymph nodes Exam Const General: cooperative, no acute distress Orientation: alert, awake, oriented x3 [facility] Head: atraumatic, normocephalic Ears: hearing grossly normal bilaterally Resp Effort AND Inspection: normal respiratory effort, able to speak in complete sentences Auscultation: Bilateral: Diminished Lung Sounds Cardio Rate: regular rate Rhythm: regular rhythm Heart Sounds: S1 normal, S2 normal GI Inspection: obesity Palpation: soft, no hepatosplenomegaly Neuro General: alert, awake, oriented x3, moves all extremities Extrem General: pedal edema Psych Appearance: grossly normal Mental Status: mental status grossly normal Affect: normal affect Assessment AND Plan 1. Urinary tract infection N39.0 Plan Resolved. Has completed her course of Abx. Will follow. 2. Tobacco abuse counseling Z71.6 Plan Patient now open to quitting. Prescription for Chantix sent to [facility]. Follow up in 3 months. 3. Osteopenia M85.80 Plan No recent bone density. BMD ordered. Daily vitamin D and calcium supplements. Plan Detail Other Orders Orders: Other Medications New: Follow Up 3 Months Coding Level of Care Code Off vis,est,level 3 Diagnoses Urinary tract infection N39.0 Tobacco abuse counseling Z71.6 Osteopenia M85.80 07/12/17 1345 <Electronically signed by Danie Sparks MD> Date Danie Bridger Nava Signature: Date (if applicable) CC: LIPID PROFILE Collected: 06/26/2017 Status: F Source: [place] 11:36 AM [facility] [place] REPOSITORY Order Comment: Comments: Fasting Comments: Fasting TYPE CODE TESTS RESULT OUT OF RANGE REFERENCE UNITS LAB L501.4900 200 mg/dL Normal CHOL 151 Result Comment: <200 mg/dL Desirable 200-240 mg/dL Borderline >240 mg/dL High Risk LAB L501.5000 mg/dL High TRIG 201 Result Comment: The drugs N-Acetylcysteine and Metamizole may falsely depress this assay. Serum Triglycerides Reference Interval Normal <150 mg/dL Borderline high 150 - 199 mg/dL High 200 - 499 mg/dL Very High > or = 500 mg/dL LAB L501.6400 mg/dL Normal HDL 44 Result Comment: The drugs N-Acetylcysteine and Metamizole may falsely depress this assay. Reference Range HDL <40 mg/dL Low HDL Cholesterol HDL >or= 60 mg/dL High HDL Cholesterol LAB L501.6500 0-130 mg/dL Normal LDL 67 LAB L501.6600 5-40 mg/dL Normal VLDL 40 Performed By: #### L500.4100, L501.9520, L506.0400 #### [facility] [address] [place], [place], [address] THYROID STIM HORMONE Collected: 06/26/2017 Status: F Source: [place] (TSH) 11:36 AM [facility] [place] REPOSITORY Order Comment: Comments: Fasting Comments: Fasting TYPE CODE TESTS RESULT OUT OF RANGE REFERENCE UNITS LAB L501.9520 0.358-3.74 uIU/mL Normal TSH 1.65 Performed By: #### L500.4100, L501.9520, L506.0400 #### [facility] [address] [place], [address] T4 FREE DIRECT Collected: 06/26/2017 Status: F Source: [place] 11:36 AM [facility] [place] REPOSITORY Order Comment: Comments: Fasting Comments: Fasting TYPE CODE TESTS RESULT OUT OF RANGE REFERENCE UNITS LAB L506.0400 0.76-1.46 ng/dL Normal T4 FREE 1.05 DIRECT Performed By: #### L500.4100, L501.9520, L506.0400 #### [place] [facility] [address] [place], [address] INTERNAL MEDICINE Observed: 06/18/2017 Status: F Source: [place] OFFICE VISIT 4:54 PM [facility] [place] REPOSITORY [facility] [address] [place] [address] OFFICE VISIT Date of Service: 06/17/17 MR#: [id number] Acct: [id number] Name: JANESSA RAYMOND Rep #: [id number] : 1935 Provider: Danie Sparks MD Age/Sex: 82/F Location: [facility] [place] Status: Signed Intake Vital Signs06/17/17 Height 5 ft 5 in Intake Visit Reasons: 1 M FU Chief Complaint: Follow - Up Is patient in pain?: Yes (burning with urination) Pain scale (1-10): 8 Allergies amoxicillin Adverse Reaction (Severe, Verified 05/03/17 03:54) Nausea/Vom/Diarrhea Penicillins [PCN] Adverse Reaction (Severe, Verified 05/03/17 03:54) Unknown tape Allergy (Severe, Uncoded 05/16/17 14:22) bruising Medications Levothyroxine [Synthroid] 50 mcg PO DAILY 07/31/15 [History Confirmed 05/16/17] Lisinopril/Hydrochlorothiazide [Zestoretic 20-12.5 mg Tablet] 1 ea PO DAILY 09/12/15 [History Confirmed 05/16/17] Metoprolol Tartrate [Lopressor (Beta Linda)] 25 mg PO BID 09/12/15 [History Confirmed 05/16/17] Allopurinol [Zyloprim] 300 mg PO DAILY 08/27/16 [History Confirmed 05/03/17] Anastrozole [Arimidex] 1 mg PO DAILY 08/27/16 [History Confirmed 05/16/17] Venlafaxine HCl 75 mg PO DAILY 08/27/16 [History Confirmed 05/16/17] apremilast 30 mg tablet 30 mg PO BID 05/16/17 [History Confirmed 05/16/17] clobetasol 0.05 % shampoo 1 applic TOPICAL QDAY 05/16/17 [History Confirmed 05/16/17] pravastatin 80 mg tablet 40 mg PO DAILY 05/16/17 [History Confirmed 05/16/17] ciprofloxacin 250 mg tablet 250 mg PO Q12H #10 tab 06/17/17 [Rx Confirmed 06/17/17] primidone 50 mg tablet 150 mg PO BID tab 06/17/17 [History Confirmed 06/17/17] PFSH Medical History Chronic back pain (Acute) History of ankle fracture (Acute) Psoriasis of scalp (Acute) Excision of skin cancer on nose (Acute) History of sinus problem (Acute) Ulcer (Acute) Hypothyroidism (Chronic) Pulmonary embolism (Acute) Osteoarthritis (Chronic) Depression (Acute) Breast cancer (Acute) Non Hodgkin's lymphoma (Acute) History of gout (Acute) History of pelvic fracture (Acute) Surgical History History of hysterectomy (Acute) History of mastectomy (Acute) history of skin graph (Acute) Family History Mother Breast cancer Hypertension Father Lung cancer Alcoholism Brother Asthma Alcoholism Cancer Depression Heart disease Hypertension Liver disease Sister Alcoholism Cancer Heart disease Hypertension Thyroid disorder Social History Smoking Status: Light Smoker (<10/day) alcohol intake: never substance use type: does not use what type of physical activity do you participate in: walking frequency: daily HPI HPI Chief Complaint: Follow - Up Details: JANESSA RAYMOND, is an 82yo F who presents to the office today for follow up. She also has some concerns. During her last visit she was seen for sinusitis. Symptoms are said to have improved on Flonase and other conservative measures. She however reports increased burning and frequency of urination which is been ongoing for about 3 days. She denies abdominal pain, blood in her urine, nausea, vomiting or otherwise feeling of unwell. She is currently on Coumadin and per patient and her daughter she was started about 6 years ago due to concerns for possible DVT after a period of immobilization ( Cramped car travel ). She is continued on this medication since then without any other concerns for DVT or PE. They emphatically deny any prior history of clotting disorder. She has no current malignancy ROS Const Constitutional: No weight change, body ache, chills, fatigue, sleep problems, fever(s), change in appetite, snoring, weakness, frequent falls, headache(s) or excessive sweating Eyes Eyes: No change in vision, eye pain, light sensitivity or blurry vision ENT ENT: Positive for nasal congestion; no headache(s), abnormal hearing, ear pain, sore throat or neck pain Resp Respiratory: No snoring, cough, shortness of breath or wheezing Cardio Cardiology: No excessive sweating, chest pain at rest, chest pain with exertion, shortness of breath, dyspnea on exertion, palpitations, orthopnea or lightheadedness Gastro GI: No abdominal pain, change in bowel habits, constipation, diarrhea, vomiting, nausea/dyspepsia or cramping Genitourinary-Female: Positive for burning urination; no painful urination, urinary incontinence, urinary frequency, abnormal vaginal bleeding, pelvic pain or other Musc Musculoskeletal: No neck pain, abnormal walking, joint pain, back pain, limited range of motion, numbness or tingling Skin Skin: No redness, dry skin, itching, lesions, wounds or rash Neuro Neurology: No weakness, frequent falls, headache(s), abnormal hearing, abnormal walking, numbness, tingling, abnormal speech, dizziness or memory loss Psych Psychiatric: No change in appetite, No memory loss, No anxiety, No depression, No Thoughts of harming yourself/Others Endo Endocrine: No fatigue, excessive sweating, cold intolerance, increased thirst/drinking, heat intolerance, flushing or increased hunger Aller/Imm Allergy/Immunologic: No wheezing, itchy eyes, hives or seasonal allergy symptoms Diogo/Lymp Hematologic/Lymphatic: No easy bleeding, easy bruising or enlarged lymph nodes Exam Const General: cooperative, no acute distress Orientation: alert, awake, oriented x3 [facility] Head: atraumatic, normocephalic Ears: hearing grossly normal bilaterally Resp Effort AND Inspection: normal respiratory effort, able to speak in complete sentences Auscultation: Bilateral: Diminished Lung Sounds Cardio Rate: regular rate Rhythm: regular rhythm Heart Sounds: S1 normal, S2 normal GI Inspection: obesity Palpation: soft, no hepatosplenomegaly Neuro General: alert, awake, oriented x3, moves all extremities Extrem General: pedal edema Psych Appearance: grossly normal Mental Status: mental status grossly normal Affect: normal affect Assessment AND Plan 1. Urinary tract infection N39.0 Plan Current symptoms of increased frequency and pain during urination suggestive of UTI. Urinalysis ordered. Will start on ciprofloxacin 250 mg twice daily for 5 days. Advised to call the office if she notes any worsening symptoms. Follow-up in 2 weeks. Orders Orders: 2. History of Coumadin therapy Z92.29 Plan Patient and her daughter emphatically state that she was started on Coumadin about 6 years ago after a period of immobility With leg swelling and pain with the assumption of DVT. They however state that the venous studies done during that time was negative for any DVT. She also denies any previous history of PE. Venous studies done August 2016 not suggestive of any DVT. I believe it is okay to discontinue Coumadin therapy at this time. If treatment was for provoked DVT, current guidelines suggest about 3-6 months of therapy. They were however advised that if she had another episode of DVT while off of Coumadin, she would have to be on Coumadin therapy indefinitely. Expressed understanding. Signs / symptoms of PE also discussed. 3. Essential hypertension I10 Plan Stable. Continue current medications. Continue lifestyle modifications. Follow-up at next visit. Orders Orders: 4. Hypothyroidism E03.9 Plan Stable. No recent thyroid function check. Labs ordered. Continue current medication. Will follow. Orders Orders: 5. Hypercholesteremia E78.00 Plan Currently on pravastatin 40 mg daily. Labs ordered. Follow-up with results. Continue current medications and lifestyle modifications. This note was generated with [employer] dictation software. It may contain incorrect words, spelling, and punctuation that were not noted in checking the note before signing. Plan Detail Other Medications New: ciprofloxacin administer dose 2 hrs before/6 hrs after dairy products/c250 mg PO Q12H alcium/zinc/iron-containing products Discontinued: Follow Up 2 Weeks Coding Level of Care Code Off vis,est,level 4 Diagnoses Urinary tract infection N39.0 History of Coumadin therapy Z92.29 Essential hypertension I10 Hypertension type: essential hypertension Hypothyroidism E03.9 Hypercholesteremia E78.00 06/18/17 1654 <Electronically signed by Danie Sparks MD> Date Danie Rojasignailyn Signature: Date (if applicable) CC: URINALYSIS, COMPLETE Collected: 06/18/2017 Status: F Source: [place] 11:18 AM [facility] [place] REPOSITORY Order Comment: How was Urine Obtained? POTATO SPOTTER TO SPECIFY TYPE CODE TESTS RESULT OUT OF RANGE REFERENCE UNITS LAB L400.3000 Yellow COLOR Normal Yellow LAB L400.3050 Clear Normal CLARITY Sl. Cloudy LAB L400.3200 Normal mg/dl Normal GLUCOSE, UR Normal LAB L400.3300 Negative mg/dL Normal BILIRUBIN URINE Negative LAB L400.3400 Negative mg/dl Normal KETONE UR Negative LAB L400.3465 1.002-1.030 Normal SP.GR. DIPSTX 1.010 LAB L400.3550 5.0 - 8.0 pH UR Normal 6.5 LAB L400.3600 Negative mg/dl PROT Normal DIPSTX Negative LAB L400.3700 Normal mg/dl Normal UROBILI Normal LAB L400.3750 Negative High NITRITE UR Positive LAB L400.3780 Negative /ul High 25 OCCULT BLOOD-UR LAB L400.3800 Negative /ul High LEUK ESTERASE 100 LAB L400.4050 0-5 /hpf WBC Normal 5-10 SEEN LAB L400.4100 0-5 /hpf Normal RBC-UA 0-5 SEEN LAB L400.4150 5-10 /hpf SQUAM Normal EPI 0-5 SEEN LAB L400.4300 None Seen /hpf 4+ Normal BACTERIA LAB L400.4350 <or=2+ /hpf 0 Normal MUCUS, URINE SEEN Performed By: #### L400.0001 #### [facility] [address] [place], [address] PROTIME W/INR Collected: 06/07/2017 Status: F Source: [place]ER[place] 3:19 PM [facility] REPOSITORY TYPE CODE TESTS RESULT OUT OF REFERENCE UNITS RANGE LAB L9200.1001 11.9-14.4 SEC High PROTIME ISTAT 36.2 Result Comment: Reference Range 11.9 - 14.4 LAB L9200.2000 Normal INR ISTAT 3.20 Result Comment: Critical Value > 3.5 Performed By: #### L9200.0000 #### [facility] [place] [address] INTERNAL MEDICINE Observed: 05/21/2017 Status: F Source: [place] OFFICE VISIT 8:24 AM [facility] REPOSITORY [facility] [address] [place] [address] OFFICE VISIT Date of Service: 05/16/17 MR#: [id number] Acct: [id number] Name: JANESSA RAYMOND Rep #: [id number] : 1935 Provider: Danie Sparks MD Age/Sex: 82/F Location: [facility] Status: Signed Intake Vital Signs05/16/17 Height 5 ft 5 in 05/16/17 Weight: 187 lb 05/16/17 Body Mass Index (BMI) 31.1 05/16/17 Blood Pressure 125/75 Intake Visit Reasons: EST PCP Chief Complaint: establish care Is patient in pain?: No Allergies amoxicillin Adverse Reaction (Severe, Verified 05/03/17 03:54) Nausea/Vom/Diarrhea Penicillins [PCN] Adverse Reaction (Severe, Verified 05/03/17 03:54) Unknown tape Allergy (Severe, Uncoded 05/16/17 14:22) bruising Medications Levothyroxine [Synthroid] 50 mcg PO DAILY 07/31/15 [History Confirmed 05/16/17] Primidone [Mysoline] 100 mg PO BID 07/31/15 [History Confirmed 05/16/17] Warfarin [Coumadin (PBKC)] 7.5 mg PO DAILY 07/31/15 [History Confirmed 05/16/17] Lisinopril/Hydrochlorothiazide [Zestoretic 20-12.5 mg Tablet] 1 ea PO DAILY 09/12/15 [History Confirmed 05/16/17] Metoprolol Tartrate [Lopressor (Beta [place])] 25 mg PO BID 09/12/15 [History Confirmed 05/16/17] Allopurinol [Zyloprim] 300 mg PO DAILY 08/27/16 [History Confirmed 05/03/17] Anastrozole [Arimidex] 1 mg PO DAILY 08/27/16 [History Confirmed 05/16/17] Venlafaxine HCl 75 mg PO DAILY 08/27/16 [History Confirmed 05/16/17] apremilast 30 mg tablet 30 mg PO BID 05/16/17 [History Confirmed 05/16/17] clobetasol 0.05 % shampoo 1 applic TOPICAL QDAY 05/16/17 [History Confirmed 05/16/17] pravastatin 80 mg tablet 40 mg PO DAILY 05/16/17 [History Confirmed 05/16/17] PFSH Medical History Chronic back pain (Acute) History of ankle fracture (Acute) Psoriasis of scalp (Acute) Excision of skin cancer on nose (Acute) History of sinus problem (Acute) Ulcer (Acute) Hypothyroidism (Acute) Pulmonary embolism (Acute) Osteoarthritis (Chronic) Depression (Acute) Breast cancer (Acute) Non Hodgkin's lymphoma (Acute) History of gout (Acute) History of pelvic fracture (Acute) Surgical History History of hysterectomy (Acute) History of mastectomy (Acute) history of skin graph (Acute) Family History Mother Breast cancer Hypertension Father Lung cancer Alcoholism Brother Asthma Alcoholism Cancer Depression Heart disease Hypertension Liver disease Sister Alcoholism Cancer Heart disease Hypertension Thyroid disorder Social History Smoking Status: Light Smoker (<10/day) alcohol intake: never substance use type: does not use what type of physical activity do you participate in: walking frequency: daily HPI HPI Chief Complaint: establish care Details: JANESSA RAYMOND, is a 82yo F who presents to the office today for to establish care. She currently follows up with Dr. Garcia at the [facility]. She has some acute complaints. She has noted increased nasal congestion, ear fullness, and facial pressure which has been ongoing. She denies chills, fever or otherwise feeling of unwell. She also has a history of left hip arthritis. Due to her other comorbid conditions, she is limited on pain medications. She has been seen by pain management in the past which per patient was helpful. She will like a referral. ROS Const Constitutional: Positive for weakness; no weight change, body ache, chills, sleep problems, fever(s), change in appetite, snoring, frequent falls, headache(s) or excessive sweating Eyes Eyes: No change in vision, eye pain, light sensitivity or blurry vision ENT ENT: Positive for nasal congestion and hearing loss; no headache(s), abnormal hearing, ear pain, tinnitus, sore throat or neck pain Resp Respiratory: No snoring, cough, shortness of breath or wheezing Cardio Cardiology: No excessive sweating, chest pain at rest, chest pain with exertion, shortness of breath, dyspnea on exertion, palpitations, orthopnea or lightheadedness Gastro GI: No abdominal pain, change in bowel habits, constipation, diarrhea, vomiting, nausea/dyspepsia or cramping Musc Musculoskeletal: Positive for joint pain and back pain; no neck pain, abnormal walking, limited range of motion, numbness or tingling Skin Skin: Positive for dry skin; no redness, lesions, wounds or rash Neuro Neurology: Positive for weakness; no frequent falls, headache(s), abnormal hearing, abnormal walking, numbness, tingling, abnormal speech, dizziness or memory loss Psych Psychiatric: No change in appetite, No memory loss, No anxiety, Positive for depression, No Thoughts of harming yourself/Others Endo Endocrine: No excessive sweating, cold intolerance, increased thirst/drinking, heat intolerance, flushing or increased hunger Aller/Imm Allergy/Immunologic: No wheezing, hives or seasonal allergy symptoms Diogo/Lymp Hematologic/Lymphatic: No easy bleeding, easy bruising or enlarged lymph nodes Exam Const General: cooperative, no acute distress Orientation: alert, awake, oriented x3 [facility] Head: atraumatic, normocephalic Ears: hearing grossly normal bilaterally Resp Effort AND Inspection: normal respiratory effort, able to speak in complete sentences Auscultation: Bilateral: Diminished Lung Sounds Cardio Rate: regular rate Rhythm: regular rhythm Heart Sounds: S1 normal, S2 normal GI Inspection: obesity Palpation: soft, no hepatosplenomegaly Neuro General: alert, awake, oriented x3, moves all extremities Extrem General: pedal edema Psych Appearance: grossly normal Mental Status: mental status grossly normal Affect: normal affect Assessment AND Plan 1. Sinusitis J32.9 Plan Symptoms suggestive of sinusitis. Patient has tried no conservative measures. No other constitutional symptoms or signs. Flonase, lots of fluids, rest and airborne immune supplements recommended. Smoking cessation recommended. Follow-up in 4-6 weeks if no symptom resolution, will consider antibiotics for chronic sinusitis. 2. Breast cancer, left C50.912 Plan Follows up with oncology. Also has a history of non-Hodgkin's lymphoma status post radiation and chemotherapy. Is currently on anastrozole. Patient is stable. We will follow 3. Osteopenia M85.80 Plan Repeat DEXA scan in 2017 however showed normal bone density. Daily supplements of calcium and vitamin D recommended. Will follow. 4. Osteoarthritis M19.90 Plan Of bilateral hips. Currently only on Tylenol due to her other comorbid conditions/medications which does not provide significant relief. Referred to pain management. Will follow. This note was generated with Hyleteation software. It may contain incorrect words, spelling, and punctuation that were not noted in checking the note before signing. Plan Detail Other Orders Referrals: Follow Up 1 Month Coding Level of Care Code Off vis,new,level 3 Diagnoses Sinusitis J32.9 Breast cancer, left C50.912 Osteopenia M85.80 Osteoarthritis M19.90 05/21/17 0824 <Electronically signed by Danie Sparks MD> Date Danie Sparks MD Cosigner Signature: Date (if applicable) CC: PROGRESS Observed: 05/14/2017 Status: COMPLETED Source: [place] 4:38 PM [facility] REPOSITORY HNO ID: [id number] Author: Gerardo Melendez Service: (none) Author Type: Physician Type: Progress Notes Filed: 05/14/2017 4:52 PM Note Text: agree PROGRESS Observed: 05/14/2017 Status: COMPLETED Source: [place] 3:01 PM [facility] REPOSITORY HNO ID: [id number] Author: Christiana Rocha RN Service: (none) Author Type: (none) Type: Progress Notes Filed: 05/14/2017 3:02 PM Note Text: patient had inr completed at [facility] patients inr is 2.3 (patients inr range is 2.0-3.0) patient is currently taking 10mg Mon,Wed,Fri and 7.5mg all other days patients last dose change was on 04/15/17 due to a low level of 1.5 (dose at that time was 7.5mg daily) patient has had no changes in medication and no missed doses and no change in diet Advised patient to continue on the same dose(s) and that they would only be contacted regarding dosage and follow up instructions after review with provider, if a change is needed. Written instructions given and patient verbalized understanding. Presently scheduled in 4 weeks (06/11/17) for follow up INR. PROGRESS Observed: 05/13/2017 Status: COMPLETED Source: [place] 5:14 PM [facility] [place] REPOSITORY HNO ID: [id number] Author: Amari (Single End [employer]er) SHIMON Wright.NITRIC ACID CONCENTRATOR OPERATOR Service: (none) Author Type: Nurse Practitioner Type: Progress Notes Filed: 05/13/2017 5:24 PM Note Text: CC: Patient presents with: Suture Removal: Suture removal HPI Janessa Raymond is a 82 year old female who presents today with her daughter for suture removal from right arm laceration. Patient was previously evaluated at [facility] ER after she sustained a fall at home 05/03/17. Patient denies any fever, chills, site tenderness, warmth, new or worsening drainage. Patient and daughter note that the swelling has gone down. REVIEW OF SYSTEMS General: no fevers, no chills, no night sweats, no recurrent infections, no change in appetite, no change in energy and no significant changes in weight Respiratory: no cough, no wheezing, no shortness of breath, no hemoptysis Cardiovascular: no chest pain, no chest pressure, no palpitations and no swelling GI: No nausea, vomiting, or diarrhea Skin: Positive for scattered bruising from coumadin use and x2 skin tears to right upper arm and elbow and large laceration to right forearm with 10 sutures. PAST MEDICAL HISTORY Diagnosis Date - Depression - Dysuria - Hodgkin lymphoma (HCC) - Hyperlipidemia - Hypertension - Hypothyroidism - Osteoarthritis knee - Pulmonary embolism (HCC) - Skin cancer of nose - Vitamin D deficiency PAST SURGICAL HISTORY Procedure Laterality Date - HYSTERECTOMY HX - MASTECTOMY, RADICAL left breast ALLERGIES Augmentin [Amoxicillin-Pot Clavulanate]; Neurontin [Gabapentin]; Penicillins MEDICATIONS mupirocin (BACTROBAN) 2 % ointment Apply 1 application to affected area three times daily. To affected area warfarin (COUMADIN) 5 mg tablet 10 mgs on M,W, F and 7.5 mgs the rest of the week warfarin (COUMADIN) 1 mg tablet 10 mgs on M,W, F and 7.5 mgs the rest of the week warfarin (COUMADIN) 1 mg tablet 10 mgs on M,W, F and 7.5 mgs the rest of the week levothyroxine (SYNTHROID) 50 mcg tablet Take 1 tablet by mouth once daily. lisinopril-hydrochlorothiazide (PRINZIDE,ZESTORETIC) 20-12.5 mg per tablet Take 1 tablet by mouth twice daily. metoprolol tartrate, short acting, (LOPRESSOR) 25 mg tablet Take 1 tablet by mouth twice daily. venlafaxine ER (EFFEXOR XR) 75 mg 24 hr capsule Take 1 capsule by mouth once daily. allopurinol (ZYLOPRIM) 300 mg tablet Take 1 tablet by mouth once daily. For gout. pravastatin (PRAVACHOL) 80 mg tablet Take 0.5 tablets by mouth once daily. primidone (MYSOLINE) 50 mg tablet Take 1 tablet by mouth four times daily. apremilast (OTEZLA) 30 mg tablet Take 1 tablet by mouth twice daily. Clobetasol Propionate 0.05 % sham Apply 1 application to affected area once daily. econazole (SPECTAZOLE) 1 % cream Apply to affected area once daily. traMADol (ULTRAM) 50 mg tablet Take 1 tablet by mouth twice daily as needed. anastrozole (ARIMIDEX) 1 mg tablet Take 1 tablet by mouth once daily. FAMILY HISTORY Problem Relation Age of Onset - Breast Cancer Mother age 55 - Cancer Father lung Social History Substance Use Topics - Smoking status: Current Every Day Smoker Packs/day: 1.00 Types: Cigarettes - Smokeless tobacco: Never Used - Alcohol use No PHYSICAL EXAM BP 110/58 Pulse 112 Temp 36.6 ?C (97.8 ?F) (Temporal Artery) SpO2 96% General Appearance: well appearing, in no acute distress, alert Skin: positives: skin tears with scabbing to right upper arm and elbow. Right forearm laceration healing as expected. Edema improved since last visit. No active drainage or signs of infection. Edges are well approximated. Surrounding skins is ecchymotic Head: normocephalic, atraumatic Lungs: Lungs clear to auscultation. No wheezing, rhonchi, rales Heart: RRR without murmur, gallop, or rubs. No ectopy PNEUMOVAX AGE 65 AND OVER WITH 5YR LOOKBACK(1) due on 2001 INFLUENZA(1) due on 10/26/2016 DIABETES SCREEN due on 05/10/2020 TETANUS due on 01/29/2021 BONE DENSITY Completed ADULT PREVNAR-13 Completed ASSESSMENT/PLAN: 1. Encounter for removal of sutures - ICD9: V58.32, ICD10: Z48.02 (primary diagnosis) Patient presents for suture removal. The wound is well healed without signs of infection. 10 sutures were removed. Instructed patient and daughter to keep area clean. May discontinue use of antibiotic ointment. Okay to use Vaseline or AANDD ointment to soften scab and reduce scarring. Follow up as needed 2. Laceration of right forearm without complication, subsequent encounter - ICD9: V58.89, 881.00, ICD10: S51.811D - As above, see #1 Prescription instructions reviewed with patient as applicable. Potential red flag symptoms discussed with the patient. Reviewed appropriate action plan to take if red flag symptoms occur. Patient agreeable to treatment plan. Amari Wright APRN.CNP CNOV Observed: 05/13/2017 Status: COMPLETED Source: [place] 4:30 PM [facility] REPOSITORY Office Visit (INTMWS) JANESSA RAYMOND ([id number]) 1935 F Date Time Provider Department 05/13/17 4:30 PM AMARI WRIGHT ([facility]) INTMWS During your visit today, we recorded the following information about you: Temperature Pulse Blood pressure 97.8 degrees 112/minute 110/58 Amari Wright APRN.CNP, APRN.CNP 05/13/2017 5:24 PM Signed CC: Patient presents with: Suture Removal: Suture removal HPI Janessa Willoughby Segundo is a 82 year old female who presents today with her daughter for suture removal from right arm laceration. Patient was previously evaluated at [facility] ER after she sustained a fall at home 05/03/17. Patient denies any fever, chills, site tenderness, warmth, new or worsening drainage. Patient and daughter note that the swelling has gone down. REVIEW OF SYSTEMS General: no fevers, no chills, no night sweats, no recurrent infections, no change in appetite, no change in energy and no significant changes in weight Respiratory: no cough, no wheezing, no shortness of breath, no hemoptysis Cardiovascular: no chest pain, no chest pressure, no palpitations and no swelling GI: No nausea, vomiting, or diarrhea Skin: Positive for scattered bruising from coumadin use and x2 skin tears to right upper arm and elbow and large laceration to right forearm with 10 sutures. PAST MEDICAL HISTORY Diagnosis Date - Depression - Dysuria - Hodgkin lymphoma (HCC) - Hyperlipidemia - Hypertension - Hypothyroidism - Osteoarthritis knee - Pulmonary embolism (HCC) - Skin cancer of nose - Vitamin D deficiency PAST SURGICAL HISTORY Procedure Laterality Date - HYSTERECTOMY HX - MASTECTOMY, RADICAL left breast ALLERGIES Augmentin [Amoxicillin-Pot Clavulanate]; Neurontin [Gabapentin]; Penicillins MEDICATIONS mupirocin (BACTROBAN) 2 % ointment Apply 1 application to affected area three times daily. To affected area warfarin (COUMADIN) 5 mg tablet 10 mgs on M,W, F and 7.5 mgs the rest of the week warfarin (COUMADIN) 1 mg tablet 10 mgs on M,W, F and 7.5 mgs the rest of the week warfarin (COUMADIN) 1 mg tablet 10 mgs on M,W, F and 7.5 mgs the rest of the week levothyroxine (SYNTHROID) 50 mcg tablet Take 1 tablet by mouth once daily. lisinopril-hydrochlorothiazide (PRINZIDE,ZESTORETIC) 20-12.5 mg per tablet Take 1 tablet by mouth twice daily. metoprolol tartrate, short acting, (LOPRESSOR) 25 mg tablet Take 1 tablet by mouth twice daily. venlafaxine ER (EFFEXOR XR) 75 mg 24 hr capsule Take 1 capsule by mouth once daily. allopurinol (ZYLOPRIM) 300 mg tablet Take 1 tablet by mouth once daily. For gout. pravastatin (PRAVACHOL) 80 mg tablet Take 0.5 tablets by mouth once daily. primidone (MYSOLINE) 50 mg tablet Take 1 tablet by mouth four times daily. apremilast (OTEZLA) 30 mg tablet Take 1 tablet by mouth twice daily. Clobetasol Propionate 0.05 % sham Apply 1 application to affected area once daily. econazole (SPECTAZOLE) 1 % cream Apply to affected area once daily. traMADol (ULTRAM) 50 mg tablet Take 1 tablet by mouth twice daily as needed. anastrozole (ARIMIDEX) 1 mg tablet Take 1 tablet by mouth once daily. FAMILY HISTORY Problem Relation Age of Onset - Breast Cancer Mother age 55 - Cancer Father lung Social History Substance Use Topics - Smoking status: Current Every Day Smoker Packs/day: 1.00 Types: Cigarettes - Smokeless tobacco: Never Used - Alcohol use No PHYSICAL EXAM BP 110/58 Pulse 112 Temp 36.6 ?C (97.8 ?F) (Temporal Artery) SpO2 96% General Appearance: well appearing, in no acute distress, alert Skin: positives: skin tears with scabbing to right upper arm and elbow. Right forearm laceration healing as expected. Edema improved since last visit. No active drainage or signs of infection. Edges are well approximated. Surrounding skins is ecchymotic Head: normocephalic, atraumatic Lungs: Lungs clear to auscultation. No wheezing, rhonchi, rales Heart: RRR without murmur, gallop, or rubs. No ectopy PNEUMOVAX AGE 65 AND OVER WITH 5YR LOOKBACK(1) due on 2001 INFLUENZA(1) due on 10/26/2016 DIABETES SCREEN due on 05/10/2020 TETANUS due on 01/29/2021 BONE DENSITY Completed ADULT PREVNAR-13 Completed ASSESSMENT/PLAN: 1. Encounter for removal of sutures - ICD9: V58.32, ICD10: Z48.02 (primary diagnosis) Patient presents for suture removal. The wound is well healed without signs of infection. 10 sutures were removed. Instructed patient and daughter to keep area clean. May discontinue use of antibiotic ointment. Okay to use Vaseline or AANDamp;D ointment to soften scab and reduce scarring. Follow up as needed 2. Laceration of right forearm without complication, subsequent encounter - ICD9: V58.89, 881.00, ICD10: S51.811D - As above, see #1 Prescription instructions reviewed with patient as applicable. Potential red flag symptoms discussed with the patient. Reviewed appropriate action plan to take if red flag symptoms occur. Patient agreeable to treatment plan. Amari Wright APRN.[facility] Referring Provider: AMARI WRIGHT ([facility]) [[id number]] Allergies As of Date: 05/13/2017 Noted Allergy Reaction AUGMENTIN (AMOXICILLIN-POT CLAVUL*06/20/2015 10 - Anaphylaxis NEURONTIN (GABAPENTIN) 05/11/2016 1 - Mental Status Change PENICILLINS 06/20/2015 10 - Anaphylaxis Date Reviewed: 05/10/2017 Reviewed by: Charlotte Duggan LPN - Fully Assessed Reason for Visit: Suture Removal [105] Cmt: Suture removal Primary Visit Diagnosis:Encounter for removal of sutures [Z48.02] Other Visit Diagnosis:Laceration of right forearm without complication, subsequent encounter [S51.811D] Prescriptions as of 05/13/2017 Sig: MUPIROCIN 2 % TOPICAL OINTMENT Apply 1 application to affect* WARFARIN 5 MG TABLET 10 mgs on M,W, F and 7.5 mgs * WARFARIN 1 MG TABLET 10 mgs on M,W, F and 7.5 mgs * WARFARIN 1 MG TABLET 10 mgs on M,W, F and 7.5 mgs * LEVOTHYROXINE 50 MCG TABLET Take 1 tablet by mouth once d* LISINOPRIL 20 MG-HYDROCHLOROT* Take 1 tablet by mouth twice * METOPROLOL TARTRATE 25 MG TAB* Take 1 tablet by mouth twice * VENLAFAXINE ER 75 MG CAPSULE,* Take 1 capsule by mouth once * ALLOPURINOL 300 MG TABLET Take 1 tablet by mouth once d* PRAVASTATIN 80 MG TABLET Take 0.5 tablets by mouth onc* PRIMIDONE 50 MG TABLET Take 1 tablet by mouth four t* APREMILAST 30 MG TABLET Take 1 tablet by mouth twice * CLOBETASOL 0.05 % SHAMPOO Apply 1 application to affect* ECONAZOLE 1 % TOPICAL CREAM Apply to affected area once * TRAMADOL 50 MG TABLET Take 1 tablet by mouth twice * ANASTROZOLE 1 MG TABLET Take 1 tablet by mouth once d* Problem List As Of Date 05/13/2017 Noted Resolved 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 Essential hypertension with goal blood pressure*INVALID FOR* More... Mixed hyperlipidemia [E78.2] INVALID FOR* More... Malignant neoplasm of lower-inner quadrant of l*INVALID FOR* More... Polyp of colon [K63.5] INVALID FOR* More... Chronic anticoagulation [Z79.01] INVALID FOR* More... Non Hodgkin's lymphoma (HCC) [C85.90] INVALID FOR* More... Overlapping malignant neoplasm of female breast*INVALID FOR* More... More... Tobacco abuse disorder [Z72.0] INVALID FOR* More... Encounter Status:Closed by AMARI WRIGHT CNP on 05/13/17 CBC Collected: 05/10/2017 Status: F Source: [place] 2:55 PM [facility] REPOSITORY TYPE CODE TESTS RESULT OUT OF REFERENCE UNITS RANGE LAB WBC 3.70-11.00 k/uL WBC 9.51 LAB RBC 3.90-5.20 m/uL RBC 4.33 LAB HGB 11.5-15.5 g/dL Hemoglobin 12.4 LAB HCT 36.0-46.0 % Hematocrit 40.1 LAB MCV 80.0-100.0 fL MCV 92.6 LAB MCH 26.0-34.0 pG MCH 28.6 LAB MCHC 30.5-36.0 g/dL MCHC 30.9 LAB RDWCV 11.5-15.0 % RDW-CV High 17.3 LAB PLTCT 150-400 k/uL Platelet Count 280 LAB MPV 9.0-12.7 fL MPV 10.6 LAB ABSNUC <0.01 k/uL Absolute nRBC <0.01 Performed By: #### CBC, BMP, TSH, HBA1C #### [facility] [address] [place], [place] [address] BASIC METABOLIC PANL Collected: 05/10/2017 Status: F Source: [place] 2:55 PM [facility] REPOSITORY TYPE CODE TESTS RESULT OUT OF REFERENCE UNITS RANGE LAB GLU 74-99 mg/dL Glucose 91 Result Comment: The [place] Diabetes [employer] (ADA) provides guidance for cutoff values for fasting glucose and random glucose. The ADA defines fasting as no caloric intake for at least 8 hours. Fas ting plasma glucose results between 100 to 125 mg/dL indicate increased risk for diabetes (prediabetes). Fasting plasma glucose results greater than or equal to 126 mg/dL meet the criteria for diagnosis of diabetes. In the absence of unequivocal hyperglycemia, results should be confirmed by repeat testing. In a patient with classic symptoms of hyperglycemia or hyperglycemic crisis, random plasma glucose results greater than or equal to 200 mg/dL meet the criteria for diagnosis of diabetes. Reference: Standards of Medical Care in Diabetes 2016, [place] [employer]. Diabetes Care. 2016.39(Suppl 1). LAB BUN 7-21 mg/dL BUN 20 LAB CRET 0.58-0.96 mg/dL Creatinine 0.90 LAB NA 136-144 mmol/L Sodium 136 LAB K 3.7-5.1 mmol/L Potassium 4.2 LAB CL 97-105 mmol/L Chloride Low 95 LAB CO2 22-30 mmol/L CO2 26 LAB AGAP 9-18 mmol/L Anion Gap 15 LAB CA 8.5-10.2 mg/dL Calcium, Total 9.6 LAB GFRAA eGFR- Amer. >60 LAB GFRNAA . eGFR-All Other Races >60 Result Comment: eGFR (Estimated GFR) Units of measure: mL/min/1.73 meters squared eGFR is derived from the reexpressed MDRD Study equation using the following parameters: serum creatinine, age, gender and race. The creatinine assay has been calibrated to be traceable to IDMS. An eGFR <60 mL/min/1.73m2 for >3 months is consistent with chronic kidney disease. Refer to KDOQI guidelines for clinical interpretation. In patients with unstable renal function, e.g. those with acute kidney injury, the eGFR may not accurately reflect actual GFR. Performed By: #### CBC, BMP, TSH, HBA1C #### [facility] [address] [place] [address] TSH Collected: 05/10/2017 Status: F Source: [place] 2:55 PM [facility] REPOSITORY TYPE CODE TESTS RESULT OUT OF RANGE REFERENCE UNITS LAB TSH 0.400-5.500 uU/mL TSH 1.530 Performed By: #### CBC, BMP, TSH, HBA1C #### [facility] [address] [place], [place] [address] HEMOGLOBIN A1C Collected: 05/10/2017 Status: F Source: [place] 2:55 PM [facility] REPOSITORY TYPE CODE TESTS RESULT OUT OF REFERENCE UNITS RANGE LAB HGBA1C 4.3-5.6 % High Hemoglobin A1c 5.8 LAB HBA0 mg/dL Est. Average Glucose 120 Result Comment: eAG: (Estimated average glucose) is a calculated value from HgbA1c and is open claims representative of the average blood glucose level in the last 2-3 month period. Performed By: #### CBC, BMP, TSH, HBA1C #### [facility] [address] [place], [place] [address] CNOV Observed: 05/10/2017 Status: COMPLETED Source: [place] 2:00 PM [facility] REPOSITORY Office Visit (INTMWS) JANESSA RAYMOND ([id number]) 1935 F Date Time Provider Department 05/10/17 2:00 PM AMARI WRIGHT (DIMITRI) INTMWS During your visit today, we recorded the following information about you: Temperature Pulse Respiration Blood pressure 98 degrees 96/minute 16/minute 120/62 Weight 83.9 kg Amari Wright CNP 05/10/2017 3:55 PM Signed CC: Patient presents with: Follow Up: Hospital 05/03/17 - Urgent Care 05/07/17 [facility] Janessa Fartun Raymond is a 82 year old female who presents today with daughter for [facility] ER follow up from 05/03/17 after sustaining a fall at home. Patient reported dizziness after getting out of bed and then fell striking her right side and head. No LOC. Has skin tears to the right upper arm and forearm. EKG was unchanged from comparison 07/2015. CT head normal. Laceration was repaired with 10 sutures. Diagnosed with Syncope, right forearm laceration and skin tears. Right shoulder pain: Reports shoulder is stiff x6 days since falling at home. Pain is only with extension and rated an 8/10 with movement or use. No pain with rest. Tried tylenol with minimal relief. Denies any numbness tingling or weakness. Arm laceration and skin tears. Laceration of right forearm: +edema, yellow drainage and mild redness. Sutures remain intact. Patient applying Bactroban three times daily. Denies pain, pruritis, warmth , odor, purulent drainage, fever or chills. : Right upper arm and elbow skin tear: + yellowish drainage with noted scabbing. Denies pain, pruritis, warmth, odor or purulent drainage. Also applying Bactroban TID to these sites. REVIEW OF SYSTEMS General: no fevers, no chills, no night sweats, no recurrent infections, no change in appetite and no significant changes in weight. +Fatigue HEENT: no frequent or significant headaches, no changes in hearing, no visual changes, no sinus or nasal problems Neck: no lumps, no pain and no swelling Respiratory: no cough, no wheezing, no shortness of breath, no hemoptysis Cardiovascular: no chest pain, no chest pressure, no palpitations and no swelling GI: No nausea, vomiting, or diarrhea Skin: See HPI Hematologic/Lymph: Negative for swollen nodes, Positive for bruises easily and prolonged bleeding from coumadin use Neurologic: No headache, weakness, numbness, tingling, neck stiffness, tremor, vertigo, memory loss, syncope. + dizziness with rapid position changes. PAST MEDICAL HISTORY Diagnosis Date - Depression - Dysuria - Hodgkin lymphoma (HCC) - Hyperlipidemia - Hypertension - Hypothyroidism - Osteoarthritis knee - Pulmonary embolism (HCC) - Skin cancer of nose - Vitamin D deficiency PAST SURGICAL HISTORY Procedure Laterality Date - HYSTERECTOMY HX - MASTECTOMY, RADICAL left breast ALLERGIES Augmentin [Amoxicillin-Pot Clavulanate]; Neurontin [Gabapentin]; Penicillins MEDICATIONS mupirocin (BACTROBAN) 2 % ointment Apply 1 application to affected area three times daily. To affected area warfarin (COUMADIN) 5 mg tablet 10 mgs on M,W, F and 7.5 mgs the rest of the week warfarin (COUMADIN) 1 mg tablet 10 mgs on M,W, F and 7.5 mgs the rest of the week warfarin (COUMADIN) 1 mg tablet 10 mgs on M,W, F and 7.5 mgs the rest of the week levothyroxine (SYNTHROID) 50 mcg tablet Take 1 tablet by mouth once daily. lisinopril-hydrochlorothiazide (PRINZIDE,ZESTORETIC) 20-12.5 mg per tablet Take 1 tablet by mouth twice daily. metoprolol tartrate, short acting, (LOPRESSOR) 25 mg tablet Take 1 tablet by mouth twice daily. venlafaxine ER (EFFEXOR XR) 75 mg 24 hr capsule Take 1 capsule by mouth once daily. allopurinol (ZYLOPRIM) 300 mg tablet Take 1 tablet by mouth once daily. For gout. pravastatin (PRAVACHOL) 80 mg tablet Take 0.5 tablets by mouth once daily. primidone (MYSOLINE) 50 mg tablet Take 1 tablet by mouth four times daily. apremilast (OTEZLA) 30 mg tablet Take 1 tablet by mouth twice daily. Clobetasol Propionate 0.05 % sham Apply 1 application to affected area once daily. econazole (SPECTAZOLE) 1 % cream Apply to affected area once daily. traMADol (ULTRAM) 50 mg tablet Take 1 tablet by mouth twice daily as needed. anastrozole (ARIMIDEX) 1 mg tablet Take 1 tablet by mouth once daily. FAMILY HISTORY Problem Relation Age of Onset - Breast Cancer Mother age 55 - Cancer Father lung Social History Substance Use Topics - Smoking status: Current Every Day Smoker Packs/day: 1.00 Types: Cigarettes - Smokeless tobacco: Never Used - Alcohol use No PHYSICAL EXAM BP 120/62 (BP Site: Left Arm, BP Position: Sitting, BP Cuff Size: Regular Adult) Pulse 96 Temp 36.7 ?C (98 ?F) Resp 16 Wt 83.9 kg (185 lb) SpO2 96% BMI 30.79 kg/m2 General Appearance: well appearing, in no acute distress, alert Pysch: mood and affect broad and appropriate Skin: Scattered bruising to BUE. Right forearm laceration well approximated with scant amount of sero-sang drainage to proximal end, 10 sutures remain intact. + edema and bruising to surrounding skin. Upper right arm and elbow skin tears scabbed over without s/s of infection and no evidence of active drainage Head: normocephalic, atraumatic Eyes: conjunctiva pink and moist, no icterus, sclera white, non-injected Lungs: Lungs clear to auscultation. No wheezing, rhonchi, rales Heart: RRR without murmur, gallop, or rubs. No ectopy Musculoskeletal: No joint swelling, deformity, or tenderness, Right shoulder: Full ROM with mild discomfort. Drop Arm negative, Empty Can negative Strength equal bilaterally. Pulses +2. PNEUMOVAX AGE 65 AND OVER WITH 5YR LOOKBACK(1) due on 2001 INFLUENZA(1) due on 10/26/2016 DIABETES SCREEN due on 12/19/2018 TETANUS due on 01/29/2021 BONE DENSITY Completed ADULT PREVNAR-13 Completed ASSESSMENT/PLAN: 1. Laceration of right upper extremity, initial encounter - ICD9: 884.0, ICD10: S41.111A (primary diagnosis) - Right forearm laceration healing as expected. No s/s of infection - Continue topical antibiotic ointment as previously prescribed - Red flag signs and symptoms reviewed and when to seek immediate medical attention. Patient and daughter verbalize understanding. - Follow up in 3 days for suture removal 2. Fall, initial encounter - ICD9: E888.9, ICD10: W19.XXXA - Patient previously evaluated in ER following initial injury. Head CT normal. EKG unchanged from previous evaluation in 2015. Electrolytes were unremarkable. - Encouraged slow positional changes and use of assistive device for safety - Follow up in 2 months as previously scheduled, sooner if new or worsening symptoms 3. Dizziness - ICD9: 780.4, ICD10: R42 Plan as above, see #2 except labs ordered as below - CBC - BASIC METABOLIC PNL 4. 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 - check TSH today - Follow up in 2 months - TSH BLD 5. Impaired fasting glucose - ICD9: 790.21, ICD10: R73.01 - Reviewed laboratory findings from ER visit. Noted elevated glucose levels x2 - HGB A1C - Management to be determined by laboratory studies - Follow up in 2 months as previously scheduled, sooner if new or worsening symptoms. Prescription instructions reviewed with patient as applicable. Potential red flag symptoms discussed with the patient. Reviewed appropriate action plan to take if red flag symptoms occur. Patient agreeable to treatment plan. Amari Wright CNP Referring Provider: SELF [[id number]] Allergies As of Date: 05/10/2017 Noted Allergy Reaction AUGMENTIN (AMOXICILLIN-POT CLAVUL*06/20/2015 10 - Anaphylaxis NEURONTIN (GABAPENTIN) 05/11/2016 1 - Mental Status Change PENICILLINS 06/20/2015 10 - Anaphylaxis Date Reviewed: 05/10/2017 Reviewed by: Charlotte Duggan LPN - Fully Assessed Reason for Visit: Follow Up [171] Cmt: Hospital 05/03/17 - Urgent Care 05/07/17 Reason For Visit History Recorded Primary Visit Diagnosis:Laceration of right upper extremity, initial encounter [S41.111A] Other Visit Diagnoses:Fall, initial encounter [W19.XXXA] Dizziness [R42] 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 [E03.8, E06.3] Impaired fasting glucose [R73.01] Order(s):TSH BLD [SQTSH] Order #: [id number] FUTURE CBC [SQCBC] Order #: [id number] FUTURE HGB A1C [JGAKL1T] Order #: [id number] FUTURE BASIC METABOLIC PNL [SQBMP] Order #: [id number] FUTURE Prescriptions as of 05/10/2017 Sig: MUPIROCIN 2 % TOPICAL OINTMENT Apply 1 application to affect* WARFARIN 5 MG TABLET 10 mgs on M,W, F and 7.5 mgs * WARFARIN 1 MG TABLET 10 mgs on M,W, F and 7.5 mgs * WARFARIN 1 MG TABLET 10 mgs on M,W, F and 7.5 mgs * LEVOTHYROXINE 50 MCG TABLET Take 1 tablet by mouth once d* LISINOPRIL 20 MG-HYDROCHLOROT* Take 1 tablet by mouth twice * METOPROLOL TARTRATE 25 MG TAB* Take 1 tablet by mouth twice * VENLAFAXINE ER 75 MG CAPSULE,* Take 1 capsule by mouth once * ALLOPURINOL 300 MG TABLET Take 1 tablet by mouth once d* PRAVASTATIN 80 MG TABLET Take 0.5 tablets by mouth onc* PRIMIDONE 50 MG TABLET Take 1 tablet by mouth four t* APREMILAST 30 MG TABLET Take 1 tablet by mouth twice * CLOBETASOL 0.05 % SHAMPOO Apply 1 application to affect* ECONAZOLE 1 % TOPICAL CREAM Apply to affected area once * TRAMADOL 50 MG TABLET Take 1 tablet by mouth twice * ANASTROZOLE 1 MG TABLET Take 1 tablet by mouth once d* Problem List As Of Date 05/10/2017 Noted Resolved 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 Essential hypertension with goal blood pressure*INVALID FOR* More... Mixed hyperlipidemia [E78.2] INVALID FOR* More... Malignant neoplasm of lower-inner quadrant of l*INVALID FOR* More... Polyp of colon [K63.5] INVALID FOR* More... Chronic anticoagulation [Z79.01] INVALID FOR* More... Non Hodgkin's lymphoma (HCC) [C85.90] INVALID FOR* More... Overlapping malignant neoplasm of female breast*INVALID FOR* More... More... Tobacco abuse disorder [Z72.0] INVALID FOR* More... Encounter Status:Closed by AMARI WRIGHT CNP on 05/10/17 PROGRESS Observed: 05/10/2017 Status: COMPLETED Source: [place] 1:56 PM [facility] [place] REPOSITORY HNO ID: [id number] Author: Amari (Dimitri) Alok Service: (none) Author Type: Nurse Practitioner Type: Progress Notes Filed: 05/10/2017 3:55 PM Note Text: CC: Patient presents with: Follow Up: Hospital 05/03/17 - Urgent Care 05/07/17 [facility] Janessa Raymond is a 82 year old female who presents today with daughter for [facility] ER follow up from 05/03/17 after sustaining a fall at home. Patient reported dizziness after getting out of bed and then fell striking her right side and head. No LOC. Has skin tears to the right upper arm and forearm. EKG was unchanged from comparison 07/2015. CT head normal. Laceration was repaired with 10 sutures. Diagnosed with Syncope, right forearm laceration and skin tears. Right shoulder pain: Reports shoulder is stiff x6 days since falling at home. Pain is only with extension and rated an 8/10 with movement or use. No pain with rest. Tried tylenol with minimal relief. Denies any numbness tingling or weakness. Arm laceration and skin tears. Laceration of right forearm: +edema, yellow drainage and mild redness. Sutures remain intact. Patient applying Bactroban three times daily. Denies pain, pruritis, warmth , odor, purulent drainage, fever or chills. : Right upper arm and elbow skin tear: + yellowish drainage with noted scabbing. Denies pain, pruritis, warmth, odor or purulent drainage. Also applying Bactroban TID to these sites. REVIEW OF SYSTEMS General: no fevers, no chills, no night sweats, no recurrent infections, no change in appetite and no significant changes in weight. +Fatigue HEENT: no frequent or significant headaches, no changes in hearing, no visual changes, no sinus or nasal problems Neck: no lumps, no pain and no swelling Respiratory: no cough, no wheezing, no shortness of breath, no hemoptysis Cardiovascular: no chest pain, no chest pressure, no palpitations and no swelling GI: No nausea, vomiting, or diarrhea Skin: See HPI Hematologic/Lymph: Negative for swollen nodes, Positive for bruises easily and prolonged bleeding from coumadin use Neurologic: No headache, weakness, numbness, tingling, neck stiffness, tremor, vertigo, memory loss, syncope. + dizziness with rapid position changes. PAST MEDICAL HISTORY Diagnosis Date - Depression - Dysuria - Hodgkin lymphoma (HCC) - Hyperlipidemia - Hypertension - Hypothyroidism - Osteoarthritis knee - Pulmonary embolism (HCC) - Skin cancer of nose - Vitamin D deficiency PAST SURGICAL HISTORY Procedure Laterality Date - HYSTERECTOMY HX - MASTECTOMY, RADICAL left breast ALLERGIES Augmentin [Amoxicillin-Pot Clavulanate]; Neurontin [Gabapentin]; Penicillins MEDICATIONS mupirocin (BACTROBAN) 2 % ointment Apply 1 application to affected area three times daily. To affected area warfarin (COUMADIN) 5 mg tablet 10 mgs on M,W, F and 7.5 mgs the rest of the week warfarin (COUMADIN) 1 mg tablet 10 mgs on M,W, F and 7.5 mgs the rest of the week warfarin (COUMADIN) 1 mg tablet 10 mgs on M,W, F and 7.5 mgs the rest of the week levothyroxine (SYNTHROID) 50 mcg tablet Take 1 tablet by mouth once daily. lisinopril-hydrochlorothiazide (PRINZIDE,ZESTORETIC) 20-12.5 mg per tablet Take 1 tablet by mouth twice daily. metoprolol tartrate, short acting, (LOPRESSOR) 25 mg tablet Take 1 tablet by mouth twice daily. venlafaxine ER (EFFEXOR XR) 75 mg 24 hr capsule Take 1 capsule by mouth once daily. allopurinol (ZYLOPRIM) 300 mg tablet Take 1 tablet by mouth once daily. For gout. pravastatin (PRAVACHOL) 80 mg tablet Take 0.5 tablets by mouth once daily. primidone (MYSOLINE) 50 mg tablet Take 1 tablet by mouth four times daily. apremilast (OTEZLA) 30 mg tablet Take 1 tablet by mouth twice daily. Clobetasol Propionate 0.05 % sham Apply 1 application to affected area once daily. econazole (SPECTAZOLE) 1 % cream Apply to affected area once daily. traMADol (ULTRAM) 50 mg tablet Take 1 tablet by mouth twice daily as needed. anastrozole (ARIMIDEX) 1 mg tablet Take 1 tablet by mouth once daily. FAMILY HISTORY Problem Relation Age of Onset - Breast Cancer Mother age 55 - Cancer Father lung Social History Substance Use Topics - Smoking status: Current Every Day Smoker Packs/day: 1.00 Types: Cigarettes - Smokeless tobacco: Never Used - Alcohol use No PHYSICAL EXAM BP 120/62 (BP Site: Left Arm, BP Position: Sitting, BP Cuff Size: Regular Adult) Pulse 96 Temp 36.7 ?C (98 ?F) Resp 16 Wt 83.9 kg (185 lb) SpO2 96% BMI 30.79 kg/m2 General Appearance: well appearing, in no acute distress, alert Pysch: mood and affect broad and appropriate Skin: Scattered bruising to BUE. Right forearm laceration well approximated with scant amount of sero-sang drainage to proximal end, 10 sutures remain intact. + edema and bruising to surrounding skin. Upper right arm and elbow skin tears scabbed over without s/s of infection and no evidence of active drainage Head: normocephalic, atraumatic Eyes: conjunctiva pink and moist, no icterus, sclera white, non-injected Lungs: Lungs clear to auscultation. No wheezing, rhonchi, rales Heart: RRR without murmur, gallop, or rubs. No ectopy Musculoskeletal: No joint swelling, deformity, or tenderness, Right shoulder: Full ROM with mild discomfort. Drop Arm negative, Empty Can negative Strength equal bilaterally. Pulses +2. PNEUMOVAX AGE 65 AND OVER WITH 5YR LOOKBACK(1) due on 2001 INFLUENZA(1) due on 10/26/2016 DIABETES SCREEN due on 12/19/2018 TETANUS due on 01/29/2021 BONE DENSITY Completed ADULT PREVNAR-13 Completed ASSESSMENT/PLAN: 1. Laceration of right upper extremity, initial encounter - ICD9: 884.0, ICD10: S41.111A (primary diagnosis) - Right forearm laceration healing as expected. No s/s of infection - Continue topical antibiotic ointment as previously prescribed - Red flag signs and symptoms reviewed and when to seek immediate medical attention. Patient and daughter verbalize understanding. - Follow up in 3 days for suture removal 2. Fall, initial encounter - ICD9: E888.9, ICD10: W19.XXXA - Patient previously evaluated in ER following initial injury. Head CT normal. EKG unchanged from previous evaluation in 2016. Electrolytes were unremarkable. - Encouraged slow positional changes and use of assistive device for safety - Follow up in 2 months as previously scheduled, sooner if new or worsening symptoms 3. Dizziness - ICD9: 780.4, ICD10: R42 Plan as above, see #2 except labs ordered as below - CBC - BASIC METABOLIC PNL 4. 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 - check TSH today - Follow up in 2 months - TSH BLD 5. Impaired fasting glucose - ICD9: 790.21, ICD10: R73.01 - Reviewed laboratory findings from ER visit. Noted elevated glucose levels x2 - HGB A1C - Management to be determined by laboratory studies - Follow up in 2 months as previously scheduled, sooner if new or worsening symptoms. Prescription instructions reviewed with patient as applicable. Potential red flag symptoms discussed with the patient. Reviewed appropriate action plan to take if red flag symptoms occur. Patient agreeable to treatment plan. Amari Wright CNP PROGRESS Observed: 05/07/2017 Status: COMPLETED Source: [place] 3:23 PM [facility] [place] REPOSITORY HNO ID: [id number] Author: Juan (Dimitri) Denton Service: (none) Author Type: Nurse Practitioner Type: Progress Notes Filed: 05/07/2017 3:35 PM Note Text: Subjective HPI Patient is an 82 year old female here today with her daughter for concerns regarding infection to lacerations she acquired after a fall three days ago. States she was seen in ER for the fall where she was sutured. Patient states she was scheduled for an appointment for follow up to her ER visit, but patient was going to be a few minutes late and was told she would have to reschedule. Patient is concerned about her dizziness. States she was dizzy and that precipitated the fall. No medications have been taken. Nothing makes it better or worse. No other concerns at this time. Review of Systems Constitutional: Negative for chills, fever and malaise/fatigue. HENT: Negative. Respiratory: Negative. Cardiovascular: Negative. Gastrointestinal: Negative for nausea. Musculoskeletal: Positive for falls (3 days ago. Pt suffered head injury--states her right side of her head is still painful). Neurological: Positive for dizziness. Negative for sensory change, speech change and headaches. All other systems reviewed and are negative. Discussed with patient that we are unable to treat ER follow up visits from . State she should be seen by someone in her PCP office. Patient verbalizes understanding and is aware she is being evaluated for possible infection to lacerations in the right arm. ER visit documentation and lab results reviewed. PAST MEDICAL HISTORY Diagnosis Date - Depression - Dysuria - Hodgkin lymphoma (HCC) - Hyperlipidemia - Hypertension - Hypothyroidism - Osteoarthritis knee - Pulmonary embolism (HCC) - Skin cancer of nose - Vitamin D deficiency PAST SURGICAL HISTORY Procedure Laterality Date - HYSTERECTOMY HX - MASTECTOMY, RADICAL left breast ALLERGIES Augmentin [Amoxicillin-Pot Clavulanate]; Neurontin [Gabapentin]; Penicillins MEDICATIONS mupirocin (BACTROBAN) 2 % ointment Apply 1 application to affected area three times daily. To affected area warfarin (COUMADIN) 5 mg tablet 10 mgs on M,W, F and 7.5 mgs the rest of the week warfarin (COUMADIN) 1 mg tablet 10 mgs on M,W, F and 7.5 mgs the rest of the week warfarin (COUMADIN) 1 mg tablet 10 mgs on M,W, F and 7.5 mgs the rest of the week levothyroxine (SYNTHROID) 50 mcg tablet Take 1 tablet by mouth once daily. lisinopril-hydrochlorothiazide (PRINZIDE,ZESTORETIC) 20-12.5 mg per tablet Take 1 tablet by mouth twice daily. metoprolol tartrate, short acting, (LOPRESSOR) 25 mg tablet Take 1 tablet by mouth twice daily. venlafaxine ER (EFFEXOR XR) 75 mg 24 hr capsule Take 1 capsule by mouth once daily. allopurinol (ZYLOPRIM) 300 mg tablet Take 1 tablet by mouth once daily. For gout. pravastatin (PRAVACHOL) 80 mg tablet Take 0.5 tablets by mouth once daily. primidone (MYSOLINE) 50 mg tablet Take 1 tablet by mouth four times daily. apremilast (OTEZLA) 30 mg tablet Take 1 tablet by mouth twice daily. Clobetasol Propionate 0.05 % sham Apply 1 application to affected area once daily. econazole (SPECTAZOLE) 1 % cream Apply to affected area once daily. traMADol (ULTRAM) 50 mg tablet Take 1 tablet by mouth twice daily as needed. anastrozole (ARIMIDEX) 1 mg tablet Take 1 tablet by mouth once daily. FAMILY HISTORY Problem Relation Age of Onset - Breast Cancer Mother age 55 - Cancer Father lung Social History Substance Use Topics - Smoking status: Current Every Day Smoker Packs/day: 1.00 Types: Cigarettes - Smokeless tobacco: Never Used - Alcohol use No BP 120/80 Pulse 70 Temp 36.3 ?C (97.4 ?F) (Left Tympanic) Resp 16 Wt 83.5 kg (184 lb) BMI 30.62 kg/m2 Objective Physical Exam Constitutional: She is oriented to person, place, and time and well-developed, well-nourished, and in no distress. Vital signs are normal. Cardiovascular: Normal rate and regular rhythm. Pulmonary/Chest: Effort normal and breath sounds normal. Neurological: She is alert and oriented to person, place, and time. No cranial nerve deficit. Gait normal. Skin: Skin is warm. Laceration noted. Psychiatric: Mood, memory, affect and judgment normal. Nursing note and vitals reviewed. ASSESSMENT/PLAN: 1. Laceration of right upper extremity, initial encounter - ICD9: 884.0, ICD10: S41.111A - Sutures in place. Low suspicion of infection. Will order Bactroban ointment 2-3 times daily - Red flag symptoms discussed Patient advised to follow up with PCP in regards to dizziness and ER visit. She has been rescheduled in the next three days. Prescription instructions reviewed with patient as applicable. Patient advised if symptoms do not improve or if symptoms worsen sooner, to contact their primary care physician. Potential red flag symptoms discussed with the patient. Reviewed appropriate action plan to take if red flag symptoms occur. Patient agreeable to treatment plan. Juan Chawla CNP CNOV Observed: 05/07/2017 Status: COMPLETED Source: [place] 12:15 PM [facility] REPOSITORY Office Visit (UCWSTR) JANESSA RAYMOND ([id number]) 1935 F Date Time Provider Department 05/07/17 12:15 PM JUAN CHAWLA (DIMITRI) WSTR During your visit today, we recorded the following information about you: Temperature Pulse Respiration Blood pressure 97.4 degrees 70/minute 16/minute 120/80 Weight 83.5 kg Juan Chawla CNP 05/07/2017 3:35 PM Signed Subjective HPI Patient is an 82 year old female here today with her daughter for concerns regarding infection to lacerations she acquired after a fall three days ago. States she was seen in ER for the fall where she was sutured. Patient states she was scheduled for an appointment for follow up to her ER visit, but patient was going to be a few minutes late and was told she would have to reschedule. Patient is concerned about her dizziness. States she was dizzy and that precipitated the fall. No medications have been taken. Nothing makes it better or worse. No other concerns at this time. Review of Systems Constitutional: Negative for chills, fever and malaise/fatigue. HENT: Negative. Respiratory: Negative. Cardiovascular: Negative. Gastrointestinal: Negative for nausea. Musculoskeletal: Positive for falls (3 days ago. Pt suffered head injury--states her right side of her head is still painful). Neurological: Positive for dizziness. Negative for sensory change, speech change and headaches. All other systems reviewed and are negative. Discussed with patient that we are unable to treat ER follow up visits from . State she should be seen by someone in her PCP office. Patient verbalizes understanding and is aware she is being evaluated for possible infection to lacerations in the right arm. ER visit documentation and lab results reviewed. PAST MEDICAL HISTORY Diagnosis Date - Depression - Dysuria - Hodgkin lymphoma (HCC) - Hyperlipidemia - Hypertension - Hypothyroidism - Osteoarthritis knee - Pulmonary embolism (HCC) - Skin cancer of nose - Vitamin D deficiency PAST SURGICAL HISTORY Procedure Laterality Date - HYSTERECTOMY HX - MASTECTOMY, RADICAL left breast ALLERGIES Augmentin [Amoxicillin-Pot Clavulanate]; Neurontin [Gabapentin]; Penicillins MEDICATIONS mupirocin (BACTROBAN) 2 % ointment Apply 1 application to affected area three times daily. To affected area warfarin (COUMADIN) 5 mg tablet 10 mgs on M,W, F and 7.5 mgs the rest of the week warfarin (COUMADIN) 1 mg tablet 10 mgs on M,W, F and 7.5 mgs the rest of the week warfarin (COUMADIN) 1 mg tablet 10 mgs on M,W, F and 7.5 mgs the rest of the week levothyroxine (SYNTHROID) 50 mcg tablet Take 1 tablet by mouth once daily. lisinopril-hydrochlorothiazide (PRINZIDE,ZESTORETIC) 20-12.5 mg per tablet Take 1 tablet by mouth twice daily. metoprolol tartrate, short acting, (LOPRESSOR) 25 mg tablet Take 1 tablet by mouth twice daily. venlafaxine ER (EFFEXOR XR) 75 mg 24 hr capsule Take 1 capsule by mouth once daily. allopurinol (ZYLOPRIM) 300 mg tablet Take 1 tablet by mouth once daily. For gout. pravastatin (PRAVACHOL) 80 mg tablet Take 0.5 tablets by mouth once daily. primidone (MYSOLINE) 50 mg tablet Take 1 tablet by mouth four times daily. apremilast (OTEZLA) 30 mg tablet Take 1 tablet by mouth twice daily. Clobetasol Propionate 0.05 % sham Apply 1 application to affected area once daily. econazole (SPECTAZOLE) 1 % cream Apply to affected area once daily. traMADol (ULTRAM) 50 mg tablet Take 1 tablet by mouth twice daily as needed. anastrozole (ARIMIDEX) 1 mg tablet Take 1 tablet by mouth once daily. FAMILY HISTORY Problem Relation Age of Onset - Breast Cancer Mother age 55 - Cancer Father lung Social History Substance Use Topics - Smoking status: Current Every Day Smoker Packs/day: 1.00 Types: Cigarettes - Smokeless tobacco: Never Used - Alcohol use No BP 120/80 Pulse 70 Temp 36.3 ?C (97.4 ?F) (Left Tympanic) Resp 16 Wt 83.5 kg (184 lb) BMI 30.62 kg/m2 Objective Physical Exam Constitutional: She is oriented to person, place, and time and well-developed, well-nourished, and in no distress. Vital signs are normal. Cardiovascular: Normal rate and regular rhythm. Pulmonary/Chest: Effort normal and breath sounds normal. Neurological: She is alert and oriented to person, place, and time. No cranial nerve deficit. Gait normal. Skin: Skin is warm. Laceration noted. Psychiatric: Mood, memory, affect and judgment normal. Nursing note and vitals reviewed. ASSESSMENT/PLAN: 1. Laceration of right upper extremity, initial encounter - ICD9: 884.0, ICD10: S41.111A - Sutures in place. Low suspicion of infection. Will order Bactroban ointment 2-3 times daily - Red flag symptoms discussed Patient advised to follow up with PCP in regards to dizziness and ER visit. She has been rescheduled in the next three days. Prescription instructions reviewed with patient as applicable. Patient advised if symptoms do not improve or if symptoms worsen sooner, to contact their primary care physician. Potential red flag symptoms discussed with the patient. Reviewed appropriate action plan to take if red flag symptoms occur. Patient agreeable to treatment plan. Juan Chawla CNP Referring Provider: SELF [[id number]] Allergies As of Date: 05/07/2017 Noted Allergy Reaction AUGMENTIN (AMOXICILLIN-POT CLAVUL*06/20/2015 10 - Anaphylaxis NEURONTIN (GABAPENTIN) 05/11/2016 1 - Mental Status Change PENICILLINS 06/20/2015 10 - Anaphylaxis Date Reviewed: 05/07/2017 Reviewed by: Juan Auguste) [place] - Fully Assessed Reason for Visit: Infection (specify) [556] Cmt: Right arm Primary Visit Diagnosis:Laceration of right upper extremity, initial encounter [S41.111A] Order(s):mupirocin (BACTROBAN) 2 % ointmentApply 1 application to affected area three times daily. To affected areaDisp: 1 TubeRfl: 0 Prescriptions as of 05/07/2017 Sig: MUPIROCIN 2 % TOPICAL OINTMENT Apply 1 application to affect* WARFARIN 5 MG TABLET 10 mgs on M,W, F and 7.5 mgs * WARFARIN 1 MG TABLET 10 mgs on M,W, F and 7.5 mgs * WARFARIN 1 MG TABLET 10 mgs on M,W, F and 7.5 mgs * LEVOTHYROXINE 50 MCG TABLET Take 1 tablet by mouth once d* LISINOPRIL 20 MG-HYDROCHLOROT* Take 1 tablet by mouth twice * METOPROLOL TARTRATE 25 MG TAB* Take 1 tablet by mouth twice * VENLAFAXINE ER 75 MG CAPSULE,* Take 1 capsule by mouth once * ALLOPURINOL 300 MG TABLET Take 1 tablet by mouth once d* PRAVASTATIN 80 MG TABLET Take 0.5 tablets by mouth onc* PRIMIDONE 50 MG TABLET Take 1 tablet by mouth four t* APREMILAST 30 MG TABLET Take 1 tablet by mouth twice * CLOBETASOL 0.05 % SHAMPOO Apply 1 application to affect* ECONAZOLE 1 % TOPICAL CREAM Apply to affected area once * TRAMADOL 50 MG TABLET Take 1 tablet by mouth twice * ANASTROZOLE 1 MG TABLET Take 1 tablet by mouth once d* Problem List As Of Date 05/07/2017 Noted Resolved 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 Essential hypertension with goal blood pressure*INVALID FOR* More... Mixed hyperlipidemia [E78.2] INVALID FOR* More... Malignant neoplasm of lower-inner quadrant of l*INVALID FOR* More... Polyp of colon [K63.5] INVALID FOR* More... Chronic anticoagulation [Z79.01] INVALID FOR* More... Non Hodgkin's lymphoma (HCC) [C85.90] INVALID FOR* More... Overlapping malignant neoplasm of female breast*INVALID FOR* More... More... Tobacco abuse disorder [Z72.0] INVALID FOR* More... Prescriptions ordered this encounter Disp Refills Start End MUPIROCIN 2 % TOPICAL OINTMENT 1 Tu* 0 05/07/2017 Route: TOPICAL Sig: Apply 1 application to affected area three times daily. To affected area Encounter Status:Closed by JUAN CHAWLA CNP on 05/07/17 12 LEAD ELECTROCARDIOGRAM Observed: 05/06/2017 Status: F Source: [place] 1:37 PM [facility] REPOSITORY [facility] Cardiovascular Services [address] [place] [address] 12 Lead EKG 05/03/17 0420 MR#: [id number] Acct: [id number] Name: SEGUNDOJOANNEGEETHA Willoughby Rep #: [id number] : 1935 82 From: Jackson Vazquez MD Attending Dr: Status: DEP ER Ordering Dr: Kodak Thurston DO Date: 05/03/17 Location: ED Sex: F C Admitted: Test Reason : FALL Blood Pressure : / mmHG Vent. Rate : 082 BPM Atrial Rate : 082 BPM P-R Int : 182 ms QRS Dur : 090 ms QT Int : 400 ms P-R-T Axes : 091 -29 018 degrees QTc Int : 467 ms Normal sinus rhythm Inferior infarct , age undetermined Abnormal ECG Confirmed by JACKSON VAZQUEZ ([id number]), graphic editor BERRY DEL ROSARIO ([id number]) on 05/06/2017 1:36:29 PM Referred By: Gerardo Melendez Confirmed By:JACKSON VAZQUEZ 05/06/17 1336 Date Jackson Vazquez MD CC: Gerardo Melendez MD; Kodak Thurston Signed EMERGENCY DEPARTMENT Observed: 05/03/2017 Status: F Source: [place] SUMMARY 5:37 AM [facility] REPOSITORY [facility] Medical Records Department [address] [place] [address] Emergency Department Summary 05/03/17 0432 MR#: [id number] Acct: [id number] Name: JANESSA RAYMOND Rep #: [id number] : 1935 82 From: Kodak John PCP: Gerardo Melendez MD Status: REG ER - ER Visit Summary Date of Service: 05/03/17 Chief Complaint: Skin tears History of Present Illness: The patient is a 82 F brought by EMS after a fall at home after getting up prior to arrival. She states she got up out of bed at prodromal lightheaded symptoms causing her to fall. She did bump the right side of her head on the ground. Denies any headache, nausea, vomiting. She is on Coumadin for history of PE. Also skin tears to the right upper and forearm. No active bleeding. Tetanus less than 5 years ago. Denies any pain in the extremities. No neck or back pain. No recent illness of cough or shortness of breath. No chest pains. No urinary symptoms. No recent nausea, vomiting, diarrhea. Physical Examination: General: Alert and oriented 3, no acute distress HEENT: Normocephalic, small contusion right caodaism. No hemotympanum, no facial bone tenderness. Moist mucosa membranes Neck: supple, nontender. Cardiovascular: Regular rate and rhythm, no murmurs Respiratory: Normal breath sounds, symmetric, no distress Abdomen: Soft, nontender, nondistended Extremities: Nontender, no edema, pulses intact 4 Neuro: no focal neurological deficits. Skin: There is skin tear right distal posterior arm along with elbow, there is no active bleeding. Forearm noted skin flap superficial approximately 4 cm in length, no active bleeding. Test Results: EKG: Sinus, rate 82, no ST changes. T-wave inversion in leads III and V2. Old compared to previous EKG in July 2015. Labs hemoglobin 11.6, creatinine 0.92. Sodium 137, potassium 3.9. INR 2.7. CT head: No intracranial process. Emergency Department Course and Treatment: Patient no focal neurological deficits. Syncopal episode EKG and stable labs. CT head due to head injury is normal. Patient laceration flap was repaired using a total of 10, 5-0 nylon sutures with good approximation. There was stellate laceration with the flap requiring additional repair. Skin tears in elbow and upper arm superficial. Wound care discussed. Patient to follow- up with PCP for reevaluation and suture removal as an outpatient. She was ambulated in the department with no return of symptoms. She is to return to ED if any worsening symptoms. All questions were answered. Treatment Plan: [] Disposition: Discharge Impression: 1. Syncope 2. Right forearm laceration 3. Skin tears This note was generated with [employer] dictation software. It may contain incorrect words, spelling, and punctuation that were not noted in review of the chart prior to signing ED Disposition - Plan for ED Patient: Disposition: Home or Assisted Living Chief Complaint: Wound Diagnosis: Syncope, Forearm laceration, Skin tear Instructions: ED Fainting Unkn Cause, ED Laceration All, ED Avulsion Dermal Referrals: Gerardo Melendez MD [Primary Care Provider] - 10 Day for suture removal What to do if you have Problems For any increased pain, shortness of breath, bleeding, nausea or vomiting, chest pain, or any unexpected problems, contact your Primary Care Provider. Call [employer] [facility] ([phone]) or report to the closest Emergency Room. Call 911 if necessary. 05/03/17 0537 <Electronically signed by Kodak John> Date Kodak John Cosigner Signature (If Indicated): Date CC: Gerardo Melendez MD CBC W/DIFF, AUTOMATED Collected: 05/03/2017 Status: F Source: [place] 4:15 AM [facility] REPOSITORY TYPE CODE TESTS RESULT OUT OF RANGE REFERENCE UNITS LAB L100.1000 4.4-11.0 K/mm3 Normal WBC 8.2 LAB L100.1200 4.2-5.4 M/mm3 Low RBC 3.98 LAB L100.1300 12.0-15.0 g/dl Low HGB 11.6 LAB L100.1400 37-47 % Low HCT 36.5 LAB L100.1500 81-99 fL Normal MCV 91.7 LAB L100.1600 27.0-32.0 pg Normal MCH 29.1 LAB L100.1700 32-36 g/gl Low MCHC 31.8 LAB L100.1810 11.6-14.6 % High RDW CV 17.0 LAB L100.1820 35.1-43.9 fl High RDW SD 56.3 LAB L100.1900 150-450 K/mm3 Normal PLT 222 LAB L100.2000 6.2-12.0 fl Normal MPV 9.6 LAB L100.2100 47-70 % High NEUT% 70.8 LAB L100.2200 19-41 % Normal LY% 21.0 LAB L100.2300 0-10 % Normal MONO% 6.1 LAB L100.2400 0-5 % Normal EO% 1.2 LAB L100.2500 0-1 % Normal BASO% 0.4 LAB L100.2550 0.0-0.9 % Normal IM GRAN % 0.500 Result Comment: IG% - Immature Granulocytes (promyelocytes, myelocytes and metamyelocytes) > 1% indicates that a LEFT SHIFT is Present. LAB L100.2620 2.0-7.7 X10 3/uL Normal Absolute Neut 5.8 LAB L100.2720 0.83-4.51 X10 3/ul Normal Absolute Lymph 1.72 Performed By: #### L100.0100 #### [facility] [address] [place], [address] PROTHROMBIN TIME W/INR Collected: 05/03/2017 Status: F Source: [place] 4:15 AM [facility] REPOSITORY TYPE CODE TESTS RESULT OUT OF RANGE REFERENCE UNITS LAB L300.4150 11.7-14.9 SECONDS High PROTIME 28.4 LAB L300.4200 Normal INR 2.7 Performed By: #### L300.3900 #### [facility] [address] [place], [address] BASIC METABOLIC Collected: 05/03/2017 Status: F Source: [place] PROFILE (BMP) 4:15 AM [facility] REPOSITORY TYPE CODE TESTS RESULT OUT OF RANGE REFERENCE UNITS LAB L501.0100 74-106 mg/dL High GLU 121 Result Comment: Fasting Glucose result from 100 to 125 mg/dL suggests IMPAIRED HOMEOSTASIS per A.D.A. criteria. Please note revised GLUCOSE reference range effective 2017. LAB L501.1000 7-18 mg/dL High BUN 22 LAB L501.1100 0.55-1.02 mg/dL Normal CREAT,SERUM 0.92 Result Comment: The validity of the calculated GFR AND GFRAA in patients over 70 years has not been determined. Clinical correlation is essential. LAB L501.1110 >60 mL/min Normal EST GFR 62 Result Comment: Non- GFR Calc LAB L501.1115 >60 mL/min Normal EST GFR - AA 75 Result Comment: GFR Calc LAB L501.1255 ml/min Normal Estimated CRCL 43.15 LAB L501.1300 10-20 RATIO High BUN/CRE 23.8 LAB L501.2200 8.5-10 mg/dL Normal .1 CA 8.8 LAB L501.5300 136-14 mmol/L Normal 5 NA 137 LAB L501.5600 3.5-5. mmol/L Normal 1 K 3.9 Result Comment: Slight Hemolysis, Result may be falsely increased. LAB L501.5900 98-107 mmol/L Normal CL 100 LAB L501.6100 21.0-32.0 mmol/L Normal CO2 30.0 LAB L501.6200 5-15 Normal 7 GAP Performed By: #### L500.2500 #### [facility] [address] [place], [address] BRAIN/HEAD WITHOUT Observed: 05/03/2017 Status: F Source: [place] CONTRAST 4:10 AM [facility] REPOSITORY [facility] Imaging Services [address] [place] [address] Brain/Head without Contrast MR#: [id number] Acct: [id number] Name: JANESSA RAYMOND Rep #: [id number] : 1935 F 82 From: Adeel Kwong MD PCP: Gerardo Melendez MD Status: REG ER Study: Brain/Head without Contrast Date of Exam: 05/03/17 Exam# [id number] Ordering Dr: Kodak Thurston DO STUDY: CT BRAIN WITHOUT CONTRAST REASON FOR EXAM: Female, 82 years old. Injury RADIATION DOSAGE (If Supplied By Facility): CTDIvol = ( 44.99 ) mGy, DLP = ( 796.11 ) mGycm TECHNIQUE: Transaxial CT imaging of the brain was performed without administration of intravenous contrast material. Individualized dose optimization techniques were used for this CT. COMPARISON: 07/31/2015 FINDINGS: Normal soft tissue structures. There is hyperostosis frontalis internus. Normal size ventricles and extra-axial spaces for the patient's age. There are areas of decreased attenuation within the white matter tracts of the supratentorial brain, consistent with microvascular disease changes. Normal basal ganglia and thalami. Normal brainstem. Normal cerebellum. There is no intracranial hemorrhage. There are no findings of an acute ischemic infarction. Right ethmoid sinus disease. Mild bilateral mastoid sinus disease. CT/Brain/Head without Contrast IMPRESSION: No fracture or hemorrhage. Electronically Signed: Adeel Kwong MD at 4:59 EST Tel , Service support , CC: Gerardo Melendez MD; Kodak Thurston Outfitter Cabin: Signed ONCOLOGY VISIT REPORT Observed: 05/02/2017 Status: F Source: [place] 1:58 PM [facility] REPOSITORY [facility] [address] [place] [address] OFFICE VISIT Date of Service: 05/02/17 1344 MR#: [id number] Acct: [id number] Name: JANESSA RAYMOND Rep #: [id number] : 1935 From: Chris Teixeira MD Age/Sex: 82/F Location: ONC Status: Signed Subjective - Date of Service Date of Service:: 05/02/17 - Chief Complaint F/u for Left breast cancer. 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 In February 2012 she was diagnosed with left breast cancer, had left modified radical mastectomy and sentinel node biopsy on March 24, 2012 for stage IA(pT1c N0 M0) tumor size was 1.5 cm, sentinel node negative, ER/NH positive, HER-2 negative. She then started an Arimidex in March 2012. She started Xgeva in February 2015 for osteopenia, bone density in February 2016 was normal so Xgeva was discontinued. She remains on Arimidex, comes in for follow-up. - Past Medical/Social History Past Medical History Past Medical History: Depression,Hypertension,Osteoarthritis,Pulmonary embolism,Hypothyroidism Other Past Medical History: ULCERS SINUS PROBLEMS Cancer: Breast cancer,Lymphoma,Skin cancer Past Surgical History Surgical: Hysterectomy,Mastectomy Other Surgical History: EXCISION SKIN CANCER ON NOSE Family History Paternal Past Medical History: Unknown Paternal History of Cancer Lung cancer Maternal Past Medical History: Unknown Maternal History of Cancer: Breast cancer Social History Social History: No changes Smoking Status Current every day smoker Review of Systems Constitutional:: Denies: Fever, Sweats, Weight loss, Appetite change, Chills Cardiovascular:: Denies: Chest pain, Palpitations, Dyspnea on exertion, Orthopnea, PND, Shortness of breath Respiratory: Denies: Cough, Hemoptysis, Shortness of Breath, Wheezing Gastrointestinal:: Denies: Abdominal pain, Nausea, Vomiting, Diarrhea, Constipation, Hematochezia Genitourinary: Denies: Dysuria, Hematuria, 15, Flank pain Musculoskeletal:: Denies: Back pain, Myalgia, Arthralgia Skin: Denies: Rash, Skin Changes, Wounds Neurological:: Denies: Headache, Dizziness, Visual changes, Tinnitus, Hearing loss Psychiatric: Denies: Anxiety, Depression, Homicidal Ideations, Suicidal Ideations Vital Signs Height 5 ft 5 in Weight: 84.822 kg Weight in Pounds 187.0 lbs Pulse Ox 97 - Physical Exam General: Alert, Oriented x3, No apparent distress HEENT: Atraumatic, PERRLA, EOMI, Normocephalic Oropharynx:: Dry mucosa, - - + Dentures Neck:: Supple, Trachea midline. Negative for: JVD, bilateral Cardiac:: Regular rate, Regular rhythm, Normal S1, Normal S2. Negative for: Murmur Lungs: Clear to auscultation, Excusion symmetrical. Negative for: Rhonchi, Wheezes Abdomen:: Bowel sounds x 4, Soft, Non-tender, Non-distended. Negative for: Hepatosplenomegaly Extremities:: Negative for: Cyanosis, Edema Neurological: Neuro grossly intact Skin:: Negative for: Lesions, Rash, Petechiae, Ecchymosis Psychiatric:: Appropriate affect, Euthymic Lymphatics:: Negative for: Cervical lymphadenopathy, Supraclavicular lymphadenopathy, Axillary lymphadenopathy Breast:: - - R breast no masses, L MRM scar. Laboratory Data: Laboratory Tests WBC 8.2 (4.4-11.0) K/mm3 RBC 4.33 (4.2-5.4) M/mm3 Hgb 12.4 (12.0-15.0) g/dl Assessment and Plan H/O Left breast cancer stage IA. No evidence of disease. Has finish 5 years of Arimidex last month. H/O NHL, no evidence of disease. Plan is to stop Arimidex and do observation. Will see her every 6 months for 2-5yrs. RTC 6 months with CBC, CMP. Primary Care Provider: Gerardo Melendez Referring Provider: - Problem List (1) Breast cancer, left Status: Chronic (2) History of non-Hodgkin's lymphoma Status: Chronic Code Visit Office Visits / Consults: [id number] OV L3 Est 05/02/17 1358 <Electronically signed by Chris Teixeira MD> Date Chris Teixeira MD Cosigner Signature: Date (if applicable) CC: CBC W/DIFF, AUTOMATED Collected: 05/02/2017 Status: F Source: [place] 1:00 PM [facility] REPOSITORY TYPE CODE TESTS RESULT OUT OF RANGE REFERENCE UNITS LAB L100.1000 4.4-11.0 K/mm3 Normal WBC 8.2 LAB L100.1200 4.2-5.4 M/mm3 Normal RBC 4.33 LAB L100.1300 12.0-15.0 g/dl Normal HGB 12.4 LAB L100.1400 37-47 % Normal HCT 40.0 LAB L100.1500 81-99 fL Normal MCV 92.4 LAB L100.1600 27.0-32.0 pg Normal MCH 28.6 LAB L100.1700 32-36 g/gl Low MCHC 31.0 LAB L100.1810 11.6-14.6 % High RDW CV 17.4 LAB L100.1820 35.1-43.9 fl High RDW SD 58.2 LAB L100.1900 150-450 K/mm3 Normal PLT 266 LAB L100.2000 6.2-12.0 fl Normal MPV 9.8 LAB L100.2100 47-70 % High NEUT% 71.2 LAB L100.2200 19-41 % Normal LY% 22.6 LAB L100.2300 0-10 % Normal MONO% 4.7 LAB L100.2400 0-5 % Normal EO% 1.1 LAB L100.2500 0-1 % Normal BASO% 0.2 LAB L100.2550 0.0-0.9 % Normal IM GRAN % 0.200 Result Comment: IG% - Immature Granulocytes (promyelocytes, myelocytes and metamyelocytes) > 1% indicates that a LEFT SHIFT is Present. LAB L100.2620 2.0-7.7 X10 3/uL Normal Absolute Neut 5.9 LAB L100.2720 0.83-4.51 X10 3/ul Normal Absolute Lymph 1.86 Performed By: #### L100.0100 #### [facility] [address] [place], [place], [address] COMPREHENSIVE METABOLIC Collected: 05/02/2017 Status: F Source: [facility] 1:00 PM [facility] REPOSITORY Order Comment: Reason for Laboratory Test OV TYPE CODE TESTS RESULT OUT OF RANGE REFERENCE UNITS LAB L501.0100 74-106 mg/dL High GLU 109 Result Comment: Fasting Glucose result from 100 to 125 mg/dL suggests IMPAIRED HOMEOSTASIS per A.D.A. criteria. Please note revised GLUCOSE reference range effective 2017. LAB L501.1000 7-18 mg/dL Normal BUN 15 LAB L501.1100 0.55-1.02 mg/dL Normal CREAT,SERUM 0.87 Result Comment: The validity of the calculated GFR AND GFRAA in patients over 70 years has not been determined. Clinical correlation is essential. LAB L501.1110 >60 mL/min Normal EST GFR 66 Result Comment: Non- GFR Calc LAB L501.1115 >60 mL/min Normal EST GFR - AA 80 Result Comment: GFR Calc LAB L501.1255 ml/min Normal Estimated CRCL 45.63 LAB L501.1300 10-20 RATIO Normal BUN/CRE 17.2 LAB L501.1500 6.4-8. g/dL Normal 2 T PROT 7.0 LAB L501.1800 3.2-5. g/dL Low 0 ALB 3.0 LAB L501.1950 2.2-4. g/dL Normal 2 GLOB 4.0 LAB L501.2000 0.9-2. RATIO Low 4 A/G 0.8 LAB L501.2200 8.5-10 mg/dL Normal .1 CA 9.3 LAB L501.4100 15-37 U/L Low AST 11 LAB L501.4305 45-117 U/L Normal ALK P 100 LAB L501.4405 13-56 U/L Normal ALT 16 Result Comment: Please note revised ALT reference range effective 2017. LAB L501.4600 0.20-1.00 mg/dL Normal T BILI 0.30 LAB L501.5300 136-145 mmol/L Normal NA 137 LAB L501.5600 3.5-5.1 mmol/L Normal K 3.9 LAB L501.5900 98-107 mmol/L Normal CL 100 LAB L501.6100 21.0-32.0 mmol/L Normal CO2 28.0 LAB L501.6200 5-15 Normal GAP 9 Performed By: #### L500.4050 #### [facility] [address] [place], [address] PROGRESS Observed: 04/29/2017 Status: COMPLETED Source: [place] 3:29 PM [facility] REPOSITORY HNO ID: [id number] Author: Christiana Rocha RN Service: (none) Author Type: (none) Type: Progress Notes Filed: 04/29/2017 3:30 PM Note Text: left message for patient to contact the office to reschedule appt to 1 week PROGRESS Observed: 04/29/2017 Status: COMPLETED Source: [place] 3:01 PM [facility] REPOSITORY HNO ID: [id number] Author: Gerardo Melendez Service: (none) Author Type: Physician Type: Progress Notes Filed: 04/29/2017 3:30 PM Note Text: Cont the same and recheck in 1 week PROGRESS Observed: 04/29/2017 Status: COMPLETED Source: [place] 1:46 PM [facility] REPOSITORY HNO ID: [id number] Author: Christiana Rocha RN Service: (none) Author Type: (none) Type: Progress Notes Filed: 04/29/2017 1:47 PM Note Text: patient had inr completed at [facility] patients inr is 2.7 (patients inr range is 2.0-3.0) patient is currently taking 10mg mon,wed,fri and 7.5mg all other days patients last dose change was on 04/15/17 due to a low level of 1.5 (dose at that time was 7.5mg daily) patient has had no changes in medication except for the coumadin and no missed doses and no change in diet Advised patient to continue on the same dose(s) and that they would only be contacted regarding dosage and follow up instructions after review with provider, if a change is needed. Written instructions given and patient verbalized understanding. Presently scheduled in 2 weeks (05/13/17) for follow up INR since this is the first normal reading since dose change. PROGRESS Observed: 04/15/2017 Status: COMPLETED Source: [place] 4:08 PM [facility] REPOSITORY HNO ID: [id number] Author: Belkys Tee RN Service: (none) Author Type: (none) Type: Progress Notes Filed: 04/15/2017 4:09 PM Note Text: Patient notified of instructions below. Verbalized understanding. Scheduled 04/29/17 PROGRESS Observed: 04/15/2017 Status: COMPLETED Source: [place] 3:29 PM [facility] REPOSITORY HNO ID: [id number] Author: Gerardo Melendez Service: (none) Author Type: Physician Type: Progress Notes Filed: 04/15/2017 4:09 PM Note Text: Please ask patient to take 10 mgs on M,W, F and 7.5 mgs the rest of the week, recheck in 2 weeks PROGRESS Observed: 04/15/2017 Status: COMPLETED Source: [place] 1:35 PM [facility] REPOSITORY HNO ID: [id number] Author: Belkys Tee RN Service: (none) Author Type: (none) Type: Progress Notes Filed: 04/15/2017 1:40 PM Note Text: Patient had INR completed at [facility] Patient's INR is 1.5 Patient is currently taking 7.5mg daily Patient's last dose change was 03/15/17 due to high INR at 3.3 Patient has had no medication and no change in diet. Patient states she had some green beans last evening. Advised patient that they would be contacted regarding medication dose and follow-up once reviewed by provider. After provider review, please contact patient with information and schedule follow-up appointment with coumadin clinic. PROGRESS Observed: 03/29/2017 Status: COMPLETED Source: [place] 1:19 PM [facility] REPOSITORY HNO ID: [id number] Author: Gerardo Melendez Service: (none) Author Type: Physician Type: Progress Notes Filed: 03/29/2017 2:46 PM Note Text: Agree PROGRESS Observed: 03/29/2017 Status: COMPLETED Source: [place] 1:03 PM [facility] REPOSITORY HNO ID: [id number] Author: Christiana Rocha RN Service: (none) Author Type: (none) Type: Progress Notes Filed: 03/29/2017 1:05 PM Note Text: patient had inr completed at [facility] patients inr is 2.0 (patients inr range is 2.0-3.0) patient is currently taking 7.5mg daily patients last dose change was on 03/15/17 due to a high level of 3.3 (dose at that time was 10mg daily) patient has had no changes in medication except for coumadin and no change in diet Advised patient to continue on the same dose(s) and that they would only be contacted regarding dosage and follow up instructions after review with provider, if a change is needed. Written instructions given and patient verbalized understanding. Presently scheduled in 1 week (04/05/17) for follow up INR. ALLERGIES ALLERGIES DATE TYPE / CODE NAME / CODE REACTION SEVERITY SOURCE Drug Penicillins/F001 Unknown [place] 8 Allergy/795213589( 419382(RXNORM) [facility] Drug amoxicillin/F006 Nausea/Vom/Diarr [place] 8 Allergy/231208497( 231088(RXNORM) hea [facility] Hospital Repository Miscellaneous tape bruising [facility] 8 Allergy/375222484( Critical access hospital CT) Hospital Repository DRUG GABAPENTIN [facility] 7 INGREDI/578423894( [facility] Main SNOMED CT) [place] Repository DRUG/621983065(SNO AMOXICILLIN-POT ANAPHYLAXIS [place] [address]) CLAVULANATE [facility] Repository Drug PENICILLINS ANAPHYLAXIS [place] 6 Class/060246552([facility] Main OMED CT) [place] Repository ENCOUNTERS ENCOUNTERS ADMIT/DISCHARGE ACCOUNT ADMITTING ENCOUNTER LOCATION SOURCE NUMBER CLASS 03/19/2018 [id number] [facility] Rep[facility] 03/11/2018/03/11/19 [id number] Ambulatory BMSBuilding:B [place] 19 [place].[facility] Repository 03/04/2018 [id number] Ambulatory [facility] Hospital[facility] Hospital ing:PSN Repository 02/10/2018 [id number] Ambulatory BMSBuilding:W [place] [facility] Hospital Repository 02/10/2018 [id number] Ambulatory [facility] Hospital[facility] Hospital ing:PSN Repository 02/04/2018/02/05/20 [id number] Ambulatory BMSBuilding:B [place] 18 [facility] Repository 01/31/2018 [id number] [facility] [place] [facility] 01/29/2018 [id number] [facility] Repository 01/28/2018/01/29/20 [id number] Ambulatory BMSBuilding:B [place] 18 [facility] Repository 01/22/2018/01/23/20 [id number] Ambulatory BMSBuilding:B [place] [facility] Repository 01/21/2018 [id number] Ambulatory [facility]:B [place] [facility] Repository 01/15/2018/01/16/20 [id number] Ambulatory BMSBuilding:B [place] 18 MS.[facility] Hospital Repository 01/07/2018/01/08/20 [id number] Emergency [address] HospitalBuild Hospital ing:ED Repository 01/07/2018/01/08/20 [id number] Ambulatory BMSBuilding:B [place] 18 [facility] Repository 01/02/2018 [id number] Ambulatory BMSBuilding:B [place] [facility] Repository 01/02/2018 [id number] Ambulatory [facility] HospitalBuild Hospital ing:OMD Repository 12/31/2017 [id number] Ambulatory [facility] Hospital[facility] Hospital ing:PT Repository 12/27/2017/12/30/19 [id number] [place], Inpatient [place] 18 Chris [facility] ing:PCURoom: Repository [id number]: 1 12/27/2017 [id number] [place], Ambulatory BMSBuilding:Kylee Perez MS.[facility] Repository 12/27/2017 [id number] [place], Ambulatory BMSBuilding:Kylee Perez MS.[facility] Repository 12/27/2017 [id number] [place], Ambulatory BMSBuilding:Kylee Perez MS.CF.[facility] Repository 12/27/2017 [id number] [place], Ambulatory BMSBuilding:Kylee Perez [facility] Repository 12/27/2017 [id number] [place]ep[place], Ambulatory BMSBuilding:Kylee Perez MS.[facility] Repository 12/27/2017 [id number] [place], Ambulatory BMSBuilding:Kylee Perez MS.CF.[facility] Repository 12/27/2017/12/30/19 [id number] Ambulatory BMSBuilding:Nolan Antony 18 [facility] Repository 12/27/2017/12/28/19 [id number] Ambulatory BMSBuilding:[place]ylee Antony 18 [facility] [place] 12/24/2017 [id number] Ambulatory [facility]MSBuilding[facility] [place] 12/18/2017 [id number] [facility] Hospital ing:MTLAB Repository 11/18/2017 [id number] Ambulatory BMSBuilding:Kylee Antony MS.CF.[facility] Repository 10/14/2017/10/15/19 [id number] Ambulatory BMSBuilding:Kylee Antony 18 [facility] [place] 10/08/2017/10/09/19 [id number] Ambulatory BMSBuilding:[place]ylee Antony 18 [facility] [place] 07/11/2017/07/12/19 [id number] Ambulatory BMSBuilding:Kylee Antony 18 [place] [place] 06/26/2017 [id number] Ambulatory [facility] Hospital ing:MTLAB Repository 06/18/2017 [id number] Ambulatory [facility] Hospital ing:LABSPEC Repository 06/17/2017/06/18/19 [id number] Ambulatory BMSBuilding:B [place] 18 [facility] Repository 06/07/2017 [id number] Ambulatory [facility] ing:LAB Repository 05/16/2017/05/17/19 [id number] Ambulatory BMSBuilding:B [place] 18 MS.[facility] Repository 05/14/2017/05/16/19 [id number] Ambulatory [address] Main [place] Repository 05/13/2017/05/15/19 [id number] Ambulatory [address] Main [place] Repository 05/10/2017/05/11/19 [id number] Ambulatory [address] Main [place] Repository 05/10/2017/05/11/19 [id number] Ambulatory [address] Repository 05/07/2017/05/09/19 [id number] Ambulatory [address] Repository 05/03/2017/05/04/19 [id number] Emergency [place] ing:ED Repository 05/02/2017 [id number] Ambulatory BMSBuilding:Kylee Antony MS.[facility] Repository 04/29/2017/05/01/19 [id number] Ambulatory [address] [place] Repository 04/15/2017/04/17/19 [id number] Ambulatory [address] Repository 03/29/2017/04/01/19 [id number] Ambulatory [address] Repository PAYERS PAYERS ENCOUNTER GUARANTOR PAYER SUBSCRIBER SOURCE 03/19/2018 JANESSA L Primary VALENA L [place] [id number] Insurance:MEDICARE SNOWDENDOB: Community [place] [facility] [id number] Number: Repository [address]Rhl: [phone] [id number] [phone] () Date:2018-01-02 03/19/2018 Secondary VALENA L [place] Insurance:ANTHEMPolic SNOWDENDOB: Community y Number: [id number] Hospital [id number] Repository Date:2049-44-88Yd [address] [place] [address] 605[address]EY: 03/19/2018 Tertiary NOT GIVENUNK [place] Insurance:SELF PAY [facility] Number: Effective Repository Date:2018-01-02 03/11/2018 VALENA L Primary VALENA L [place] [id number] Insurance:MEDICARE SNOWDENDOB: Community [place] DRUNIT PART A [facility] [id number] Number: Repository [address]Ehh: 330 [id number] [phone] () Date:2018-01-28 03/11/2018 Secondary VALENA L [place] Insurance:ANTHEMPolic SNOWDENDOB: Community y Number: [id number] Hospital [id number] Repository Date:0808-69-26Mz [address], [place] [address]AY: 03/11/2018 Tertiary NOT GIVENUNK [place] Insurance:SELF PAY [facility] Number: Effective Repository Date:2018-03-03 03/04/2018 VALENA L Primary VALENA L [place] [id number] Insurance:MEDICARE SNOWDENDOB: Community [place] DRUNIT PART A [facility] [id number] Number: Repository [address]Zrd: 330 [id number] [phone] () Date:2018-01-15 03/04/2018 Secondary VALENA L [place] Insurance:ANTHEMPolic SNOWDENDOB: Community y Number: [id number] Hospital [id number] Repository Date:1790-29-57Nt [address], [place] [address]YR: 03/04/2018 Tertiary NOT GIVENUNK [place] Insurance:SELF PAY [facility] Number: Effective Repository Date:2018-01-15 02/10/2018 VALENA L Primary VALENA L [place] [id number] Insurance:MEDICARE SNOWDENDOB: Community [place] DRUNIT PART A [facility] [id number] [place] Number: Repository [address]Lsj: [phone] [id number] [phone] (HP) Date:2018-01-02 02/10/2018 Secondary VALENA L [place] Insurance:ANTHEMPolic SNOWDENDOB: Community y Number: [id number] Hospital [id number] Repository Date:4486-99-10[address] [address]HU: 02/10/2018 Tertiary NOT GIVENUNK [place] Insurance:SELF PAY [facility] Number: Effective Repository Date:2018-02-10 02/10/2018 VALENA L Primary VALENA L [place] [id number] Insurance:MEDICARE SNOWDENDOB: Community [place] DRUNIT PART A [facility] [id number] Number: Repository [address]Yco: 330 [id number] [phone] () Date:2018-02-07 02/10/2018 Secondary VALENA L [place] Insurance:ANTHEMPolic SNOWDENDOB: Community y Number: [id number] Hospital [id number] Repository Date:5104-99-96Vo [address] [address]IW: 02/10/2018 Tertiary NOT GIVENUNK [place] Insurance:SELF PAY [facility] Number: Effective Repository Date:2018-02-07 02/04/2018 VALENA L Primary VALENA L [place] [id number] Insurance:MEDICARE SNOWDENDOB: Community [place] DRUNIT PART A [facility] [id number] Number: Repository [address]Isp: 330 [id number] [phone] (HP) Date:2018-02-03 02/04/2018 Secondary VALENA L [place] Insurance:ANTHEMPolic SNOWDENDOB: Community y Number: [id number] Hospital [id number] Repository Date:8731-01-65Hk [address] [address]FN: 02/04/2018 Tertiary NOT GIVENUNK [place] Insurance:SELF PAY [facility] Number: Effective Repository Date:2018-02-04 01/31/2018 VALENA L Primary VALENA L [place] [id number] Insurance:MEDICARE SNOWDENDOB: Community [place] DRUNIT PART A [facility] [id number] [place] Number: Repository [address]Bvp: 330 [id number] [phone] (HP) Date:2018-01-31 01/31/2018 Secondary VALENA L [place] Insurance:ANTHEMPolic SNOWDENDOB: Community y Number: [id number] Hospital [id number] Repository Date:6987-29-88Yx [address], [place] [address]TA: 01/31/2018 Tertiary NOT GIVENUNK [place] Insurance:SELF PAY [facility] Number: Effective Repository Date:2018-01-31 01/29/2018 VALENA L Primary VALENA L [place] [id number] Insurance:MEDICARE SNOWDENDOB: Community [place] DRUNIT PART A [facility] [id number], [place] Number: Repository [address]Nuf: 330 [id number] [phone] () Date:2018-01-29 01/29/2018 Secondary VALENA L [place] Insurance:ANTHEMPolic SNOWDENDOB: Community y Number: [id number] Hospital [id number] Repository Date:9682-69-51Qt [address], [place] [address]MB: 01/29/2018 Tertiary NOT GIVENUNK [place] Insurance:SELF PAY [facility] Number: Effective Repository Date:2018-01-29 01/28/2018 VALENA L Primary VALENA L [place] [id number] Insurance:MEDICARE SNOWDENDOB: Community [place] DRUNIT PART A [facility] [id number] [place] Number: Repository [address]Vuj: 330 [id number] [phone] () Date:2017-10-08 01/28/2018 Secondary VALENA L [place] Insurance:ANTHEMPolic SNOWDENDOB: Community y Number: [id number] Hospital [id number] Repository Date:2185-48-98Yl [address] [place] [address]AN: 01/28/2018 Tertiary NOT GIVENUNK [place] Insurance:SELF PAY [facility] Number: Effective Repository Date:2018-01-27 01/22/2018 VALENA L Primary VALENA L [place] [id number] Insurance:MEDICARE SNOWDENDOB: Community [place] DRUNIT PART A [facility] [id number] Number: Repository [address]Ppz: 330 [id number] [phone] () Date:2018-01-01 01/22/2018 Secondary VALENA L [place] Insurance:ANTHEMPolic SNOWDENDOB: Community y Number: [id number] Hospital [id number] Repository Date:2584-40-81Cc [address] [place] [address] 26[address]WQ: 01/22/2018 Tertiary NOT GIVENUNK [place] Insurance:SELF PAY [facility] Number: Effective Repository Date:2018-01-13 01/21/2018 VALENA L Primary VALENA L [place] [id number] Insurance:MEDICARE SNOWDENDOB: Community [place] DRUNIT PART A [facility] [id number] Number: Repository [address]Dbo: 330 [id number] [phone] () Date:2018-01-21 01/21/2018 Secondary VALENA L [place] Insurance:ANTHEMPolic SNOWDENDOB: Community y Number: [id number] Hospital [id number] Repository Date:6543-28-20Ad [address] [place] [address] 87[address]ZT: 01/21/2018 Tertiary NOT GIVENUNK [place] Insurance:SELF PAY [facility] Number: Effective Repository Date:2018-01-21 01/15/2018 VALENA L Primary VALENA L [place] [id number] Insurance:MEDICARE SNOWDENDOB: Community [place] DRUNIT PART A [facility] [id number] Number: Repository [address]Kxr: 330 [id number] [phone] (HP) Date:2018-01-06 01/15/2018 Secondary VALENA L [place] Insurance:ANTHEMPolic SNOWDENDOB: Community y Number: [id number] Hospital [id number] Repository Date:2465-07-82Oq [address] [place] [address] 879[address]PF: 01/15/2018 Tertiary NOT GIVENUNK [place] Insurance:SELF PAY [facility] Number: Effective Repository Date:2018-01-08 01/07/2018 VALENA L Primary VALENA L [place] [id number] Insurance:MEDICARE SNOWDENDOB: Community [place] DRUNIT PART A [facility] [id number] [place] Number: Repository [address]Csv: 330 [id number] [phone] (HP) Date:2018-01-07 01/07/2018 Secondary VALENA L [place] Insurance:ANTHEMPolic SNOWDENDOB: Community y Number: [id number] Hospital [id number] Repository Date:7331-64-30Or [address] [place] [address] 098[address]ZS: 01/07/2018 Tertiary NOT GIVENUNK [place] Insurance:SELF PAY [facility] Number: Effective Repository Date:2018-01-07 01/07/2018 VALENA L Primary VALENA L [place] [id number] Insurance:MEDICARE SNOWDENDOB: Community [place] DRUNIT PART A [facility] [id number] Number: Repository [address]Eio: 330 [id number] [phone] (HP) Date:2017-12-31 01/07/2018 Secondary VALENA L [place] Insurance:ANTHEMPolic SNOWDENDOB: Community y Number: [id number] Hospital [id number] Repository Date:2437-28-81Zp [address], [place] [address]QT: 01/07/2018 Tertiary NOT GIVENUNK [place] Insurance:SELF PAY [facility] Number: Effective Repository Date:2018-01-06 01/02/2018 VALENA L Primary VALENA L [place] [id number] Insurance:MEDICARE SNOWDENDOB: Community [place] DRUNIT PART A [facility] [id number] Number: Repository [address]Xtg: [phone] [id number] [phone] () Date:2001-02-25 01/02/2018 Secondary VALENA L [place] Insurance:ANTHEMPolic SNOWDENDOB: Community y Number: [id number] Hospital [id number] Repository Date:3691-26-10Vk [address], [place] [address]US: 01/02/2018 Tertiary NOT GIVENUNK [place] Insurance:SELF PAY [facility] Number: Effective Repository Date:2018-01-02 01/02/2018 VALENA L Primary VALENA L [place] [id number] Insurance:MEDICARE SNOWDENDOB: Community [place] DRUNIT PART A [facility] [id number] Number: Repository [address]Pwb: [phone] [id number] [phone] () Date:2001-02-25 01/02/2018 Secondary VALENA L [place] Insurance:ANTHEMPolic SNOWDENDOB: Community y Number: [id number] Hospital [id number] Repository Date:1752-46-44Ou [address], [place] [address]SW: 01/02/2018 Tertiary NOT GIVENUNK [place] Insurance:SELF PAY [facility] Number: Effective Repository Date:2016-10-01 12/31/2017 VALENA L Primary VALENA L [place] [id number] Insurance:MEDICARE SNOWDENDOB: Community [place] DRUNIT PART A [facility] [id number], [place] Number: Repository [address]Jlg: 330 [id number] [phone] (HP) Date:2001-02-25 12/31/2017 Secondary VALENA L [place] Insurance:ANTHEMPolic SNOWDENDOB: Community y Number: [id number] Hospital [id number] Repository Date:1453-86-39Rc [address] [place] [address] [place] [address]LX: 12/31/2017 Tertiary NOT GIVENUNK [place] Insurance:SELF PAY [facility] Number: Effective Repository Date:2017-12-19 12/27/2017 VALENA L Primary VALENA L [place] [id number] Insurance:MEDICARE SNOWDENDOB: Community [place] DRUNIT PART A [facility] [id number], [place] Number: Repository [address]Hbn: 330 [id number] [phone] () Date:2017-12-27 12/27/2017 Secondary VALENA L [place] Insurance:ANTHEMPolic SNOWDENDOB: Community y Number: [id number] Hospital [id number] Repository Date:6591-11-16Yn [address] [place] [address] [place] [address]GB: 12/27/2017 Tertiary NOT GIVENUNK [place] Insurance:SELF PAY [facility] Number: Effective Repository Date:2017-12-27 12/27/2017 VALENA L Primary VALENA L [place] [id number] Insurance:MEDICARE SNOWDENDOB: Community [place] DRUNIT PART A [facility] [id number] [place] Number: Repository [address]Cgg: 330 [id number] [phone] () Date:2017-12-27 12/27/2017 Secondary VALENA L [place] Insurance:ANTHEMPolic SNOWDENDOB: Community y Number: [id number] Hospital [id number] Repository Date:5542-36-52Zb [address] [address]RH: 12/27/2017 Tertiary NOT GIVENUNK [place] Insurance:SELF PAY [facility] Number: Effective Repository Date:2017-12-27 12/27/2017 VALENA L Primary VALENA L [place] [id number] Insurance:MEDICARE SNOWDENDOB: Community [place] DRUNIT PART A [facility] [id number] [place] Number: Repository [address]Jzw: 330 [id number] [phone] (HP) Date:2017-12-27 12/27/2017 Secondary VALENA L [place] Insurance:ANTHEMPolic SNOWDENDOB: Community y Number: [id number] Hospital [id number] Repository Date:9571-97-73Uc [address], [place] [address]DH: 12/27/2017 Tertiary NOT GIVENUNK [place] Insurance:SELF PAY [facility] Number: Effective Repository Date:2017-12-27 12/27/2017 VALENA L Primary VALENA L [place] [id number] Insurance:MEDICARE SNOWDENDOB: Community [place] DRUNIT PART A [facility] [id number] [place] Number: Repository [address]Uwt: 330 [id number] [phone] () Date:2017-12-27 12/27/2017 Secondary VALENA L [place] Insurance:ANTHEMPolic SNOWDENDOB: Community y Number: [id number] Hospital [id number] Repository Date:4118-20-85Kg [address] [address]RM: 12/27/2017 Tertiary NOT GIVENUNK [place] Insurance:SELF PAY [facility] Number: Effective Repository Date:2017-12-27 12/27/2017 VALENA L Primary VALENA L [place] [id number] Insurance:MEDICARE SNOWDENDOB: Community [place] DRUNIT PART A [facility] [id number], [place] Number: Repository [address]Uym: [phone] [id number] [phone] (HP) Date:2017-12-27 12/27/2017 Secondary VALENA L [place] Insurance:ANTHEMPolic SNOWDENDOB: Community y Number: [id number] Hospital [id number] Repository Date:9361-47-84Sk [address], [place] [address]VF: 12/27/2017 Tertiary NOT GIVENUNK [place] Insurance:SELF PAY [facility] Number: Effective Repository Date:2017-12-27 12/27/2017 VALENA L Primary VALENA L [place] [id number] Insurance:MEDICARE SNOWDENDOB: Community ALLISON DRUNIT PART A [facility] [id number] Number: Repository [address]Rsi: [phone] [id number] [phone] () Date:2017-12-27 12/27/2017 Secondary VALENA L [place] Insurance:ANTHEMPolic SNOWDENDOB: Community y Number: [id number] Hospital [id number] Repository Date:5054-97-38Uw [address], [place] [address]UN: 12/27/2017 Tertiary NOT GIVENUNK [place] Insurance:SELF PAY [facility] Number: Effective Repository Date:2017-12-27 12/27/2017 VALENA L Primary VALENA L [place] [id number] Insurance:MEDICARE SNOWDENDOB: Community ALLISON DRUNIT PART A [facility] [id number] Number: Repository [id number]: [phone] [id number] [phone] () Date:2017-12-27 12/27/2017 Secondary VALENA L [place] Insurance:ANTHEMPolic SNOWDENDOB: Community y Number: [id number] [id number] Repository Date:1133-94-62Qb [address], [place] [address]VI: 12/27/2017 Tertiary NOT GIVENUNK [place] Insurance:SELF PAY [facility] Number: Effective Repository Date:2017-12-27 12/27/2017 VALENA L Primary VALENA L [place] [id number] Insurance:MEDICARE SNOWDENDOB: Community ALLISON DRUNIT PART A [facility] [id number] Number: Repository [id number]: 330 [id number] [phone] (HP) Date:2017-12-27 12/27/2017 Secondary VALENA L [place] Insurance:ANTHEMPolic SNOWDENDOB: Community y Number: [id number] [facility] [id number] Repository Date:8719-90-47Sf [address] [place] [address]SB: 12/27/2017 Tertiary NOT GIVENUNK [place] Insurance:SELF PAY [facility] Number: Effective Repository Date:2017-12-27 12/27/2017 VALENA L Primary VALENA L [place] [id number] Insurance:MEDICARE SNOWDENDOB: Community ALLISON DRUNIT PART A [facility] [id number] Number: Repository [id number]: 330 [id number] [phone] (HP) Date:2017-12-27 12/27/2017 Secondary VALENA L [place] Insurance:ANTHEMPolic SNOWDENDOB: Community y Number: [id number] [facility] [id number] Repository Date:2749-78-89Yw [address], [place] [address]ZA: 12/27/2017 Tertiary NOT GIVENUNK [place] Insurance:SELF PAY [facility] Number: Effective Repository Date:2017-12-27 12/24/2017 VALENA L Primary VALENA L [place] [id number] Insurance:MEDICARE SNOWDENDOB: Community ALLISON DRUNIT PART A [facility] [id number] Number: Repository [address]Mbk: 330 [id number] [phone] (HP) Date:2017-12-24 12/24/2017 Secondary VALENA L [place] Insurance:ANTHEMPolic SNOWDENDOB: Community y Number: [id number] [id number] Repository Date:6562-15-57Db [address] [place] [address]MB: 12/24/2017 Tertiary NOT GIVENUNK [place] Insurance:SELF PAY [facility] Number: Effective Repository Date:2017-12-24 12/18/2017 VALENA L Primary VALENA L [place] [id number] Insurance:MEDICARE SNOWDENDOB: Community ALLISON DRUNIT PART A [facility] [id number] Number: Repository [address]Uww: [phone] [id number] [phone] (HP) Date:2017-12-18 12/18/2017 Secondary VALENA L [place] Insurance:ANTHEMPolic SNOWDENDOB: Community y Number: [id number] Hospital [id number] Repository Date:1596-58-90Wu [address], [place] [address]FY: 12/18/2017 Tertiary NOT GIVENUNK [place] Insurance:SELF PAY [facility] Number: Effective Repository Date:2017-12-18 11/18/2017 VALENA L Primary VALENA L [place] [id number] Insurance:MEDICARE SNOWDENDOB: Community ALLISON DRUNIT PART A [facility] [id number] Number: Repository [id number]: [phone] [id number] [phone] (HP) Date:2001-02-25 11/18/2017 Secondary VALENA L [place] Insurance:ANTHEMPolic SNOWDENDOB: Community y Number: [id number] [id number] Repository Date:4503-84-82Ll [address], [place] [address]JT: 11/18/2017 Tertiary NOT GIVENUNK [place] Insurance:SELF PAY [facility] Number: Effective Repository Date:2017-11-18 10/14/2017 VALENA L Primary VALENA L [place] [id number] Insurance:MEDICARE SNOWDENDOB: Community ALLISON DRUNIT PART A [facility] [id number] [place] Number: Repository [address]Tjo: 330 [id number] [phone] (HP) Date:2017-10-14 10/14/2017 Secondary VALENA L [place] Insurance:ANTHEMPolic SNOWDENDOB: Community y Number: [id number] Hospital [id number] Repository Date:0632-91-60Jn [address], [place] [address]KR: 10/14/2017 Tertiary NOT GIVENUNK [place] Insurance:SELF PAY [facility] Number: Effective Repository Date:2017-10-14 10/08/2017 VALENA L Primary VALENA L [place] [id number] Insurance:MEDICARE SNOWDENDOB: Community ALLISON DRUNIT PART A [facility] [id number] [place] Number: Repository [address]Ssv: 330 [id number] [phone] () Date:2017-07-11 10/08/2017 Secondary VALENA L [place] Insurance:ANTHEMPolic SNOWDENDOB: Community y Number: [id number] Hospital [id number] Repository Date:7884-78-69Gj [address], [place] [address]IO: 10/08/2017 Tertiary NOT GIVENUNK [place] Insurance:SELF PAY [facility] Number: Effective Repository Date:2017-10-08 07/11/2017 VALENA L Primary VALENA L [place] [id number] Insurance:MEDICARE SNOWDENDOB: Community ALLISON DRUNIT PART A [facility] [id number], [place] Number: Repository [address]Isi: 330 [id number] [phone] (HP) Date:2017-06-17 07/11/2017 Secondary VALENA L [place] Insurance:ANTHEMPolic SNOWDENDOB: Community y Number: [id number] Hospital [id number] Repository Date:7321-27-20Vg [address], [place] [address]WL: 07/11/2017 Tertiary NOT GIVENUNK [place] Insurance:SELF PAY [facility] Number: Effective Repository Date:2017-07-11 06/26/2017 VALENA L Primary VALENA L [place] [id number] Insurance:MEDICARE SNOWDENDOB: Community ALLISON DRUNIT PART A [facility] [id number] [place] Number: Repository [id number]: 330 [id number] [phone] (HP) Date:2017-06-26 06/26/2017 Secondary VALENA L [place] Insurance:ANTHEMPolic SNOWDENDOB: Community y Number: [id number] [facility] [id number] Repository Date:7542-20-35He [address] [place] [address] [place] [address]QQ: 06/26/2017 Tertiary NOT GIVENUNK [place] Insurance:SELF PAY [facility] Number: Effective Repository Date:2017-06-26 06/18/2017 VALENA L Primary VALENA L [place] [id number] Insurance:MEDICARE SNOWDENDOB: Community ALLISON DRUNIT PART A [facility] [id number], [place] Number: Repository [address]Zjh: 330 [id number] [phone] (HP) Date:2017-06-18 06/18/2017 Secondary VALENA L [place] Insurance:ANTHEMPolic SNOWDENDOB: Community y Number: [id number] Hospital [id number] Repository Date:0550-17-69Vy [address] [place] [address] [place] [address]ZI: 06/18/2017 Tertiary NOT GIVENUNK [place] Insurance:SELF PAY [facility] Number: Effective Repository Date:2017-06-18 06/17/2017 VALENA L Primary VALENA L [place] [id number] Insurance:MEDICARE SNOWDENDOB: Community ALLISON DRUNIT PART A [facility] [id number], [place] Number: Repository [address]Lae: [phone] [id number] [phone] (HP) Date:2017-05-16 06/17/2017 Secondary VALENA L [place] Insurance:ANTHEMPolic SNOWDENDOB: Community y Number: [id number] [facility] [id number] Repository Date:3464-81-81Qg [address] [address]QN: 06/17/2017 Tertiary NOT GIVENUNK [place] Insurance:SELF PAY [facility] Number: Effective Repository Date:2017-06-17 06/07/2017 VALENA L Primary VALENA L [place] [id number] Insurance:MEDICARE SNOWDENDOB: Community ALLISON DRUNIT PART A [facility] [id number] [place] Number: Repository [address]Dab: [phone] [id number] [phone] () Date:2017-06-07 06/07/2017 Secondary VALENA L [place] Insurance:ANTHEMPolic SNOWDENDOB: Community y Number: [id number] Hospital [id number] Repository Date:4109-69-98Rm [address] [address]WA: 06/07/2017 Tertiary NOT GIVENUNK [place] Insurance:SELF PAY [facility] Number: Effective Repository Date:2017-06-07 05/16/2017 VALENA L Primary VALENA L [place] [id number] Insurance:MEDICARE SNOWDENDOB: Community ALLISON DRUNIT PART A [facility] [id number] [place] Number: Repository [address]Qxn: [phone] [id number] [phone] () Date:2017-05-07 05/16/2017 Secondary VALENA L [place] Insurance:ANTHEMPolic SNOWDENDOB: Community y Number: [id number] Hospital [id number] Repository Date:5089-79-06Ov [address] [address]NI: 05/16/2017 Tertiary NOT GIVENUNK [place] Insurance:SELF PAY [facility] Number: Effective Repository Date:2017-05-16 05/03/2017 VALENA L Primary VALENA L [place] [id number] Insurance:MEDICARE SNOWDENDOB: Community ALLISON DRUNIT PART A [facility] [id number] Number: Repository [address]Fne: 330 [id number] [phone] () Date:2017-05-03 05/03/2017 Secondary VALENA L [place] Insurance:ANTHEMPolic SNOWDENDOB: Community y Number: [id number] Hospital [id number] Repository Date:9955-29-57Fu [address] [place] [address]PZ: 05/03/2017 Tertiary NOT GIVENUNK [place] Insurance:SELF PAY [facility] Number: Effective Repository Date:2017-05-03 05/02/2017 VALENA L Primary VALENA L [place] [id number] Insurance:MEDICARE SNOWDENDOB: Community ALLISON DRUNIT PART A [facility] [id number] Number: Repository [address]Zrw: 330 [id number] [phone] () Date:2001-02-25 05/02/2017 Secondary VALENA L [place] Insurance:ANTHEMPolic SNOWDENDOB: Community y Number: [id number] Hospital [id number] Repository Date:6644-65-60Yn [address] [place] [address]MJ: 05/02/2017 Tertiary NOT GIVENUNK [place] Insurance:SELF PAY [facility] Number: Effective Repository Date:2017-05-02
== END ==
PROVIDERS: Family Provider Internal Medicine; PCP Internal Medicine; Referring Provider Internal Medicine Medical Oncology; Visit Provider Internal Medicine Medical Oncology
DX: R91.1 Solitary pulmonary nodule (principal); Z85.3 Personal history of malignant neoplasm of breast
CPT/HCPCS: 71260; Q9967; A4216

== ENCOUNTER → 2018-05-02 12:49 | Outpatient (CLI) | payer MEDICARE, BC, SELFPAY ==
[2018-04-24 14:54] VITALS: BMI 33.3
--- NOTE | 2018-05-02 12:52 | BI_ITS ---
MAMMOGRAPHY - UNILATERAL SCREENING: RIGHT BREAST REASON FOR EXAM: Female, 83 years old. Routine annual screening examination (unilateral). PERTINENT HISTORY: Personal history of breast cancer. Prior left mastectomy. Past history of non-Hodgkin's lymphoma. TECHNIQUE: Digital unilateral breast ale (3D mammographic acquisition) in the CC and MLO projections. 2-D mediolateral oblique (MLO) and craniocaudad (CC) views of both breasts were obtained. CAD: Full Field Digital Mammography with Computer Added Detection was performed. COMPARISON: Comparison is made with prior study dated March 25, 2017 and March 20, 2016. FINDINGS: Breast Composition: There are scattered areas of fibroglandular density. There are no dominant masses or suspicious calcifications. No other significant abnormalities are identified. There has been no significant change since the prior study. BI/SCREEN MAMM (CAD) W/ALE UNI R IMPRESSION: Stable unilateral screening mammogram. Yearly follow-up mammogram recommended. (A) ASSESSMENT CATEGORY: BIRADS Category 2: Benign. A letter regarding these results will be sent to the patient by the facility within 30 days. Approximately 10% of breast cancers are not detected by mammography. A normal mammogram should not delay biopsy of a clinically suspicious abnormality. [id number] Electronically Signed: Igor Rajan, at 15:53 EST , Service support ,
== END ==
PROVIDERS: Family Provider Internal Medicine; PCP Internal Medicine; Referring Provider Internal Medicine Medical Oncology; Visit Provider Internal Medicine Medical Oncology
DX: Z12.31 Encounter for screening mammogram for malignant neoplasm of breast (principal); Z82.3 Family history of stroke
CPT/HCPCS: 77061; 77067; G0279

== ENCOUNTER → 2018-05-02 14:01 | Outpatient (CLI) | payer MEDICARE, BC, SELFPAY ==
[2018-04-24 14:54] VITALS: BMI 33.3
[2018-05-02 16:03] LABS: T4 Free Direct 1.36 ng/dL (0.76-1.46)
== END ==
PROVIDERS: Family Provider Internal Medicine; PCP Internal Medicine; Referring Provider Internal Medicine; Visit Provider Internal Medicine
DX: E03.9 Hypothyroidism, unspecified (principal); Z12.31 Encounter for screening mammogram for malignant neoplasm of breast; Z82.3 Family history of stroke
CPT/HCPCS: 77061; 77067; 84439; 84443; G0279

== ENCOUNTER → 2018-05-21 15:00 | Outpatient (CLI) | payer MEDICARE, BC, SELFPAY ==
[2018-05-19 10:43] VITALS: BMI 29.4
--- NOTE | 2018-05-21 15:13 | CT_ITS ---
STUDY: CT CHEST WITH CONTRAST REASON FOR EXAM: Female, 83 years old. Follow-up nodule and fluid in lungs and heart. RADIATION DOSAGE (If Supplied By Facility): CTDIvol = ( 18.10 ) mGy, DLP = ( 773.28 ) mGycm TECHNIQUE: Transaxial imaging was performed following intravenous administration of 100 IV Isovue 300. Individualized dose optimization techniques were used for this CT. COMPARISON: March 19, 2018 CT chest FINDINGS: Status post left mastectomy. Patchy groundglass opacities bilaterally stable 9 mm nodule right middle lobe stable.. Right upper lobe consolidation stable. Moderate right pleural effusion. Cardiomegaly and calcific coronary artery disease. Normal mediastinum. Calcified hilar nodes on the right. Normal enhanced pulmonary arteries. Normal aorta arch and descending thoracic aorta. Moderate kyphosis. There is no demonstrated abnormality of the visualized upper abdomen. CT/Chest WITH Contrast IMPRESSION: No change right middle lobe airspace disease, right upper lobe nodule, and right effusion. Electronically Signed: Edwin Curran MD at 22:22 EDT , Service support ,
[2018-05-21 15:46] LABS: Basophil# 0.03 X10^3/uL; Basophil% 0.4 % (0-1); Eosinophil# 0.04 X10^3/uL; Eosinophils% 0.5 % (0-5); Hematocrit 39.6 % (37-47); Hemoglobin 11.2 g/dl (12.0-15.0); Lymphocyte % 22.3 % (19-41); Mean Corp Hgb Conc 28.3 g/gl (32-36); Mean Corpuscular Hgb 23.1 pg (27.0-32.0); Mean Corpuscular Volume 81.8 fL (81-99); Mean Platelet Vol. 9.3 fl (6.2-12.0); Monocyte# 0.54 X10^3/uL; Monocyte% 6.3 % (0-10); Neutrophil # 5.99 X10^3/uL (2.7-7.7); Neutrophil % 70.3 % (47-70); Partial Thromboplast Time 30.1 Seconds (24.1-36.2); Platelet Count 233 K/mm3 (150-450); Prothrombin Time (Protime)PT. 13.4 SECONDS (11.7-14.9); RBC Distribution Width CV 21.2 % (11.6-14.6); RBC Distribution Width SD 62.2 fl (35.1-43.9); Red Blood Count 4.84 M/mm3 (4.2-5.4); White Blood Count 8.5 K/mm3 (4.4-11.0)
[2018-05-21 15:50] LABS: Differential Indicated SCAN CRITERIA MET; POSITIVE COUNT NO; POSITIVE DIFFERENTIAL NO; POSITIVE MORPHOLOGY YES
[2018-05-21 16:17] LABS: Differential Comment SCANNED
[2018-05-21 16:18] LABS: Anisocytosis 1+; Hypochromasia 1+; Ovalocyte 1+; Target Cells 1+
== END ==
PROVIDERS: Family Provider Internal Medicine; PCP Internal Medicine; Referring Provider Internal Medicine Medical Oncology; Visit Provider Internal Medicine Medical Oncology
DX: Z01.818 Encounter for other preprocedural examination (principal); C85.2 Mediastinal (thymic) large B-cell lymphoma; J98.11 Atelectasis; R91.1 Solitary pulmonary nodule; I50.42 Chronic combined systolic (congestive) and diastolic (congestive) heart failure
CPT/HCPCS: 36415; 71260; 85025; 85610; 85730; Q9967

== ENCOUNTER → 2018-05-23 12:47 | Outpatient (CLI) | payer MEDICARE, BC, SELFPAY ==
[2018-05-19 10:43] VITALS: BMI 29.4
--- NOTE | 2018-05-23 | FLU_PTH ---
PATIENT: JANESSA RAYMOND LOC: [facility]#:[id number] AGE/SX: 89/F ROOM: RE05/23/[address]: Dr. Chris Teixeira MD : [id number] BED: DIS: SPEC #: [id number] RECD: 05/23/18 14:22 STATUS: ROSARIO JOHNSON #: [id number] ARMANDO: 05/23/18 00:[address]: Chris Teixeira DEPT: CYTOLOGY RECD BY: Ashish Ortiz ENTERED: 05/23/18 14:22 SP TYPE: Fluid OTHR DR: MD Dr. Igor Baca MD Tissues: Pleural fluid, NOS Procedures: Special Stain Group II Surgery Specimen Level IV Cytospin Fluid HEADER OPERATION: Ultrasound-guided right thoracentesis PRE-OP DIAGNOSIS: Right pleural effusion TISSUE SUBMITTED: Thoracentesis fluid for cytology DIAGNOSIS CYTOLOGY Thoracentesis fluid for cytology (cytospin and cell block): Negative for malignant cells. See comment. SJ:rg 05/26/18 COMMENT Clinical correlation and appropriate follow up are necessary. Case has been reviewed in consultation with Dr. Hollis who concurs with the above diagnosis. IDC:AM CYTOLOGY STUDY Slides are reviewed. CYTOLOGY GROSS Received is 240 ml of clear yellow fluid labeled with the patient's name and and designated per the requisition as thoracentesis. Submitted for cytology preparation including cell block. / 05/23/18 TC:5 CPT: 52447, 55047
--- NOTE | 2018-05-23 12:49 | US_ITS ---
PROCEDURE: ULTRASOUND GUIDED THORACENTESIS. DATE: May 23, 2018.. INDICATION: Female, 83 years old. Right pleural effusion. PHYSICIAN: Igor Rajan M.D. PROCEDURE: The risks, benefits, and alternatives to the procedure were explained to the patient. The specific risks of bleeding, infection, and pneumothorax requiring chest tube insertion were discussed and accepted. Written informed consent was obtained. Ultrasonographic evaluation of the right lower pleural space was carried out. An adequate pocket was identified. The patient was placed in the sitting, upright position. The overlying skin was prepped and draped in sterile fashion. 1% lidocaine was administered subcutaneously for local anesthesia. Under ultrasound guidance, a 5 Khmer thoracentesis needle/catheter system was advanced into the right posterior lower pleural fluid collection. Approximately 290 mL of manpreet-colored fluid was drained. The catheter was removed, and a sterile dressing was applied. A specimen was collected and sent to the laboratory for analysis, as requested by the referring clinician. The patient tolerated the procedure well. A chest x-ray was ordered. US/Thoracentesis W US IMPRESSION: Ultrasound-guided right thoracentesis. Electronically Signed: Igor Rajan, at 14:15 EDT , Service support ,
--- NOTE | 2018-05-23 13:21 | RAD_ITS ---
STUDY: X-RAY CHEST REASON FOR EXAM: Female, 83 years old. The patient is status post right thoracentesis. TECHNIQUE: AP frontal expiration and inspiration views were obtained. COMPARISON: Comparison is made with prior study dated January 07, 2018. FINDINGS: The patient is status post right thoracentesis. There is no evidence of pneumothorax. Moderate cardiomegaly. RAD/Chest Insp/Exp 2 View IMPRESSION: Status post right thoracentesis. There is no evidence of pneumothorax. Electronically Signed: Igor Rajan, at 13:44 EDT , Service support ,
[2018-05-23 13:49] LABS: Cytology, Body Fluid / CSF SEE PATHOLOGY REPORT
[2018-05-23 13:53] VITALS: BP 112/68; BP 128/53; PULSE 73; PULSE 80; RESP 16; O2SAT 95; O2SAT 97
== END ==
PROVIDERS: Family Provider Internal Medicine; PCP Internal Medicine; Referring Provider Internal Medicine Medical Oncology; Visit Provider Internal Medicine Medical Oncology
DX: J90 Pleural effusion, not elsewhere classified (principal)
CPT/HCPCS: 32555; 71046; 88108; 88305; 88313

== ENCOUNTER → 2018-05-26 12:47 | Outpatient (CLI) | payer MEDICARE, BC, SELFPAY ==
[2018-04-24 14:54] VITALS: BMI 33.3
[2018-05-19 10:43] VITALS: BMI 29.4
--- NOTE | 2018-05-26 12:49 | ECHOD_ITS ---
Reason For Study: Dyspnea/SOB Procedure This was a 2D Doppler, Color Flow transthoracic echocardiogram. Myocardial strain analysis was performed in this exam to aid in the assessment of cardiac function. Exam performed in department. Left Ventricle Normal LV size. The estimated ejection fraction is 40 %. No regional wall motion abnormalities noted. Right Ventricle Normal RV size. Normal systolic function. Atria The left atrium is mildly enlarged. The right atrium is mildly enlarged. Mitral Valve Bileaflet diffuse mitral valve thickening. Mild (1+) eccentric mitral valve insufficiency. Tricuspid Valve Normal tricuspid valve. Moderate (2+) tricuspid valve insufficiency. Pulmonary artery systolic pressure is 62 mmHg. Moderate pulmonary hypertension. Aortic Valve Normal aortic valve. Pulmonic Valve Normal pulmonic valve. Great Vessels Normal aortic root. The pulmonary artery is normal size. Normal inferior vena cava. Pericardium/Pleural No pericardial effusion. MMode/2D Measurements & Calculations LVIDd: 4.7 cm IVSd: 1.4 cm LVOT diam: 2.1 cm LVIDs: 3.5 cm LVPWd: 1.2 cm LVOT area: 3.5 cm2 RVDd: 4.6 cm FS: 26.3 % Ao root diam: 3.4 cm LAV(MOD-bp): 91.7 ml LVAd ap4: 24.0 cm2 LA dimension: 4.4 cm LAV(MOD-bp) Indexed: 49.4 ml/m2 EDV(MOD-sp4): 70.3 ml LAV(MOD-sp2): 80.2 ml EDV(sp4-el): 73.2 ml LAV(MOD-sp4): 98.6 ml LVAs ap4: 16.3 cm2 ESV(MOD-sp4): 37.4 ml ESV(sp4-el): 39.1 ml EF(MOD-sp4): 46.8 % EF(sp4-el): 46.5 % SV(MOD-sp4): 32.9 ml SV(sp4-el): 34.1 ml Aortic Valve Planimetry: 1.2 cm2 LA A4 area: 27.5 cm2 RA A4 area: 23.1 cm2 Time Measurements MV dec time: 0.21 sec Doppler Measurements & Calculations MV E max carlota: 122.9 cm/sec MV V2 max: 148.9 cm/sec MV P1/2t max carlota: 149.8 cm/sec MV A max carlota: 32.4 cm/sec MV max P.9 mmHg MV P1/2t: 84.9 msec MV E/A: 3.8 MV V2 mean: 68.8 cm/sec MV dec slope: 516.8 cm/sec2 MV mean P.6 mmHg MVA(P1/2t): 2.6 cm2 MV V2 VTI: 34.2 cm MVA(VTI): 2.1 cm2 Ao V2 max: 177.9 cm/sec LV V1 max: 104.0 cm/sec MR max carlota: 474.9 cm/sec Ao max P.7 mmHg LV V1 max P.3 mmHg MR max P.2 mmHg Ao V2 mean: 119.7 cm/sec LV V1 mean P.3 mmHg MR mean carlota: 369.9 cm/sec Ao mean P.5 mmHg LV V1 mean: 69.9 cm/sec MR mean P.6 mmHg Ao V2 VTI: 38.7 cm LV V1 VTI: 20.6 cm MR VTI: 164.5 cm MACHO(I,D): 1.9 cm2 MACHO(V,D): 2.1 cm2 SV(LVOT): 72.5 ml PA V2 max: 80.9 cm/sec PI dec slope: 258.7 cm/sec2 TR max carlota: 378.4 cm/sec TR max P.3 mmHg Interpretation Summary Normal LV size. The estimated ejection fraction is 40 %. Mild (1+) eccentric mitral valve insufficiency. Pulmonary artery systolic pressure is 62 mmHg. Moderate pulmonary hypertension. The global longitudinal strain is mildly abnormal. The global longitudinal strain = -14.1% (abnormal). Compared to prior study, there is no significant change. Ordering Physician: Hayes Menezes Referring Physician: Hayes Menezes Performed By: Arturo Jaime RCS
== END ==
PROVIDERS: Family Provider Internal Medicine; PCP Internal Medicine; Referring Provider Nurse Practitioner Family; Visit Provider Nurse Practitioner Family
DX: I50.42 Chronic combined systolic (congestive) and diastolic (congestive) heart failure (principal); R06.09 Other forms of dyspnea
CPT/HCPCS: 93306

== ENCOUNTER → 2018-06-05 13:28 | Outpatient (CLI) | payer MEDICARE, BC, SELFPAY ==
[2018-01-15 12:34] VITALS: BMI 32.4
[2018-03-19 15:00] LABS: CREATININE FINGERSTICK 1.3 mg/dL (0.55-1.02)
[2018-06-02 10:47] VITALS: BMI 29.9
--- NOTE | 2018-06-06 11:10 | PFT ---
INTRODUCTION: The patient is an 83-year-old female that presents for pulmonary function studies secondary to a diagnosis of shortness of breath. Respiratory therapy reports good patient effort. Bronchodilators were used during testing. INTERPRETATION: Forced expiration spirometry demonstrates no evidence of a large airways obstructive ventilatory defect. There was no significant response to aerosolized bronchodilators. Spirograms are of fair quality and plateau gradually. Body plethysmography was performed and reveals a decreased TLC to 2.3 L, 46% of predicted, indicative of a severe restrictive ventilatory defect. The remainder of the lung volumes are symmetrically reduced. Diffusing capacity by single breath CO is symmetrically reduced at 41% of predicted. When compared to previous pulmonary function studies dated 2015, there has been significant reductions in FEV1, TLC and DLCO. 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 There has been worsening in the patient's PFTs since 2014, as noted above.
== END ==
PROVIDERS: Family Provider Internal Medicine; PCP Internal Medicine; Referring Provider Nurse Practitioner Acute Care; Visit Provider Nurse Practitioner Acute Care
DX: R06.02 Shortness of breath (principal)
CPT/HCPCS: 94060; 94726; 94729

== ENCOUNTER → 2018-07-01 | Outpatient (CLI) | payer MEDICARE, BC, SELFPAY ==
[2018-06-19 11:08] VITALS: BMI 29.2
[2018-07-01 12:30] VITALS: PULSE 102; PULSE 82; PULSE 88; PULSE 93; PULSE 94; PULSE 99; O2SAT 94; O2SAT 95; O2SAT 96; O2SAT 98
--- NOTE | 2018-07-03 08:34 | PCM.PSN.6M ---
PSN 6 Minute Walk Test - 6 Minute Walk Test 6 Minute Walk Test: 6 Minute Walk Test PSN:6-Minute Walk Test Start: 07/01/18 13:02 Freq: Status: Active Protocol: RESP.6MINW Document 07/01/18 12:30 EW (Rec: 07/01/18 13:23 EW [id number]) 6 Minute Walk Test Date Performed 07/01/18 Time Performed 12:30 Height 5 ft 5 in Weight: 176 lb Weight in Pounds 176.[address]: Blas Del Toro Assistive device used: Walker Pre-test Oxygen Delivery Method Room Air Pulse Ox (%) 98 Pulse Rate (60-100 beats/min) 94 Dyspnea Kenzie Scale (0-10) 1 Exertion Kenzie Scale (6-20) 8 1st minute Oxygen Delivery Method Room Air Pulse Ox (%) 94 Pulse Rate (60-100 beats/min) 88 2nd minute Oxygen Delivery Method Room Air Pulse Ox (%) 94 Pulse Rate (60-100 beats/min) 88 Number of Rests Taken 1 3rd minute Oxygen Delivery Method Room Air Pulse Ox (%) 95 Pulse Rate (60-100 beats/min) 99 Number of Rests Taken 1 4th minute Oxygen Delivery Method Room Air Pulse Ox (%) 96 Pulse Rate (60-100 beats/min) 82 5th minute Oxygen Delivery Method Room Air Pulse Ox (%) 95 Pulse Rate (60-100 beats/min) 102 H 6th minute Oxygen Delivery Method Room Air Pulse Ox (%) 94 Pulse Rate (60-100 beats/min) 93 Post-test Oxygen Delivery Method Room Air Pulse Ox (%) 96 Pulse Rate (60-100 beats/min) 82 Dyspnea Kenzie Scale (0-10) 2 Exertion Kenzie Scale (6-20) 12 Full Laps Walked 7 Partial Lap, Number of Tiles Walked 0 Total Distance Walked (ft) 413 - Interpretation Interpretation: The patient ambulated 413 feet over the course of 6 minutes beginning on room air with the use of a walker. Pretesting oxygen saturation was noted to be 98% on room air. With ambulation, the kameron oxygen saturation was 92%. This represents a significant exertional oxygen desaturation. There was also evidence of impaired walk distance. - Recommendations Recommendations: There is no indication for the use of supplemental oxygen at this time. However, close interval follow-up is recommended, given the degree of oxygen desaturation noted during this study.
== END | disposition home or self-care (01) ==
LOC: SL 12:18
PROVIDERS: Family Provider Internal Medicine; PCP Internal Medicine; Referring Provider Internal Medicine Critical Care Medicine; Visit Provider Internal Medicine Critical Care Medicine
DX: J98.4 Other disorders of lung (principal); I27.20 Pulmonary hypertension, unspecified
CPT/HCPCS: 94618; 94762

== ENCOUNTER → 2018-10-06 | Outpatient (CLI) | payer MEDICARE, BC, SELFPAY ==
[2018-06-12 13:35] VITALS: BMI 29.4
[2018-09-17 13:56] VITALS: BMI 29.2
--- NOTE | 2018-10-06 14:39 | CT_ITS ---
STUDY: CT CHEST WITH CONTRAST REASON FOR EXAM: Female, 83 years old. Breast cancer. Follow-up. RADIATION DOSAGE (If Supplied By Facility): CTDIvol = ( 17.76 ) mGy, DLP = ( 492.41 ) mGycm TECHNIQUE: Transaxial imaging was performed following intravenous administration of 100 IV Isovue 300. Individualized dose optimization techniques were used for this CT. COMPARISON: Chest CT 05/21/2018 which showed a 9 mm nodule right middle lobe and right upper lobe consolidation. Also compared to PET scan 06/09/2018 which showed no suspicious FDG hyperactivity. FINDINGS: Bilateral mastectomies. Moderate bilateral pulmonary volumes. Diffuse interstitial prominence throughout both lungs, also present previously and most likely mild diffuse fibrosis although there may also be a component of mild congestion/interstitial edema. Stable focal irregular soft tissue density throughout much of the anterior segment of the right upper lobe. Given the lack of change and negative PET scan findings this is most likely scarring. Stable small to moderate right pleural effusion. Previously seen 9 mm nodule near the center of the right upper lobe is not currently seen. Again noted is moderate to marked cardiomegaly. Calcified plaque of the aorta without aneurysm. Dilated pulmonary arteries consistent with pulmonary arterial hypertension. Soft tissue density seen in or around the right hilum with some calcifications, stable probable scarring and old granulomas. Stable moderately large right paratracheal and precarinal lymph nodes. Limited views of the upper abdomen show no gross acute abnormality. Skeletal structures show degenerative changes and no focal or acute abnormalities. CT/Chest WITH Contrast IMPRESSION: No significant change. Note that given the history of breast cancer and rather extensive abnormalities primarily in the right lung as can is more accurate in determining whether there is active neoplasm or not. Current stability of findings suggests scarring in the right upper lobe and a stable right pleural effusion. Electronically Signed: Kobi Andrade MD at 0:02 EDT , Service support ,
[2018-10-06 14:51] LABS: CREATININE FINGERSTICK 0.8 mg/dL (0.55-1.02)
== END | disposition home or self-care (01) ==
LOC: CT 14:38
PROVIDERS: Family Provider Internal Medicine; PCP Internal Medicine; Referring Provider Internal Medicine Medical Oncology; Visit Provider Internal Medicine Medical Oncology
DX: R91.1 Solitary pulmonary nodule (principal)
CPT/HCPCS: 71260; Q9967

== ENCOUNTER → 2018-10-13 | Outpatient (CLI) | payer MEDICARE, BC, SELFPAY ==
[2018-09-17 13:56] VITALS: BMI 29.2
[2018-10-13 08:43] LABS: Absolute Lymphocyte Count 1.61 X10^3/uL (0.83-4.51); Absolute Neutrophil Count 5.5 X10^3/uL (2.0-7.7); Basophil# 0.04 X10^3/uL; Basophil% 0.5 % (0-1); Eosinophil# 0.03 X10^3/uL; Eosinophils% 0.4 % (0-5); Hematocrit 39.3 % (37-47); Hemoglobin 11.1 g/dL (12.0-15.0); Lymphocyte # 1.61 X10^3/ul (4.0); Lymphocyte % 20.8 % (19-41); Mean Corp Hgb Conc 28.2 g/dL (32-36); Mean Corpuscular Hgb 22.3 pg (27.0-32.0); Mean Corpuscular Volume 79.1 fL (81-99); Mean Platelet Vol. 9.2 fl (6.2-12.0); Monocyte# 0.51 X10^3/uL; Monocyte% 6.6 % (0-10); NRBC Flagged by Analyzer 0 % (0-5); Neutrophil # 5.49 X10^3/uL (2.7-7.7); Neutrophil % 71.1 % (47-70); POSITIVE MORPHOLOGY YES; Platelet Count 263 K/mm3 (150-450); RBC Distribution Width SD 58.6 fl (35.1-43.9); Red Blood Count 4.97 M/mm3 (4.2-5.4); White Blood Count 7.7 K/mm3 (4.4-11.0)
[2018-10-13 08:56] LABS: Differential Indicated SCAN CRITERIA MET
[2018-10-13 09:19] LABS: ALB/GLOB Ratio 0.8 RATIO (0.9-2.4); AST(SGOT) 12 U/L (15-37); Alanine Aminotransfer ALT/SGPT 16 U/L (13-56); Alkaline Phosphatase 95 U/L (45-117); Anion Gap 4 (5-15); BUN 17 mg/dL (7-18); BUN/Creat Ratio 21.8 RATIO (10-20); Chloride 102 mmol/L (98-107); Creatinine, Serum 0.78 mg/dL (0.55-1.02); EST Glomerular Filtration Rate 75 mL/min (>60); Est Glom Filt Rate - Afr Amer 91 mL/min (>60); Globulin 3.7 g/dL (2.2-4.2); Glucose 97 mg/dL (74-106); Potassium 3.8 mmol/L (3.5-5.1); Protein, Total 6.7 g/dL (6.4-8.2); Sodium Level 136 mmol/L (136-145)
[2018-10-13 09:21] LABS: AST(SGOT) 14 U/L (15-37); Alanine Aminotransfer ALT/SGPT 15 U/L (13-56); Alkaline Phosphatase 96 U/L (45-117); Bilirubin, Direct 0.14 mg/dL (0.00-0.30); Globulin 3.7 g/dL (2.2-4.2); Protein, Total 6.7 g/dL (6.4-8.2)
[2018-10-13 13:18] LABS: HIV - WCH Non-Reactive (Nonreactive); Hepatitis B Surface Antibody Non-Reactive; Hepatitis B Surface Antigen Non-Reactive (Nonreactive); Hepatitis C Antibody Non-Reactive (Nonreactive)
[2018-10-16 06:07] LABS: QNTFERON TB Mitogen Value > 10.00 IU/mL (.); QNTFERON TB Nil Value 0.04 IU/mL (.); QNTFERON TB1+ Ag Value 0.05 IU/mL (.); QNTFERON TB2+ Ag Value 0.04 IU/mL (.)
[2018-10-17 13:29] LABS: Hepatitis B Core Ab Total Negative (Negative); QNTIFERON TB Positive Criteria Negative (Negative)
== END | disposition home or self-care (01) ==
LOC: LAB 08:08
PROVIDERS: Internal Medicine Medical Oncology; Family Provider Internal Medicine; PCP Internal Medicine; Referring Provider Dermatology; Visit Provider Dermatology
DX: L40.0 Psoriasis vulgaris (principal); L29.8 Other pruritus; Z79.899 Other long term (current) drug therapy
CPT/HCPCS: 36415; 80053; 80076; 85025; 86480; 86703; 86704; 86706; 86803; 87340

== ENCOUNTER → 2018-11-07 12:23 | Outpatient (CLI) | payer MEDICARE, BC, SELFPAY ==
[2018-10-20 08:25] VITALS: BMI 29.6
[2018-11-07 12:30] VITALS: PULSE 127; PULSE 130; PULSE 55; PULSE 56; PULSE 87; PULSE 91; PULSE 93; O2SAT 91; O2SAT 92; O2SAT 95; O2SAT 96
--- NOTE | 2018-11-08 08:34 | PCM.PSN.6M ---
PSN 6 Minute Walk Test - 6 Minute Walk Test 6 Minute Walk Test: 6 Minute Walk Test PSN:6-Minute Walk Test Start: 11/07/18 12:44 Freq: Status: Active Protocol: RESP.6MINW Document 11/07/18 12:30 EW (Rec: 11/07/18 12:47 EW [id number]) 6 Minute Walk Test Date Performed 11/07/18 Time Performed 12:30 Height 5 ft 5 in Weight: 142 lb Weight in Pounds 142.[address]: Shayy Castaneda Assistive device used: Walker Pre-test Oxygen Delivery Method Room Air Pulse Ox (%) 96 Pulse Rate (60-100 beats/min) 56 L Dyspnea Kenzie Scale (0-10) 1 Exertion Kenzie Scale (6-20) 6 1st minute Oxygen Delivery Method Room Air Pulse Ox (%) 95 Pulse Rate (60-100 beats/min) 93 2nd minute Oxygen Delivery Method Room Air Pulse Ox (%) 96 Pulse Rate (60-100 beats/min) 130 H 3rd minute Oxygen Delivery Method Room Air Pulse Ox (%) 96 Pulse Rate (60-100 beats/min) 127 H 4th minute Oxygen Delivery Method Room Air Pulse Ox (%) 95 Pulse Rate (60-100 beats/min) 87 5th minute Oxygen Delivery Method Room Air Pulse Ox (%) 92 Pulse Rate (60-100 beats/min) 91 6th minute Oxygen Delivery Method Room Air Pulse Ox (%) 91 Pulse Rate (60-100 beats/min) 127 H Post-test Oxygen Delivery Method Room Air Pulse Ox (%) 96 Pulse Rate (60-100 beats/min) 55 L Dyspnea Kenzie Scale (0-10) 3 Exertion Kenzie Scale (6-20) 11 Full Laps Walked 9 Partial Lap, Number of Tiles Walked 0 Total Distance Walked (ft) 531 - Interpretation Interpretation: The patient ambulated 531 feet over the course of 6 minutes beginning on room air with the use of a walker. Pretesting oxygen saturation was noted to be 96% on room air. With ambulation, the kameron oxygen saturation was 91%. This testing indicates the presence of impaired walk distance along with significant exertional oxygen desaturation. - Recommendations Recommendations: There is no indication for the use of supplemental oxygen at this time. However, close interval follow-up was recommended, given the degree of oxygen desaturation noted during this study.
== END ==
PROVIDERS: Family Provider Internal Medicine; PCP Internal Medicine; Referring Provider Nurse Practitioner Acute Care; Visit Provider Nurse Practitioner Acute Care
DX: I27.20 Pulmonary hypertension, unspecified (principal)
CPT/HCPCS: 94618

== ENCOUNTER 2019-03-31 10:12 | Outpatient (RCR) | payer MEDICARE, BC, SELFPAY ==
[2019-03-23 14:51] VITALS: BMI 29.6
[2019-03-31 10:38] VITALS: BP 103/46; PULSE 91; RESP 18; TEMP 36.2; BMI 27.8
--- NOTE | 2019-03-31 11:39 | HP.PCM_ITS ---
(1) Dependent edema Status: Chronic Current Visit: Yes Code(s): R60.9 - Edema, unspecified (2) Leg swelling Status: Chronic Current Visit: Yes Code(s): M79.89 - Other specified soft tissue disorders (3) Edema of both legs Status: Chronic Current Visit: Yes Code(s): R60.0 - Localized edema (4) Tobacco abuse counseling Status: Chronic Current Visit: Yes Code(s): Z71.6 - Tobacco abuse counseling (5) History of pulmonary embolism Status: Chronic Current Visit: No Code(s): Z86.711 - Personal history of pulmonary embolism (6) History of DVT (deep vein thrombosis) Status: Chronic Current Visit: No Code(s): Z86.718 - Personal history of other venous thrombosis and embolism (7) Balance disorder Status: Chronic Current Visit: No Code(s): R26.89 - Other abnormalities of gait and mobility (8) Urinary incontinence Status: Chronic Current Visit: No Code(s): R32 - Unspecified urinary incontinence (9) Venous insufficiency Status: Chronic Current Visit: No Code(s): I87.2 - Venous insufficiency (chronic) (peripheral) (10) Persistent atrial fibrillation Status: Chronic Current Visit: No Code(s): I48.1 - Persistent atrial fibrillation (11) Chronic combined systolic and diastolic CHF (congestive heart failure) Status: Chronic Current Visit: No Code(s): I50.42 - Chronic combined systolic (congestive) and diastolic (congestive) heart failure (12) Cardiomyopathy in diseases classified elsewhere Status: Chronic Current Visit: No Code(s): I43 - Cardiomyopathy in diseases classified elsewhere (13) Secondary pulmonary arterial hypertension Status: Chronic Current Visit: No Code(s): I27.21 - Secondary pulmonary arterial hypertension (14) Non-rheumatic tricuspid valve insufficiency Status: Chronic Current Visit: No Code(s): I36.1 - Nonrheumatic tricuspid (valve) insufficiency (15) Essential (primary) hypertension Status: Chronic Current Visit: No Code(s): I10 - Essential (primary) hypertension (16) Hyperlipidemia Status: Chronic Current Visit: No Qualifiers: Code(s): E78.5 - Hyperlipidemia, unspecified (17) Tobacco abuse Status: Chronic Current Visit: No Code(s): Z72.0 - Tobacco use (18) History of breast cancer Status: Chronic Current Visit: No Code(s): Z85.3 - Personal history of malignant neoplasm of breast (19) History of non-Hodgkin's lymphoma Status: Chronic Current Visit: No Code(s): Z85.72 - Personal history of non- Hodgkin lymphomas (20) Restrictive lung disease Status: Chronic Current Visit: No Code(s): J98.4 - Other disorders of lung (21) Physical debility Status: Chronic Current Visit: No Code(s): R53.81 - Other malaise (22) Non-pressure ulcer of lower extremity Status: Chronic Current Visit: Yes Code(s): L97.909 - Non-pressure chronic ulcer of unspecified part of unspecified lower leg with unspecified severity (23) Venous ulcer of leg Status: Chronic Current Visit: Yes Code(s): I83.009 - Varicose veins of unspecified lower extremity with ulcer of unspecified site; L97.909 - Non- pressure chronic ulcer of unspecified part of unspecified lower leg with unspecified severity (24) Psoriasis Status: Chronic Current Visit: Yes Code(s): L40.9 - Psoriasis, unspecified History of Present Illness Date of Service: 03/31/19 Chief Complaint: Swelling and edema of the lower extremities with associated ulcerations History of Wound: This is an 84-year-old female with multiple medical problems, as detailed below. The patient has a history of swelling and edema in her lower extremities bilaterally. She has previously been treated at our facility for such swelling and edema. Conservative treatment measures were implemented, with some degree of success. These measures included leg elevation, avoidance of idle standing and sitting, active lifestyle, the use of graduated compression stockings, etc. However, it appears as though the patient has become less c ompliant with the previously recommended measures, and is leading a relatively idle lifestyle, sitting for long periods each day. She claims to sleep on a flat mattress at night. She indicates that the swelling and edema are virtually nil upon awakening each morning. The swelling and edema are most notable at the end of each day. Within the last 2 months, she has developed some ulcerations on her lower extremities. These are located on the right anterior tibial surface and on the left lateral calf. A wound on the left knee is said to be traumatic. Patient has a history of pulmonary embolism and deep vein thrombosis, and is currently on systemic anticoagulation therapy with Eliquis. She does have a history of congestive heart failure, and is treated with a diuretic. Past Medical History Past Medical History: Chronic Problems (Last Reviewed 11/24/18 @ 13:01 by Shayy Castaneda NP-C) Dependent edema (Chronic) Leg swelling (Chronic) Edema of both legs (Chronic) Tobacco abuse counseling (Chronic) History of pulmonary embolism (Chronic) History of DVT (deep vein thrombosis) (Chronic) Balance disorder (Chronic) Urinary incontinence (Chronic) Non-pressure ulcer of lower extremity (Chronic) Venous ulcer of leg (Chronic) Psoriasis (Chronic) Venous insufficiency (Chronic) Persistent atrial fibrillation (Chronic) Chronic combined systolic and diastolic CHF (congestive heart failure) (Chronic) Cardiomyopathy in diseases classified elsewhere (Chronic) Secondary pulmonary arterial hypertension (Chronic) Non-rheumatic tricuspid valve insufficiency (Chronic) Essential (primary) hypertension (Chronic) Hyperlipidemia (Chronic) Lung nodule (Chronic) Tobacco abuse (Chronic) Pulmonary embolism (Chronic) History of breast cancer (Chronic) History of non-Hodgkin's lymphoma (Chronic) Pleural effusion (Chronic) Restrictive lung disease (Chronic) Physical debility (Chronic) Past Medical History: The patient's history is negative for diabetes mellitus, cerebrovascular accident, and thyroid disease. Surgical History: mastectomy, - - Patient has previously undergone hysterectomy, and left breast mastectomy in 2011. Allergies/Adverse Reactions: Allergies amoxicillin Adverse Reaction (Severe, Verified 03/31/19 11:09) Nausea/Vom/Diarrhea Penicillins [PCN] Adverse Reaction (Severe, Verified 03/31/19 11:09) Unknown CAN NOT FUNCTION tape Allergy (Severe, Uncoded 11/24/18 12:41) bruising Home Medications: Ambulatory Orders Medication Instructions Recorded Pramipexole Di-HCl [Mirapex] 0.25 mg PO QHS 12/27/17 apixaban 5 mg tablet 5 mg PO BID #180 tab 01/22/18 allopurinol 300 mg tablet 300 mg PO DAILY #90 tab 10/08/18 levothyroxine 50 mcg tablet 50 mcg PO DAILY #90 tab 10/08/18 Tremfya 100 mg 10/16/18 Mastectomy Bra #2 ea 10/20/18 metoprolol tartrate 100 mg tablet 100 mg PO BID #180 tab 12/17/18 pravastatin 40 mg tablet 40 mg PO DAILY #90 tab 12/17/18 diltiazem HCl 120 mg 120 mg PO DAILY #90 cap 01/07/19 capsule,extended release 24 hr furosemide 40 mg tablet 20 mg PO DAILY tab 03/23/19 Apremilast [Otezla] 30 mg PO BID 03/31/19 Duloxetine HCl 30 mg PO DAILY 03/31/19 Gabapentin [Neurontin] 100 mg PO BID 03/31/19 - Family History Paternal Family History: Family History (Last Reviewed 11/24/18 @ 13:01 by Shayy Castaneda NP-C) Mother Breast cancer Hypertension Father Lung cancer Alcoholism Brother Asthma Alcoholism Cancer Depression Heart disease Hypertension Liver disease Sister Alcoholism Cancer Heart disease Hypertension Thyroid disorder - - Patient's father at the age of 75 from lung cancer. Patient's mother at the age of 55 from metastatic breast cancer. Social History: Patient lives with her daughter. She is retired from [employer]. Lives: With Family Smoking Status: Current every day smoker - She claims to smoke 1 cigarette/day Tobacco Use: Cigarettes Alcohol: None Drugs: None Review of Systems Constitutional: Denies: Chills, Fever, Weight Change Eyes: Denies: Pain, Vision Change HEENT: Denies: Difficulty Hearing, Difficulty Swallowing, Sinus Congestion Cardiovascular: Denies: Chest Pain, Palpitations Respiratory: Denies: Cough, Shortness of Breath Gastrointestinal: Denies: Diarrhea, Nausea, Vomiting Genitourinary: Denies: Dysuria, Hematuria Endocrine: Denies: Heat/ Cold Intolerance, Polydipsia, Polyuria Hematologic/ Lymphatic: Denies: Easy Bruising, Easy Bleeding - Physical Exam Vital Signs Temp Pulse Resp BP 97.2 F L 91 18 103/46 L 03/31/19 10:38 03/31/19 10:38 03/31/19 10:38 03/31/19 10:38 General: Alert, Oriented x3, Cooperative, No apparent distress, Well developed, Well nourished HEENT: Atraumatic, PERRLA, EOMI, Normocephalic Oral: Moist Mucosa Neck: Supple, No JVD, Negative Carotid Bruits, Negative Hepatojugular Reflux, No Nodes, No Nuchal Rigidity, Trachea Midline Lungs: Clear to auscultation, Normal air movement, No rhonchi, No wheeze, No rales Cardiovascular: Regular rate, Normal S1, Normal S2, No murmurs Abdomen: Soft, Non Tender, Non-Distended Extremities: No clubbing, No cyanosis, No Calf Tenderness, - - Bilateral lower extremity swelling and edema is noted. There are ulcerations noted on the left knee, said to be traumatic in origin. There is also an ulceration on the left lateral calf, and on the right anterior tibial surface. The ulcerations demonstrate a mild amount of bioburden and nonviable tissue. There is no obvious sign of infection or cellulitis. Dimensions are documented elsewhere. Skin: No rashes Wound Measurements and Assessment WC - Nurse 1 - General Ulcer Measurement Start: 03/31/19 10:35 Freq: Status: Active Protocol: Activity Type Activity Date Activity User E-Sign Co-Sign Detail Recorded Client Recorded Date Recorded By Document 03/31/19 10:38 [facility] [id number] 03/31/19 11:02 [facility] 03/31/19 10:38 Wound Center Nurse 1 [Ulcer Assessment] #3- L KNEE -Combined with other wound No -Current Size (cm) - Length 1.2 -Current Size (cm) - Width 1.2 -Current Size (cm) - Depth 0.1 -Total Square Cm 1.44 -Date of Last Picture (Recall this 03/31/19 field) -Photo Taken Yes -Epithelialization None Present -Tunneling No -Undermining/Tunneling No -Circular Undermining No -Exudate Amt None Present -Wound Margin Distinct, Outline Attached -Granulation Amt None Present (0 %) -Slough/Fibrin Yes -Necrosis Amt Large (67-100%) -Necrotic Tissue Type Eschar -Texture (Emg-wound Skin Appearance) Assessed -Moisture (Meg-wound Skin Appearance Assessed,Dry/ ) Scaly -Color (Meg-wound Skin Appearance) Assessed -Temperature (Meg-wound Skin No Abnormality Appearance) (Pt Warm) -Tenderness on Palpation (Meg-wound No Skin Appearance) -Ulcer Cleansing Rinsed/ Irrigated with Saline -Foul Odor after Cleansing No -Anesthetic Used 5% Lidocaine Gel #2- L LAT LE -Combined with other wound No -Current Size (cm) - Length 1.3 -Current Size (cm) - Width 1.9 -Current Size (cm) - Depth 0.1 -Total Square Cm 2.47 -Date of Last Picture (Recall this 03/31/19 field) -Photo Taken Yes -Epithelialization None Present -Tunneling No -Undermining/Tunneling No -Circular Undermining No -Exudate Amt Small -Exudate Type Serosanguineous -Wound Margin Distinct, Outline Attached -Granulation Amt Small (1-33%) -Granulation Quality Red -Slough/Fibrin Yes -Necrosis Amt Medium (34-66%) -Necrotic Tissue Type Adherent Slough -Texture (Meg-wound Skin Appearance) Assessed -Moisture (Meg-wound Skin Appearance Assessed ) -Color (Meg-wound Skin Appearance) Assessed, Erythema -Temperature (Meg-wound Skin No Abnormality Appearance) (Pt Warm) -Tenderness on Palpation (Meg-wound Yes Skin Appearance) -Ulcer Cleansing Rinsed/ Irrigated with Saline -Foul Odor after Cleansing No -Anesthetic Used 5% Lidocaine Gel #1- R PARIKH CLUSTER -Combined with other wound No -Current Size (cm) - Length 1.9 -Current Size (cm) - Width 2.3 -Current Size (cm) - Depth 0.2 -Total Square Cm 4.37 -Date of Last Picture (Recall this 03/31/19 field) -Photo Taken Yes -Epithelialization None Present -Tunneling No -Undermining/Tunneling No -Circular Undermining No -Exudate Amt Small -Exudate Type Serosanguineous -Wound Margin Distinct, Outline Attached -Granulation Amt Small (1-33%) -Granulation Quality Red -Slough/Fibrin Yes -Necrosis Amt Large (67-100%) -Necrotic Tissue Type Adherent Slough -Texture (Meg-wound Skin Appearance) Assessed, Scarring -Moisture (Meg-wound Skin Appearance Assessed, ) Weeping -Color (Meg-wound Skin Appearance) Assessed, Erythema -Temperature (Meg-wound Skin No Abnormality Appearance) (Pt Warm) -Tenderness on Palpation (Meg-wound No Skin Appearance) -Ulcer Cleansing Rinsed/ Irrigated with Saline -Foul Odor after Cleansing No -Anesthetic Used 5% Lidocaine Gel [Edema Assessment] -Lower Limb Edema Present Yes -Right Calf (cm) 38.5 -Right Ankle (cm) 27.8 -Left Calf (cm) 39.1 -Left Ankle (cm) 27.9 WC - Nurse 2 - General Ulcer CM Notes Start: 03/31/19 10:35 Freq: Status: Active Protocol: Activity Type Activity Date Activity User E-Sign Co-Sign Detail Recorded Client Recorded Date Recorded By Document 03/31/19 11:20 DV [id number] 03/31/19 11:28 DV 03/31/19 11:20 Wound Center Nurse 2 [Procedure/Treatment] #3- L KNEE -Time 11:25 -Correct Patient Yes -Correct Side, Site, Position Yes -Correct Procedure Yes -Procedure Performed Yes -Type of Procedure Debridement -Clinical Debridement Subcutaneous -Post Debridement Size (cm) - Length 1.3 -Post Debridement Size (cm) - Width 1.3 -Post Debridement Size (cm) - Depth 0.1 -Total Square Cm 1.69 -Wound/Ulcer Outcome Not Healed -Ulcer Cleansing Rinsed/ Irrigated with Saline -Foul Odor after Cleansing No -Bioengineered Tissue No -Bleeding Controlled with Pressure -Offloading No -Treatment Response Procedure Tolerated Well #2- L LAT LE -Time 11:26 -Correct Patient Yes -Correct Side, Site, Position Yes -Correct Procedure Yes -Procedure Performed Yes -Type of Procedure Debridement -Clinical Debridement Subcutaneous -Post Debridement Size (cm) - Length 1.5 -Post Debridement Size (cm) - Width 2.0 -Post Debridement Size (cm) - Depth 0.1 -Total Square Cm 3.00 -Wound/Ulcer Outcome Not Healed -Ulcer Cleansing Rinsed/ Irrigated with Saline -Foul Odor after Cleansing No -Bioengineered Tissue No -Bleeding Controlled with Pressure -Offloading No -Treatment Response Procedure Tolerated Well #1- R PARIKH CLUSTER -Time 11:26 -Correct Patient Yes -Correct Side, Site, Position Yes -Correct Procedure Yes -Procedure Performed Yes -Type of Procedure Debridement -Clinical Debridement Subcutaneous -Post Debridement Size (cm) - Length 2.0 -Post Debridement Size (cm) - Width 2.5 -Post Debridement Size (cm) - Depth 0.2 -Total Square Cm 5.00 -Wound/Ulcer Outcome Not Healed -Ulcer Cleansing Rinsed/ Irrigated with Saline -Foul Odor after Cleansing No -Bioengineered Tissue No -Bleeding Controlled with Pressure -Offloading No -Treatment Response Procedure Tolerated Well [See Physician Procedure note for Specifics] Pain Scale: 0-10 Numeric [Pain] -Is Patient Pain Free? Yes Neurological: Cranial nerves II-XII grossly intact, Neuro grossly intact Psych/Mental Status: Normal Affect, Appropriate, Alert and oriented to time, place, person, mood and affect Debridement Note Post-Debridement Measurements/Treatment WC - Nurse 2 - General Ulcer CM Notes Start: 03/31/19 10:35 Freq: Status: Active Protocol: Activity Type Activity Date Activity User E-Sign Co-Sign Detail Recorded Client Recorded Date Recorded By Document 03/31/19 11:20 DV [id number] 03/31/19 11:28 DV 03/31/19 11:20 Wound Center Nurse 2 #3- L KNEE -Time 11:25 -Correct Patient Yes -Correct Side, Site, Position Yes -Correct Procedure Yes -Procedure Performed Yes -Type of Procedure Debridement -Clinical Debridement Subcutaneous -Post Debridement Size (cm) - Length 1.3 -Post Debridement Size (cm) - Width 1.3 -Post Debridement Size (cm) - Depth 0.1 -Total Square Cm 1.69 -Wound/Ulcer Outcome Not Healed -Ulcer Cleansing Rinsed/ Irrigated with Saline -Foul Odor after Cleansing No -Bioengineered Tissue No -Bleeding Controlled with Pressure -Offloading No -Treatment Response Procedure Tolerated Well #2- L LAT LE -Time 11:26 -Correct Patient Yes -Correct Side, Site, Position Yes -Correct Procedure Yes -Procedure Performed Yes -Type of Procedure Debridement -Clinical Debridement Subcutaneous -Post Debridement Size (cm) - Length 1.5 -Post Debridement Size (cm) - Width 2.0 -Post Debridement Size (cm) - Depth 0.1 -Total Square Cm 3.00 -Wound/Ulcer Outcome Not Healed -Ulcer Cleansing Rinsed/ Irrigated with Saline -Foul Odor after Cleansing No -Bioengineered Tissue No -Bleeding Controlled with Pressure -Offloading No -Treatment Response Procedure Tolerated Well #1- R PARIKH CLUSTER -Time 11:26 -Correct Patient Yes -Correct Side, Site, Position Yes -Correct Procedure Yes -Procedure Performed Yes -Type of Procedure Debridement -Clinical Debridement Subcutaneous -Post Debridement Size (cm) - Length 2.0 -Post Debridement Size (cm) - Width 2.5 -Post Debridement Size (cm) - Depth 0.2 -Total Square Cm 5.00 -Wound/Ulcer Outcome Not Healed -Ulcer Cleansing Rinsed/ Irrigated with Saline -Foul Odor after Cleansing No -Bioengineered Tissue No -Bleeding Controlled with Pressure -Offloading No -Treatment Response Procedure Tolerated Well Pain Scale: 0-10 Numeric Is Patient Pain Free? Yes Laterality: Right - Anterior tibial surface Type of Debridement: Excisional debridement Anesthesia Used: 5% Lidocaine Gel Depth: Down to and including healthy tissue, in the subcutaneous layer Percentage of wound debrided: 100 Instrument Used: 5mm curette Tissue Removed: Bioburden and nonviable tissue Severity: Fat Layer Exposed Amount of bleeding with debridement: Mild Bleeding Controlled with: Compression and gauze Patient tolerated procedure well - Additional Wound Laterality: Left - Lateral calf Type of Debridement: Excisional debridement Anesthesia Used: 5% Lidocaine Gel Depth: Down to and including healthy tissue, in the subcutaneous layer Percentage of wound debrided: 100 Instrument Used: 5mm curette Tissue Removed: Bioburden and nonviable tissue Severity: Fat Layer Exposed Amount of bleeding with debridement: Mild Bleeding Controlled with: Compression and gauze Patient tolerated procedure: Patient tolerated procedure well - Additional Wound Laterality: Left - Knee Type of Debridement: Excisional debridement Anesthesia Used: 5% Lidocaine Gel Depth: Down to and including healthy tissue, in the subcutaneous layer Percentage of wound debrided: 100 Instrument Used: 5mm curette Tissue Removed: Bioburden and nonviable tissue Severity: Fat Layer Exposed Amount of bleeding with debridement: Mild Bleeding Controlled with: Compression and gauze Patient tolerated procedure: Patient tolerated procedure well Assessment/Plan Active Problems (Last Reviewed 11/24/18 @ 13:01 by SHELLEY Molina) Dependent edema (Chronic) Leg swelling (Chronic) Edema of both legs (Chronic) Tobacco abuse counseling (Chronic) Non-pressure ulcer of lower extremity (Chronic) Venous ulcer of leg (Chronic) Psoriasis (Chronic) Assessment: This is an 84-year-old female who presents with swelling and edema in both lower extremities, associated with ulcerations. It appears as though the swelling and edema is largely due to lifestyle issues. She is relatively inactive, and sits for long periods each day. She claims to sleep on a flat mattress at night. She expresses very little swelling in the mornings, with significant swelling noted near bedtime each evening. She has a long history of swelling and edema in her lower extremities, and has been previously treated at our facility for these symptoms. It appears as though she has been relatively noncompliant with these recommended measures. As result, the swelling and edema has become more severe, and associated with ulcerations. The patient's other medical problems are documented above. Plan: The patient has been advised to elevate her lower extremities much as possible. She is to continue sleeping on a flat mattress at night. Leg elevation has been advised to heart level, or higher. Leg elevation is to be accomplished as much as possible. Activity is also been encouraged. Prolonged, idle sitting has been discouraged. Weight loss has also been recommended. We are to initiate compression by means of Tariq wraps to the lower extremities bilaterally. This will provide mild compression initially. Once the patient has been more fully evaluated, it is likely that we will enhance the degree of compression. In the interim, the patient is to undergo laboratory studies, including a CBC, comprehensive metabolic profile, and a serum prealbumin. We are to obtain a venous duplex examination and a noninvasive lower extremity arterial study. Patient is to return in 1 week for reassessment. Her wounds are to be treated with Elayne, which will be applied topically on a daily basis. The patient and her daughter have been instructed in the appropriate means of wound care. Influenza vaccine was not administered today. The patient is a smoker, and has been advised to quit. Counseling has been provided. Patient weighs 167 pounds. She stands 5 feet 5 inches tall. Her BMI is 27.8, which places her in an overweight category. Weight optimization has been recommended.
[2019-03-31 15:07] LABS: Hematocrit 37.4 % (37-47); Hemoglobin 9.4 g/dL (12.0-15.0); Mean Corp Hgb Conc 25.1 g/dL (32-36); Mean Corpuscular Hgb 19.8 pg (27.0-32.0); Mean Corpuscular Volume 78.9 fL (81-99); Mean Platelet Vol. 9.8 fl (6.2-12.0); POSITIVE MORPHOLOGY YES; Platelet Count 225 K/mm3 (150-450); RBC Distribution Width CV 21.8 % (11.6-14.6); Red Blood Count 4.74 M/mm3 (4.2-5.4); White Blood Count 6.7 K/mm3 (4.4-11.0)
[2019-03-31 15:23] LABS: Scan Indicated on CBC? Y/N YES- FLAGS NOTED
[2019-03-31 15:40] LABS: Differential Comment SCANNED
[2019-03-31 16:35] LABS: Anion Gap 3 (5-15); BUN 25 mg/dL (7-18); BUN/Creat Ratio 21.6 RATIO (10-20); Calcium,Total 9.2 mg/dL (8.5-10.1); Chloride 106 mmol/L (98-107); Creatinine, Serum 1.16 mg/dL (0.55-1.02); EST Glomerular Filtration Rate 47 mL/min (>60); Est Glom Filt Rate - Afr Amer 57 mL/min (>60); Estimated Creatinine Clearance 33.07 ml/min; Glucose 64 mg/dL (74-106); Potassium 3.2 mmol/L (3.5-5.1); Prealbumin 11.7 mg/dL (20.0-40.0); Sodium Level 146 mmol/L (136-145)
--- NOTE | 2019-04-09 08:38 | WC ---
This nurse has attempted several times to contact [facility] in regards to the patient's insurance card. It was said via phone msg that they received a prescription card and not an insurance card. This nurse was unable to physically speak to anyone about this matter so the patient's demographic was sent along with the requested insurance card.
== END 2019-04-25 23:59 ==
LOC: WC 10:12
PROVIDERS: PCP Internal Medicine; Referring Provider Surgery; Visit Provider Surgery
DX: I83.018 Varicose veins of right lower extremity with ulcer other part of lower leg (principal); L97.812 Non-pressure chronic ulcer of other part of right lower leg with fat layer exposed; I83.022 Varicose veins of left lower extremity with ulcer of calf; L97.222 Non-pressure chronic ulcer of left calf with fat layer exposed; L97.822 Non-pressure chronic ulcer of other part of left lower leg with fat layer exposed; I11.0 Hypertensive heart disease with heart failure; I50.42 Chronic combined systolic (congestive) and diastolic (congestive) heart failure; I42.9 Cardiomyopathy, unspecified; M79.89 Other specified soft tissue disorders; I27.21 Secondary pulmonary arterial hypertension; E78.5 Hyperlipidemia, unspecified; L40.9 Psoriasis, unspecified; F17.210 Nicotine dependence, cigarettes, uncomplicated; I48.19 Other persistent atrial fibrillation; R60.0 Localized edema; Z86.711 Personal history of pulmonary embolism; Z86.718 Personal history of other venous thrombosis and embolism; Z85.3 Personal history of malignant neoplasm of breast; Z85.72 Personal history of non-Hodgkin lymphomas; Z79.899 Other long term (current) drug therapy
CPT/HCPCS: 11042; 80048; 84134; 85027; 99213; G0463

== ENCOUNTER 2019-05-05 09:03 | Outpatient (RCR) | payer MEDICARE, BC, SELFPAY ==
[2019-04-26 01:00] VITALS: BP 103/46; PULSE 91; RESP 18; TEMP 36.2
== END 2019-05-26 23:59 ==
LOC: WC 09:03
PROVIDERS: PCP Internal Medicine; Referring Provider Surgery; Visit Provider Surgery
DX: Z09 Encounter for follow-up examination after completed treatment for conditions other than malignant neoplasm (principal)

== ENCOUNTER 2019-05-15 13:49 | Inpatient (IN) | payer MEDICARE, BC, SELFPAY ==
[2019-05-15] VITALS (9 sets, daily range): BP systolic 88–105; BP diastolic 46–78; PULSE 69–91; RESP 16–21; TEMP 36.1–36.8; O2SAT 88–98; BMI 29.9
--- NOTE | 2019-05-15 14:03 | EKG12_ITS ---
Test Reason : Blood Pressure : / mmHG Vent. 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
--- NOTE | 2019-05-15 14:07 | ED.DCSUM_ITS ---
History of Present Illness Chief Complaint: Lower Extremity Injury Narrative: 84-year-old female presents with left hip pain. She has multiple medical problems, several forms of malignancy, chronic respiratory issues, and cardiac issues. She has been generally weak and falling frequently for the past several weeks. She has landed on her left hip twice and has been unable to bear weight or get out of bed. This morning she was exhibiting shortness of breath and finally agreed to come in to be evaluated. She is not on home oxygen. She has not been coughing. No obvious fevers by her report. She denies recent sick contacts. Onset has been gradual. Severity is moderate. She would like to be a full code. Daughter is at the bedside also providing history. Past Medical History - Allergies and Home Meds Allergies/Adverse Reactions: Allergies amoxicillin Adverse Reaction (Severe, Verified 03/31/19 11:09) Nausea/Vom/Diarrhea Penicillins [PCN] Adverse Reaction (Severe, Verified 03/31/19 11:09) Unknown CAN NOT FUNCTION tape Allergy (Severe, Uncoded 11/24/18 12:41) bruising Primary Care Physician: Danie Sparks MD [Primary Care Provider] - Surgical History: mastectomy, - - Patient has previously undergone hysterectomy, and left breast mastectomy in 2011. Lives: With Family Smoking Status: Former smoker - Family History Paternal Family History: Family History (Last Reviewed 11/24/18 @ 13:01 by Shayy Castaneda NP-C) Mother Breast cancer Hypertension Father Lung cancer Alcoholism Brother Asthma Alcoholism Cancer Depression Heart disease Hypertension Liver disease Sister Alcoholism Cancer Heart disease Hypertension Thyroid disorder Family History: Reports: - - Patient's father at the age of 75 from lung cancer. Patient's mother at the age of 55 from metastatic breast cancer. Review of Systems General: Reports: Malaise. Denies: Chills, Fever, Sweats Eyes: Denies: Visual changes - bilaterally, Diplopia ENT: Denies: Rhinorrhea, Sore throat Cardiovascular: Denies: Chest pain, Palpitations Respiratory: Reports: Dyspnea, Dyspnea on exertion, Orthopnea. Denies: Cough Gastrointestinal: Denies: Abdominal pain, Nausea, Vomiting, Diarrhea, Melena, Hematochezia Genitourinary: Denies: Dysuria, Hematuria, Frequency Musculoskeletal: Reports: Extremity Pain. Denies: Back pain Skin: Reports: Rash, Abrasions, Wounds Neurological: Reports: Weakness. Denies: Headache, Numbness Psych: Reports: Anxiety Hematologic: Reports: Easy bruising Physical Exam Vital Signs/Narrative: Vital Signs Temp Pulse Resp BP Pulse Ox 05/15/19 13:50 97.5 F L 90 16 89/57 L 98 General: Acute Distress Head: Atraumatic Eyes: Perrl, EOMI ENT: No rhinorrhea, Dry mucous membranes Neck: Supple, Nontender Cardiovascular: Regular rhythm, No murmurs, Tachycardia Respiratory: No distress, Chest nontender Abdomen: Soft, Nontender, Nondistended, Normal bowel sounds Back: Nontender, Normal Inspection Extremities: Edema, - - Tenderness left hip laterally. Skin: Normal color, - - Multiple abrasions and weeping of her skin on her legs mild erythema right upper extremity. Neurological: Alert, Oriented x3, Cranial nerves II-XII grossly intact, Normal Strength, Normal Sensation Psychological: Normal affect, Normal Mood Diagnostic/Tx/Re-eval Chest X-Ray - ED: 1 View, CHF - Rhythm Strip Rhythm Strip: Sinus Rhythm Rate: 92 Ectopy: None - Medical Decision Making Chest x-ray reveals evidence of pulmonary edema. Beta natruretic peptide is elevated and she has extensive edema in both lower extremities. She was given a small fluid bolus and her blood pressure did improve. She does not have a significant leukocytosis and her lactic acid is not significantly elevated. No obvious infiltrate on her x-ray. Urinalysis is still pending. I did not provide the full 30 cc/kg fluid bolus because of her CHF. She does have chronic wounds on her extremities, her right upper extremity is somewhat erythematous but I am not convinced this is cellulitis. She was covered with broad-spectrum antibiotics however because she does have hypotension and certainly she is at risk for infection. She has multiple comorbidities and questionable evidence of metastatic cancer seen on her pelvic plain. No obvious evidence of hip fracture. I spoke at length with the patient and her daughter. She wants to be full code. She states I want everything done to save me but she states that if she has to be on a ventilator for several weeks, she would want to be wi thdrawn. I discussed the case with the hospitalist and she will be admitted to ICU. - Critical Care Time Critical care time (excluding procedures): 30-74 minutes, Discussing w/Patient &/or Family/Mental Health Associate, Discussing w/Consultants, Arranging Admission or Transfer, Performing Direct Patient Care at Bedside ED Disposition - Plan for ED Patient: Disposition: Acute Care Hospital [facility] Diagnosis: CHF exacerbation, Metastatic cancer Referrals: Danie Sparks MD [Primary Care Provider] -
[2019-05-15 14:45] LABS: Absolute Lymphocyte Count 1.88 X10^3/uL (0.83-4.51); Absolute Neutrophil Count 9.1 X10^3/uL (2.0-7.7); Basophil# 0.03 X10^3/uL; Basophil% 0.3 % (0-1); Eosinophil# 0.04 X10^3/uL; Eosinophils% 0.3 % (0-5); Hematocrit 38.7 % (37-47); Hemoglobin 9.5 g/dL (12.0-15.0); Lymphocyte # 1.88 X10^3/ul (4.0); Lymphocyte % 16.2 % (19-41); Mean Corp Hgb Conc 24.5 g/dL (32-36); Mean Corpuscular Hgb 20.5 pg (27.0-32.0); Mean Corpuscular Volume 83.4 fL (81-99); Mean Platelet Vol. 9.8 fl (6.2-12.0); Monocyte% 4.3 % (0-10); NRBC Flagged by Analyzer 1.3 % (0-5); Neutrophil # 9.06 X10^3/uL (2.7-7.7); POSITIVE MORPHOLOGY YES; Platelet Count 162 K/mm3 (150-450); RBC Distribution Width CV 23.9 % (11.6-14.6); RBC Distribution Width SD 70.5 fl (35.1-43.9); Red Blood Count 4.64 M/mm3 (4.2-5.4); White Blood Count 11.6 K/mm3 (4.4-11.0)
[2019-05-15 14:51] LABS: Allen Test POS; Base Excess 7 mmol/L (-2 to +2); Bicarbonate 31.8 mmol/L (22-26); Blood Gas Specimen Type ART; O2 Delivery Device Nasal Can; PO2 96 mmHG (75-100); SITE L Radial; SO2 97 % (95-99); Time Given 1446; Total Carbon Dioxide 33 mmol/L; pCO2 53.5 mmHg (35-45); pH 7.38 (7.35-7.45)
[2019-05-15 14:57] LABS: Differential Indicated SCAN CRITERIA MET
--- NOTE | 2019-05-15 14:57 | RAD_ITS ---
STUDY: X-RAY CHEST REASON FOR EXAM: Female, 84 years old. SOB, HX OF CHF -- PT FELL 2 WEEKS AGO WITH HIP PAIN TECHNIQUE: Single AP portable view of the chest. COMPARISON: Comparison with prior examination dated May 23, 2018. FINDINGS: EKG electrodes are seen. Large right pleural effusion with right basilar atelectasis. CHF. Normal size heart. Normal mediastinum and tobias. Normal visualized pulmonary arteries. There is atherosclerotic calcification of the aortic arch with tortuosity. There are diffuse degenerative changes of the visualized thoracic spine. Normal visualized ribs, clavicles, and shoulders. There is no demonstrated abnormality of the visualized soft tissue structures of the upper abdomen. RAD/Chest 1 View (Portable) IMPRESSION: Large right pleural effusion with superimposed CHF. Electronically Signed: Igor Rajan, at 15:14 EDT , Service support ,
--- NOTE | 2019-05-15 14:57 | RAD_ITS ---
STUDY: X-RAY - PELVIS AND LEFT HIP REASON FOR EXAM: Female, 84 years old. FALL 2 WEEKS AGO, STILL HAVING PAIN TECHNIQUE: views of the pelvis and hip. COMPARISON: None. FINDINGS: There is a non-specific bowel gas pattern. There are atherosclerotic vascular calcifications of the pelvic arteries. There is narrowing with cortical sclerosis and osteophyte formation of the sacroiliac joint consistent with degenerative osteoarthritic changes. Treatment 3 cm x 1.9 cm sclerotic lesion in the superior aspect of the right iliac bone as well as a pneumomediastinum by 1.7 cm sclerotic lesion. The prior study. Normal bilateral superior and inferior pubic rami. Normal pubic symphysis. Normal bilateral ischial tuberosities. Normal visualized femoral head. Normal acetabulum. There is moderate articular joint space narrowing of the hip. RAD/HIP, UNI W/ Pelvis 2-3 Views IMPRESSION: No fracture seen. Sclerotic focus in the right and left iliac bone as described. Metastatic disease should be ruled out Electronically Signed: Igor Rajan, at 15:19 EDT , Service support ,
[2019-05-15 15:01] LABS: Anion Gap 2 (5-15); BUN 39 mg/dL (7-18); BUN/Creat Ratio 25.5 RATIO (10-20); Calcium,Total 8.7 mg/dL (8.5-10.1); Chloride 111 mmol/L (98-107); Creatinine, Serum 1.53 mg/dL (0.55-1.02); EST Glomerular Filtration Rate 34 mL/min (>60); Est Glom Filt Rate - Afr Amer 42 mL/min (>60); Estimated Creatinine Clearance 25.07 ml/min; Glucose 71 mg/dL (74-106); Potassium 3.8 mmol/L (3.5-5.1); Sodium Level 148 mmol/L (136-145)
[2019-05-15 15:03] LABS: Prothrombin Time (Protime)PT. 22.2 SECONDS (11.7-14.9)
[2019-05-15 15:06] LABS: BNP,B-Type NATRIURETIC PEPTIDE 964.6 pg/mL (0-100); Lactic Acid 1.7 mmol/L (0.4-1.9)
[2019-05-15 16:05] LABS: Mucous, Urine 0 SEEN /hpf (<or=2+); Red Blood Cells-Urine 0 SEEN /hpf (0-5)
[2019-05-15 16:21] LABS: Anisocytosis 3+; Platelet Estimate ADEQUATE (ADEQ); Red Cell Morphology N CHROM NORMAL (NORM C&C)
[2019-05-15 16:22] LABS: Glucose, Dipstick Normal (Normal); Ketone-Dipstick Negative (Negative); Leukocyte Esterase-Dipstick 25 /ul (Negative); Nitrite-Dipstick Positive (Negative); Occult Blood-Urine Negative /ul (Negative); Protein-Dipstick 30 mg/dl (Negative); Specific Gravity, Urine 1.015 (1.002-1.030); Urine Bilirubin Dipstick Negative (Negative); Urine Urobilinogen 1 mg/dl (Normal)
[2019-05-15 16:50] LABS: Color, Urine Yellow (Yellow); Urine Clarity Sl Cldy (Clear)
[2019-05-15 16:51] LABS: Amorphous Sediment 1+ URATE; Bacteria 1+ /hpf (None Seen); Hyaline Cast 0-5 SEEN /lpf (0-5); Squamous Epithelial Cells - UA 0-5 SEEN /hpf (5-10); White Blood Cells 0-5 SEEN /hpf (0-5)
--- NOTE | 2019-05-15 17:01 | HP.PCM_ITS ---
Problem List (1) Cellulitis Status: Acute Qualifiers: Site of cellulitis of extremity: lower extremity Laterality: right (2) Chronic anticoagulation Status: Chronic Comment: On Eliquis for history of pulmonary embolism and atrial fibrillation (3) Anemia Status: Chronic (4) Pleural effusion, right Status: Acute Comment: very large (5) Hx of solitary pulmonary nodule Status: Chronic Comment: spiculated nodule on the right in 2018 (6) Cardiomyopathy Status: Chronic Comment: EF of 40% in December 2017 (7) Pulmonary hypertension, moderate to severe Status: Acute Comment: PA systolic in May 2018 was estimated at 62. (8) Edema of both legs Status: Chronic (9) History of pulmonary embolism Status: Chronic (10) History of DVT (deep vein thrombosis) Status: Chronic (11) Balance disorder Status: Chronic (12) Urinary incontinence Status: Chronic (13) Venous ulcer of leg Status: Chronic (14) Psoriasis Status: Chronic (15) CHF exacerbation Status: Acute (16) Metastatic cancer Status: Suspected Comment: new lytic lesions in the left hip (17) Venous insufficiency Status: Chronic (18) Persistent atrial fibrillation Status: Chronic (19) Chronic combined systolic and diastolic CHF (congestive heart failure) Status: Chronic (20) Secondary pulmonary arterial hypertension Status: Chronic (21) Non-rheumatic tricuspid valve insufficiency Status: Chronic (22) Essential (primary) hypertension Status: Chronic (23) Hyperlipidemia Status: Chronic Qualifiers: (24) Lung nodule Status: Chronic Comment: Spiculated nodule seen in the right lung on a CAT scan of the chest in 2018 (25) Pulmonary embolism Status: Chronic Qualifiers: Pulmonary embolism type: unspecified Acute cor pulmonale presence: unspecified (26) History of breast cancer Status: Chronic (27) History of non-Hodgkin's lymphoma Status: Chronic (28) Pleural effusion Status: Chronic (29) Restrictive lung disease Status: Chronic (30) Former smoker Status: Chronic Comment: Quit in 2009 History of Present Illness Date of Admission: 05/15/19 Chief Complaint: pain in the left hip after 2 recent falls The patient is a 84 year old F with a past medical history of hypertension, hyperlipidemia, breast cancer with left mastectomy, skin cancer, non-Hodgkin's lymphoma, chronic diastolic and systolic congestive heart failure, cardiomy opathy with a 40% ejection fraction, moderate pulmonary hypertension with a PA systolic estimated at 62 in 2019, chronic atrial fibrillation, chronic anticoagulation with Eliquis, history of pulmonary embolus and DVT, former smoker (quit in 2009), psoriasis, chronic venous insufficiency with history of recurrent venous stasis ulcers of both lower extremities, hypothyroidism, osteoarthritis and osteopenia who presented to the emergency department at [facility] on 05/15/2019 complaining of left hip pain. She stated that she fell approximately 2 weeks ago and then again 1 week ago. She has been unable to bear weight on the left lower extremity and has been mostly in bed. Vital signs at presentation to the emergency department were temperature 97.5, pulse rate 78, blood pressure 89/57 with a mean arterial pressure of 67, respiratory rate 16 and she was 88% saturated on room air and 98% saturated on a 2 L nasal cannula. The white blood cell count is elevated at 11.6 and the hemoglobin is low at 9.5 with an MCV of 83.4 and a high RDW. Platelets were within normal limits. An ABG on a 2 L nasal cannula showed a pH of 7.38 with a PCO2 of 53 and a PO2 of 96. The sodium is increased at 148 and the chloride is 111. The serum bicarb is elevated at 35. The BUN is 39 with a creatinine of 1.53 which is increased from 0.78 in September 2018 and 1.16 in March 2019. Lactic acid was 1.7. Troponin is less than 0.015 and the BNP was 964. Chest x-ray showed a large right pleural effusion with increased pulmonary vascular congestion (due to CHF or to Pulmonary HTN)? No fracture was seen on the left hip x-ray but there is a sclerotic focus in the right iliac bone measuring 3 cm x 1.9 cm and a 1.7 cm sclerotic lesion in the left iliac bone. On PE the RLE is red and has multiple openings in the skin. There is 4+ pitting edema and there is increased warmth to touch. There are also multiple skin tears and openings in the Skin of the left leg but it is not red or warm to touch. she is being admitted to the hospital with a dx of Cellulitis of the RLE along with acute on chronic systolic and diastolic CHF and ARF. The pt lists PCN as an allergy but does not know the reaction. She was given Zosyn in the ED and had no reaction. Past Medical History Past Medical History (Chronic Problems): Chronic Problems (Last Reviewed 05/15/19 @ 18:[address] Vicky Lovett DO) Edema of both legs (Chronic) History of pulmonary embolism (Chronic) History of DVT (deep vein thrombosis) (Chronic) Balance disorder (Chronic) Urinary incontinence (Chronic) Venous ulcer of leg (Chronic) Psoriasis (Chronic) Chronic anticoagulation (Chronic) On Eliquis for history of pulmonary embolism and atrial fibrillation Anemia (Chronic) Hx of solitary pulmonary nodule (Chronic) spiculated nodule on the right in 2017 Cardiomyopathy (Chronic) EF of 40% in December 2017 Former smoker (Chronic) Quit in 2009 Venous insufficiency (Chronic) Persistent atrial fibrillation (Chronic) Chronic combined systolic and diastolic CHF (congestive heart failure) (Chronic) Secondary pulmonary arterial hypertension (Chronic) Non-rheumatic tricuspid valve insufficiency (Chronic) Essential (primary) hypertension (Chronic) Hyperlipidemia (Chronic) Lung nodule (Chronic) Spiculated nodule seen in the right lung on a CAT scan of the chest in 2018 Pulmonary embolism (Chronic) History of breast cancer (Chronic) History of non-Hodgkin's lymphoma (Chronic) Pleural effusion (Chronic) Restrictive lung disease (Chronic) Medical History: Medical History (Last Reviewed 05/15/19 @ 18:[address] Vicky Lovett DO) Persistent atrial fibrillation (Chronic) I48.1 Chronic combined systolic and diastolic CHF (congestive heart failure) (Chronic) I50.42 Secondary pulmonary arterial hypertension (Chronic) I27.21 Non-rheumatic tricuspid valve insufficiency (Chronic) I36.1 Essential (primary) hypertension (Chronic) I10 Hyperlipidemia (Chronic) E78.5 Lung nodule (Chronic) R91.1 Spiculated nodule seen in the right lung on a CAT scan of the chest in 2018 Pulmonary embolism (Chronic) I26.99 History of breast cancer (Chronic) Z85.3 History of non-Hodgkin's lymphoma (Chronic) Z85.72 Pleural effusion (Chronic) J90 Restrictive lung disease (Chronic) J98.4 Anxiety and depression F41.9, F32.9 Atrial flutter with controlled response I48.92 History of gout Z87.39 History of pelvic fracture Z87.81 Hypothyroidism E03.9 Obesity E66.9 Osteoarthritis M19.90 Atrial fibrillation with RVR Onset Date: 12/27/17 I48.91 Allergies amoxicillin Adverse Reaction (Severe, Verified 03/31/19 11:09) Nausea/Vom/Diarrhea Penicillins [PCN] Adverse Reaction (Severe, Verified 03/31/19 11:09) Unknown CAN NOT FUNCTION tape Allergy (Severe, Uncoded 11/24/18 12:41) bruising Home Medications: Ambulatory Orders Medication Instructions Recorded Pramipexole Di-HCl [Mirapex] 0.25 mg PO QHS 12/27/17 allopurinol 300 mg tablet 300 mg PO DAILY #90 tab 10/08/18 levothyroxine 50 mcg tablet 50 mcg PO DAILY #90 tab 10/08/18 Apremilast [Otezla] 30 mg PO BID 03/31/19 Gabapentin [Neurontin] 100 mg PO BID 03/31/19 Apixaban [Eliquis] 5 mg PO BID 05/15/19 Diltiazem HCl [Cardizem Cd] 120 mg PO DAILY 05/15/19 Duloxetine HCl [Cymbalta] 30 mg PO DAILY 05/15/19 Furosemide 20 mg PO DAILY 05/15/19 Metoprolol Tartrate [Lopressor 100 mg PO BID 05/15/19 (beta linda)] Pravastatin Sodium 40 mg PO DAILY 05/15/19 Surgical History: Surgical History (Last Reviewed 05/15/19 @ 18:[address] Vicky Lovett DO) History of mastectomy Z98.890, Z90.10 history of skin graph on nose Surgical History: mastectomy - left, - - Patient has previously undergone hysterectomy, and left breast mastectomy in 2011. She also had excision of a malignant lesion on the nose and then a graft. Psychiatric History: Depression [employer] History: No pertinent [employer] history Lives: With Family Smoking Status: Former smoker - Tells me she quit in 2009 and prior to that smoked for about 50 years. Tobacco Use: Non-smoker Alcohol: Rare Drugs: None - *Family History Paternal Family History: Family History (Last Reviewed 05/15/19 @ 18:[address] Vicky Lovett DO) Mother Breast cancer Hypertension Father Lung cancer Alcoholism Brother Asthma Alcoholism Cancer Depression Heart disease Hypertension Liver disease Sister Alcoholism Cancer Heart disease Hypertension Thyroid disorder History Items: - - Patient's father at the age of 75 from lung cancer. Patient's mother at the age of 55 from metastatic breast cancer. Review of Systems Constitutional: Denies: Chills, Fever, Weight Change HEENT: Denies: Head Aches, Nasal Congestion, Sinus Congestion, Sinus Drainage, Sore Throat Cardiovascular: Denies: Chest Pain, Light Headedness, Orthopnea, Palpitations, Syncope Respiratory: Denies: Cough, Shortness of breath at rest, Shortness of breath upon exertion, Sputum production Gastrointestinal: Reports: Diarrhea - she has had 2 loose BM's today. Denies: Abdominal Pain, Constipation, Dyspepsia, Hematemesis, Hematochezia, Nausea, Melena, Vomiting Genitourinary: Reports: Incontinence. Denies: Dysuria Musculoskeletal: Reports: -. Denies: Joint Pain, Joint Tenderness, Leg Pain Skin: Reports: Wounds - multiple openings in the skin over both distal LE's. she also has bruising of the legs. Denies: Jaundice, Rash Neurological: Denies: Numbness, Tingling, Focal weakness Psychiatric: Denies: Anxiety, Depression, Homicidal Ideations, Suicidal Ideations Endocrine: Denies: Change in Body Habitus, Heat/ Cold Intolerance Hematologic/ Lymphatic: Reports: Easy Bruising, Easy Bleeding, Hx of blood clot VTE Information - Inpt Only VTE Present on Admission: No VTE Pharm Prophylaxis ordered?: No Reason prophylaxis not ordered:: Treatment Not Indicated - she is on Eliquis currently and took her dose this morning......this is going to be held for suspected thoracentesis......will start Heparin in the AM Patient Problems: Active and Suspected Problems (Last Reviewed 05/15/19 @ 18:[address] Vicky Lovett, DO) CHF exacerbation (Acute) Metastatic cancer (Suspected) new lytic lesions in the left hip Cellulitis (Acute) Pleural effusion, right (Acute) very large Pulmonary hypertension, moderate to severe (Acute) PA systolic in May 2018 was estimated at 62. - Physical Exam Vitals/I&O's: Vital Signs Temp Pulse Resp BP Pulse Ox 97.5 F L 77 17 105/78 93 05/15/19 13:50 05/15/19 15:26 05/15/19 15:26 05/15/19 15:26 05/15/19 15: Oxygen Flow Rate (L/min) 2 Oxygen Delivery Method Nasal Cannula Weight: 180 lb 5.41 oz Body Mass Index (BMI) 29.9 Intake and Output for Last 24 Hours 05/13/19 05/14/1905/14/20 23:59 23:59 23:59 Intake Total 500 / 500 Balance 500 / 500 General: Alert, Oriented x3, Cooperative, No apparent distress - she is lying nearly flat in bed and is mildly tachypneic but she has no conversational dyspnea and no accessory muscle use HEENT: Atraumatic, PERRLA, EOMI, Normocephalic Oral: No Gingival or Mucosal Lesions/ Ulcerations, Dry Mucosa Neck: Supple, Negative Carotid Bruits, No Nodes, No Nuchal Rigidity, Trachea Midline, JVD, Bilateral Lungs: Tachypneic, - - She is mildly tachypneic lying almost flat in bed. She has no conversational dyspnea and no accessory muscle use. Breath sounds in the right lung posteriorly are markedly diminished except for the apex. There were no crackles heard posteriorly but there were crackles anteriorly on the right. Breath sounds in the left lung are mildly diminished with no Rales, no wheezing and no rhonchi. Cardiovascular: Normal S1, Normal S2, Irregular Rate - teletypesetter monitor shows atrial fibrillation with controlled ventricular response, Murmur - She has a loud systolic murmur heard best at the apex/6., No rub noted, No Gallop - but it was loud in the Ed and I could have missed this Abdomen: Bowel Sounds Present, Soft, Non Tender, Non-Distended, - - No guarding with palpation Extremities: No clubbing, No cyanosis, Capillary Refill Less than 3 Seconds, Diminished Peripheral Pulses - May be secondary to marked edema of both lower extremities distal to the knees, Edema Skin: No rashes, - - She has significant erythema over the right lower extremity distal to the knee. There are multiple openings in the skin and some are covered with Band-Aids. When the Band-Aids were removed the skin beneath is macerated. There is no odor. There is increased warmth to touch in the right lower extremity. The left lower extremity distal to the knee also has multiple openings in the skin with some macerated areas and a few skin tears. There is 4+ pitting edema both lower extremities. She also has some bruises on her extremities but nothing too extensive. The RUE distally and the R dorsum of the hand are erythematous but, no cecile warm to touch. there are no openings in the skin on her back or the buttocks or la-qanal area. She has large external hemorrhoids Musculoskeletal: No Tenderness to Palpation of Joints or Extremities Neurological: Cranial nerves II-XII grossly intact, Neuro grossly intact Psych/Mental Status: Normal Affect, Appropriate Laboratory Results 05/15/19 14:20: WBC 11.6 H, RBC 4.64, Hgb 9.5 L, Hct 38.7, MCV 83.4, MCH 20.5 L, MCHC 24.5 L, RDW Std Deviation 70.5 H, RDW Coeff of Estiven 23.9 H, Plt Count 162, MPV 9.8, Immature Gran % (Auto) 0.900, Neut % (Auto) 78.0 H, Lymph % (Auto) 16.2 L, [place] % (Auto) 4.3, Eos % (Auto) 0.3, Baso % (Auto) 0.3, Absolute Neuts (auto) 9.1 H, Absolute Lymphs (auto) 1.88, Nucleated RBC % 1.3, Platelet Estimate ADEQUATE, RBC Morphology N CHROM, Anisocytosis 3+ 05/15/19 14:20: Sodium 148 H, Potassium 3.8, Chloride 111 H, Carbon Dioxide 35.0 H, Anion Gap 2 L, BUN 39 H, Creatinine 1.53 H, Estim Creat Clear Calc 25.07, Est GFR (MDRD) Af Amer 42 L, Est GFR (MDRD) Non-Af 34 L, BUN/Creatinine Ratio 25.5 H , Glucose 71 L, Calcium 8.7, Troponin I < 0.015 05/15/19 14:20: Lactic Acid 1.7 05/15/19 14:20: B-Natriuretic Peptide 964.6 H 05/15/19 14:47: PT 22.2 H, INR 2.0 05/15/19 14:48: Specimen Type ART, Sample Site L Radial, pH 7.38, Bicarbonate Actual 31.8 H, POC Total CO2 33, Base Excess 7 H, O2 Saturation 97, ABG pCO2 53.5 H, ABG pO2 96, Lopez Test POS, O2 Delivery Device Nasal Can, Liter Flow 2.0, Blood Gas Notified Whom ED , Blood Gas Notified Time 1446 05/15/19 15:59: Urine Color Yellow, Urine Clarity Sl Cldy, Urine pH 5.0, Ur Specific [place] 1.015, Urine Protein 30 H, Urine Glucose (UA) Normal, Urine Ketones Negative, Urine Occult Blood Negative, Urine Nitrite Positive H, Urine Bilirubin Negative, Urine Urobilinogen 1 H, Ur Leukocyte Esterase 25 H, Urine RBC 0 SEEN, Urine WBC 0-5 SEEN, Ur Squamous Epith Cells 0-5 SEEN, Amorphous Sediment 1+ URATE, Urine Bacteria 1+, Hyaline Casts 0-5 SEEN, Urine Mucus 0 SEEN Current Medications Sodium Chloride () 500 mls @ 999 mls/hr IV .Q31M ONE Last Infusion: 05/15/19 16:46 Dose: Infused Documented by: Vancomycin HCl (Vancomycin) 1,000 mg in 200 mls @ 200 mls/hr IV NOW STA Stop: 05/15/19 17:13 Assessment/Plan All Active Problems (Last Reviewed 05/15/19 @ 18:[address] Vicky Lovett, DO) CHF exacerbation (Acute) Cellulitis (Acute) Pleural effusion, right (Acute) Pulmonary hypertension, moderate to severe (Acute) Shortness of breath (Resolved) Impressions 1. Left hip pain-no fracture is obvious on the plain x-rays however she has large sclerotic areas in the right iliac bone and left iliac bone that are suspicious for bony mets. She has some joint space narrowing secondary to osteoarthritis on the left but not severe. Cannot rule out occult fracture and since she is unable to ambulate or bear weight on the left lower extremity we may need to do a CT scan of the left hip. 2. Very large right pleural effusion - has had an effusion in the past. She h ad a spiculated nodule on the R on CT chest done in 2018 but follow up PET scan negative. She is hypoxic and retaining CO2. Will need a diagnostic and therapeutic thoracentesis. Eliquis placed on hold and will start Heparin in the AM for DVT prophylaxis. Will get a CT chest without contrast tonight 3. ARF - due to acute on chronic CHF? 4. cellulitis of the RLE due to infected venous stasis ulcer. Has had MRSE in the past and Pseudomanas also. Continue the Zosyn and Vancomycin started in the ED. 5. Multiple venous stasis ulcers of both lower extremities. Patient skin is very friable and tears easily. Will cover wounds with Adaptic and then wrapped with Kerlix from the toes to the knee and then wrapped with 6 inch Tariq wraps bilaterally. No tape to the skin. 6. Metabolic alkalosis-compensatory for respiratory acidosis 7. Anemia with a borderline low MCV and 3+ anisocytosis-iron studies ordered and a reticulocyte panel 8. Chronic medical conditions: History of breast cancer with left mastectomy/history of non-Hodgkin's lymphoma/history of skin cancer on her nose/hypertension/hyperlipidemia/restrictive lung disease/atrial fibrillation/chronic systolic and diastolic congestive heart failure/moderate pulmonary hypertension with a PA systolic estimated at 62 within the past year/history of DVT and pulmonary embolus - these all complicate treatment, care, recovery and prognosis. Continue most of the home meds. Decrease the Metoprolol to 50 mg BID in light of borderline low BP. Recheck the lab in the AM Lasix [address] scan of the Left hip to r/o occult hip fracture since she is unable to bear weight or ambulate. Will include pelvis to better evaluate the sclerotic lesions in the iliac bones. check a liver panel now ESR and CRP MRSA on the DC from wound on the R leg and also GM stain and wound culture Consult Dr. Del Toro to participate in care Check a TSH and a T4 Inpatient E&M: 53275 Init Hosp L3
--- NOTE | 2019-05-15 17:39 | CT_ITS ---
STUDY: CT CHEST WITHOUT CONTRAST REASON FOR EXAM: Female, 84 years old. PLEURAL EFFUSION, SOB, CHF, A-FIB, HTN, PE, H/O R LUNG NODUL RADIATION DOSAGE (If Supplied By Facility): CTDIvol = ( 15.13 ) mGy, DLP = ( 533.13 ) mGycm TECHNIQUE: Transaxial imaging was performed without the administration of intravenous contrast material. Individualized dose optimization techniques were used for this CT. COMPARISON: None. FINDINGS: Large right pleural effusion with compression atelectasis of the right lung. Bilateral patchy pulmonary interstitial prominence. Mild cardiomegaly. Normal mediastinum. Normal hilar regions. Normal unenhanced pulmonary arteries. Calcified aorta arch and descending thoracic aorta. Normal osseous structures. Up to 1 cm right axillary nodes. There is subcutaneous edema/hematoma of the right lateral chest wall. Mild ascites. Granulomatous calcifications in the liver and spleen. CT/Chest without Contrast IMPRESSION: Large right pleural effusion with compression atelectasis of the right lung. Bilateral patchy pulmonary interstitial prominence. Mild cardiomegaly. Mild ascites. Subcutaneous edema/hematoma of the right lateral chest wall. Electronically Signed: Cuba Lewis DO at 19:30 EDT Tel [phone], Service support ,
--- NOTE | 2019-05-15 17:39 | ECHOD_ITS ---
Reason For Study: Murmur Procedure This was a 2D Doppler, Color Flow transthoracic echocardiogram. Exam performed portable in patient room. Left Ventricle Normal LV size. D shaped septum in diastole. Left ventricular systolic function is normal. The estimated ejection fraction is 55 %. No regional wall motion abnormalities noted. Right Ventricle Mildly dilated right ventricle. Mild global right ventricular systolic dysfunction. Atria The left atrium is moderately enlarged. The right atrium is moderately enlarged. Mitral Valve There is mild mitral annular calcification. Mild (1+) eccentric mitral valve insufficiency. Tricuspid Valve Normal tricuspid valve. Mild to moderate (1-2+) tricuspid valve insufficiency. Pulmonary artery systolic pressure is 44 mmHg. Mild pulmonary hypertension. Aortic Valve Moderate focal aortic valve calcification. Pulmonic Valve Normal pulmonic valve. Great Vessels Normal aortic root. The pulmonary artery is normal size. Normal inferior vena cava. Pericardium/Pleural No pericardial effusion. MMode/2D Measurements & Calculations LVIDd: 4.0 cm IVSd: 1.0 cm LVOT diam: 2.3 cm LVIDs: 2.9 cm LVPWd: 1.2 cm LVOT area: 4.1 cm2 RVDd: 4.5 cm FS: 27.4 % Ao root diam: 3.7 cm LAV(MOD-bp): 107.3 ml LVAd ap4: 20.4 cm2 LAV(MOD-bp) Indexed: 56.8 ml/m2 EDV(MOD-sp4): 50.2 ml LAV(MOD-sp2): 109.6 ml EDV(sp4-el): 49.5 ml LAV(MOD-sp4): 100.5 ml LVAs ap4: 12.7 cm2 ESV(MOD-sp4): 22.2 ml ESV(sp4-el): 21.8 ml EF(MOD-sp4): 55.8 % EF(sp4-el): 56.0 % SV(MOD-sp4): 28.0 ml SV(sp4-el): 27.7 ml LA A4 area: 28.3 cm2 LA dimension(2D): 5.0 cm RA A4 area: 30.0 cm2 Doppler Measurements & Calculations MV E max carlota: 120.4 cm/sec Ao V2 max: 175.9 cm/sec LV V1 max: 102.6 cm/sec Ao max P.4 mmHg LV V1 max P.2 mmHg Ao V2 mean: 113.1 cm/sec LV V1 mean P.8 mmHg Ao mean P.9 mmHg LV V1 mean: 61.3 cm/sec Ao V2 VTI: 32.6 cm LV V1 VTI: 18.1 cm AMCHO(I,D): 2.3 cm2 MACHO(V,D): 2.4 cm2 SV(LVOT): 73.5 ml PA V2 max: 75.3 cm/sec TR max carlota: 308.3 cm/sec TR max P.3 mmHg Interpretation Summary Normal LV size. Left ventricular systolic function is normal. The estimated ejection fraction is 55 %. D shaped septum in diastole. The left atrium is moderately enlarged. The right atrium is moderately enlarged. Pulmonary artery systolic pressure is 44 mmHg. Mild pulmonary hypertension. Ordering Physician: Vicky Lovett Referring Physician: Danie Sparks Performed By: Allison Scott RDCS
--- NOTE | 2019-05-15 18:54 | CT_ITS ---
STUDY: CT PELVIS WITHOUT CONTRAST REASON FOR EXAM: Female, 84 years old. LEFT HIP PAIN, SCLEROTIC BONE, POSSIBLE METS. RADIATION DOSAGE (If Supplied By Facility): CTDIvol = ( 19.23 ) mGy, DLP = ( 667.33 ) mGycm TECHNIQUE: Transaxial imaging of the pelvis was performed with oral contrast, and without intravenous administration of contrast material. Individualized dose optimization techniques were used for this CT. COMPARISON: May 15, 2019 left hip radiographs. FINDINGS: Normal urinary bladder. Mild perihepatic fluid. Calcified visualized small intestine. Normal visualized colon. There is pelvic fluid. There is no pelvic mass lesion or lymphadenopathy. Calcified aorta with mild infrarenal aneurysm measuring 3.1 cm in maximum diameter. Calcified granulomas within the gluteal subcutaneous soft tissue bilaterally. These are likely the sclerotic areas described on the x-ray of the pelvis over the bilateral iliac bones. There is extensive edema of the right lateral abdominal wall. Possible 1.7 cm Bartholin''s cyst of the left labial region. Degenerative lower lumbar changes. Possible old injury of the left greater trochanter. CT/Pelvis without IV Contrast IMPRESSION: Subcutaneous calcified granulomas bilaterally within the gluteal regions likely representing the sclerotic area seen on corresponding x-ray of the pelvis. Degenerative lower lumbar changes. Possible old left trochanteric injury. Mild infrarenal abdominal aortic aneurysm. Ascites and pelvic fluid. Electronically Signed: Cuba Lewis DO at 20:27 EDT Tel [phone], Service support ,
[2019-05-15 19:19] LABS: AST(SGOT) 13 U/L (15-37); Alanine Aminotransfer ALT/SGPT 13 U/L (13-56); Albumin, Serum 2.8 g/dL (3.2-5.0); Alkaline Phosphatase 78 U/L (45-117); Bilirubin, Direct 0.15 mg/dL (0.00-0.30); Ferritin 15 ng/mL (8-252); Globulin 3.4 g/dL (2.2-4.2); Iron 16 ug/dL (50-170); Iron Binding Capacity,Total 352 ug/dL (250-450); Magnesium 2.5 mg/dL (1.6-2.6); PERCENT IRON SATURATION 4.5 % (15.0-55.0); Protein, Total 6.2 g/dL (6.4-8.2); T4 Free Direct 1.07 ng/dL (0.76-1.46); Thyroid Stim Hormone (TSH) 1.96 uIU/mL (0.358-3.74)
[2019-05-15 19:30] LABS: Platelet Count 163 K/mm3 (150-450); RET-HE 17.6 pg (30-35); Reticulocyte Count 1.83 % (0.5-1.5)
[2019-05-15 19:32] LABS: Immature Platelet Fraction 2.7 % (1.0-7.9)
[2019-05-15 19:59] LABS: Erythrocyte Sedimentation Rate 26 mm/hr (0-30)
--- NOTE | 2019-05-15 21:00 | NURSING ---
Spoke with pt's daughter listed in contacts. States she is able to bring pt's home med Apremilast tomorrow to ED to drop off for pt.
[2019-05-15] MEDS: Mupirocin Ointment 22gm Tube 1 APPLIC NASAL (21:37)
[2019-05-15] MEDS: Furosemide 40 MG/4 ML Vial IV (21:37)
[2019-05-15] MEDS: Pramipexole Di-HCl 0.25 MG Tablet PO (21:38)
[2019-05-15] MEDS: 0.9% Saline Lock 10 ML Syringe IV (21:38)
--- NOTE | 2019-05-15 22:23 | PCM.RX.CS ---
Consult Pharmacy has been consulted to manage selected antiobiotic: Vancomycin Type of Consult: New start Suspected Infection: Skin/Soft tissue Prior Doses of Antibiotics Received/Current Regimen: Medications Vancomycin HCl 750 mg/ Sodium (Chloride) 265 mls @ 250 mls/hr IV Q24H TANIYA Vancomycin HCl 1,250 mg/ (Sodium Chloride) 275 mls @ 167 mls/hr IV X1 ONE Stop: 05/15/19 22:38 Last Admin: 05/15/19 21:36 Dose: 167 mls/hr Labs: Sodium 148 mmol/L (136-145) H 05/15/19 14:20 Potassium 3.8 mmol/L (3.5-5.1) 05/15/19 14:20 Chloride 111 mmol/L (98-107) H 05/15/19 14:20 Carbon Dioxide 35.0 mmol/L (21.0-32.0) H 05/15/19 14:20 Anion Gap 2 (5-15) L 05/15/19 14:20 BUN 39 mg/dL (7-18) H 05/15/19 14:20 Creatinine 1.53 mg/dL (0.55-1.02) H 05/15/19 14:20 Est GFR (MDRD) Af Amer 42 mL/min (>60) L 05/15/19 14:20 Est GFR (MDRD) Non-Af 34 mL/min (>60) L 05/15/19 14:20 BUN/Creatinine Ratio 25.5 RATIO (10-20) H 05/15/19 14:20 Glucose 71 mg/dL (74-106) L 05/15/19 14:20 Weight used for dosin.8 kg Estimated Creatinine Clearance: 25 Goal Trough: 10-15 mcg/mL Pharmacy Plan for Drug Dosing: Pharmacy Service will continue to monitor and adjust dosing as required. Follow-Up Labs: Trough Vancomycin Labs to be done on [date and time ordered]: 05/17/19 @2100
[2019-05-15 23:27] LABS: M R Staph aureus DNA By PCR Negative (Negative); Probe Check PASS; Specimen Processing Control PASS; Staph aureus DNA By PCR POSITIVE (Negative)
[2019-05-16] VITALS (13 sets, daily range): BP systolic 100–115; BP diastolic 55–80; PULSE 73–104; RESP 17–20; TEMP 36.1–36.9; O2SAT 91–99
[2019-05-16] MEDS: Nystatin Powder 15gm Bottle 1 APPLIC TOPICAL ×2 (05:01→23:05)
[2019-05-16] MEDS: Levothyroxine 50 MCG Tablet PO (05:07)
[2019-05-16] MEDS: Heparin Injection (Vial) 5,000 UNIT/ML VIAL 5000 UNIT SC ×2 (05:07→14:55)
[2019-05-16 07:13] LABS: Absolute Lymphocyte Count 2.17 X10^3/uL (0.83-4.51); Absolute Neutrophil Count 7.5 X10^3/uL (2.0-7.7); Basophil# 0.04 X10^3/uL; Basophil% 0.4 % (0-1); Eosinophil# 0.04 X10^3/uL; Eosinophils% 0.4 % (0-5); Hematocrit 33.8 % (37-47); Hemoglobin 8.3 g/dL (12.0-15.0); Lymphocyte # 2.17 X10^3/ul (4.0); Mean Corp Hgb Conc 24.6 g/dL (32-36); Mean Corpuscular Hgb 20.4 pg (27.0-32.0); Mean Platelet Vol. 9.9 fl (6.2-12.0); Monocyte# 0.46 X10^3/uL; Monocyte% 4.4 % (0-10); NRBC Flagged by Analyzer 1.8 % (0-5); Neutrophil # 7.54 X10^3/uL (2.7-7.7); Neutrophil % 72.8 % (47-70); POSITIVE MORPHOLOGY YES; Platelet Count 135 K/mm3 (150-450); RBC Distribution Width CV 23.9 % (11.6-14.6); RBC Distribution Width SD 70.4 fl (35.1-43.9); Red Blood Count 4.07 M/mm3 (4.2-5.4); White Blood Count 10.4 K/mm3 (4.4-11.0)
[2019-05-16 07:20] LABS: Differential Indicated SCAN CRITERIA MET
[2019-05-16 07:46] LABS: Anion Gap 6 (5-15); BUN 40 mg/dL (7-18); BUN/Creat Ratio 25.2 RATIO (10-20); Calcium,Total 8.3 mg/dL (8.5-10.1); Chloride 112 mmol/L (98-107); Creatinine, Serum 1.59 mg/dL (0.55-1.02); EST Glomerular Filtration Rate 33 mL/min (>60); Est Glom Filt Rate - Afr Amer 40 mL/min (>60); Estimated Creatinine Clearance 24.12 ml/min; Glucose 70 mg/dL (74-106); Magnesium 2.2 mg/dL (1.6-2.6); Phosphorus 4.8 mg/dL (2.5-4.9); Potassium 4.1 mmol/L (3.5-5.1); Sodium Level 147 mmol/L (136-145)
[2019-05-16 07:57] LABS: Anisocytosis 2+; Hypochromasia 2+; Microcytosis RARE; Platelet Estimate SLT DEC (ADEQ); Polychromasia 1+
[2019-05-16] MEDS: Famotidine 20 MG Tablet PO (09:46)
[2019-05-16] MEDS: DULoxetine Hcl 30 MG Capsule PO (09:46)
[2019-05-16] MEDS: Allopurinol 300 MG Tablet PO (09:46)
[2019-05-16] MEDS: 0.9% Saline Lock 10 ML Syringe IV (10:29)
[2019-05-16] MEDS: Furosemide 40 MG/4 ML Vial IV ×2 (10:29→17:57)
--- NOTE | 2019-05-16 11:12 | PCM.PN.HOSP ---
<Genaro Miranda - Last Filed: 05/16/19 11:12> Patient Problems: Active and Suspected Problems (Last Reviewed 05/15/19 @ 18:[address] Vicky Lovett DO) CHF exacerbation (Acute) Metastatic cancer (Suspected) new lytic lesions in the left hip Cellulitis (Acute) Pleural effusion, right (Acute) very large Pulmonary hypertension, moderate to severe (Acute) PA systolic in May 2018 was estimated at 62. Reason for Visit: leg pain Subjective: Ongoing SOB despite o2 use, she does not use home o2. + orthopnea. No cp/pressure/tightness. She has no LH/dizziness/palp. Ongoing warmth and erythema RLE. No fever/chills. No cough. No nausea/vomiting. Vitals/I&O's: Vital Signs Temp Pulse Resp BP Pulse Ox 97.5 F L 103 H 20 H 101/55 L 93 05/16/19 09:19 05/16/19 10:00 05/16/19 09:19 05/16/19 09:19 05/16/19 09:19 Oxygen Flow Rate (L/min) 3 Oxygen Delivery Method Nasal Cannula Weight: 179 lb 3.773 oz Body Mass Index (BMI) 29.9 Intake and Output for Last 24 Hours 05/14/19 05/15/19 05/16/19 23:59 23:59 23:59 Intake Total 825 / 1075 862 / 862 Balance 825 / 1075 862 / 862 General: Alert, Oriented x3, Cooperative HEENT: Atraumatic, PERRLA, EOMI, Normocephalic Neck: Supple, No JVD, Negative Carotid Bruits Lungs: Clear to auscultation, Diminished Cardiovascular: No murmurs, Irregular Rate Abdomen: Bowel Sounds Present, Soft, Non Tender Extremities: Capillary Refill Less than 3 Seconds, Edema - BL 3+ pitting edema LE Skin: No rashes, No breakdown, - - RLE increased erythema, warmth, tenderness. Musculoskeletal: No Tenderness to Palpation of Joints or Extremities Neurological: Cranial nerves II-XII grossly intact Psych/Mental Status: Normal Affect, Appropriate, Alert and oriented to time, place, person, mood and affect Microbiology Past 72 Hours 05/15/19 22:06 Skin - Leg Wound Culture - Preliminary Staphylococcus aureus Laboratory Results 05/15/19 14:20: WBC 11.6 H, RBC 4.64, Hgb 9.5 L, Hct 38.7, MCV 83.4, MCH 20.5 L, MCHC 24.5 L, RDW Std Deviation 70.5 H, RDW Coeff of Estiven 23.9 H, Plt Count 162, MPV 9.8, Immature Gran % (Auto) 0.900, Neut % (Auto) 78.0 H, Lymph % (Auto) 16.2 L, [place] % (Auto) 4.3, Eos % (Auto) 0.3, Baso % (Auto) 0.3, Absolute Neuts (auto) 9.1 H, Absolute Lymphs (auto) 1.88, Nucleated RBC % 1.3, Platelet Estimate ADEQUATE, RBC Morphology N CHROM, Anisocytosis 3+ 05/15/19 14:20: Sodium 148 H, Potassium 3.8, Chloride 111 H, Carbon Dioxide 35.0 H, Anion Gap 2 L, BUN 39 H, Creatinine 1.53 H, Estim Creat Clear Calc 25.07, Est GFR (MDRD) Af Amer 42 L, Est GFR (MDRD) Non-Af 34 L, BUN/Creatinine Ratio 25.5 H, Glucose 71 L, Calcium 8.7, Troponin I < 0.015 05/15/19 14:20: Lactic Acid 1.7 05/15/19 14:20: B-Natriuretic Peptide 964.6 H 05/15/19 14:20: Phosphorus 4.0, Magnesium 2.5, Iron 16 L, TIBC 352, Iron Saturation 4.5 L, Ferritin 15, Total Bilirubin 0.50, Direct Bilirubin 0.15, AST 13 L, ALT 13, Alkaline Phosphatase 78, C-React Prot Ext Range 46.80 H, Total Protein 6.2 L, Albumin 2.8 L, Globulin 3.4, TSH 1.96, Free T4 1.07 05/15/19 14:47: PT 22.2 H, INR 2.0 05/15/19 14:48: Specimen Type ART, Sample Site L Radial, pH 7.38, Bicarbonate Actual 31.8 H, POC Total CO2 33, Base Excess 7 H, O2 Saturation 97, ABG pCO2 53.5 H, ABG pO2 96, Lopez Test POS, O2 Delivery Device Nasal Can, Liter Flow 2.0, Blood Gas Notified Whom ED MD, Blood Gas Notified Time 1446 05/15/19 15:59: Urine Color Yellow, Urine Clarity Sl Cldy, Urine pH 5.0, Ur Specific [place] 1.015, Urine Protein 30 H, Urine Glucose (UA) Normal, Urine Ketones Negative, Urine Occult Blood Negative, Urine Nitrite Positive H, Urine Bilirubin Negative, Urine Urobilinogen 1 H, Ur Leukocyte Esterase 25 H, Urine RBC 0 SEEN, Urine WBC 0-5 SEEN, Ur Squamous Epith Cells 0-5 SEEN, Amorphous Sediment 1+ URATE, Urine Bacteria 1+, Hyaline Casts 0-5 SEEN, Urine Mucus 0 SEEN 05/15/19 19:10: Immature Plt Fraction 2.7, ESR 26, Retic Count 1.83 H, Immature Retic Fraction 25.40 H, Retic Hgb Equivalent 17.6 L 05/15/19 22:06: S.aureus Protein A PCR POSITIVE H, MRSA (PCR) Negative 05/16/19 06:58: WBC 10.4, RBC 4.07 L, Hgb 8.3 L, Hct 33.8 L, MCV 83.0, MCH 20.4 L, MCHC 24.6 L, RDW Std Deviation 70.4 H, RDW Coeff of Estiven 23.9 H, Plt Count 135 L, MPV 9.9, Immature Gran % (Auto) 1.000 H, Neut % (Auto) 72.8 H, Lymph % (Auto) 21.0, [place] % (Auto) 4.4, Eos % (Auto) 0.4, Baso % (Auto) 0.4, Absolute Neuts (auto) 7.5, Absolute Lymphs (auto) 2.17, Nucleated RBC % 1.8, Platelet Estimate SLT DEC, Polychromasia 1+, Hypochromasia 2+, Anisocytosis 2+, Microcytosis RARE 05/16/19 06:58: Sodium 147 H, Potassium 4.1, Chloride 112 H, Carbon Dioxide 29.0, Anion Gap 6, BUN 40 H, Creatinine 1.59 H, Estim Creat Clear Calc 24.12, Est GFR (MDRD) Af Amer 40 L, Est GFR (MDRD) Non-Af 33 L, BUN/Creatinine Ratio 25.2 H, Glucose 70 L, Calcium 8.3 L, Phosphorus 4.8, Magnesium 2.2 Current Medications Acetaminophen (Tylenol) 650 mg PO Q6H PRN PRN PRN Reason: Pain Score 1-10/Temp > 100.7 F Al Hydroxide/Mg Hydroxide (Mylanta Ii) 30 ml PO Q6H PRN PRN PRN Reason: Gastric Burning Albuterol Sulfate (Ventolin Aerosols) 2.5 mg INHALATION Q2H PRN PRN PRN Reason: Shortness of Breath/Wheezing [facility]) [facility] Last Admin: 05/16/19 09:46 Dose: 300 mg Documented by: Chlorhexidine Gluconate () 1 each TOPICAL DAILY [facility] Stop: 05/21/19 10:01 Last Admin: 05/16/19 09:31 Dose: Not Given Documented by: Duloxetine HCl (Cymbalta) 30 mg PO DAILY [facility] Last Admin: 05/16/19 09:46 Dose: 30 mg Documented by: Famotidine (Pepcid) 20 mg PO DAILY [facility] Last Admin: 05/16/19 09:46 Dose: 20 mg Documented by: Furosemide (Lasix) 40 mg IV BID@1000,1800 [facility] Last Admin: 05/16/19 10:29 Dose: 40 mg Documented by: Gabapentin (Neurontin) [facility] Guaifenesin (Robitussin) 20 ml PO Q4H PRN PRN PRN Reason: COUGH Heparin Sodium (Porcine) (Heparin Na) 5,000 unit SC Q8 [facility] Last Admin: 05/16/19 05:07 Dose: 5,000 unit Documented by: Sodium Chloride () 500 mls @ 999 mls/hr IV .Q31M ONE Last Infusion: 05/15/19 16:46 Dose: Infused Documented by: Ampicillin Sodium/Sulbactam (Sodium 3 gm/ Sodium Chloride) 112 mls @ 150 mls/hr IV BID [facility] Last Infusion: 05/16/19 11:11 Dose: Infused Documented by: Levothyroxine Sodium (Synthroid) 50 mcg PO DAILY@0600 [facility] Last Admin: 05/16/19 05:07 Dose: 50 mcg Documented by: Magnesium Hydroxide (Milk Of Magnesia) 30 ml PO DAILY PRN PRN PRN Reason: Constipation Metoprolol Tartrate (Lopressor (Beta Brittnee)) 50 mg PO BID [facility] Last Admin: 05/15/19 21:36 Dose: Not Given Documented by: Morphine Sulfate () 2 mg IV Q3H PRN PRN PRN Reason: Pain Score 6-10/10 Mupirocin (Bactroban) 1 applic NASAL BID [facility]; Protocol Stop: 05/20/19 10:01 Last Admin: 05/16/19 10:31 Dose: Not Given Documented by: Non-Formulary Medication (Apremilast) 30 mg PO BID [facility] Nystatin (Mycostatin Powder) 1 applic TOPICAL BID [facility]; Protocol Last Admin: 05/16/19 05:01 Dose: 1 applic Documented by: Ondansetron HCl (Zofran) 4 mg IV Q8H PRN PRN PRN Reason: NAUSEA/VOMITING Oxycodone HCl (Oxyir) 5 mg PO Q6H PRN PRN PRN Reason: Pain Score 6-10/10 Potassium Chloride (K-Dur) [facility] Last Admin: 05/16/19 09:47 Dose: 20 meq Documented by: Pramipexole Dihydrochloride (Mirapex) 0.25 mg PO QHS [facility] Last Admin: 05/15/19 21:38 Dose: 0.25 mg Documented by: Pravastatin Sodium (Pravachol) 40 mg PO QHS [facility] Senna/Docusate Sodium (Senokot-S, Meg-Colace) 2 tablet PO BID PRN PRN PRN Reason: Constipation Sodium Chloride () 10 - 40 ml IV UD PRN PRN Reason: SALINE FLUSH Last Admin: 05/16/19 10:29 Dose: 10 ml Documented by: STROKE Vital Signs/Narrative: Vital Signs Temp Pulse Resp BP Pulse Ox 05/16/19 10:00 103 H 05/16/19 09:19 97.5 F L 95 20 H 101/55 L 93 05/16/19 07:35 91 Medical Necessity - Tobacco Use Smoking Status: Former smoker - Tells me she quit in 2009 and prior to that smoked for about 50 years. Tobacco Use: Non-smoker Assessment/Plan All Active Problems (Last Reviewed 05/15/19 @ 18:[address] Vicky Lovett, DO) CHF exacerbation (Acute) Cellulitis (Acute) Pleural effusion, right (Acute) Pulmonary hypertension, moderate to severe (Acute) Shortness of breath (Resolved) 1. 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 Large pleural effusion. Eliquis held, may need paracentesis. Echo pending. Stable on 3 lpm, normally no home o2. CO2 improved. 2. Acute cellulitis RLE - (+) MSSA (-) MRSA. Change abx to unasyn. Tolerated zosyn no rxn, ok to use pcn's. Complicated by LE venous stasis dermatitis. WBC improved. No fever. Bl cx pending. C/s wound care. 3. SOFI - suspect cardiorenal, continue diuresis 4. Hx Breast cancer, lymphoma - area concerning for mets in hip on xray, follow up ct pelvis shows corresponding area of subq calcified granulomas 5. Low platelets - stop heparin 6. Iron deficiency anemia - venofer, po iron. check stool occult blood. tsh normal. iron studies / retic studies abnormal. 7. Hip pain - no occult fracture on ct. PTOT. DVT ppx: scd's. hep and eliquis held as above. DC planning: PTOT evals, pt having difficulty walking/weight bearing This patient was seen by Genaro Miranda PA-C under the supervision of Dr. Ervin <Jyoti Ervin - Last Filed: 05/16/19 14:08> Vitals/I&O's: Vital Signs Temp Pulse Resp BP Pulse Ox 97.5 F L 75 20 H 100/64 96 05/16/19 12:04 05/16/19 12:04 05/16/19 12:04 05/16/19 12:04 05/16/19 12:04 Oxygen Flow Rate (L/min) 3 Oxygen Delivery Method Nasal Cannula Weight: 81.3 kg Body Mass Index (BMI) 29.9 Intake and Output for Last 24 Hours 05/14/19 05/15/19 05/16/19 23:59 23:59 23:59 Intake Total 825 / 1075 1102 / 1102 Balance 825 / 1075 1102 / 1102 Microbiology Past 72 Hours 05/15/19 22:06 Skin - Leg Wound Culture - Preliminary Staphylococcus aureus Laboratory Results 05/15/19 14:20: WBC 11.6 H, RBC 4.64, Hgb 9.5 L, Hct 38.7, MCV 83.4, MCH 20.5 L, MCHC 24.5 L, RDW Std Deviation 70.5 H, RDW Coeff of Estiven 23.9 H, Plt Count 162, MPV 9.8, Immature Gran % (Auto) 0.900, Neut % (Auto) 78.0 H, Lymph % (Auto) 16.2 L, [place] % (Auto) 4.3, Eos % (Auto) 0.3, Baso % (Auto) 0.3, Absolute Neuts (auto) 9.1 H, Absolute Lymphs (auto) 1.88, Nucleated RBC % 1.3, Platelet Estimate ADEQUATE, RBC Morphology N CHROM, Anisocytosis 3+ 05/15/19 14:20: Sodium 148 H, Potassium 3.8, Chloride 111 H, Carbon Dioxide 35.0 H, Anion Gap 2 L, BUN 39 H, Creatinine 1.53 H, Estim Creat Clear Calc 25.07, Est GFR (MDRD) Af Amer 42 L, Est GFR (MDRD) Non-Af 34 L, BUN/Creatinine Ratio 25.5 H, Glucose 71 L, Calcium 8.7, Troponin I < 0.015 05/15/19 14:20: Lactic Acid 1.7 05/15/19 14:20: B-Natriuretic Peptide 964.6 H 05/15/19 14:20: Phosphorus 4.0, Magnesium 2.5, Iron 16 L, TIBC 352, Iron Saturation 4.5 L, Ferritin 15, Total Bilirubin 0.50, Direct Bilirubin 0.15, AST 13 L, ALT 13, Alkaline Phosphatase 78, C-React Prot Ext Range 46.80 H, Total Protein 6.2 L, Albumin 2.8 L, Globulin 3.4, TSH 1.96, Free T4 1.07 05/15/19 14:47: PT 22.2 H, INR 2.0 05/15/19 14:48: Specimen Type ART, Sample Site L Radial, pH 7.38, Bicarbonate Actual 31.8 H, POC Total CO2 33, Base Excess 7 H, O2 Saturation 97, ABG pCO2 53.5 H, ABG pO2 96, Lopez Test POS, O2 Delivery Device Nasal Can, Liter Flow 2.0, Blood Gas Notified Whom ED , Blood Gas Notified Time 1446 05/15/19 15:59: Urine Color Yellow, Urine Clarity Sl Cldy, Urine pH 5.0, Ur Specific [place] 1.015, Urine Protein 30 H, Urine Glucose (UA) Normal, Urine Ketones Negative, Urine Occult Blood Negative, Urine Nitrite Positive H, Urine Bilirubin Negative, Urine Urobilinogen 1 H, Ur Leukocyte Esterase 25 H, Urine RBC 0 SEEN, Urine WBC 0-5 SEEN, Ur Squamous Epith Cells 0-5 SEEN, Amorphous Sediment 1+ URATE, Urine Bacteria 1+, Hyaline Casts 0-5 SEEN, Urine Mucus 0 SEEN 05/15/19 19:10: Immature Plt Fraction 2.7, ESR 26, Retic Count 1.83 H, Immature Retic Fraction 25.40 H, Retic Hgb Equivalent 17.6 L 05/15/19 22:06: S.aureus Protein A PCR POSITIVE H, MRSA (PCR) Negative 05/16/19 06:58: WBC 10.4, RBC 4.07 L, Hgb 8.3 L, Hct 33.8 L, MCV 83.0, MCH 20.4 L, MCHC 24.6 L, RDW Std Deviation 70.4 H, RDW Coeff of Estiven 23.9 H, Plt Count 135 L, MPV 9.9, Immature Gran % (Auto) 1.000 H, Neut % (Auto) 72.8 H, Lymph % (Auto) 21.0, [place] % (Auto) 4.4, Eos % (Auto) 0.4, Baso % (Auto) 0.4, Absolute Neuts (auto) 7.5, Absolute Lymphs (auto) 2.17, Nucleated RBC % 1.8, Platelet Estimate SLT DEC, Polychromasia 1+, Hypochromasia 2+, Anisocytosis 2+, Microcytosis RARE 05/16/19 06:58: Sodium 147 H, Potassium 4.1, Chloride 112 H, Carbon Dioxide 29.0, Anion Gap 6, BUN 40 H, Creatinine 1.59 H, Estim Creat Clear Calc 24.12, Est GFR (MDRD) Af Amer 40 L, Est GFR (MDRD) Non-Af 33 L, BUN/Creatinine Ratio 25.2 H, Glucose 70 L, Calcium 8.3 L, Phosphorus 4.8, Magnesium 2.2 Current Medications Acetaminophen (Tylenol) 650 mg PO Q6H PRN PRN PRN Reason: Pain Score 1-10/Temp > 100.7 F Al Hydroxide/Mg Hydroxide (Mylanta Ii) 30 ml PO Q6H PRN PRN PRN Reason: Gastric Burning Albuterol Sulfate (Ventolin Aerosols) 2.5 mg INHALATION Q2H PRN PRN PRN Reason: Shortness of Breath/Wheezing Allopurinol (Zyloprim) 300 mg PO DAILYCM [facility] Last Admin: 05/16/19 09:46 Dose: 300 mg Documented by: Chlorhexidine Gluconate () 1 each TOPICAL DAILY [facility] Stop: 05/21/19 10:01 Last Admin: 05/16/19 09:31 Dose: Not Given Documented by: Duloxetine HCl (Cymbalta) 30 mg PO DAILY [facility] Last Admin: 05/16/19 09:46 Dose: 30 mg Documented by: Famotidine (Pepcid) 20 mg PO DAILY [facility] Last Admin: 05/16/19 09:46 Dose: 20 mg Documented by: Furosemide (Lasix) 40 mg IV BID@1000,1800 [facility] Last Admin: 05/16/19 10:29 Dose: 40 mg Documented by: Gabapentin (Neurontin) [facility] Guaifenesin (Robitussin) 20 ml PO Q4H PRN PRN PRN Reason: COUGH Heparin Sodium (Porcine) (Heparin Na) 5,000 unit SC Q8 [facility] Last Admin: 05/16/19 05:07 Dose: 5,000 unit Documented by: Sodium Chloride () 500 mls @ 999 mls/hr IV .Q31M ONE Last Infusion: 05/15/19 16:46 Dose: Infused Documented by: Ampicillin Sodium/Sulbactam (Sodium 3 gm/ Sodium Chloride) 112 mls @ 150 mls/hr IV BID [facility] Last Infusion: 05/16/19 11:11 Dose: Infused Documented by: Levothyroxine Sodium (Synthroid) 50 mcg PO DAILY@0600 [facility] Last Admin: 05/16/19 05:07 Dose: 50 mcg Documented by: Magnesium Hydroxide (Milk Of Magnesia) 30 ml PO DAILY PRN PRN PRN Reason: Constipation Metoprolol Tartrate (Lopressor (Beta Brittnee)) 50 mg PO BID [facility] Last Admin: 05/15/19 21:36 Dose: Not Given Documented by: Morphine Sulfate () 2 mg IV Q3H PRN PRN PRN Reason: Pain Score 6-10/10 Mupirocin (Bactroban) 1 applic NASAL BID [facility]; Protocol Stop: 05/20/19 10:01 Last Admin: 05/16/19 10:31 Dose: Not Given Documented by: Nystatin (Mycostatin Powder) 1 applic TOPICAL BID [facility]; Protocol Last Admin: 05/16/19 05:01 Dose: 1 applic Documented by: Ondansetron HCl (Zofran) 4 mg IV Q8H PRN PRN PRN Reason: NAUSEA/VOMITING Oxycodone HCl (Oxyir) 5 mg PO Q6H PRN PRN PRN Reason: Pain Score 6-10/10 Polysaccharide Iron Complex (Ferrex 150) 150 [facility] Potassium Chloride (K-Dur) 20 meq [facility] Last Admin: 05/16/19 09:47 Dose: 20 meq Documented by: Pramipexole Dihydrochloride (Mirapex) 0.25 mg PO QHS [facility] Last Admin: 05/15/19 21:38 Dose: 0.25 mg Documented by: Pravastatin Sodium (Pravachol) 40 mg PO QHS [facility] Senna/Docusate Sodium (Senokot-S, Meg-Colace) 2 tablet PO BID PRN PRN PRN Reason: Constipation Sodium Chloride () 10 - 40 ml IV UD PRN PRN Reason: SALINE FLUSH Last Admin: 05/16/19 10:29 Dose: 10 ml Documented by: STROKE Vital Signs/Narrative: Vital Signs Temp Pulse Resp BP Pulse Ox 05/16/19 12:04 97.5 F L 75 20 H 100/64 96 05/16/19 10:00 103 H Assessment/Plan This patient was seen in conjunction with SARAH Benedict. I have independently interviewed and examined the patient and reviewed pertinent historical, laboratory, and other data. Please refer to SARAH Benedict note for his patient's presentation, findings, and recommendations. I have reviewed and his note and concur with his documentation Patient was seen and examined. She says she is feeling better. Denied any new complaint. Denies any fever or chills. Physical Exam: Gen: Appears chronically unwell, not pale, not jaundiced CVS:HS I +II, regular, no murmurs RESP: Diminished at lung bases GI: BS present and normal, soft, nontender, no palpable organs EXT:No edema ASSESSMENT: 1. Hypoxia secondary to acute on chronic combined CHF exacerbation 2. Pulmonary hypertension 3. Acute cellulitis, RLE negative 4. SOFI 5. Hypertension 6. Microcytic, microchromic anemia Plan: Continue with Lasix IV, CHF protocol, strict I & Os, daily weights Continue Augmentin Monitor thrombocytopenia especially whilst on Heparin Continue on tylenol for pain Inpatient E&M: [id number] Subs Hosp L2
--- NOTE | 2019-05-16 12:13 | CM.UR ---
Attempted to call into room, as patient is in isolation, however no answer. Spoke to nurse and she states patient is not alert and won't be able to talk on phone. Will call family later. Gordon Muñoz RN,[facility].
--- NOTE | 2019-05-16 12:32 | PCM.CONS.PUL ---
Problem List (1) Edema of both legs Status: Chronic (2) History of pulmonary embolism Status: Chronic (3) Balance disorder Status: Chronic (4) Venous ulcer of leg Status: Chronic (5) Chronic anticoagulation Status: Chronic Comment: On Eliquis for history of pulmonary embolism and atrial fibrillation (6) Anemia Status: Chronic (7) Pleural effusion, right Status: Acute Comment: very large (8) Hx of solitary pulmonary nodule Status: Chronic Comment: spiculated nodule on the right in 2018 (9) Pulmonary hypertension, moderate to severe Status: Acute Comment: PA systolic in May 2018 was estimated at 62. (10) Persistent atrial fibrillation Status: Chronic (11) Chronic combined systolic and diastolic CHF (congestive heart failure) Status: Chronic (12) Secondary pulmonary arterial hypertension Status: Chronic (13) Essential (primary) hypertension Status: Chronic (14) History of breast cancer Status: Chronic (15) History of non-Hodgkin's lymphoma Status: Chronic Reason for Consult Date of Consultation: 05/16/19 Reason for Consultation: Pleural effusion History of Present Illness: The patient is a 84 year old F, with past medical history listed below, who presented to [facility] secondary to left hip pain, generalized weakness and falling. Patient reportedly had had multiple falls in the last 2 weeks was unable to bear weight or get out of bed this morning. Patient had been having some shortness of breath on exertion and agreed to be evaluated. Patient is not normally on supplemental oxygen. Patient has not been coughing and has not had any subjective fevers. Patient denied any recent sick contacts. In the ER, patient was noted to have an elevated BNP and a chest x-ray showing pleural effusion. Patient had a significant leukocytosis, but lactic acid was not elevated. Patient received some fluids, but not a full 30 cc/kg. Patient does have chronic wounds of her lower extremities. Patient was given broad-spectrum antibiotics. There is some concern of metastatic cancer findings. Patient was admitted to the intensive care unit, but shortly thereafter was transferred to the floor. Patient reports that she is doing well at this time. Patient does report some shortness of breath with exertion, but otherwise feels that she is doing well. Patient does have a good appetite. Patient is anticoagulated at baseline secondary to A. fib and history of PE. Patient denies any nausea or vomiting at this time. Patient is not having any dizziness, palpitations, chest pain or tightness. Patient continues to have some discomfort of the right lower extremity. Patient is requiring 3 L nasal cannula oxygen to maintain saturations and states that she does not required it at home. Review of systems otherwise negative from a constitutional, HEENT, respiratory, cardiovascular, GI, genitourinary, musculoskeletal, skin, neurologic, psychiatric and hematologic system unless stated above. Past Medical History Past Medical History (Chronic Problems): Chronic Problems (Last Reviewed 05/15/19 @ 18:[address] Vicky Lovett DO) Edema of both legs (Chronic) History of pulmonary embolism (Chronic) History of DVT (deep vein thrombosis) (Chronic) Balance disorder (Chronic) Urinary incontinence (Chronic) Venous ulcer of leg (Chronic) Psoriasis (Chronic) Chronic anticoagulation (Chronic) On Eliquis for history of pulmonary embolism and atrial fibrillation Anemia (Chronic) Hx of solitary pulmonary nodule (Chronic) spiculated nodule on the right in 2017 Cardiomyopathy (Chronic) EF of 40% in December 2017 Former smoker (Chronic) Quit in 2009 Venous insufficiency (Chronic) Persistent atrial fibrillation (Chronic) Chronic combined systolic and diastolic CHF (congestive heart failure) (Chronic) Secondary pulmonary arterial hypertension (Chronic) Non-rheumatic tricuspid valve insufficiency (Chronic) Essential (primary) hypertension (Chronic) Hyperlipidemia (Chronic) Lung nodule (Chronic) Spiculated nodule seen in the right lung on a CAT scan of the chest in 2018 Pulmonary embolism (Chronic) History of breast cancer (Chronic) History of non-Hodgkin's lymphoma (Chronic) Pleural effusion (Chronic) Restrictive lung disease (Chronic) Medical History: Medical History (Last Reviewed 05/15/19 @ 18:[address] Vicky Lovett DO) Persistent atrial fibrillation (Chronic) I48.1 Chronic combined systolic and diastolic CHF (congestive heart failure) (Chronic) I50.42 Secondary pulmonary arterial hypertension (Chronic) I27.21 Non-rheumatic tricuspid valve insufficiency (Chronic) I36.1 Essential (primary) hypertension (Chronic) I10 Hyperlipidemia (Chronic) E78.5 Lung nodule (Chronic) R91.1 Spiculated nodule seen in the right lung on a CAT scan of the chest in 2018 Pulmonary embolism (Chronic) I26.99 History of breast cancer (Chronic) Z85.3 History of non-Hodgkin's lymphoma (Chronic) Z85.72 Pleural effusion (Chronic) J90 Restrictive lung disease (Chronic) J98.4 Anxiety and depression F41.9, F32.9 Atrial flutter with controlled response I48.92 History of gout Z87.39 History of pelvic fracture Z87.81 Hypothyroidism E03.9 Obesity E66.9 Osteoarthritis M19.90 Atrial fibrillation with RVR Onset Date: 12/27/17 I48.91 Allergies amoxicillin Adverse Reaction (Severe, Verified 03/31/19 11:09) Nausea/Vom/Diarrhea Penicillins [PCN] Adverse Reaction (Severe, Verified 03/31/19 11:09) Unknown CAN NOT FUNCTION tape Allergy (Severe, Uncoded 11/24/18 12:41) bruising Home Medications: Ambulatory Orders Medication Instructions Recorded Pramipexole Di-HCl [Mirapex] 0.25 mg PO QHS 12/27/17 allopurinol 300 mg tablet 300 mg PO DAILY #90 tab 10/08/18 levothyroxine 50 mcg tablet 50 mcg PO DAILY #90 tab 10/08/18 Apremilast [Otezla] 30 mg PO BID 03/31/19 Gabapentin [Neurontin] 100 mg PO BID 03/31/19 Apixaban [Eliquis] 5 mg PO BID 05/15/19 Diltiazem HCl [Cardizem Cd] 120 mg PO DAILY 05/15/19 Duloxetine HCl [Cymbalta] 30 mg PO DAILY 05/15/19 Furosemide 20 mg PO DAILY 05/15/19 Metoprolol Tartrate [Lopressor 100 mg PO BID 05/15/19 (beta brittnee)] Pravastatin Sodium 40 mg PO DAILY 05/15/19 Surgical History: Surgical History (Last Reviewed 05/15/19 @ 18:[address] Vicky Lovett, DO) History of mastectomy Z98.890, Z90.10 history of skin graph on nose Surgical History: mastectomy - left, - - Patient has previously undergone hysterectomy, and left breast mastectomy in 2011. She also had excision of a malignant lesion on the nose and then a graft. 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 Tobacco Use: Non-smoker Alcohol: Rare Drugs: None - *Family History Paternal Family History: Family History (Last Reviewed 05/15/19 @ 18:[address] Vicky Lovett DO) Mother Breast cancer Hypertension Father Lung cancer Alcoholism Brother Asthma Alcoholism Cancer Depression Heart disease Hypertension Liver disease Sister Alcoholism Cancer Heart disease Hypertension Thyroid disorder History Items: - - Patient's father at the age of 75 from lung cancer. Patient's mother at the age of 55 from metastatic breast cancer. Review of Systems Comment: See HPI Patient Problems: Active and Suspected Problems (Last Reviewed 05/15/19 @ 18:[address] Vicky Lovett DO) CHF exacerbation (Acute) Metastatic cancer (Suspected) new lytic lesions in the left hip Cellulitis (Acute) Pleural effusion, right (Acute) very large Pulmonary hypertension, moderate to severe (Acute) PA systolic in May 2018 was estimated at 62. Objective: CT scan of the chest was personally reviewed and shows significant right-sided pleural effusion with compressive atelectasis. Echocardiogram has shown an EF of 55% with mildly dilated RV and global right ventricular dysfunction. Moderately enlarged atria noted. Patient pulmonary artery pressure is 44 mmHg without significant valvular disease. Pelvis CT shows calcified granulomas within the gluteal regions and a mild infrarenal abdominal aortic aneurysm. Some ascites was appreciated. - Physical Exam Vitals/I&O's: Vital Signs Temp Pulse Resp BP Pulse Ox 36.4 C L 75 20 H 100/64 96 05/16/19 12:04 05/16/19 12:04 05/16/19 12:04 05/16/19 12:04 05/16/19 12:04 Oxygen Flow Rate (L/min) 3 Oxygen Delivery Method Nasal Cannula Weight: 81.3 kg Body Mass Index (BMI) 29.9 Intake and Output for Last 24 Hours 05/14/19 05/15/19 05/16/19 23:59 23:59 23:59 Intake Total 825 / 1075 1102 / 1102 Balance 825 / 1075 1102 / 1102 General: Alert, Oriented x3, Cooperative, No apparent distress, - - Obese. No conversational dyspnea. HEENT: Atraumatic, PERRLA, EOMI, Normocephalic, - - No scleral icterus or injection noted Oral: Moist Mucosa, No Gingival or Mucosal Lesions/ Ulcerations Neck: Supple, No Nodes, Trachea Midline, JVD, Right Lungs: No rhonchi, No wheeze, Diminished, Rales - Left base, - - Dullness to percussion approximately long term up the right chest Cardiovascular: Normal S1, Normal S2, Irregular Rate, Murmur - Grade 2 out of 6 systolic ejection murmur at the right sternal border, No rub noted, No Gallop Abdomen: Bowel Sounds Present, Soft, Non Tender, Non-Distended, Obese Extremities: No clubbing, No cyanosis, Edema - Bilateral lower extremities Skin: Rash Present - Right lower extremity with erythema, warmth and tenderness. 3+ pitting edema bilateral lower extremities Musculoskeletal: No Tenderness to Palpation of Joints or Extremities Lymphatic: No Cervical, Supraclavicular, or Inguinal Adenopathy Neurological: Cranial nerves II-XII grossly intact, Neuro grossly intact, Motor Exam 5/5 strength throughout Psych/Mental Status: Normal Affect, Appropriate Microbiology Past 72 Hours 05/15/19 22:06 Skin - Leg Wound Culture - Preliminary Staphylococcus aureus Laboratory Results 05/15/19 14:20: WBC 11.6 H, RBC 4.64, Hgb 9.5 L, Hct 38.7, MCV 83.4, MCH 20.5 L, MCHC 24.5 L, RDW Std Deviation 70.5 H, RDW Coeff of Estiven 23.9 H, Plt Count 162, MPV 9.8, Immature Gran % (Auto) 0.900, Neut % (Auto) 78.0 H, Lymph % (Auto) 16.2 L, [place] % (Auto) 4.3, Eos % (Auto) 0.3, Baso % (Auto) 0.3, Absolute Neuts (auto) 9.1 H, Absolute Lymphs (auto) 1.88, Nucleated RBC % 1.3, Platelet Estimate ADEQUATE, RBC Morphology N CHROM, Anisocytosis 3+ 05/15/19 14:20: Sodium 148 H, Potassium 3.8, Chloride 111 H, Carbon Dioxide 35.0 H, Anion Gap 2 L, BUN 39 H, Creatinine 1.53 H, Estim Creat Clear Calc 25.07, Est GFR (MDRD) Af Amer 42 L, Est GFR (MDRD) Non-Af 34 L, BUN/Creatinine Ratio 25.5 H, Glucose 71 L, Calcium 8.7, Troponin I < 0.015 05/15/19 14:20: Lactic Acid 1.7 05/15/19 14:20: B-Natriuretic Peptide 964.6 H 05/15/19 14:20: Phosphorus 4.0, Magnesium 2.5, Iron 16 L, TIBC 352, Iron Saturation 4.5 L, Ferritin 15, Total Bilirubin 0.50, Direct Bilirubin 0.15, AST 13 L, ALT 13, Alkaline Phosphatase 78, C-React Prot Ext Range 46.80 H, Total Protein 6.2 L, Albumin 2.8 L, Globulin 3.4, TSH 1.96, Free T4 1.07 05/15/19 14:47: PT 22.2 H, INR 2.0 05/15/19 14:48: Specimen Type ART, Sample Site L Radial, pH 7.38, Bicarbonate Actual 31.8 H, POC Total CO2 33, Base Excess 7 H, O2 Saturation 97, ABG pCO2 53.5 H, ABG pO2 96, Lopez Test POS, O2 Delivery Device Nasal Can, Liter Flow 2.0, Blood Gas Notified Whom ED MD, Blood Gas Notified Time 1446 05/15/19 15:59: Urine Color Yellow, Urine Clarity Sl Cldy, Urine pH 5.0, Ur Specific [place] 1.015, Urine Protein 30 H, Urine Glucose (UA) Normal, Urine Ketones Negative, Urine Occult Blood Negative, Urine Nitrite Positive H, Urine Bilirubin Negative, Urine Urobilinogen 1 H, Ur Leukocyte Esterase 25 H, Urine RBC 0 SEEN, Urine WBC 0-5 SEEN, Ur Squamous Epith Cells 0-5 SEEN, Amorphous Sediment 1+ URATE, Urine Bacteria 1+, Hyaline Casts 0-5 SEEN, Urine Mucus 0 SEEN 05/15/19 19:10: Immature Plt Fraction 2.7, ESR 26, Retic Count 1.83 H, Immature Retic Fraction 25.40 H, Retic Hgb Equivalent 17.6 L 05/15/19 22:06: S.aureus Protein A PCR POSITIVE H, MRSA (PCR) Negative 05/16/19 06:58: WBC 10.4, RBC 4.07 L, Hgb 8.3 L, Hct 33.8 L, MCV 83.0, MCH 20.4 L, MCHC 24.6 L, RDW Std Deviation 70.4 H, RDW Coeff of Estiven 23.9 H, Plt Count 135 L, MPV 9.9, Immature Gran % (Auto) 1.000 H, Neut % (Auto) 72.8 H, Lymph % (Auto) 21.0, [place] % (Auto) 4.4, Eos % (Auto) 0.4, Baso % (Auto) 0.4, Absolute Neuts (auto) 7.5, Absolute Lymphs (auto) 2.17, Nucleated RBC % 1.8, Platelet Estimate SLT DEC, Polychromasia 1+, Hypochromasia 2+, Anisocytosis 2+, Microcytosis RARE 05/16/19 06:58: Sodium 147 H, Potassium 4.1, Chloride 112 H, Carbon Dioxide 29.0, Anion Gap 6, BUN 40 H, Creatinine 1.59 H, Estim Creat Clear Calc 24.12, Est GFR (MDRD) Af Amer 40 L, Est GFR (MDRD) Non-Af 33 L, BUN/Creatinine Ratio 25.2 H, Glucose 70 L, Calcium 8.3 L, Phosphorus 4.8, Magnesium 2.2 Current Medications Acetaminophen (Tylenol) 650 mg PO Q6H PRN PRN PRN Reason: Pain Score 1-10/Temp > 100.7 F Al Hydroxide/Mg Hydroxide (Mylanta Ii) 30 ml PO Q6H PRN PRN PRN Reason: Gastric Burning Albuterol Sulfate (Ventolin Aerosols) 2.5 mg INHALATION Q2H PRN PRN PRN Reason: Shortness of Breath/Wheezing [facility] Last Admin: 05/16/19 09:46 Dose: 300 mg Documented by: Chlorhexidine Gluconate () 1 each TOPICAL DAILY [facility] Stop: 05/21/19 10:01 Last Admin: 05/16/19 09:31 Dose: Not Given Documented by: Duloxetine HCl (Cymbalta) 30 mg PO DAILY [facility] Last Admin: 05/16/19 09:46 Dose: 30 mg Documented by: Famotidine (Pepcid) 20 mg PO DAILY [facility] Last Admin: 05/16/19 09:46 Dose: 20 mg Documented by: Furosemide (Lasix) 40 mg IV BID@1000,1800 [facility] Last Admin: 05/16/19 10:29 Dose: 40 mg Documented by: Gabapentin (Neurontin) [facility] Guaifenesin (Robitussin) 20 ml PO Q4H PRN PRN PRN Reason: COUGH Heparin Sodium (Porcine) (Heparin Na) 5,000 unit SC Q8 [facility] Last Admin: 05/16/19 05:07 Dose: 5,000 unit Documented by: Sodium Chloride () 500 mls @ 999 mls/hr IV .Q31M ONE Last Infusion: 05/15/19 16:46 Dose: Infused Documented by: Ampicillin Sodium/Sulbactam (Sodium 3 gm/ Sodium Chloride) 112 mls @ 150 mls/hr IV BID [facility] Last Infusion: 05/16/19 11:11 Dose: Infused Documented by: Levothyroxine Sodium (Synthroid) 50 mcg PO DAILY@0600 [facility] Last Admin: 05/16/19 05:07 Dose: 50 mcg Documented by: Magnesium Hydroxide (Milk Of Magnesia) 30 ml PO DAILY PRN PRN PRN Reason: Constipation Metoprolol Tartrate (Lopressor (Beta Brittnee)) 50 mg PO BID [facility] Last Admin: 05/15/19 21:36 Dose: Not Given Documented by: Morphine Sulfate () 2 mg IV Q3H PRN PRN PRN Reason: Pain Score 6-10/10 Mupirocin (Bactroban) 1 applic NASAL BID [facility]; Protocol Stop: 05/20/19 10:01 Last Admin: 05/16/19 10:31 Dose: Not Given Documented by: Non-Formulary Medication (Apremilast) 30 mg PO BID [facility] Nystatin (Mycostatin Powder) 1 applic TOPICAL BID [facility]; Protocol Last Admin: 05/16/19 05:01 Dose: 1 applic Documented by: Ondansetron HCl (Zofran) 4 mg IV Q8H PRN PRN PRN Reason: NAUSEA/VOMITING Oxycodone HCl (Oxyir) 5 mg PO Q6H PRN PRN PRN Reason: Pain Score 6-10/10 Polysaccharide Iron Complex (Ferrex 150) [facility] Potassium Chloride (K-Dur) [facility]q [facility] Last Admin: 05/16/19 09:47 Dose: 20 meq Documented by: Pramipexole Dihydrochloride (Mirapex) 0.25 mg PO QHS [facility] Last Admin: 05/15/19 21:38 Dose: 0.25 mg Documented by: Pravastatin Sodium (Pravachol) 40 mg PO QHS [facility] Senna/Docusate Sodium (Senokot-S, Meg-Colace) 2 tablet PO BID PRN PRN PRN Reason: Constipation Sodium Chloride () 10 - 40 ml IV UD PRN PRN Reason: SALINE FLUSH Last Admin: 05/16/19 10:29 Dose: 10 ml Documented by: Clinical Impression(s) from Imaging Studies Chest X-Ray 05/15/19 14:57 IMPRESSION: Large right pleural effusion with superimposed CHF. Electronically Signed: Igor Rajan at 15:14 EDT , Service support , Hip/Pelvis X-Ray 05/15/19 14:57 IMPRESSION: No fracture seen. Sclerotic focus in the right and left iliac bone as described. Metastatic disease should be ruled out Electronically Signed: Igor Rajan at 15:19 EDT , Service support , Chest CT 05/15/19 17:39 IMPRESSION: Large right pleural effusion with compression atelectasis of the right lung. Bilateral patchy pulmonary interstitial prominence. Mild cardiomegaly. Mild ascites. Subcutaneous edema/hematoma of the right lateral chest wall. Electronically Signed: Cuba Lewis DO at 19:30 EDT Tel [phone], Service support , Pelvis CT 05/15/19 18:54 IMPRESSION: Subcutaneous calcified granulomas bilaterally within the gluteal regions likely representing the sclerotic area seen on corresponding x-ray of the pelvis. Degenerative lower lumbar changes. Possible old left trochanteric injury. Mild infrarenal abdominal aortic aneurysm. Ascites and pelvic fluid. Electronically Signed: Cuba Lewis DO at 20:27 EDT Tel [phone], Service support , Assessment/Plan All Active Problems (Last Reviewed 05/15/19 @ 18:[address] Vicky Lovett DO) CHF exacerbation (Acute) Cellulitis (Acute) Pleural effusion, right (Acute) Pulmonary hypertension, moderate to severe (Acute) Shortness of breath (Resolved) RECOMMENDATIONS: 1. Await resolution of Eliquis therapy 2. Diagnostic and therapeutic thoracentesis on right following paracentesis 3. Wean oxygen as tolerated 4. Evaluate staph for MRSA 5. Continue diuresis IMPRESSIONS: 1. Acute hypoxic respiratory insufficiency secondary to right-sided pleural effusion, acute on chronic combined CHF Continue aggressive diuresis. Patient would likely benefit from a right-sided thoracentesis. However, given ascites, this may be best completed after ascites is drained as this will rapidly accumulate into the chest if thoracentesis is completed prior to the paracentesis. Patient appears to be tolerating on minimal nasal cannula oxygen at this time, so there is no indication for aggressive intervention. Patient does have a history of cancer, spiculated nodule and current infection, so evaluation for exudate pattern on effusion would be of importance. No indication for steroids from my perspective 2. Right lower extremity cellulitis Patient was staph aureus. Patient is appropriately on Unasyn at this time, but need to verify the staff is not MRSA. Blood cultures are not showing any growth at this time. Leukocytosis is responding to therapy. 3. Thrombocytopenia/history of lymphoma/history of breast cancer/acute kidney injury/iron deficiency anemia/frequent falls/advanced age Complicates care, management, recovery and prognosis. Renal dysfunction likely secondary to prerenal etiology. Patient is not showing any complications of bleeding, so transfusion would not be indicated for thrombocytopenia. Patient is currently a full code, but it is unclear if this would change if patient were to have find malignancy with positive cytology. Inpatient E&M: 03921 Init Hosp L3
[2019-05-16] MEDS: Metoprolol Tartrate 50 MG Tablet PO ×2 (14:28→23:05)
[2019-05-16] MEDS: Gabapentin 100 MG Capsule PO (17:57)
[2019-05-16] MEDS: Pramipexole Di-HCl 0.25 MG Tablet PO (23:05)
[2019-05-16] MEDS: Pravastatin 40 MG Tablet PO (23:05)
[2019-05-16] MEDS: Menthol/Lanolin/Calamine/Znox 113 GM Tube 1 APPLIC TOPICAL (23:06)
[2019-05-16] MEDS: Mupirocin Ointment 22gm Tube 1 APPLIC NASAL (23:14)
[2019-05-17] VITALS (29 sets, daily range): BP systolic 80–110; BP diastolic 47–97; PULSE 86–142; RESP 15–27; TEMP 36.1–36.4; O2SAT 91–100
[2019-05-17] MEDS: Levothyroxine 50 MCG Tablet PO (05:41)
[2019-05-17 06:20] LABS: Absolute Lymphocyte Count 1.23 X10^3/uL (0.83-4.51); Absolute Neutrophil Count 6.2 X10^3/uL (2.0-7.7); Basophil# 0.03 X10^3/uL; Basophil% 0.4 % (0-1); Eosinophil# 0.03 X10^3/uL; Eosinophils% 0.4 % (0-5); Hematocrit 35.3 % (37-47); Hemoglobin 8.5 g/dL (12.0-15.0); Lymphocyte # 1.23 X10^3/ul (4.0); Lymphocyte % 15.4 % (19-41); Mean Corp Hgb Conc 24.1 g/dL (32-36); Mean Corpuscular Hgb 20.4 pg (27.0-32.0); Mean Corpuscular Volume 84.9 fL (81-99); Mean Platelet Vol. 10.5 fl (6.2-12.0); Monocyte# 0.37 X10^3/uL; Monocyte% 4.6 % (0-10); Neutrophil # 6.18 X10^3/uL (2.7-7.7); Neutrophil % 77.3 % (47-70); POSITIVE MORPHOLOGY YES; Platelet Count 122 K/mm3 (150-450); RBC Distribution Width CV 23.9 % (11.6-14.6); RBC Distribution Width SD 71.2 fl (35.1-43.9); Red Blood Count 4.16 M/mm3 (4.2-5.4)
[2019-05-17 06:26] LABS: Differential Indicated SCAN CRITERIA MET
[2019-05-17 06:28] LABS: Anion Gap 4 (5-15); BUN 42 mg/dL (7-18); BUN/Creat Ratio 23.2 RATIO (10-20); Calcium,Total 8.5 mg/dL (8.5-10.1); Chloride 114 mmol/L (98-107); Creatinine, Serum 1.81 mg/dL (0.55-1.02); EST Glomerular Filtration Rate 28 mL/min (>60); Est Glom Filt Rate - Afr Amer 34 mL/min (>60); Estimated Creatinine Clearance 21.19 ml/min; Glucose 73 mg/dL (74-106); Potassium 4.4 mmol/L (3.5-5.1); Sodium Level 149 mmol/L (136-145)
[2019-05-17 07:03] LABS: Differential Comment SCANNED
[2019-05-17 07:04] LABS: Anisocytosis 1+; Hypochromasia 1+
--- NOTE | 2019-05-17 07:55 | PN_ITS ---
Patient Problems: Active and Suspected Problems (Last Reviewed 05/15/19 @ 18:[address] Vicky Lovett, DO) CHF exacerbation (Acute) Metastatic cancer (Suspected) new lytic lesions in the left hip Cellulitis (Acute) Pleural effusion, right (Acute) very large Pulmonary hypertension, moderate to severe (Acute) PA systolic in May 2018 was estimated at 62. Subjective: Patient did well overnight. Patient continues to tolerate 2 L nasal cannula and is reporting only minimal dyspnea on exertion. No bleeding is been reported. Patient is denying any right-sided chest discomfort. - Physical Exam Vitals/I&O's: Vital Signs Temp Pulse Resp BP Pulse Ox 36.2 C L 93 18 96/60 94 05/17/19 05:48 05/17/19 05:48 05/17/19 05:48 05/17/19 05:48 05/17/19 05:48 Oxygen Flow Rate (L/min) 2 Oxygen Delivery Method Nasal Cannula Weight: 81.4 kg Body Mass Index (BMI) 29.9 Intake and Output for Last 24 Hours 05/15/19 05/16/19 05/17/19 23:59 23:59 23:59 Intake Total 825 / 1075 1572 / 1622 212 / 212 Output Total 400 / 800 600 / 600 Balance 825 / 1075 1172 / 822 -388 / -388 General: Alert - Hard of hearing, so had to use loud voice, Cooperative, No apparent distress, Confused, Disoriented, - - Hard of hearing. Obese. No conversational dyspnea. HEENT: Atraumatic, PERRLA, EOMI, Normocephalic, - - No scleral icterus or injection noted Oral: Moist Mucosa, No Gingival or Mucosal Lesions/ Ulcerations Neck: Supple, No JVD, No Nodes, Trachea Midline Lungs: No rhonchi, No wheeze, No rales, Diminished - Right greater than left, - Cardiovascular: Normal S1, Normal S2, Irregular Rate, Murmur, No rub noted, No Gallop Abdomen: Bowel Sounds Present, Soft, Non Tender, Non-Distended, Obese Extremities: No cyanosis, Capillary Refill Less than 3 Seconds, Edema Skin: - - No change compared to previous Musculoskeletal: No Tenderness to Palpation of Joints or Extremities Lymphatic: No Cervical, Supraclavicular, or Inguinal Adenopathy Neurological: Cranial nerves II-XII grossly intact, Neuro grossly intact, Motor Exam 5/5 strength throughout Psych/Mental Status: Normal Affect, Appropriate Microbiology Past 72 Hours 05/16/19 14:20 Stool Stool Occult Blood (MIRIAN) - Final Occult Blood Positive 05/15/19 22:06 Skin - Leg Gram Stain - Final 05/15/19 22:06 Skin - Leg Wound Culture - Preliminary Staphylococcus aureus Laboratory Results 05/16/19 06:58: Platelet Estimate SLT DEC, Polychromasia 1+, Hypochromasia 2+, Anisocytosis 2+, Microcytosis RARE 05/17/19 05:20: WBC 8.0, RBC 4.16 L, Hgb 8.5 L, Hct 35.3 L, MCV 84.9, MCH 20.4 L , MCHC 24.1 L, RDW Std Deviation 71.2 H, RDW Coeff of Estiven 23.9 H, Plt Count 122 L, MPV 10.5, Immature Gran % (Auto) 1.900 H, Neut % (Auto) 77.3 H, Lymph % (Auto) 15.4 L, [place] % (Auto) 4.6, Eos % (Auto) 0.4, Baso % (Auto) 0.4, Absolute Neuts (auto) 6.2, Absolute Lymphs (auto) 1.23, Nucleated RBC % 3.0, Differential Comment SCANNED, Hypochromasia 1+, Anisocytosis 1+ 05/17/19 05:20: Sodium 149 H, Potassium 4.4, Chloride 114 H, Carbon Dioxide 31.0, Anion Gap 4 L, BUN 42 H, Creatinine 1.81 H, Estim Creat Clear Calc 21.19, Est GFR (MDRD) Af Amer 34 L, Est GFR (MDRD) Non-Af 28 L, BUN/Creatinine Ratio 23.2 H, Glucose 73 L, Calcium 8.5 Current Medications Acetaminophen (Tylenol) 650 mg PO Q6H PRN PRN PRN Reason: Pain Score 1-10/Temp > 100.7 F Al Hydroxide/Mg Hydroxide (Mylanta Ii) 30 ml PO Q6H PRN PRN PRN Reason: Gastric Burning Albuterol Sulfate (Ventolin Aerosols) 2.5 mg INHALATION Q2H PRN PRN PRN Reason: Shortness of Breath/Wheezing Allopurinol (Zyloprim) 300 mg PO DAILYCM TANIYA Last Admin: 05/16/19 09:46 Dose: 300 mg Documented by: Calamine/Phenol (Calmoseptine Ointment) 1 applic TOPICAL BID [facility]; Protocol Last Admin: 05/16/19 23:06 Dose: 1 applicatio Documented by: Chlorhexidine Gluconate () 1 each TOPICAL DAILY [facility] Stop: 05/21/19 10:01 Last Admin: 05/16/19 09:31 Dose: Not Given Documented by: Duloxetine HCl (Cymbalta) 30 mg PO DAILY [facility] Last Admin: 05/16/19 09:46 Dose: 30 mg Documented by: Famotidine (Pepcid) 20 mg PO DAILY [facility] Last Admin: 05/16/19 09:46 Dose: 20 mg Documented by: Furosemide (Lasix) 40 mg IV BID@1000,1800 [facility] Last Admin: 05/16/19 17:57 Dose: 40 mg Documented by: [facility]) [facility] Last Admin: 05/16/19 17:57 Dose: 100 mg Documented by: Guaifenesin (Robitussin) 20 ml PO Q4H PRN PRN PRN Reason: COUGH Sodium Chloride () 500 mls @ 999 mls/hr IV .Q31M ONE Last Infusion: 05/15/19 16:46 Dose: Infused Documented by: Ampicillin Sodium/Sulbactam (Sodium 3 gm/ Sodium Chloride) 112 mls @ 150 mls/hr IV BID [facility] Last Infusion: 05/17/19 00:08 Dose: Infused Documented by: Levothyroxine Sodium (Synthroid) 50 mcg PO DAILY@0600 [facility] Last Admin: 05/17/19 05:41 Dose: 50 mcg Documented by: Magnesium Hydroxide (Milk Of Magnesia) 30 ml PO DAILY PRN PRN PRN Reason: Constipation Metoprolol Tartrate (Lopressor (Beta Brittnee)) 50 mg PO BID [facility] Last Admin: 05/16/19 23:05 Dose: 50 mg Documented by: Morphine Sulfate () 2 mg IV Q3H PRN PRN PRN Reason: Pain Score 6-10/10 Mupirocin (Bactroban) 1 applic NASAL BID [facility]; Protocol Stop: 05/20/19 10:01 Last Admin: 05/16/19 23:14 Dose: 1 applic Documented by: Nystatin (Mycostatin Powder) 1 applic TOPICAL BID [facility]; Protocol Last Admin: 05/16/19 23:05 Dose: 1 applic Documented by: Ondansetron HCl (Zofran) 4 mg IV Q8H PRN PRN PRN Reason: NAUSEA/VOMITING Oxycodone HCl (Oxyir) 5 mg PO Q6H PRN PRN PRN Reason: Pain Score 6-10/10 Polysaccharide Iron Complex (Ferrex 150) [facility] Potassium Chloride (K-Dur) [facility]q [facility] Last Admin: 05/16/19 17:57 Dose: 20 meq Documented by: Pramipexole Dihydrochloride (Mirapex) 0.25 mg PO QHS [facility] Last Admin: 05/16/19 23:05 Dose: 0.25 mg Documented by: Pravastatin Sodium (Pravachol) 40 mg PO QHS [facility] Last Admin: 05/16/19 23:05 Dose: 40 mg Documented by: Senna/Docusate Sodium (Senokot-S, Meg-Colace) 2 tablet PO BID PRN PRN PRN Reason: Constipation Sodium Chloride () 10 - 40 ml IV UD PRN PRN Reason: SALINE FLUSH Last Admin: 05/16/19 10:29 Dose: 10 ml Documented by: Medical Necessity - Tobacco Use Smoking Status: Former smoker - Tells me she quit in 2009 and prior to that smoked for about 50 years. Tobacco Use: Non-smoker Assessment/Plan All Active Problems (Last Reviewed 05/15/19 @ 18:[address] Vicky Lovett, DO) CHF exacerbation (Acute) Cellulitis (Acute) Pleural effusion, right (Acute) Pulmonary hypertension, moderate to severe (Acute) Shortness of breath (Resolved) RECOMMENDATIONS: 1. Await resolution of Eliquis therapy 2. Diagnostic and therapeutic thoracentesis on right following paracentesis tomorrow 3. Wean oxygen as tolerated 4. Consider discontinuation of contact precautions given MRSA probe is negative 5. Continue diuresis IMPRESSIONS: 1. Acute hypoxic respiratory insufficiency secondary to right-sided pleural effusion, acute on chronic combined CHF Continue aggressive diuresis. Patient would likely benefit from a right- sided thoracentesis at some point. However, given ascites, this may be best completed after ascites is drained as this will rapidly accumulate into the chest if thoracentesis is completed prior to the paracentesis. Patient appears to be tolerating on minimal nasal cannula oxygen at this time, so there is no indication for aggressive intervention. Patient does have a history of cancer, spiculated nodule and current infection, so evaluation for exudate pattern on effusion would be of importance. No indication for steroids from my perspective 2. Right lower extremity cellulitis Patient has staph aureus. Patient is appropriately on Unasyn at this time, given probe is suggesting MSSA. Consider discontinuation of contact precautions. Blood cultures are not showing any growth at this time. Leukocytosis is responding to therapy. 3. Thrombocytopenia/history of lymphoma/history of breast cancer/acute kidney injury/iron deficiency anemia/frequent falls/advanced age Complicates care, management, recovery and prognosis. Renal dysfunction likely secondary to prerenal etiology. Patient is not showing any complications of bleeding, so transfusion would not be indicated for thrombocytopenia. Eveliasamantha kaitlynn is currently a full code, but it is unclear if this would change if patient were to have find malignancy with positive cytology. Addendum 9:48 AM: Asked to reevaluate patient secondary to concerns for mental status. Patient was able to wake up, but was significantly hard of hearing. Patient stated that she was at [facility] and was able to give her name, but was confused on the date. Patient denied any chest pain or palpitations. Patient remains on 2 L nasal cannula. Reasonable to transfer patient to the PCU for closer monitoring given tachycardia, but does not meet ICU criteria at this time. Inpatient E&M: 11156 Subs Hosp L2
[2019-05-17] MEDS: Gabapentin 100 MG Capsule PO (08:33)
[2019-05-17] MEDS: Iron Polysaccharide Complex 150 MG CAPSULE PO (08:33)
[2019-05-17] MEDS: Allopurinol 300 MG Tablet PO (08:34)
[2019-05-17] MEDS: Menthol/Lanolin/Calamine/Znox 113 GM Tube 1 APPLIC TOPICAL ×2 (09:03→21:38)
[2019-05-17] MEDS: Mupirocin Ointment 22gm Tube 1 APPLIC NASAL ×2 (09:04→21:40)
[2019-05-17] MEDS: Famotidine 20 MG Tablet PO (09:06)
[2019-05-17] MEDS: Furosemide 40 MG/4 ML Vial IV (09:06)
[2019-05-17] MEDS: Nystatin Powder 15gm Bottle 1 APPLIC TOPICAL ×2 (09:06→21:38)
[2019-05-17] MEDS: DULoxetine Hcl 30 MG Capsule PO (09:06)
[2019-05-17] MEDS: CHLORHEXIDINE GLUC 2% CLOTH 1 EACH TOWELETTE TOPICAL (11:17)
--- NOTE | 2019-05-17 11:22 | PCM.PN.HOSP ---
<Genaro Miranda - Last Filed: 05/17/19 13:18> Patient Problems: Active and Suspected Problems (Last Reviewed 05/15/19 @ 18:[address] Vicky Lovett DO) CHF exacerbation (Acute) Metastatic cancer (Suspected) new lytic lesions in the left hip Cellulitis (Acute) Pleural effusion, right (Acute) very large Pulmonary hypertension, moderate to severe (Acute) PA systolic in May 2018 was estimated at 62. Reason for Visit: SOB Subjective: Pt with increased confusion this AM. This has been fluctuant this AM at times seems more confused and somewhat lethargic, then later more alert. At time of presentation she was a/o x 2 (person place). No fever/chills. No hip pain. No SOB. No palp despite increased heart rate. BP borderline. Metoprolol on hold. Daughter contacted and made aware that she will be transferred to the ICU, daughter wants aggressive workup and for her to remain full code. Vitals/I&O's: Vital Signs Temp Pulse Resp BP Pulse Ox 97.5 F L 118 H 18 89/62 L 95 05/17/19 10:00 05/17/19 10:00 05/17/19 10:00 05/17/19 10:00 05/17/19 10:00 Oxygen Flow Rate (L/min) 2 Oxygen Delivery Method Nasal Cannula Weight: 179 lb 7.3 oz Body Mass Index (BMI) 29.9 Intake and Output for Last 24 Hours 05/15/19 05/16/19 05/17/19 23:59 23:59 23:59 Intake Total 825 / 1075 1572 / 1622 213.67 / 213.67 Output Total 400 / 800 600 / 600 Balance 825 / 1075 1172 / 822 -386.33 / -386.33 General: Alert, Oriented x3, Cooperative HEENT: Atraumatic, PERRLA, EOMI, Normocephalic Neck: Supple, No JVD, Negative Carotid Bruits Lungs: Clear to auscultation, Diminished Cardiovascular: Regular rate, No murmurs Abdomen: Bowel Sounds Present, Soft, Non Tender Extremities: Capillary Refill Less than 3 Seconds, Edema Skin: No rashes, No breakdown Musculoskeletal: No Tenderness to Palpation of Joints or Extremities Neurological: Cranial nerves II-XII grossly intact Psych/Mental Status: Normal Affect, Appropriate Microbiology Past 72 Hours 05/15/19 14:32 Blood Culture (Wb) #2 - Anticubital Right Blood Culture - Preliminary No growth in 48 hours. 05/15/19 14:20 Blood Culture (Wb) - Anticubital Left Blood Culture - Preliminary No growth in 48 hours. 05/15/19 22:06 Skin - Leg Gram Stain - Final 05/15/19 22:06 Skin - Leg Wound Culture - Preliminary Staphylococcus aureus 05/16/19 14:20 Stool Stool Occult Blood (MIRIAN) - Final Occult Blood Positive Laboratory Results 05/17/19 05:20: WBC 8.0, RBC 4.16 L, Hgb 8.5 L, Hct 35.3 L, MCV 84.9, MCH 20.4 L, MCHC 24.1 L, RDW Std Deviation 71.2 H, RDW Coeff of Estiven 23.9 H, Plt Count 122 L, MPV 10.5, Immature Gran % (Auto) 1.900 H, Neut % (Auto) 77.3 H, Lymph % (Auto) 15.4 L, Eddy % (Auto) 4.6, Eos % (Auto) 0.4, Baso % (Auto) 0.4, Absolute Neuts (auto) 6.2, Absolute Lymphs (auto) 1.23, Nucleated RBC % 3.0, Differential Comment SCANNED, Hypochromasia 1+, Anisocytosis 1+ 05/17/19 05:20: Sodium 149 H, Potassium 4.4, Chloride 114 H, Carbon Dioxide 31.0, Anion Gap 4 L, BUN 42 H, Creatinine 1.81 H, Estim Creat Clear Calc 21.19, Est GFR (MDRD) Af Amer 34 L, Est GFR (MDRD) Non-Af 28 L, BUN/Creatinine Ratio 23.2 H, Glucose 73 L, Calcium 8.5 Current Medications Acetaminophen (Tylenol) 650 mg PO Q6H PRN PRN PRN Reason: Pain Score 1-10/Temp > 100.7 F Al Hydroxide/Mg Hydroxide (Mylanta Ii) 30 ml PO Q6H PRN PRN PRN Reason: Gastric Burning Albuterol Sulfate (Ventolin Aerosols) 2.5 mg INHALATION Q2H PRN PRN PRN Reason: Shortness of Breath/Wheezing Allopurinol (Zyloprim) 300 mg PO DAILYCM [facility] Last Admin: 05/17/19 08:34 Dose: 300 mg Documented by: Calamine/Phenol (Calmoseptine Ointment) 1 applic TOPICAL BID [facility]; Protocol Last Admin: 05/17/19 09:03 Dose: 1 applicatio Documented by: Chlorhexidine Gluconate () 1 each TOPICAL DAILY [facility] Stop: 05/21/19 10:01 Last Admin: 05/17/19 11:17 Dose: 1 each Documented by: Duloxetine HCl (Cymbalta) 30 mg PO DAILY [facility] Last Admin: 05/17/19 09:06 Dose: 30 mg Documented by: Famotidine (Pepcid) 20 mg PO DAILY [facility] Last Admin: 05/17/19 09:06 Dose: 20 mg Documented by: Furosemide (Lasix) 40 mg IV DAILY [facility] Last Admin: 05/17/19 09:06 Dose: 40 mg Documented by: [facility] Last Admin: 05/17/19 08:33 Dose: 100 mg Documented by: Guaifenesin (Robitussin) 20 ml PO Q4H PRN PRN PRN Reason: COUGH Ampicillin Sodium/Sulbactam (Sodium 3 gm/ Sodium Chloride) 112 mls @ 150 mls/hr IV BID [facility] Last Admin: 05/17/19 09:05 Dose: 150 mls/hr Documented by: Iron Sucrose 200 mg/ Sodium (Chloride) 110 mls @ 220 mls/hr IV DAILY [facility] Stop: 05/18/19 10:29 Last Admin: 05/17/19 10:59 Dose: 220 mls/hr Documented by: Dextrose () 1,000 mls @ 100 mls/hr IV .Q10H [facility] Last Infusion: 05/17/19 09:22 Dose: 0 mls/hr Documented by: Levothyroxine Sodium (Synthroid) 50 mcg PO DAILY@0600 [facility] Last Admin: 05/17/19 05:41 Dose: 50 mcg Documented by: Magnesium Hydroxide (Milk Of Magnesia) 30 ml PO DAILY PRN PRN PRN Reason: Constipation Metoprolol Tartrate (Lopressor (Beta Brittnee)) 50 mg PO BID [facility] Last Admin: 05/16/19 23:05 Dose: 50 mg Documented by: Morphine Sulfate () 2 mg IV Q3H PRN PRN PRN Reason: Pain Score 6-10/10 Mupirocin (Bactroban) 1 applic NASAL BID [facility]; Protocol Stop: 05/20/19 10:01 Last Admin: 05/17/19 09:04 Dose: 1 applic Documented by: Nystatin (Mycostatin Powder) 1 applic TOPICAL BID [facility]; Protocol Last Admin: 05/17/19 09:06 Dose: 1 applic Documented by: Ondansetron HCl (Zofran) 4 mg IV Q8H PRN PRN PRN Reason: NAUSEA/VOMITING Oxycodone HCl (Oxyir) 5 mg PO Q6H PRN PRN PRN Reason: Pain Score 6-10/10 Polysaccharide [facility] (Ferrex 150) [facility] Last Admin: 05/17/19 08:33 Dose: 150 mg Documented by: Potassium Chloride (K-Dur) 20 meq [facility] Last Admin: 05/17/19 08:52 Dose: Not Given Documented by: [facility]amipexole [facility] Last Admin: 05/16/19 23:05 Dose: 0.25 mg Documented by: Pravastatin Sodium (Pravachol) 40 mg PO QHS [facility] Last Admin: 05/16/19 23:05 Dose: 40 mg Documented by: Senna/Docusate Sodium (Senokot-S, Meg-Colace) 2 tablet PO BID PRN PRN PRN Reason: Constipation Sodium Chloride () 10 - 40 ml IV UD PRN PRN Reason: SALINE FLUSH Last Admin: 05/16/19 10:29 Dose: 10 ml Documented by: STROKE Vital Signs/Narrative: Vital Signs Temp Pulse Resp BP Pulse Ox 05/17/19 10:00 97.5 F L 118 H 18 89/62 L 95 05/17/19 09:01 120 H 05/17/19 08:00 97.6 F L 102 H 18 88/55 L 96 Medical Necessity - Tobacco Use Smoking Status: Former smoker - Tells me she quit in 2009 and prior to that smoked for about 50 years. Tobacco Use: Non-smoker Assessment/Plan All Active Problems (Last Reviewed 05/15/19 @ 18:[address] Vicky Lovett, DO) CHF exacerbation (Acute) Cellulitis (Acute) Pleural effusion, right (Acute) Pulmonary hypertension, moderate to severe (Acute) Shortness of breath (Resolved) 1. 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 Large pleural effusion. Eliquis held, may need paracentesis. Also ascites present which may make pleural effusion rapidly return, per pulm. Stable on 2 lpm, normally no home o2. CO2 improved from admission. -Echo shows EF 55%, PASP 44 mmHg, moderately enlarged left and right atria, D shaped septum during diast. 2. Acute cellulitis RLE - (+) MSSA (-) MRSA. continue unasyn. Tolerated zosyn no rxn, ok to use pcn's. Complicated by LE venous stasis dermatitis. WBC improved. No fever. Bl cx negative at 48 hours. C/s wound care. 3. SOFI - renal function worsening with increased hypernatremia. nephrology consulted. 4. Chronic afib with RVR - given hypotension, metoprolol was held this AM. Rate intermittently in the 120's. Cardiology consulted. 5. Chronic blood loss anemia - (+) hemoccult with iron deficiency. Daughter confirms she has had red blood in her stool recently. Eliquis on hold. Venofer given. Hgb 8.3-8.5. Trend. 6. Acute metabolic encephalopathy possibly 2/2 infection and SOFI - continue treatment of underlying causes. 7. Hx Breast cancer, lymphoma, skin cancer - area concerning for mets in hip on xray, follow up ct pelvis shows corresponding area of subq calcified granulomas. prior spiculated lung nodule. concern for malignant effusion. 8. Thrombocytopenia - gradual decline. continue to trend. heparin stopped yesterday. 9. Iron deficiency anemia - venofer, po iron. check stool occult blood. tsh normal. iron studies / retic studies / RDW abnormal. 10. Hip pain - improved today. no occult fracture on ct. PTOT. DVT ppx: scd's. eliquis held as above. off hep. DC planning: Pt to ICU. Confirmed full code status with daughter. This patient was seen by Genaro Miranda PA-C under the supervision of Dr. Ervin <Jyoti Ervin - Last Filed: 05/17/19 13:57> Vitals/I&O's: Vital Signs Temp Pulse Resp BP Pulse Ox 97.5 F L 142 H 18 89/62 L 95 05/17/19 10:00 05/17/19 11:51 05/17/19 10:00 05/17/19 10:00 05/17/19 10:00 Oxygen Flow Rate (L/min) 2 Oxygen Delivery Method Nasal Cannula Weight: 81.4 kg Body Mass Index (BMI) 29.9 Intake and Output for Last 24 Hours 05/15/19 05/16/19 05/17/19 23:59 23:59 23:59 Intake Total 825 / 1075 1572 / 1622 435.67 / 435.67 Output Total 400 / 800 600 / 600 Balance 825 / 1075 1172 / 822 -164.33 / -164.33 Microbiology Past 72 Hours 05/15/19 14:32 Blood Culture (Wb) #2 - Anticubital Right Blood Culture - Preliminary No growth in 48 hours. 05/15/19 14:20 Blood Culture (Wb) - Anticubital Left Blood Culture - Preliminary No growth in 48 hours. 05/15/19 22:06 Skin - Leg Gram Stain - Final 05/15/19 22:06 Skin - Leg Wound Culture - Preliminary Staphylococcus aureus 05/16/19 14:20 Stool Stool Occult Blood (MIRIAN) - Final Occult Blood Positive Laboratory Results 05/17/19 05:20: WBC 8.0, RBC 4.16 L, Hgb 8.5 L, Hct 35.3 L, MCV 84.9, MCH 20.4 L, MCHC 24.1 L, RDW Std Deviation 71.2 H, RDW Coeff of Estiven 23.9 H, Plt Count 122 L, MPV 10.5, Immature Gran % (Auto) 1.900 H, Neut % (Auto) 77.3 H, Lymph % (Auto) 15.4 L, Eddy % (Auto) 4.6, Eos % (Auto) 0.4, Baso % (Auto) 0.4, Absolute Neuts (auto) 6.2, Absolute Lymphs (auto) 1.23, Nucleated RBC % 3.0, Differential Comment SCANNED, Hypochromasia 1+, Anisocytosis 1+ 05/17/19 05:20: Sodium 149 H, Potassium 4.4, Chloride 114 H, Carbon Dioxide 31.0, Anion Gap 4 L, BUN 42 H, Creatinine 1.81 H, Estim Creat Clear Calc 21.19, Est GFR (MDRD) Af Amer 34 L, Est GFR (MDRD) Non-Af 28 L, BUN/Creatinine Ratio 23.2 H, Glucose 73 L, Calcium 8.5 Current Medications Acetaminophen (Tylenol) 650 mg PO Q6H PRN PRN PRN Reason: Pain Score 1-10/Temp > 100.7 F Al Hydroxide/Mg Hydroxide (Mylanta Ii) 30 ml PO Q6H PRN PRN PRN Reason: Gastric Burning Albuterol Sulfate (Ventolin Aerosols) 2.5 mg INHALATION Q2H PRN PRN PRN Reason: Shortness of Breath/Wheezing [facility]) [facility] Last Admin: 05/17/19 08:34 Dose: 300 mg Documented by: Calamine/Phenol (Calmoseptine Ointment) 1 applic TOPICAL BID [facility]; Protocol Last Admin: 05/17/19 09:03 Dose: 1 applicatio Documented by: Chlorhexidine Gluconate () 1 each TOPICAL DAILY [facility] Stop: 05/21/19 10:01 Last Admin: 05/17/19 11:17 Dose: 1 each Documented by: Duloxetine HCl (Cymbalta) 30 mg PO DAILY [facility] Last Admin: 05/17/19 09:06 Dose: 30 mg Documented by: Famotidine (Pepcid) 20 mg PO DAILY [facility] Last Admin: 05/17/19 09:06 Dose: 20 mg Documented by: Furosemide (Lasix) 40 mg IV DAILY [facility] Last Admin: 05/17/19 09:06 Dose: 40 mg Documented by: Gab[facility] ([facility]in) [facility] Last Admin: 05/17/19 08:33 Dose: 100 mg Documented by: Guaifenesin (Robitussin) 20 ml PO Q4H PRN PRN PRN Reason: COUGH Ampicillin Sodium/Sulbactam (Sodium 3 gm/ Sodium Chloride) 112 mls @ 150 mls/hr IV BID [facility] Last Infusion: 05/17/19 09:50 Dose: Infused Documented by: Iron Sucrose 200 mg/ Sodium (Chloride) 110 mls @ 220 mls/hr IV DAILY [facility] Stop: 05/18/19 10:29 Last Infusion: 05/17/19 11:29 Dose: Infused Documented by: Dextrose () 1,000 mls @ 100 mls/hr IV .Q10H [facility] Last Infusion: 05/17/19 11:59 Dose: 100 mls/hr Documented by: Levothyroxine Sodium (Synthroid) 50 mcg PO DAILY@0600 [facility] Last Admin: 05/17/19 05:41 Dose: 50 mcg Documented by: Magnesium Hydroxide (Milk Of Magnesia) 30 ml PO DAILY PRN PRN PRN Reason: Constipation Metoprolol Tartrate (Lopressor (Beta Brittnee)) 50 mg PO BID [facility] Last Admin: 05/16/19 23:05 Dose: 50 mg Documented by: Morphine Sulfate () 2 mg IV Q3H PRN PRN PRN Reason: Pain Score 6-10/10 Mupirocin (Bactroban) 1 applic NASAL BID [facility]; Protocol Stop: 05/20/19 10:01 Last Admin: 05/17/19 09:04 Dose: 1 applic Documented by: Nystatin (Mycostatin Powder) 1 applic TOPICAL BID [facility]; Protocol Last Admin: 05/17/19 09:06 Dose: 1 applic Documented by: Ondansetron HCl (Zofran) 4 mg IV Q8H PRN PRN PRN Reason: NAUSEA/VOMITING Oxycodone HCl (Oxyir) 5 mg PO Q6H PRN PRN PRN Reason: Pain Score 6-10/10 Polysaccharide Iron Complex (Ferrex 150) [facility] Last Admin: 05/17/19 08:33 Dose: 150 mg Documented by: Potassium Chloride (K-Dur) 20 meq [facility] Last Admin: 05/17/19 08:52 Dose: Not Given Documented by: Pramipexole [facility] ([facility]) [facility] Last Admin: 05/16/19 23:05 Dose: 0.25 mg Documented by: Pravastatin [facility] ([facility]achol) [facility] Last Admin: 05/16/19 23:05 Dose: 40 mg Documented by: Senna/Docusate Sodium (Senokot-S, Meg-Colace) 2 tablet PO BID PRN PRN PRN Reason: Constipation Sodium Chloride () 10 - 40 ml IV UD PRN PRN Reason: SALINE FLUSH Last Admin: 05/17/19 11:51 Dose: 10 ml Documented by: STROKE Vital Signs/Narrative: Vital Signs Temp Pulse Resp BP Pulse Ox 05/17/19 11:51 142 H 05/17/19 11:44 142 H 05/17/19 10:00 97.5 F L 118 H 18 89/62 L 95 05/17/19 09:01 120 H Assessment/Plan This patient was seen in conjunction with SARAH Benedict. I have independently interviewed and examined the patient and reviewed pertinent historical, laboratory, and other data. Please refer to SARAH Benedict note for his patient's presentation, findings, and recommendations. I have reviewed and his note and concur with his documentation Patient was seen and examined. Noted to be confused; not alert oriented to self at my exam. This is different from yesterday. She was alert oriented to person, place but not to time. Her heart rate is also elevated at 120s. Blood pressure running low. Review of blood work shows no leukocytosis, stable hemoglobin, platelet count worse at 122. SBP ~80-90s Physical Exam: Gen: Appears unwell, lethargic, not pale, not jaundiced, on 2L oxygen CVS:HS I +II, regular, no murmurs RESP: Diminished at lung bases GI: BS present and normal, soft, nontender, no palpable organs EXT: MAITE-wraps to legs, erythema of RUE is better, not gotten worse beyond skin markings. ASSESSMENT: 1. A fib with RVR 2. Hypotension 3. Hypoxia secondary to acute on chronic combined CHF exacerbation/Right sided heart failure 4. Pleural effusion(right) 5. Ascites 6. Pulmonary hypertension 7. Acute cellulitis, RLE negative 8. SOFI on CKD stage 3 9. Hypertension 10. Microcytic, microchromic anemia 11. Hypernatremia 05/15/19 - 2D echo showed EF of 55%, normal left ventricular systolic function, mild mitral valve insufficiency, elevated RVSP Plan: Transfer to ICU Cardiology, nephrology consult Discussed with cardiology; would give patient digoxin 500mcg IV x1 Continue on IV fluid bolus for hypotension D5 water for hypernatremia Check ammonia levels Repeat BMP this afternoon If patient is stable tomorrow, to consider diagnostic/therapeutic paracentesis first and then thoracocentesis the next day to space it out for patient who is unstable) INR tomorrow morning Discussed initially in the morning with her daughter who wanted patient to be full code and everything to be done for her. She was on her way to the hospital. Met patient's daughter, Heather (next of kin) later at the bedside. Discussed in detail about her mother's current condition. Daughter agrees that patient does not look good. She states that patient would not have wanted to be sick like this in bed. I explained what the plan of care was in the ICU. She agreed to paracentesis and thoracocentesis if patient continues to be stable. I went on to explain the various types of CODE STATUS-full code, DNR CCA, DNR CC. She said patient would not have wanted to be kept alive on artificial support. She chose DNR CCA. She also expressed that if she was not going to do well, she wanted the patient to be kept comfortable. I reassured her that this will be on a day-to-day basis and that she could change her to a DNR CC/hospice, if the team in discussion with her, felt patient was not getting better. Time spent discussing CODE STATUS 35 minutes Inpatient E&M: 24850 Subs Hosp L3 Procedures: 22211 Advncd Care Plan 30 Min
--- NOTE | 2019-05-17 11:35 | NURSING ---
1040 patient arrived in ICU bedside report from DEBI FERGUSON RN
[2019-05-17] MEDS: Digoxin 250 MCG/ML Ampul 500 MCG IV (11:51)
[2019-05-17] MEDS: 0.9% Saline Lock 10 ML Syringe IV ×2 (11:51→15:24)
--- NOTE | 2019-05-17 13:59 | PCM.CONS.C ---
Reason for Consult Date of Consultation: 05/17/19 History of Present Illness: The patient is a 84 year old F was admitted for left hip pain. She was found to have atrial fibrillation and fast ventricular rate with a large right pleural effusion and some ascites. Patient is a poor historian, arousable with possibly underlying senile dementia. She denies any shortness of breath or any pain at this point. With IV digoxin, patient ventricular rate has slowed down to 100/min irregular. At home patient has been taking Eliquis. She has been taking metoprolol and Cardizem for rate control. On admission patient's blood pressure has been on the low side of normal. At the moment systolic blood pressure is 103 mm. Patient had echocardiogram done yesterday and showed preserved left ventricular systolic wall motion. However the right ventricle was dilated with significant decrease in wall motion. There was moderate tricuspid insufficiency with mild increase in pulmonary hypertension. Patient has had stage III renal insufficiency. Patient also known to have breast cancer and non-Hodgkin's lymphoma. The right pleural effusion was tapped once several months ago and did not find any positive cytology. Patient is a DO NOT RESUSCITATE status [] Past Medical History Allergies/Adverse Reactions: Allergies amoxicillin Adverse Reaction (Severe, Verified 03/31/19 11:09) Nausea/Vom/Diarrhea Penicillins [PCN] Adverse Reaction (Severe, Verified 03/31/19 11:09) Unknown CAN NOT FUNCTION tape Allergy (Severe, Uncoded 11/24/18 12:41) bruising Home Medications: Ambulatory Orders Medication Instructions Recorded Pramipexole Di-HCl [Mirapex] 0.25 mg PO QHS 12/27/17 allopurinol 300 mg tablet 300 mg PO DAILY #90 tab 10/08/18 levothyroxine 50 mcg tablet 50 mcg PO DAILY #90 tab 10/08/18 Apremilast [Otezla] 30 mg PO BID 03/31/19 Gabapentin [Neurontin] 100 mg PO BID 03/31/19 Apixaban [Eliquis] 5 mg PO BID 05/15/19 Diltiazem HCl [Cardizem Cd] 120 mg PO DAILY 05/15/19 Duloxetine HCl [Cymbalta] 30 mg PO DAILY 05/15/19 Furosemide 20 mg PO DAILY 05/15/19 Metoprolol Tartrate [Lopressor 100 mg PO BID 05/15/19 (beta linda)] Pravastatin Sodium 40 mg PO DAILY 05/15/19 Past Medical History (Chronic Problems): Chronic Problems (Last Reviewed 05/15/19 @ 18:[address] Vicky Lovett DO) Edema of both legs (Chronic) History of pulmonary embolism (Chronic) History of DVT (deep vein thrombosis) (Chronic) Balance disorder (Chronic) Urinary incontinence (Chronic) Venous ulcer of leg (Chronic) Psoriasis (Chronic) Chronic anticoagulation (Chronic) On Eliquis for history of pulmonary embolism and atrial fibrillation Anemia (Chronic) Hx of solitary pulmonary nodule (Chronic) spiculated nodule on the right in 2018 Cardiomyopathy (Chronic) EF of 40% in December 2017 Former smoker (Chronic) Quit in 2009 Venous insufficiency (Chronic) Persistent atrial fibrillation (Chronic) Chronic combined systolic and diastolic CHF (congestive heart failure) (Chronic) Secondary pulmonary arterial hypertension (Chronic) Non-rheumatic tricuspid valve insufficiency (Chronic) Essential (primary) hypertension (Chronic) Hyperlipidemia (Chronic) Lung nodule (Chronic) Spiculated nodule seen in the right lung on a CAT scan of the chest in 2018 Pulmonary embolism (Chronic) History of breast cancer (Chronic) History of non-Hodgkin's lymphoma (Chronic) Pleural effusion (Chronic) Restrictive lung disease (Chronic) Surgical History: mastectomy - left, - - Patient has previously undergone hysterectomy, and left breast mastectomy in 2011. She also had excision of a malignant lesion on the nose and then a graft. 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 Vicky Lovett DO) Mother Breast cancer Hypertension Father Lung cancer Alcoholism Brother Asthma Alcoholism Cancer Depression Heart disease Hypertension Liver disease Sister Alcoholism Cancer Heart disease Hypertension Thyroid disorder History Items: - - Patient's father at the age of 75 from lung cancer. Patient's mother at the age of 55 from metastatic breast cancer. Lives: With Family Smoking Status: Former smoker - Tells me she quit in 2009 and prior to that smoked for about 50 years. Tobacco Use: Non-smoker Alcohol: Rare Drugs: None Review of Systems - Review of Systems General: Reports: Weakness. Denies: Fever, Fatigue, Night Sweats Cardiovascular: Reports: - - Chronic atrial fibrillation. Denies: Chest Discomfort, Shortness of Breath, Orthopnea, PND, Peripheral Edema, Palpitations, Lightheadedness, Dizziness, Near Syncope, Syncope Respiratory: Denies: Cough, Sputum Production, Hemoptysis Gastrointestinal: Denies: Hematemesis, Hematochezia, Melena Genitourinary: Denies: Dysuria, Hematuria Muscoloskeletal: Reports: Muscle Weakness, - - With multiple falls Skin: Denies: Rash Objective: Vital Signs Temp Pulse Resp BP Pulse Ox 97 F L 100 17 94/60 100 05/17/19 12:00 05/17/19 13:00 05/17/19 13:00 05/17/19 13:00 05/17/19 13:00 Oxygen Flow Rate (L/min) 2 Oxygen Delivery Method Nasal Cannula Weight: 179 lb 7.3 oz Body Mass Index (BMI) 29.9 Intake and Output for Last 24 Hours 05/15/19 05/16/19 05/17/19 23:59 23:59 23:59 Intake Total 825 / 1075 1572 / 1622 435.67 / 435.67 Output Total 400 / 800 600 / 600 Balance 825 / 1075 1172 / 822 -164.33 / -164.33 General: - - Arousable, confused HEENT: PERRL, EOMI, Sclera Non Icteric Neck: Supple, Good ROM, No Lymph Node Enlargement, Positive JVD Lungs: Dullness to Percussion-Right - With decreased breath sounds Cardiovascular: Irregular Rhythm - Heart sounds distant, No Murmurs, No Rubs Vascular: No Carotid Bruits, Normal Femoral Pulses, Normal Radial Pulses, Normal Dorsalis Pedal Pulse, Normal Posterior Tibial Pulses Abdomen: Bowel Sounds Present, Soft, Non Tender, No HSM, No Organomegaly Extremities: No Cyanosis, No Clubbing, Moderate RLE Edema, Moderate LLE Edema Neurological: No Focal Motor or Sensory Deficit, - - Extremely sleepy but arousable, disoriented x3 Psych/Mental Status: Dementia 05/17/19 05:20: WBC 8.0, RBC 4.16 L, Hgb 8.5 L, Hct 35.3 L, MCV 84.9, MCH 20.4 L, MCHC 24.1 L, Plt Count 122 L, MPV 10.5, Immature Gran % (Auto) 1.900 H, Neut % (Auto) 77.3 H, Lymph % (Auto) 15.4 L, [place] % (Auto) 4.6, Eos % (Auto) 0.4, Baso % (Auto) 0.4, Absolute Neuts (auto) 6.2, Nucleated RBC % 3.0 05/17/19 05:20: Sodium 149 H, Potassium 4.4, Chloride 114 H, Carbon Dioxide 31.0, Anion Gap 4 L, BUN 42 H, Creatinine 1.81 H, Est GFR (MDRD) Af Amer 34 L, Est GFR (MDRD) Non-Af 28 L, BUN/Creatinine Ratio 23.2 H, Glucose 73 L, Calcium 8.5 Rhythm: EKG: Atrial fibrillation with fast ventricular rate on admission ECHO: Preserved left ventricular systolic wall motion, dilated right ventricle with moderate decrease in systolic wall motion. Moderate tricuspid insufficiency and mild pulmonary hypertension. Stress Test: Cardiac Cath: PCI: CT Surgery: Holter monitor: EPS: PPM: CXR: Chest CT Scan: Assessment/Plan #1 atrial fibrillation with fast ventricular rate, blood pressure on the low side of normal, I would recommend rate control with digoxin IV. Loading dose regardless of renal function is the same. I will recommend up to 1 mg of total loading dose. At home patient has been taking high-dose metoprolol and Cardizem for rate control. When the blood pressure is better, I would recommend titrating with either agent. With a DNR status and mental status, recommend conservative medical therapy #2 right heart failure which could explain the lower extremities swelling, ascites and right pleural effusion. However, with non-Hodgkin's lymphoma and breast cancer history in the past, malignancy cannot be ruled out. Several months ago thoracentesis showed negative cytology for malignancy. Echocardiogram showed preserved left ventricular systolic wall motion. The right heart failure may create cardiorenal syndrome. Gentle diuresis is recommended and we should watch renal function and electrolytes #3 she is barely arousable probably from low blood pressure. Controlling the ventricular rate should help. #4 stage III renal insufficiency #5 weakness and multiple fall from low blood pressure. #6 thoracenteses should help for the shortness of breath
[2019-05-17 14:16] LABS: AST(SGOT) 9 U/L (15-37); Alanine Aminotransfer ALT/SGPT 12 U/L (13-56); Albumin, Serum 2.4 g/dL (3.2-5.0); Alkaline Phosphatase 66 U/L (45-117); Bilirubin, Direct 0.19 mg/dL (0.00-0.30); Globulin 3.1 g/dL (2.2-4.2); Protein, Total 5.5 g/dL (6.4-8.2)
[2019-05-17 14:25] LABS: Anion Gap 4 (5-15); BUN 40 mg/dL (7-18); BUN/Creat Ratio 22.7 RATIO (10-20); Calcium,Total 8.1 mg/dL (8.5-10.1); Chloride 112 mmol/L (98-107); Creatinine, Serum 1.76 mg/dL (0.55-1.02); EST Glomerular Filtration Rate 29 mL/min (>60); Est Glom Filt Rate - Afr Amer 36 mL/min (>60); Estimated Creatinine Clearance 21.79 ml/min; Glucose 99 mg/dL (74-106); Potassium 4.6 mmol/L (3.5-5.1); Sodium Level 148 mmol/L (136-145)
[2019-05-17] MEDS: Digoxin 250 MCG/ML Ampul IV (15:21)
--- NOTE | 2019-05-17 22:42 | PCM.CONS.R ---
Problem List (1) CKD (chronic kidney disease) stage 3, GFR 30-59 ml/min Status: Chronic Consultation - Renal 05/17/19 PCP/ Referring MD: Requesting physician: [] Primary care physician: Danie Sparks MD Reason for Consultation:: CKD CHF - History of Present Illness History of Present Illness: The patient is a 84 year old F, with past medical history listed below, who presented to [facility] secondary to left hip pain, generalized weakness and falling. Patient reportedly had had multiple falls in the last 2 weeks was unable to bear weight or get out of bed. Patient had been having some shortness of breath on exertion and agreed to be evaluated. Patient is not normally on supplemental oxygen. Patient has not been coughing and has not had any subjective fevers. Patient denied any recent sick contacts. In the ER, patient was noted to have an elevated BNP and a chest x-ray showing pleural effusion. Patient had a significant leukocytosis, but lactic acid was not elevated. Patient received some fluids, but not a full 30 cc/kg. Patient does have chronic wounds of her lower extremities. Patient was given broad-spectrum antibiotics CXR consistent with edema and effusion - Allergies Allergies: Allergies amoxicillin Adverse Reaction (Severe, Verified 03/31/19 11:09) Nausea/Vom/Diarrhea Penicillins [PCN] Adverse Reaction (Severe, Verified 03/31/19 11:09) Unknown CAN NOT FUNCTION tape Allergy (Severe, Uncoded 11/24/18 12:41) bruising - Current Medications Current Medications: Current Medications Acetaminophen (Tylenol) 650 mg PO Q6H PRN PRN PRN Reason: Pain Score 1-10/Temp > 100.7 F Al Hydroxide/Mg Hydroxide (Mylanta Ii) 30 ml PO Q6H PRN PRN PRN Reason: Gastric Burning Albuterol Sulfate (Ventolin Aerosols) 2.5 mg INHALATION Q2H PRN PRN PRN Reason: Shortness of Breath/Wheezing Allopurinol (Zyloprim) 300 mg PO DAILYCM TANIYA Last Admin: 05/17/19 08:34 Dose: 300 mg Documented by: Calamine/Phenol (Calmoseptine Ointment) 1 applic TOPICAL BID TANIYA; Protocol Last Admin: 05/17/19 21:38 Dose: 1 applicatio Documented by: Chlorhexidine Gluconate () 1 each TOPICAL DAILY TANIYA Stop: 05/21/19 10:01 Last Admin: 05/17/19 11:17 Dose: 1 each Documented by: Duloxetine HCl (Cymbalta) 30 mg PO DAILY [facility] Last Admin: 05/17/19 09:06 Dose: 30 mg Documented by: Famotidine (Pepcid) 20 mg PO DAILY [facility] Last Admin: 05/17/19 09:06 Dose: 20 mg Documented by: Gabapentin (Neurontin) 100 mg PO BIDCM [facility] Last Admin: 05/17/19 17:01 Dose: Not Given Documented by: Guaifenesin (Robitussin) 20 ml PO Q4H PRN PRN PRN Reason: COUGH Ampicillin Sodium/Sulbactam (Sodium 3 gm/ Sodium Chloride) 112 mls @ 150 mls/hr IV BID [facility] Last Admin: 05/17/19 21:56 Dose: 150 mls/hr Documented by: Iron Sucrose 200 mg/ Sodium (Chloride) 110 mls @ 220 mls/hr IV DAILY [facility] Stop: 05/18/19 10:29 Last Infusion: 05/17/19 11:29 Dose: Infused Documented by: Dextrose () 1,000 mls @ 100 mls/hr IV .Q10H [facility] Last Admin: 05/17/19 17:23 Dose: Not Given Documented by: Levothyroxine Sodium (Synthroid) 50 mcg PO DAILY@0600 [facility] Last Admin: 05/17/19 05:41 Dose: 50 mcg Documented by: Magnesium Hydroxide (Milk Of Magnesia) 30 ml PO DAILY PRN PRN PRN Reason: Constipation Metoprolol Tartrate (Lopressor (Beta Brittnee)) 50 mg PO BID [facility] Last Admin: 05/16/19 23:05 Dose: 50 mg Documented by: Morphine Sulfate () 2 mg IV Q3H PRN PRN PRN Reason: Pain Score 6-10/10 Mupirocin (Bactroban) 1 applic NASAL BID [facility]; Protocol Stop: 05/20/19 10:01 Last Admin: 05/17/19 21:40 Dose: 1 applic Documented by: Nystatin (Mycostatin Powder) 1 applic TOPICAL BID [facility]; Protocol Last Admin: 05/17/19 21:38 Dose: 1 applic Documented by: Ondansetron HCl (Zofran) 4 mg IV Q8H PRN PRN PRN Reason: NAUSEA/VOMITING Oxycodone HCl (Oxyir) 5 mg PO Q6H PRN PRN PRN Reason: Pain Score 6-10/10 Polysaccharide Iron Complex (Ferrex 150) [facility] Last Admin: 05/17/19 08:33 Dose: 150 mg Documented by: Potassium Chloride (K-Dur) 20 meq [facility]ID[facility] Last Admin: 05/17/19 08:52 Dose: Not Given Documented by: Pramipexole [facility] ([facility]) [facility] Last Admin: 05/17/19 21:56 Dose: Not Given Documented by: Pravastatin Sodium (Pravachol) 40 mg PO QHS [facility] Last Admin: 05/17/19 21:56 Dose: Not Given Documented by: Senna/Docusate Sodium (Senokot-S, Meg-Colace) 2 tablet PO BID PRN PRN PRN Reason: Constipation Sodium Chloride () 10 - 40 ml IV UD PRN PRN Reason: SALINE FLUSH Last Admin: 05/17/19 15:24 Dose: 10 ml Documented by: - Past Medical History Past Medical History (Chronic Problems): Chronic Problems (Last Reviewed 05/15/19 @ 18:[address] Vicky Lovett, DO) Edema of both legs (Chronic) History of pulmonary embolism (Chronic) History of DVT (deep vein thrombosis) (Chronic) Balance disorder (Chronic) Urinary incontinence (Chronic) Venous ulcer of leg (Chronic) Psoriasis (Chronic) Chronic anticoagulation (Chronic) On Eliquis for history of pulmonary embolism and atrial fibrillation Anemia (Chronic) Hx of solitary pulmonary nodule (Chronic) spiculated nodule on the right in 2017 Cardiomyopathy (Chronic) EF of 40% in December 2017 Former smoker (Chronic) Quit in 2009 CKD (chronic kidney disease) stage 3, GFR 30-59 ml/min (Chronic) Venous insufficiency (Chronic) Persistent atrial fibrillation (Chronic) Chronic combined systolic and diastolic CHF (congestive heart failure) (Chronic) Secondary pulmonary arterial hypertension (Chronic) Non-rheumatic tricuspid valve insufficiency (Chronic) Essential (primary) hypertension (Chronic) Hyperlipidemia (Chronic) Lung nodule (Chronic) Spiculated nodule seen in the right lung on a CAT scan of the chest in 2018 Pulmonary embolism (Chronic) History of breast cancer (Chronic) History of non-Hodgkin's lymphoma (Chronic) Pleural effusion (Chronic) Restrictive lung disease (Chronic) - Past Surgical History Surgical History: mastectomy - left, - - Patient has previously undergone hysterectomy, and left breast mastectomy in 2011. She also had excision of a malignant lesion on the nose and then a graft. - Social History Smoking Status: Former smoker - Tells me she quit in 2009 and prior to that smoked for about 50 years. Alcohol: Rare Drugs: None - Family History Paternal Family History: Family History (Last Reviewed 05/15/19 @ 18:[address] Vicky Lovett DO) Mother Breast cancer Hypertension Father Lung cancer Alcoholism Brother Asthma Alcoholism Cancer Depression Heart disease Hypertension Liver disease Sister Alcoholism Cancer Heart disease Hypertension Thyroid disorder History Items: - - Patient's father at the age of 75 from lung cancer. Patient's mother at the age of 55 from metastatic breast cancer. Review of Systems Constitutional: Denies: Chills, Fever, Weight Change HEENT: Denies: Head Aches, Sinus Congestion, Sinus Drainage Cardiovascular: Denies: Chest Pain, Palpitations Respiratory: Denies: Cough, Shortness of breath at rest, Sputum production Gastrointestinal: Denies: Abdominal Pain, Nausea, Vomiting Genitourinary: Denies: Dysuria Musculoskeletal: Denies: Joint Pain, Joint Tenderness Skin: Denies: Rash, Wounds Neurological: Denies: Numbness, Tingling, Focal weakness Psychiatric: Denies: Anxiety, Depression, Homicidal Ideations, Suicidal Ideations Hematologic/ Lymphatic: Denies: Easy Bruising, Easy Bleeding Patient Problems: Active and Suspected Problems (Last Reviewed 05/15/19 @ 18:[address] Vicky Lovett DO) CHF exacerbation (Acute) Metastatic cancer (Suspected) new lytic lesions in the left hip Cellulitis (Acute) Pleural effusion, right (Acute) very large Pulmonary hypertension, moderate to severe (Acute) PA systolic in May 2018 was estimated at 62. - Physical Exam Vitals/I&O's: Vital Signs Temp Pulse Resp BP Pulse Ox 97.0 F L 91 20 H 95/47 L 99 05/17/19 21:00 05/17/19 22:00 05/17/19 22:00 05/17/19 22:00 05/17/19 22:00 Oxygen Flow Rate (L/min) 2 Oxygen Delivery Method Nasal Cannula Weight: 81.4 kg Body Mass Index (BMI) 29.9 Intake and Output for Last 24 Hours 05/15/19 05/16/19 05/17/19 23:59 23:59 23:59 Intake Total 825 / 1075 1572 / 1622 935.67 / 935.67 Output Total 400 / 800 1100 / 1100 Balance 825 / 1075 1172 / 822 -164.33 / -164.33 General: Alert, Cooperative HEENT: Atraumatic, PERRLA, EOMI, Normocephalic Neck: Supple, No JVD, Negative Carotid Bruits Lungs: Clear to auscultation, Normal air movement Cardiovascular: Regular rate, No murmurs Abdomen: Bowel Sounds Present, Soft, Non Tender Extremities: No edema, Capillary Refill Less than 3 Seconds Skin: No rashes, No breakdown Musculoskeletal: No Tenderness to Palpation of Joints or Extremities Neurological: Cranial nerves II-XII grossly intact Psych/Mental Status: Normal Affect, Appropriate Microbiology Past 72 Hours 05/15/19 14:32 Blood Culture (Wb) #2 - Anticubital Right Blood Culture - Preliminary No growth in 48 hours. 05/15/19 14:20 Blood Culture (Wb) - Anticubital Left Blood Culture - Preliminary No growth in 48 hours. 05/15/19 22:06 Skin - Leg Gram Stain - Final 05/15/19 22:06 Skin - Leg Wound Culture - Preliminary Staphylococcus aureus 05/16/19 14:20 Stool Stool Occult Blood (MIRIAN) - Final Occult Blood Positive Laboratory Results 05/17/19 05:20: WBC 8.0, RBC 4.16 L, Hgb 8.5 L, Hct 35.3 L, MCV 84.9, MCH 20.4 L, MCHC 24.1 L, RDW Std Deviation 71.2 H, RDW Coeff of Estiven 23.9 H, Plt Count 122 L, MPV 10.5, Immature Gran % (Auto) 1.900 H, Neut % (Auto) 77.3 H, Lymph % (Auto) 15.4 L, [place] % (Auto) 4.6, Eos % (Auto) 0.4, Baso % (Auto) 0.4, Absolute Neuts (auto) 6.2, Absolute Lymphs (auto) 1.23, Nucleated RBC % 3.0, Differential Comment SCANNED, Hypochromasia 1+, Anisocytosis 1+ 05/17/19 05:20: Sodium 149 H, Potassium 4.4, Chloride 114 H, Carbon Dioxide 31.0, Anion Gap 4 L, BUN 42 H, Creatinine 1.81 H, Estim Creat Clear Calc 21.19, Est GFR (MDRD) Af Amer 34 L, Est GFR (MDRD) Non-Af 28 L, BUN/Creatinine Ratio 23.2 H, Glucose 73 L, Calcium 8.5 05/17/19 05:20: Total Bilirubin 0.40, Direct Bilirubin 0.19, AST 9 L, ALT 12 L, Alkaline Phosphatase 66, Total Protein 5.5 L, Albumin 2.4 L, Globulin 3.1 05/17/19 13:35: Ammonia 27.0 05/17/19 14:05: Sodium 148 H, Potassium 4.6, Chloride 112 H, Carbon Dioxide 32.0, Anion Gap 4 L, BUN 40 H, Creatinine 1.76 H, Estim Creat Clear Calc 21.79, Est GFR (MDRD) Af Amer 36 L, Est GFR (MDRD) Non-Af 29 L, BUN/Creatinine Ratio 22.7 H, Glucose 99, Calcium 8.1 L Current Medications Acetaminophen (Tylenol) 650 mg PO Q6H PRN PRN PRN Reason: Pain Score 1-10/Temp > 100.7 F Al Hydroxide/Mg Hydroxide (Mylanta Ii) 30 ml PO Q6H PRN PRN PRN Reason: Gastric Burning Albuterol Sulfate (Ventolin Aerosols) 2.5 mg INHALATION Q2H PRN PRN PRN Reason: Shortness of Breath/Wheezing Allopurinol (Zyloprim) [facility] Last Admin: 05/17/19 08:34 Dose: 300 mg Documented by: Calamine/Phenol (Calmoseptine Ointment) 1 applic TOPICAL BID [facility]; Protocol Last Admin: 05/17/19 21:38 Dose: 1 applicatio Documented by: Chlorhexidine Gluconate () 1 each TOPICAL DAILY [facility] Stop: 05/21/19 10:01 Last Admin: 05/17/19 11:17 Dose: 1 each Documented by: Duloxetine HCl (Cymbalta) 30 mg PO DAILY [facility] Last Admin: 05/17/19 09:06 Dose: 30 mg Documented by: Famotidine (Pepcid) 20 mg PO DAILY [facility] Last Admin: 05/17/19 09:06 Dose: 20 mg Documented by: Gabapentin (Neurontin) [facility]ID[facility] Last Admin: 05/17/19 17:01 Dose: Not Given Documented by: Guaifenesin (Robitussin) 20 ml PO Q4H PRN PRN PRN Reason: COUGH Ampicillin Sodium/Sulbactam (Sodium 3 gm/ Sodium Chloride) 112 mls @ 150 mls/hr IV BID [facility] Last Admin: 05/17/19 21:56 Dose: 150 mls/hr Documented by: Iron Sucrose 200 mg/ Sodium (Chloride) 110 mls @ 220 mls/hr IV DAILY [facility] Stop: 05/18/19 10:29 Last Infusion: 05/17/19 11:29 Dose: Infused Documented by: Dextrose () 1,000 mls @ 100 mls/hr IV .Q10H [facility] Last Admin: 05/17/19 17:23 Dose: Not Given Documented by: Levothyroxine Sodium (Synthroid) 50 mcg PO DAILY@0600 [facility] Last Admin: 05/17/19 05:41 Dose: 50 mcg Documented by: Magnesium Hydroxide (Milk Of Magnesia) 30 ml PO DAILY PRN PRN PRN Reason: Constipation Metoprolol Tartrate (Lopressor (Beta Brittnee)) 50 mg PO BID [facility] Last Admin: 05/16/19 23:05 Dose: 50 mg Documented by: Morphine Sulfate () 2 mg IV Q3H PRN PRN PRN Reason: Pain Score 6-10/10 Mupirocin (Bactroban) 1 applic NASAL BID [facility]; Protocol Stop: 05/20/19 10:01 Last Admin: 05/17/19 21:40 Dose: 1 applic Documented by: Nystatin (Mycostatin Powder) 1 applic TOPICAL BID [facility]; Protocol Last Admin: 05/17/19 21:38 Dose: 1 applic Documented by: Ondansetron HCl (Zofran) 4 mg IV Q8H PRN PRN PRN Reason: NAUSEA/VOMITING Oxycodone HCl (Oxyir) 5 mg PO Q6H PRN PRN PRN Reason: Pain Score 6-10/10 Polysaccharide Iron Complex (Ferrex 150) 150 [facility] Last Admin: 05/17/19 08:33 Dose: 150 mg Documented by: Potassium Chloride (K-Dur) 20 meq PO [facility]ID[facility] Last Admin: 05/17/19 08:52 Dose: Not Given Documented by: Pramipexole Dihydrochloride (Mirapex) 0.25 mg PO QHS [facility] Last Admin: 05/17/19 21:56 Dose: Not Given Documented by: Pravastatin Sodium (Pravachol) 40 mg PO QHS [facility] Last Admin: 05/17/19 21:56 Dose: Not Given Documented by: Senna/Docusate Sodium (Senokot-S, Meg-Colace) 2 tablet PO BID PRN PRN PRN Reason: Constipation Sodium Chloride () 10 - 40 ml IV UD PRN PRN Reason: SALINE FLUSH Last Admin: 05/17/19 15:24 Dose: 10 ml Documented by: Assessment/Plan All Active Problems (Last Reviewed 05/15/19 @ 18:[address] Vicky Lovett, ) CHF exacerbation (Acute) Cellulitis (Acute) Pleural effusion, right (Acute) Pulmonary hypertension, moderate to severe (Acute) Shortness of breath (Resolved) CKD 3 CHF hypernatremia likely due to poor oral intake prior to admit overall volume overloaded as per BNP and CXR continue IV lasix for now urine output documented at 1100 cc today
[2019-05-18] VITALS (21 sets, daily range): BP systolic 82–124; BP diastolic 51–72; PULSE 77–144; RESP 15–30; TEMP 36.3–36.9; O2SAT 92–100
[2019-05-18] MEDS: Levothyroxine 50 MCG Tablet PO (06:20)
--- NOTE | 2019-05-18 07:19 | PN_ITS ---
Patient Problems: Active and Suspected Problems (Last Reviewed 05/15/19 @ 18:[address] Vicky Lovett, ) CHF exacerbation (Acute) Metastatic cancer (Suspected) new lytic lesions in the left hip Cellulitis (Acute) Pleural effusion, right (Acute) very large Pulmonary hypertension, moderate to severe (Acute) PA systolic in May 2018 was estimated at 62. Reason for Visit: Shortness of breath Subjective: Patient is an 84-year-old lady with multiple comorbidities admitted with hip pain as well as shortness of breath imaging studies demonstrated large right- sided pleural effusion. An assessment of congestive heart failure made admitted to a monitored bed for further management Objective: GENERAL: cooperative HEENT: Atraumatic; EYES; Anicteric, Normal Conjunctiva NECK; supple, normal thyroid, RESPIRATORY: Diminished to auscultation CARDIOVASCULAR: Irregular S1 S2, GI: soft, normoactive bowel sounds, : No Renal angle tenderness; EXTREMITIES: Trace edema MUSCULOSKELETAL: no muscle waisting NEURO: Awake; no lateralizing signs. SKIN: Erythema and redness involving the dorsal surface of the right hand with pustular lesions PSYCH; Flat affect Vitals/I&O's: Vital Signs Temp Pulse Resp BP Pulse Ox 97.4 F L 109 H 20 H 85/52 L 98 05/18/19 07:00 05/18/19 07:00 05/18/19 07:00 05/18/19 07:00 05/18/19 07:00 Oxygen Flow Rate (L/min) 2 Oxygen Delivery Method Nasal Cannula Weight: 82.5 kg Body Mass Index (BMI) 29.9 Intake and Output for Last 24 Hours 05/16/19 05/17/19 05/18/19 23:59 23:59 23:59 Intake Total 1572 / 1622 2046.00 / 2046.00 Output Total 400 / 800 1100 / 1300 500 / 500 Balance 1172 / 822 946.00 / 746.00 -500 / -500 Microbiology Past 72 Hours 05/15/19 14:32 Blood Culture (Wb) #2 - Anticubital Right Blood Culture - Preliminary No growth in 48 hours. 05/15/19 14:20 Blood Culture (Wb) - Anticubital Left Blood Culture - Preliminary No growth in 48 hours. 05/15/19 22:06 Skin - Leg Gram Stain - Final 05/15/19 22:06 Skin - Leg Wound Culture - Preliminary Staphylococcus aureus 05/16/19 14:20 Stool Stool Occult Blood (MIRIAN) - Final Occult Blood Positive Laboratory Results 05/17/19 05:20: Total Bilirubin 0.40, Direct Bilirubin 0.19, AST 9 L, ALT 12 L, Alkaline Phosphatase 66, Total Protein 5.5 L, Albumin 2.4 L, Globulin 3.1 05/17/19 13:35: Ammonia 27.0 05/17/19 14:05: Sodium 148 H, Potassium 4.6, Chloride 112 H, Carbon Dioxide 32.0, Anion Gap 4 L, BUN 40 H, Creatinine 1.76 H, Estim Creat Clear Calc 21.79, Est GFR (MDRD) Af Amer 36 L, Est GFR (MDRD) Non-Af 29 L, BUN/Creatinine Ratio 22.7 H, Glucose 99, Calcium 8.1 L Current Medications Acetaminophen (Tylenol) 650 mg PO Q6H PRN PRN PRN Reason: Pain Score 1-10/Temp > 100.7 F Al Hydroxide/Mg Hydroxide (Mylanta Ii) 30 ml PO Q6H PRN PRN PRN Reason: Gastric Burning Albuterol Sulfate (Ventolin Aerosols) 2.5 mg INHALATION Q2H PRN PRN PRN Reason: Shortness of Breath/Wheezing [facility] ([facility]oprim) [facility] Last Admin: 05/17/19 08:34 Dose: 300 mg Documented by: Calamine/Phenol (Calmoseptine Ointment) 1 applic TOPICAL BID [facility]; Protocol Last Admin: 05/17/19 21:38 Dose: 1 applicatio Documented by: Chlorhexidine Gluconate () 1 each TOPICAL DAILY [facility] Stop: 05/21/19 10:01 Last Admin: 05/17/19 11:17 Dose: 1 each Documented by: Duloxetine HCl (Cymbalta) 30 mg PO DAILY [facility] Last Admin: 05/17/19 09:06 Dose: 30 mg Documented by: Famotidine (Pepcid) 20 mg PO DAILY [facility] Last Admin: 05/17/19 09:06 Dose: 20 mg Documented by: Gabapentin (Neurontin) [facility] Last Admin: 05/17/19 17:01 Dose: Not Given Documented by: Guaifenesin (Robitussin) 20 ml PO Q4H PRN PRN PRN Reason: COUGH Ampicillin Sodium/Sulbactam (Sodium 3 gm/ Sodium Chloride) 112 mls @ 150 mls/hr IV BID [facility] Last Infusion: 05/17/19 22:52 Dose: Infused Documented by: Iron Sucrose 200 mg/ Sodium (Chloride) 110 mls @ 220 mls/hr IV DAILY [facility] Stop: 05/18/19 10:29 Last Infusion: 05/17/19 11:29 Dose: Infused Documented by: Dextrose () 1,000 mls @ 100 mls/hr IV .Q10H [facility] Last Admin: 05/17/19 22:51 Dose: 100 mls/hr Documented by: Levothyroxine Sodium (Synthroid) 50 mcg PO DAILY@0600 [facility] Last Admin: 05/18/19 06:20 Dose: 50 mcg Documented by: Magnesium Hydroxide (Milk Of Magnesia) 30 ml PO DAILY PRN PRN PRN Reason: Constipation Metoprolol Tartrate (Lopressor (Beta Brittnee)) 50 mg PO BID [facility] Last Admin: 05/16/19 23:05 Dose: 50 mg Documented by: Morphine Sulfate () 2 mg IV Q3H PRN PRN PRN Reason: Pain Score 6-10/10 Mupirocin (Bactroban) 1 applic NASAL BID [facility]; Protocol Stop: 05/20/19 10:01 Last Admin: 05/17/19 21:40 Dose: 1 applic Documented by: Nystatin (Mycostatin Powder) 1 applic TOPICAL BID [facility]; Protocol Last Admin: 05/17/19 21:38 Dose: 1 applic Documented by: Ondansetron HCl (Zofran) 4 mg IV Q8H PRN PRN PRN Reason: NAUSEA/VOMITING Oxycodone HCl (Oxyir) 5 mg PO Q6H PRN PRN PRN Reason: Pain Score 6-10/10 Polysaccharide Iron Complex (Ferrex 150) 150 mg [facility] Last Admin: 05/17/19 08:33 Dose: 150 mg Documented by: Potassium Chloride (K-Dur) 20 meq [facility] Last Admin: 05/17/19 08:52 Dose: Not Given Documented by: Pramipexole Dihydrochloride (Mirapex) 0.25 mg PO QHS [facility] Last Admin: 05/17/19 21:56 Dose: Not Given Documented by: Pravastatin Sodium (Pravachol) 40 mg PO QHS [facility] Last Admin: 05/17/19 21:56 Dose: Not Given Documented by: Senna/Docusate Sodium (Senokot-S, Meg-Colace) 2 tablet PO BID PRN PRN PRN Reason: Constipation Sodium Chloride () 10 - 40 ml IV UD PRN PRN Reason: SALINE FLUSH Last Admin: 05/17/19 15:24 Dose: 10 ml Documented by: STROKE Vital Signs/Narrative: Vital Signs Temp Pulse Resp BP Pulse Ox 05/18/19 07:00 97.4 F L 109 H 20 H 85/52 L 98 05/18/19 06:00 97.6 F L 91 15 85/51 L 96 05/18/19 05:00 97.6 F L 124 H 20 H 101/72 92 05/18/19 04:00 97.6 F L 77 19 H 93/57 L 99 Medical Necessity - Tobacco Use Smoking Status: Former smoker - Tells me she quit in 2009 and prior to that smoked for about 50 years. Tobacco Use: Non-smoker Assessment/Plan All Active Problems (Last Reviewed 05/15/19 @ 18:[address] Vicky Lovett DO) CHF exacerbation (Acute) Cellulitis (Acute) Pleural effusion, right (Acute) Pulmonary hypertension, moderate to severe (Acute) Shortness of breath (Resolved) Patient is an 84-year-old lady with multiple comorbidities admitted with hip pain as well as shortness of breath imaging studies demonstrated large right- sided pleural effusion. An assessment of congestive heart failure made admitted to a monitored bed for further management 1. Acute CHF exacerbation ?Managed with fluid restriction IV diuretics and supplemental oxygen. Patient was seen in consultation by cardiology notes and recommendations reviewed 2. Right hand cellulitis ?Suspicious for MRSA infection given pustular nature of lesions. Patient is on Unasyn added vancomycin 3.Right lower extremity cellulitis with MSSA -Patient is on Unasyn 4. Large right-sided pleural effusion and ascites ?Attributed to CHF plan was for patient to have undergone both therapeutic as we ll as diagnostic thoracocentesis which is currently being placed on hold pending discussion with family 5. Pulmonary hypertension ?Plan is to treat symptomatically at this point 6. Acute kidney injury ?Baseline creatinine 1.16 was 1.53 on admission. It was expected that patient kidney function was going to improve with diuresis however did worsen 7. 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 History of breast CA ?Currently in remission 9. A. fib with RVR ?Patient heart rate is currently controlled Clinical Impression(s) from Imaging Studies Chest X-Ray 05/15/19 14:57 IMPRESSION: Large right pleural effusion with superimposed CHF. Electronically Signed: Igor Rajan at 15:14 EDT , Service support , Hip/Pelvis X-Ray 05/15/19 14:57 IMPRESSION: No fracture seen. Sclerotic focus in the right and left iliac bone as described. Metastatic disease should be ruled out Electronically Signed: Igor Rajan, at 15:19 EDT , Service support , Chest CT 05/15/19 17:39 IMPRESSION: Large right pleural effusion with compression atelectasis of the right lung. Bilateral patchy pulmonary interstitial prominence. Mild cardiomegaly. Mild ascites. Subcutaneous edema/hematoma of the right lateral chest wall. Electronically Signed: Cuba Lewis DO at 19:30 EDT Tel [phone], Service support , Pelvis CT 05/15/19 18:54 IMPRESSION: Subcutaneous calcified granulomas bilaterally within the gluteal regions likely representing the sclerotic area seen on corresponding x-ray of the pelvis. Degenerative lower lumbar changes. Possible old left trochanteric injury. Mild infrarenal abdominal aortic aneurysm. Ascites and pelvic fluid. Electronically Signed: Cuba Lewis DO at 20:27 EDT Tel [phone], Service support , Inpatient E&M: [id number] Subs Hosp L3
--- NOTE | 2019-05-18 08:22 | PN_ITS ---
Patient Problems: Active and Suspected Problems (Last Reviewed 05/15/19 @ 18:[address] Vicky Lovett, DO) CHF exacerbation (Acute) Metastatic cancer (Suspected) new lytic lesions in the left hip Cellulitis (Acute) Pleural effusion, right (Acute) very large Pulmonary hypertension, moderate to severe (Acute) PA systolic in May 2018 was estimated at 62. Subjective: The patient was seen and examined at the bedside this morning. Events from the last 24 hours have been reviewed. The patient is currently afebrile, hem odynamically stable and maintaining appropriate oxygen saturations on 2 L/min via nasal cannula. Objective: The patient's most recent lab work, culture data and imaging studies have all been personally reviewed. Wound culture was positive for staph aureus. - Physical Exam Vitals/I&O's: Vital Signs Temp Pulse Resp BP Pulse Ox 97.4 F L 109 H 20 H 85/52 L 98 05/18/19 07:00 05/18/19 07:00 05/18/19 07:00 05/18/19 07:00 05/18/19 07:00 Oxygen Flow Rate (L/min) 2 Oxygen Delivery Method Nasal Cannula Weight: 181 lb 14.102 oz Body Mass Index (BMI) 29.9 Intake and Output for Last 24 Hours 05/16/19 05/17/19 05/18/19 23:59 23:59 23:59 Intake Total 1572 / 1622 2046.00 / 2046.00 Output Total 400 / 800 1100 / 1300 500 / 500 Balance 1172 / 822 946.00 / 746.00 -500 / -500 General: Alert, Cooperative, - - Hard of hearing HEENT: Atraumatic, Normocephalic Oral: No Gingival or Mucosal Lesions/ Ulcerations Neck: Supple, No Nodes, Trachea Midline Lungs: No rhonchi, No wheeze, No rales, Diminished Cardiovascular: Normal S1, Normal S2, Irregular Rate, Murmur Abdomen: Bowel Sounds Present, Soft, Non Tender, Obese Extremities: No clubbing, No cyanosis, Edema Skin: No breakdown Musculoskeletal: No Tenderness to Palpation of Joints or Extremities Lymphatic: No Cervical, Supraclavicular, or Inguinal Adenopathy Neurological: Neuro grossly intact Psych/Mental Status: Normal Affect, Appropriate Labs (Last 48 Hours) 05/17/19 05/17/1920 05:20 05:20 05:20 WBC 8.0 RBC 4.16 L Hgb 8.5 L Hct 35.3 L MCV 84.9 MCH 20.4 L MCHC 24.1 L RDW Std Deviation 71.2 H RDW Coeff of Estiven 23.9 H Plt Count 122 L MPV 10.5 Immature Gran % (Auto) 1.900 H Neut % (Auto) 77.3 H Lymph % (Auto) 15.4 L Millard % (Auto) 4.6 Eos % (Auto) 0.4 Baso % (Auto) 0.4 Absolute Neuts (auto) 6.2 Absolute Lymphs (auto) 1.23 Nucleated RBC % 3.0 Differential Comment SCANNED Hypochromasia 1+ Anisocytosis 1+ Sodium 149 H Potassium 4.4 Chloride 114 H Carbon Dioxide 31.0 Anion Gap 4 L BUN 42 H Creatinine 1.81 H Estim Creat Clear Calc 21.19 Est GFR (MDRD) Af Amer 34 L Est GFR (MDRD) Non-Af 28 L BUN/Creatinine Ratio 23.2 H Glucose 73 L Calcium 8.5 Total Bilirubin 0.40 Direct Bilirubin 0.19 AST 9 L ALT 12 L Alkaline Phosphatase 66 Ammonia Total Protein 5.5 L Albumin 2.4 L Globulin 3.1 05/17/19 05/17/19 13:35 14:05 WBC RBC Hgb Hct MCV MCH MCHC RDW Std Deviation RDW Coeff of Estiven Plt Count MPV Immature Gran % (Auto) Neut % (Auto) Lymph % (Auto) Millard % (Auto) Eos % (Auto) Baso % (Auto) Absolute Neuts (auto) Absolute Lymphs (auto) Nucleated RBC % Differential Comment Hypochromasia Anisocytosis Sodium 148 H Potassium 4.6 Chloride 112 H Carbon Dioxide 32.0 Anion Gap 4 L BUN 40 H Creatinine 1.76 H Estim Creat Clear Calc 21.79 Est GFR (MDRD) Af Amer 36 L Est GFR (MDRD) Non-Af 29 L BUN/Creatinine Ratio 22.7 H Glucose 99 Calcium 8.1 L Total Bilirubin Direct Bilirubin AST ALT Alkaline Phosphatase Ammonia 27.0 Total Protein Albumin Globulin Microbiology 05/15/19 22:06 Skin - Leg Gram Stain - Final 05/15/19 22:06 Skin - Leg Wound Culture - Final Staphylococcus aureus 05/15/19 14:32 Blood Culture (Wb) #2 - Anticubital Right Blood Culture - Preliminary No growth in 48 hours. 05/15/19 14:20 Blood Culture (Wb) - Anticubital Left Blood Culture - Preliminary No growth in 48 hours. 05/16/19 14:20 Stool Stool Occult Blood (MIRIAN) - Final Occult Blood Positive Clinical Impression(s) from Imaging Studies Chest X-Ray 05/15/19 14:57 IMPRESSION: Large right pleural effusion with superimposed CHF. Electronically Signed: Igor Rajan at 15:14 EDT , Service support , Hip/Pelvis X-Ray 05/15/19 14:57 IMPRESSION: No fracture seen. Sclerotic focus in the right and left iliac bone as described. Metastatic disease should be ruled out Electronically Signed: Igor Rajan at 15:19 EDT , Service support , Chest CT 05/15/19 17:39 IMPRESSION: Large right pleural effusion with compression atelectasis of the right lung. Bilateral patchy pulmonary interstitial prominence. Mild cardiomegaly. Mild ascites. Subcutaneous edema/hematoma of the right lateral chest wall. Electronically Signed: Cuba Lewis DO at 19:30 EDT Tel [phone], Service support , Pelvis CT 05/15/19 18:54 IMPRESSION: Subcutaneous calcified granulomas bilaterally within the gluteal regions likely representing the sclerotic area seen on corresponding x-ray of the pelvis. Degenerative lower lumbar changes. Possible old left trochanteric injury. Mild infrarenal abdominal aortic aneurysm. Ascites and pelvic fluid. Electronically Signed: Cuba Lewis DO at 20:27 EDT Tel [phone], Service support , Current Medications Acetaminophen (Tylenol) 650 mg PO Q6H PRN PRN PRN Reason: Pain Score 1-10/Temp > 100.7 F Al Hydroxide/Mg Hydroxide (Mylanta Ii) 30 ml PO Q6H PRN PRN PRN Reason: Gastric Burning Albuterol Sulfate (Ventolin Aerosols) 2.5 mg INHALATION Q2H PRN PRN PRN Reason: Shortness of Breath/Wheezing [facility]rim) [facility] Admin: 05/17/19 08:34 Dose: 300 mg Documented by: Calamine/Phenol (Calmoseptine Ointment) 1 applic TOPICAL BID [facility]; Protocol Last Admin: 05/17/19 21:38 Dose: 1 applicatio Documented by: Chlorhexidine Gluconate () 1 each TOPICAL DAILY [facility] Stop: 05/21/19 10:01 Last Admin: 05/17/19 11:17 Dose: 1 each Documented by: Duloxetine HCl (Cymbalta) 30 mg PO DAILY [facility] Last Admin: 05/17/19 09:06 Dose: 30 mg Documented by: Famotidine (Pepcid) 20 mg PO DAILY [facility] Last Admin: 05/17/19 09:06 Dose: 20 mg Documented by: Gabapentin (Neurontin) [facility] Last Admin: 05/17/19 17:01 Dose: Not Given Documented by: Guaifenesin (Robitussin) 20 ml PO Q4H PRN PRN PRN Reason: COUGH Ampicillin Sodium/Sulbactam (Sodium 3 gm/ Sodium Chloride) 112 mls @ 150 mls/hr IV BID [facility] Last Infusion: 05/17/19 22:52 Dose: Infused Documented by: Iron Sucrose 200 mg/ Sodium (Chloride) 110 mls @ 220 mls/hr IV DAILY [facility] Stop: 05/18/19 10:29 Last Infusion: 05/17/19 11:29 Dose: Infused Documented by: Dextrose () 1,000 mls @ 100 mls/hr IV .Q10H [facility] Last Admin: 05/17/19 22:51 Dose: 100 mls/hr Documented by: Levothyroxine Sodium (Synthroid) 50 mcg PO DAILY@0600 [facility] Last Admin: 05/18/19 06:20 Dose: 50 mcg Documented by: Magnesium Hydroxide (Milk Of Magnesia) 30 ml PO DAILY PRN PRN PRN Reason: Constipation Metoprolol Tartrate (Lopressor (Beta Brittnee)) 50 mg PO BID [facility] Last Admin: 05/16/19 23:05 Dose: 50 mg Documented by: Morphine Sulfate () 2 mg IV Q3H PRN PRN PRN Reason: Pain Score 6-10/10 Mupirocin (Bactroban) 1 applic NASAL BID [facility]; Protocol Stop: 05/20/19 10:01 Last Admin: 05/17/19 21:40 Dose: 1 applic Documented by: Nystatin (Mycostatin Powder) 1 applic TOPICAL BID [facility]; Protocol Last Admin: 05/17/19 21:38 Dose: 1 applic Documented by: Ondansetron HCl (Zofran) 4 mg IV Q8H PRN PRN PRN Reason: NAUSEA/VOMITING Oxycodone HCl (Oxyir) 5 mg PO Q6H PRN PRN PRN Reason: Pain Score 6-10/10 Polysaccharide Iron Complex (Ferrex 150) [facility] Last Admin: 05/17/19 08:33 Dose: 150 mg Documented by: Potassium Chloride (K-Dur) [facility]q [facility] Last Admin: 05/17/19 08:52 Dose: Not Given Documented by: Pramipexole Dihydrochloride (Mirapex) [facility] Last Admin: 05/17/19 21:56 Dose: Not Given Documented by: Pravastatin Sodium (Pravachol) 40 mg PO QHS [facility] Last Admin: 05/17/19 21:56 Dose: Not Given Documented by: Senna/Docusate Sodium (Senokot-S, Meg-Colace) 2 tablet PO BID PRN PRN PRN Reason: Constipation Sodium Chloride () 10 - 40 ml IV UD PRN PRN Reason: SALINE FLUSH Last Admin: 05/17/19 15:24 Dose: 10 ml Documented by: Medical Necessity - Tobacco Use Smoking Status: Former smoker - Tells me she quit in 2009 and prior to that smoked for about 50 years. Tobacco Use: Non-smoker Assessment/Plan All Active Problems (Last Reviewed 05/15/19 @ 18:[address] Vicky Lovett DO) CHF exacerbation (Acute) Cellulitis (Acute) Pleural effusion, right (Acute) Pulmonary hypertension, moderate to severe (Acute) Shortness of breath (Resolved) RECOMMENDATIONS: 1. Tentative plans for goals of care discussion with family. 2. Continue empiric antimicrobials. 3. Wean supplemental oxygen as tolerated. 4. Consider Lasix therapy given overall stability and hemodynamics. 5. Paracentesis followed by thoracentesis, pending outcome of family goals of care discussion. IMPRESSIONS: 1. Acute hypoxemic respiratory insufficiency secondary to decompensated heart failure and subsequent pleural effusion Initiation of diuretic therapy can be entertained pending stability and hemodynamic status. Continue to wean supplemental oxygen as tolerated. Patient would likely benefit from a right-sided thoracentesis at some point. However, given ascites, this may be best completed after ascites is drained as this will rapidly accumulate into the chest if thoracentesis is completed prior to the paracentesis. Patient appears to be tolerating on minimal nasal cannula oxygen at this time, so there is no indication for aggressive intervention. Patient does have a history of cancer, spiculated nodule and current infection, so evaluation for exudate pattern on effusion would be of importance. 2. Right lower extremity cellulitis Continue antimicrobials as ordered. The patient remains hemodynamically stable at this time. 3. Acute kidney injury Likely secondary to cardiorenal syndrome. Nephrology is currently following. 4. Thrombocytopenia/history of lymphoma/history of breast cancer Complicates care, management, recovery and prognosis. Plan for goals of care discussion with family today. This note was generated with [employer] dictation software. It may contain incorrect words, spelling, and punctuation that were not noted in checking the note before signing. Inpatient E&M: [id number] Subs Hosp L2
[2019-05-18] MEDS: Gabapentin 100 MG Capsule PO ×2 (09:13→16:40)
[2019-05-18] MEDS: Allopurinol 300 MG Tablet PO (09:13)
[2019-05-18] MEDS: Nystatin Powder 15gm Bottle 1 APPLIC TOPICAL ×2 (09:14→22:38)
[2019-05-18] MEDS: Menthol/Lanolin/Calamine/Znox 113 GM Tube 1 APPLIC TOPICAL ×2 (09:14→22:38)
[2019-05-18] MEDS: CHLORHEXIDINE GLUC 2% CLOTH 1 EACH TOWELETTE TOPICAL (09:14)
[2019-05-18] MEDS: Mupirocin Ointment 22gm Tube 1 APPLIC NASAL ×2 (09:14→22:38)
[2019-05-18] MEDS: DULoxetine Hcl 30 MG Capsule PO (09:15)
[2019-05-18] MEDS: Famotidine 20 MG Tablet PO (09:15)
[2019-05-18] MEDS: Iron Polysaccharide Complex 150 MG CAPSULE PO (09:15)
--- NOTE | 2019-05-18 10:10 | CASEMGMT ---
Addendum entered by Sharon Gooden 05/18/19 13:58: SW updated that physician spoke with pt's family and Hospice is being recommended for pt and Hospice referral needs made. SW in to speak with pt. Pt does have confusion. Pt's daughter Heather is present in room. Heather states she lives with pt and is HCPOA for pt. SW spoke with Heather regarding Hospcie. Leylakeshawnsamantha confirms she would like Hospice referral made. SW explained that this worker will make referral to [facility] and then [facility] will call Heather to arrange meeting time. Heather states understanding. BRITTNI updated RN that this worker was updated on Hospice referral and this worker will be making referral. BRITTNI placed a call to [facility] and spoke with Lolly in admissions and provided Hospice referral. Plan: Hospice to call pt's daughter to arrange meeting Original Note: Social Work Note SW participated in ICU rounds. There is talk of possible Hospice for pt. SW to continue to follow. Sharon Gooden [employer]ER, [employer] CHECKER
[2019-05-18] MEDS: 0.9% Saline Lock 10 ML Syringe IV (10:39)
--- NOTE | 2019-05-18 11:04 | PCM.PN.REN ---
Patient Problems: Active and Suspected Problems (Last Reviewed 05/15/19 @ 18:[address] Vicky Lovett, DO) CHF exacerbation (Acute) Metastatic cancer (Suspected) new lytic lesions in the left hip Cellulitis (Acute) Pleural effusion, right (Acute) very large Pulmonary hypertension, moderate to severe (Acute) PA systolic in May 2018 was estimated at 62. Subjective: Following for SOIF. Pt denies increasing SOB, nausea, vomiting or diarrhea. Has edema of lower extremity bilaterally. - Physical Exam Vitals/I&O's: Vital Signs Temp Pulse Resp BP Pulse Ox 98.2 F 137 H 23 H 110/57 L 95 05/18/19 08:00 05/18/19 10:00 05/18/19 10:00 05/18/19 10:00 05/18/19 10:00 Oxygen Flow Rate (L/min) 2 Oxygen Delivery Method Nasal Cannula Weight: 82.5 kg Body Mass Index (BMI) 29.9 Intake and Output for Last 24 Hours 05/16/19 05/17/19 05/18/19 23:59 23:59 23:59 Intake Total 1572 / 1622 2046.00 / 2046.00 1112 / 1112 Output Total 400 / 800 1100 / 1300 500 / 500 Balance 1172 / 822 946.00 / 746.00 612 / 612 General: Alert, Cooperative HEENT: Atraumatic, EOMI Oral: Dry Mucosa Neck: Supple Lungs: Diminished Cardiovascular: Normal S1, Normal S2, No murmurs Abdomen: Bowel Sounds Present, Soft, Non Tender Extremities: Edema - 3+ LE Microbiology Past 72 Hours 05/15/19 22:06 Skin - Leg Gram Stain - Final 05/15/19 22:06 Skin - Leg Wound Culture - Final Staphylococcus aureus 05/15/19 14:32 Blood Culture (Wb) #2 - Anticubital Right Blood Culture - Preliminary No growth in 48 hours. 05/15/19 14:20 Blood Culture (Wb) - Anticubital Left Blood Culture - Preliminary No growth in 48 hours. 05/16/19 14:20 Stool Stool Occult Blood (MIRIAN) - Final Occult Blood Positive Laboratory Results 05/17/19 05:20: Total Bilirubin 0.40, Direct Bilirubin 0.19, AST 9 L, ALT 12 L, Alkaline Phosphatase 66, Total Protein 5.5 L, Albumin 2.4 L, Globulin 3.1 05/17/19 13:35: Ammonia 27.0 05/17/19 14:05: Sodium 148 H, Potassium 4.6, Chloride 112 H, Carbon Dioxide 32.0, Anion Gap 4 L, BUN 40 H, Creatinine 1.76 H, Estim Creat Clear Calc 21.79, Est GFR (MDRD) Af Amer 36 L, Est GFR (MDRD) Non-Af 29 L, BUN/Creatinine Ratio 22.7 H, Glucose 99, Calcium 8.1 L Current Medications Acetaminophen (Tylenol) 650 mg PO Q6H PRN PRN PRN Reason: Pain Score 1-10/Temp > 100.7 F Al Hydroxide/Mg Hydroxide (Mylanta Ii) 30 ml PO Q6H PRN PRN PRN Reason: Gastric Burning Albuterol Sulfate (Ventolin Aerosols) 2.5 mg INHALATION Q2H PRN PRN PRN Reason: Shortness of Breath/Wheezing [facility]) [facility] Last Admin: 05/18/19 09:13 Dose: 300 mg Documented by: Calamine/Phenol (Calmoseptine Ointment) 1 applic TOPICAL BID [facility]; Protocol Last Admin: 05/18/19 09:14 Dose: 1 applicatio Documented by: Chlorhexidine Gluconate () 1 each TOPICAL DAILY [facility] Stop: 05/21/19 10:01 Last Admin: 05/18/19 09:14 Dose: 1 each Documented by: Duloxetine HCl (Cymbalta) 30 mg PO DAILY [facility] Last Admin: 05/18/19 09:15 Dose: 30 mg Documented by: Famotidine (Pepcid) 20 mg PO DAILY [facility] Last Admin: 05/18/19 09:15 Dose: 20 mg Documented by: Gabapentin ([facility]urontin) [facility] Last Admin: 05/18/19 09:13 Dose: 100 mg Documented by: Guaifenesin (Robitussin) 20 ml PO Q4H PRN PRN PRN Reason: COUGH Ampicillin Sodium/Sulbactam (Sodium 3 gm/ Sodium Chloride) 112 mls @ 150 mls/hr IV BID [facility] Last Infusion: 05/18/19 10:02 Dose: Infused Documented by: Levothyroxine Sodium (Synthroid) 50 mcg PO DAILY@0600 [facility] Last Admin: 05/18/19 06:20 Dose: 50 mcg Documented by: Magnesium Hydroxide (Milk Of Magnesia) 30 ml PO DAILY PRN PRN PRN Reason: Constipation Metoprolol Tartrate (Lopressor (Beta Brittnee)) 50 mg PO BID [facility] Last Admin: 05/16/19 23:05 Dose: 50 mg Documented by: Morphine Sulfate () 2 mg IV Q3H PRN PRN PRN Reason: Pain Score 6-10/10 Mupirocin (Bactroban) 1 applic NASAL BID [facility]; Protocol Stop: 05/20/19 10:01 Last Admin: 05/18/19 09:14 Dose: 1 applic Documented by: Nystatin (Mycostatin Powder) 1 applic TOPICAL BID [facility]; Protocol Last Admin: 05/18/19 09:14 Dose: 1 applic Documented by: Ondansetron HCl (Zofran) 4 mg IV Q8H PRN PRN PRN Reason: NAUSEA/VOMITING Oxycodone HCl (Oxyir) 5 mg PO Q6H PRN PRN PRN Reason: Pain Score 6-10/10 Polysaccharide Iron Complex (Ferrex 150) [facility] Last Admin: 05/18/19 09:15 Dose: 150 mg Documented by: Potassium Chloride (K-Dur) [facility] meq [facility] Last Admin: 05/18/19 09:15 Dose: 20 meq Documented by: Pramipexole [facility] ([facility]x) [facility] Last Admin: 05/17/19 21:56 Dose: Not Given Documented by: Pravastatin Sodium (Pravachol) [facility] Last Admin: 05/17/19 21:56 Dose: Not Given Documented by: Senna/Docusate Sodium (Senokot-S, Meg-Colace) 2 tablet PO BID PRN PRN PRN Reason: Constipation Sodium Chloride () 10 - 40 ml IV UD PRN PRN Reason: SALINE FLUSH Last Admin: 05/18/19 10:39 Dose: 10 ml Documented by: Medical Necessity - Tobacco Use Smoking Status: Former smoker - Tells me she quit in 2009 and prior to that smoked for about 50 years. Tobacco Use: Non-smoker Assessment/Plan All Active Problems (Last Reviewed 05/15/19 @ 18:[address] Vicky Lovett DO) CHF exacerbation (Acute) Cellulitis (Acute) Pleural effusion, right (Acute) Pulmonary hypertension, moderate to severe (Acute) Shortness of breath (Resolved) 1. Acute kidney injury. Baseline SCr is aroud 1.00-1.20 mg/dL. SOIF is likely prerenal from cardiorenal causes (RHF and atrial fibrillation with RVR) and hypotension. SCr increased to 1.81 on morning of 05/17/19 (05:20). However, SCr remained stable at 1.76 by yesterday afternoon (14:05). Pt is not oliguric despite coming off of Lasix due to hypotension. No new labs today. Will reorder for tomorrow morning. Since BP is better, I am OK with using Lasix as needed. Medications are reviewed. 2. Pulmonary HTN. Mild. Pulmonary artery pressure is 44 mmHg. Echo showed normal EF at 55%. OK to use Lasix as needed if respiratory status worsens again. 3. History of hypokalemia. Last available K level is 4.6 at 14:05 yesterday. Since pt is off of scheduled Lasix, I would stop scheduled K for now to avoid unintended hyperkalemia. Recheck K in am. 4. Hypernatremia. Last available Na level is 148 at 14:05 yesterday which was stable. Na should improve with holding Lasix. Recheck Na in am. 5. Acute hypoxic respiratory failure. Has pleural effusion, mild pulmonary HTN, and right heart failure. Situation complicated by atrial fibrillation with RVR and hypotension. Since BP is better, the pt can get IV Lasix as needed.
[2019-05-18] MEDS: dilTIAZem 25 MG/5 ML Vial 20 MG IV BOLUS (11:25)
--- NOTE | 2019-05-18 11:49 | NURSING ---
wound photo: right lower leg
--- NOTE | 2019-05-18 11:49 | NURSING ---
wound photo: left lower leg
--- NOTE | 2019-05-18 11:50 | NURSING ---
wound photo: right hand
--- NOTE | 2019-05-18 14:16 | CHAPLAIN ---
Type of Pastoral Visit _x__ Initial Visit ___ Follow-up Visit ___ On-call Visit ___ General Patient Visit ___ Spiritual Assessment ___ Family Conference ___ Bereavement ___ Rapid Response ___ Code Blue ___ Other (describe below) Pastoral Care Referral From _x__ Patient _x__ Family ___ Nurse ___ Physician ___ Taximeter Repairer ___ Trade [employer] Secretary ___ Other (describe below) Sacrament/Intervention _x__ Active listening ___ Anointing ___ Baptist ___ Bereavement ___ Communion _x__ Emily exploration ___ ___ Life review _x__ Prayer ___ Reconciliation ___ Sacrament of Sick _x__ Supportive presence ___ Wedding ___ Other (describe below) Pastoral Comments family members in room; family talks about patient as great Mom and ready to ; family appears comfortable with end of life prospects;
--- NOTE | 2019-05-18 14:40 | CASEMGMT ---
Social Work Note SW received call from Lolly at [facility] stating Hospice meeting is arranged for 10:00am tomorrow morning. Sharon Gooden IN TUBE CONVERSION TECHNICIAN, CONTROL MANAGER
--- NOTE | 2019-05-18 16:51 | NURSING ---
report called to Denise FERGUSON RN
[2019-05-19] MEDS: Ceftriaxone 1 GM Vial IM (00:50)
[2019-05-19 04:08] VITALS: BP 122/71; PULSE 146; RESP 22; TEMP 36.6; O2SAT 96
[2019-05-19] MEDS: Levothyroxine 50 MCG Tablet PO (05:53)
[2019-05-19 06:59] VITALS: O2SAT 91
--- NOTE | 2019-05-19 07:38 | PCM.PN.HOSP ---
Patient Problems: Active and Suspected Problems (Last Reviewed 05/15/19 @ 18:[address] Vicky Lovett DO) CHF exacerbation (Acute) Metastatic cancer (Suspected) new lytic lesions in the left hip Cellulitis (Acute) Pleural effusion, right (Acute) very large Pulmonary hypertension, moderate to severe (Acute) PA systolic in May 2018 was estimated at 62. Reason for Visit: Follow-up acute congestive heart failure Subjective: Hospice meeting scheduled for 10 AM Objective: GENERAL: cooperative HEENT: Atraumatic; EYES; Anicteric, Normal Conjunctiva NECK; supple, normal thyroid, RESPIRATORY: Diminished to auscultation CARDIOVASCULAR: Irregular S1 S2, GI: soft, normoactive bowel sounds, : No Renal angle tenderness; EXTREMITIES: Trace edema MUSCULOSKELETAL: no muscle waisting NEURO: Awake; no lateralizing signs. SKIN: Erythema and redness involving the dorsal surface of the right hand with pustular lesions PSYCH; Flat affect Vitals/I&O's: Vital Signs Temp Pulse Resp BP Pulse Ox 97.9 F 146 H 22 H 122/71 H 96 05/19/19 04:08 05/19/19 04:08 05/19/19 04:08 05/19/19 04:08 05/19/19 04:08 Oxygen Flow Rate (L/min) 6 Oxygen Delivery Method Nasal Cannula Weight: 82.5 kg Body Mass Index (BMI) 29.9 Intake and Output for Last 24 Hours 05/17/19 05/18/19 05/19/19 23:59 23:59 23:59 Intake Total 2046.00 / 2046.00 1702 / 1762 160 / 160 Output Total 1100 / 1300 1000 / 1100 300 / 300 Balance 946.00 / 746.00 702 / 662 -140 / -140 Microbiology Past 72 Hours 05/15/19 22:06 Skin - Leg Gram Stain - Final 05/15/19 22:06 Skin - Leg Wound Culture - Final Staphylococcus aureus 05/15/19 14:32 Blood Culture (Wb) #2 - Anticubital Right Blood Culture - Preliminary No growth in 48 hours. 05/15/19 14:20 Blood Culture (Wb) - Anticubital Left Blood Culture - Preliminary No growth in 48 hours. 05/16/19 14:20 Stool Stool Occult Blood (MIRIAN) - Final Occult Blood Positive Current Medications Acetaminophen (Tylenol) 650 mg PO Q6H PRN PRN PRN Reason: Pain Score 1-10/Temp > 100.7 F Al Hydroxide/Mg Hydroxide (Mylanta Ii) 30 ml PO Q6H PRN PRN PRN Reason: Gastric Burning Albuterol Sulfate (Ventolin Aerosols) 2.5 mg INHALATION Q2H PRN PRN PRN Reason: Shortness of Breath/Wheezing [facility]op[facility] ([facility]oprim) [facility] Last Admin: 05/18/19 09:13 Dose: 300 mg Documented by: Calamine/Phenol (Calmoseptine Ointment) 1 applic TOPICAL BID [facility]; Protocol Last Admin: 05/18/19 22:38 Dose: 1 applicatio Documented by: Ceftriaxone Sodium (Rocephin) 1 gm IM Q24@2200 [facility] Last Admin: 05/19/19 00:50 Dose: 1 gm Documented by: Chlorhexidine Gluconate () 1 each TOPICAL DAILY [facility] Stop: 05/21/19 10:01 Last Admin: 05/18/19 09:14 Dose: 1 each Documented by: Duloxetine HCl (Cymbalta) 30 mg PO DAILY [facility] Last Admin: 05/18/19 09:15 Dose: 30 mg Documented by: Famotidine (Pepcid) 20 mg PO DAILY [facility] Last Admin: 05/18/19 09:15 Dose: 20 mg Documented by: Gabapentin (Neurontin) [facility] Last Admin: 05/18/19 16:40 Dose: 100 mg Documented by: Guaifenesin (Robitussin) 20 ml PO Q4H PRN PRN PRN Reason: COUGH Levothyroxine Sodium (Synthroid) 50 mcg PO DAILY@0600 [facility] Last Admin: 05/19/19 05:53 Dose: 50 mcg Documented by: Magnesium Hydroxide (Milk Of Magnesia) 30 ml PO DAILY PRN PRN PRN Reason: Constipation Metoprolol Tartrate (Lopressor (Beta Brittnee)) 50 mg PO BID [facility] Last Admin: 05/16/19 23:05 Dose: 50 mg Documented by: Morphine Sulfate () 2 mg IV Q3H PRN PRN PRN Reason: Pain Score 6-10/10 Mupirocin (Bactroban) 1 applic NASAL BID [facility]; Protocol Stop: 05/20/19 10:01 Last Admin: 03/23/20 22:38 Dose: 1 applic Documented by: Nystatin (Mycostatin Powder) 1 applic TOPICAL BID [facility]; Protocol Last Admin: 05/18/19 22:38 Dose: 1 applic Documented by: Ondansetron HCl (Zofran) 4 mg IV Q8H PRN PRN PRN Reason: NAUSEA/VOMITING Oxycodone HCl (Oxyir) 5 mg PO Q6H PRN PRN PRN Reason: Pain Score 6-10/10 Polysaccharide Iron Complex (Ferrex 150) [facility] Last Admin: 05/18/19 09:15 Dose: 150 mg Documented by: Pramipexole Dihydrochloride (Mirapex) 0.25 mg PO QHS [facility] Last Admin: 05/18/19 22:25 Dose: Not Given Documented by: Pravastatin Sodium (Pravachol) 40 mg PO QHS [facility] Last Admin: 05/18/19 22:25 Dose: Not Given Documented by: Senna/Docusate Sodium (Senokot-S, Meg-Colace) 2 tablet PO BID PRN PRN PRN Reason: Constipation Sodium Chloride () 10 - 40 ml IV UD PRN PRN Reason: SALINE FLUSH Last Admin: 05/18/19 10:39 Dose: 10 ml Documented by: STROKE Vital Signs/Narrative: Vital Signs Temp Pulse Resp BP Pulse Ox 05/19/19 04:08 97.9 F 146 H 22 H 122/71 H 96 Medical Necessity - Tobacco Use Smoking Status: Former smoker - Tells me she quit in 2009 and prior to that smoked for about 50 years. Tobacco Use: Non-smoker Assessment/Plan All Active Problems (Last Reviewed 05/15/19 @ 18:[address] Vicky Lovett, DO) CHF exacerbation (Acute) Cellulitis (Acute) Pleural effusion, right (Acute) Pulmonary hypertension, moderate to severe (Acute) Shortness of breath (Resolved) Patient is an 84-year-old lady with multiple comorbidities admitted with hip pain as well as shortness of breath imaging studies demonstrated large right-sided pleural effusion. An assessment of congestive heart failure made admitted to a monitored bed for further management 1. Acute CHF exacerbation ?Managed with fluid restriction IV diuretics and supplemental oxygen. Patient was seen in consultation by cardiology notes and recommendations reviewed ?05/19/2019: Patient was transferred from the ICU to regular nursing floor after CODE STATUS was changed from DNR CCA to DNR CC. Plan is for hospice meeting later this morning. 2. Right hand cellulitis ?Suspicious for MRSA infection given pustular nature of lesions. Patient is on Unasyn added vancomycin 3.Right lower extremity cellulitis with MSSA -Patient is on Unasyn 4. Large right-sided pleural effusion and ascites ?Attributed to CHF plan was for patient to have undergone both therapeutic as well as diagnostic thoracocentesis which is currently being placed on hold pending discussion with family 5. Pulmonary hypertension ?Plan is to treat symptomatically at this point 6. Acute kidney injury ?Baseline creatinine 1.16 was 1.53 on admission. It was expected that patient kidney function was going to improve with diuresis however did worsen 7. 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 History of breast CA ?Currently in remission 9. A. fib with RVR ?Patient heart rate is currently controlled Inpatient E&M: 35117 Subs Hosp L2
[2019-05-19 09:18] VITALS: BP 129/70; PULSE 149; RESP 22; TEMP 36.7; O2SAT 94
[2019-05-19] MEDS: DULoxetine Hcl 30 MG Capsule PO (09:22)
[2019-05-19] MEDS: Allopurinol 300 MG Tablet PO (09:22)
[2019-05-19] MEDS: Famotidine 20 MG Tablet PO (09:22)
[2019-05-19] MEDS: Gabapentin 100 MG Capsule PO (09:22)
[2019-05-19] MEDS: Iron Polysaccharide Complex 150 MG CAPSULE PO (09:23)
[2019-05-19] MEDS: Nystatin Powder 15gm Bottle 1 APPLIC TOPICAL (09:23)
[2019-05-19] MEDS: Menthol/Lanolin/Calamine/Znox 113 GM Tube 1 APPLIC TOPICAL (09:23)
--- NOTE | 2019-05-19 09:41 | PCM.PN.REN ---
Patient Problems: Active and Suspected Problems (Last Reviewed 05/15/19 @ 18:[address] Vicky Lovett, DO) CHF exacerbation (Acute) Metastatic cancer (Suspected) new lytic lesions in the left hip Cellulitis (Acute) Pleural effusion, right (Acute) very large Pulmonary hypertension, moderate to severe (Acute) PA systolic in May 2018 was estimated at 62. Subjective: NO sob no cp - Physical Exam Vitals/I&O's: Vital Signs Temp Pulse Resp BP Pulse Ox 98.1 F 149 H 22 H 129/70 H 94 05/19/19 09:18 05/19/19 09:18 05/19/19 09:18 05/19/19 09:18 05/19/19 09:18 Oxygen Flow Rate (L/min) 6 Oxygen Delivery Method Nasal Cannula Weight: 82.5 kg Body Mass Index (BMI) 29.9 Intake and Output for Last 24 Hours 05/17/19 05/18/19 05/19/19 23:59 23:59 23:59 Intake Total 2046.00 / 2046.00 1702 / 1762 160 / 160 Output Total 1100 / 1300 1000 / 1100 300 / 300 Balance 946.00 / 746.00 702 / 662 -140 / -140 General: Alert HEENT: Atraumatic Neck: Supple, Trachea Midline Lungs: Clear to auscultation Cardiovascular: Regular rate, Regular Rhythm, Normal S1, Normal S2 Abdomen: Soft Extremities: No clubbing, - - lola wraps up to knee b/l Microbiology Past 72 Hours 05/15/19 22:06 Skin - Leg Gram Stain - Final 05/15/19 22:06 Skin - Leg Wound Culture - Final Staphylococcus aureus 05/15/19 14:32 Blood Culture (Wb) #2 - Anticubital Right Blood Culture - Preliminary No growth in 48 hours. 05/15/19 14:20 Blood Culture (Wb) - Anticubital Left Blood Culture - Preliminary No growth in 48 hours. 05/16/19 14:20 Stool Stool Occult Blood (MIRIAN) - Final Occult Blood Positive Current Medications Acetaminophen (Tylenol) 650 mg PO Q6H PRN PRN PRN Reason: Pain Score 1-10/Temp > 100.7 F Al Hydroxide/Mg Hydroxide (Mylanta Ii) 30 ml PO Q6H PRN PRN PRN Reason: Gastric Burning Albuterol Sulfate (Ventolin Aerosols) 2.5 mg INHALATION Q2H PRN PRN PRN Reason: Shortness of Breath/Wheezing All[facility]rim) [facility] Last Admin: 05/19/19 09:22 Dose: 300 mg Documented by: Calamine/Phenol (Calmoseptine Ointment) 1 applic TOPICAL BID [facility]; Protocol Last Admin: 05/19/19 09:23 Dose: 1 applicatio Documented by: Ceftriaxone Sodium (Rocephin) 1 gm IM Q24@2200 [facility] Last Admin: 05/19/19 00:50 Dose: 1 gm Documented by: Chlorhexidine Gluconate () 1 each TOPICAL DAILY [facility] Stop: 05/21/19 10:01 Last Admin: 05/19/19 09:24 Dose: Not Given Documented by: Duloxetine HCl (Cymbalta) 30 mg PO DAILY [facility] Last Admin: 05/19/19 09:22 Dose: 30 mg Documented by: Famotidine (Pepcid) 20 mg PO DAILY [facility] Last Admin: 05/19/19 09:22 Dose: 20 mg Documented by: Gabapentin (Neurontin) [facility] Last Admin: 05/19/19 09:22 Dose: 100 mg Documented by: Guaifenesin (Robitussin) 20 ml PO Q4H PRN PRN PRN Reason: COUGH Levothyroxine Sodium (Synthroid) 50 mcg PO DAILY@0600 [facility] Last Admin: 05/19/19 05:53 Dose: 50 mcg Documented by: Magnesium Hydroxide (Milk Of Magnesia) 30 ml PO DAILY PRN PRN PRN Reason: Constipation Metoprolol Tartrate (Lopressor (Beta Brittnee)) 50 mg PO BID [facility] Last Admin: 05/16/19 23:05 Dose: 50 mg Documented by: Morphine Sulfate () 2 mg IV Q3H PRN PRN PRN Reason: Pain Score 6-10/10 Mupirocin (Bactroban) 1 applic NASAL BID [facility]; Protocol Stop: 05/20/19 10:01 Last Admin: 05/19/19 09:23 Dose: Not Given Documented by: Nystatin (Mycostatin Powder) 1 applic TOPICAL BID [facility]; Protocol Last Admin: 05/19/19 09:23 Dose: 1 applic Documented by: Ondansetron HCl (Zofran) 4 mg IV Q8H PRN PRN PRN Reason: NAUSEA/VOMITING Oxycodone HCl (Oxyir) 5 mg PO Q6H PRN PRN PRN Reason: Pain Score 6-10/10 Polysaccharide Iron Complex (Ferrex 150) [facility] Last Admin: 05/19/19 09:23 Dose: 150 mg Documented by: Pramipexole Dihydrochloride (Mirapex) 0.25 mg PO QHS [facility] Last Admin: 05/18/19 22:25 Dose: Not Given Documented by: Pravastatin Sodium (Pravachol) 40 mg PO QHS [facility] Last Admin: 05/18/19 22:25 Dose: Not Given Documented by: Senna/Docusate Sodium (Senokot-S, Meg-Colace) 2 tablet PO BID PRN PRN PRN Reason: Constipation Sodium Chloride () 10 - 40 ml IV UD PRN PRN Reason: SALINE FLUSH Last Admin: 05/18/19 10:39 Dose: 10 ml Documented by: Medical Necessity - Tobacco Use Smoking Status: Former smoker - Tells me she quit in 2009 and prior to that smoked for about 50 years. Tobacco Use: Non-smoker Assessment/Plan All Active Problems (Last Reviewed 05/15/19 @ 18:[address] Vicky Lovett, DO) CHF exacerbation (Acute) Cellulitis (Acute) Pleural effusion, right (Acute) Pulmonary hypertension, moderate to severe (Acute) Shortness of breath (Resolved) SOFI prerenal Scr 1.78 stable from 1.81 2 days ago but no labs today or yesterday from baseline 1-1.2 can use lasix prn check bmp in am BP ok Hypernatremia 148 2 days ago encouraged po water intake stable if persistent will add d5w
--- NOTE | 2019-05-19 13:19 | NURSING ---
report given to hospice IPU and pt transported via cot.
--- NOTE | 2019-05-19 17:17 | DS.PCM_ITS ---
Discharge Date and Diagnosis Date of Admission: 05/15/19 Date of Discharge: 05/19/19 - Primary Discharge Diagnosis Acute congestive heart failure - Secondary Discharge Diagnosis Chronic Problems (Last Reviewed 05/15/19 @ 18:[address] Vicky Lovett, DO) Edema of both legs (Chronic) History of pulmonary embolism (Chronic) History of DVT (deep vein thrombosis) (Chronic) Balance disorder (Chronic) Urinary incontinence (Chronic) Venous ulcer of leg (Chronic) Psoriasis (Chronic) Chronic anticoagulation (Chronic) On Eliquis for history of pulmonary embolism and atrial fibrillation Anemia (Chronic) Hx of solitary pulmonary nodule (Chronic) spiculated nodule on the right in 2017 Cardiomyopathy (Chronic) EF of 40% in December 2017 Former smoker (Chronic) Quit in 2009 CKD (chronic kidney disease) stage 3, GFR 30-59 ml/min (Chronic) Venous insufficiency (Chronic) Persistent atrial fibrillation (Chronic) Chronic combined systolic and diastolic CHF (congestive heart failure) (Chronic) Secondary pulmonary arterial hypertension (Chronic) Non-rheumatic tricuspid valve insufficiency (Chronic) Essential (primary) hypertension (Chronic) Hyperlipidemia (Chronic) Lung nodule (Chronic) Spiculated nodule seen in the right lung on a CAT scan of the chest in 2017 Pulmonary embolism (Chronic) History of breast cancer (Chronic) History of non-Hodgkin's lymphoma (Chronic) Pleural effusion (Chronic) Restrictive lung disease (Chronic) Hospital Course and Treatment Imaging Results: Clinical Impression(s) from Imaging Studies Chest X-Ray 05/15/19 14:57 IMPRESSION: Large right pleural effusion with superimposed CHF. Electronically Signed: Igor Rajan, at 15:14 EDT , Service support , Hip/Pelvis X-Ray 05/15/19 14:57 IMPRESSION: No fracture seen. Sclerotic focus in the right and left iliac bone as described. Metastatic disease should be ruled out Electronically Signed: Igor Rajan, at 15:19 EDT , Service support , Chest CT 05/15/19 17:39 IMPRESSION: Large right pleural effusion with compression atelectasis of the right lung. Bilateral patchy pulmonary interstitial prominence. Mild cardiomegaly. Mild ascites. Subcutaneous edema/hematoma of the right lateral chest wall. Electronically Signed: Cuba Lewis DO at 19:30 EDT Tel [phone], Service support , Pelvis CT 05/15/19 18:54 IMPRESSION: Subcutaneous calcified granulomas bilaterally within the gluteal regions likely representing the sclerotic area seen on corresponding x-ray of the pelvis. Degenerative lower lumbar changes. Possible old left trochanteric injury. Mild infrarenal abdominal aortic aneurysm. Ascites and pelvic fluid. Electronically Signed: Cuba Lewis DO at 20:27 EDT Tel [phone], Service support , Consultations 05/16/19 11:25 Consult: Onc/Wound/athlete marketing agent Routine Comment: Summary of Care Provided: Patient is an 84-year-old lady with multiple comorbidities admitted with hip pain as well as shortness of breath imaging studies demonstrated large right- sided pleural effusion. An assessment of congestive heart failure made admitted to a monitored bed for further management 1. Acute CHF exacerbation with preserved ejection fraction EF 55% ?Managed with fluid restriction IV diuretics and supplemental oxygen. Patient was seen in consultation by cardiology notes and recommendations reviewed ?05/19/2019: Patient was transferred from the ICU to regular nursing floor after CODE STATUS was changed from DNR CCA to DNR CC. P was transferred to hospice in the medical facility on 05/19/2019 2. Right hand cellulitis ?Suspicious for MRSA infection given pustular nature of lesions. Patient is on Unasyn added vancomycin 3.Right lower extremity cellulitis with MSSA -Patient is on Unasyn 4. Large right-sided pleural effusion and ascites ?Attributed to CHF plan was for patient to have undergone both therapeutic as well as diagnostic thoracocentesis which is currently being placed on hold pending discussion with family 5. Pulmonary hypertension ?Plan is to treat symptomatically at this point 6. Acute kidney injury ?Baseline creatinine 1.16 was 1.53 on admission. It was expected that patient kidney function was going to improve with diuresis however did worsen 7. 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 History of breast CA ?Currently in remission 9. A. fib with RVR ?Patient heart rate is currently controlled - Physical Exam Vitals/I&O's: Vital Signs Temp Pulse Resp BP Pulse Ox 98.1 F 149 H 22 H 129/70 H 94 05/19/19 09:18 05/19/19 09:18 05/19/19 09:18 05/19/19 09:18 05/19/19 09:18 Oxygen Flow Rate (L/min) 6 Oxygen Delivery Method Nasal Cannula Weight: 82.5 kg Body Mass Index (BMI) 29.9 Intake and Output for Last 24 Hours 05/17/19 05/18/19 05/19/19 23:59 23:59 23:59 Intake Total 2046.00 / 2046.00 1702 / 1762 160 / 160 Output Total 1100 / 1300 1000 / 1100 420 / 420 Balance 946.00 / 746.00 702 / 662 -260 / -260 General: Cooperative Lungs: Diminished Neurological: Neuro grossly intact Psych/Mental Status: Flat Affect Microbiology Past 72 Hours 05/15/19 22:06 Skin - Leg Gram Stain - Final 05/15/19 22:06 Skin - Leg Wound Culture - Final Staphylococcus aureus 05/15/19 14:32 Blood Culture (Wb) #2 - Anticubital Right Blood Culture - Preliminary No growth in 48 hours. 05/15/19 14:20 Blood Culture (Wb) - Anticubital Left Blood Culture - Prel iminary No growth in 48 hours. 05/16/19 14:20 Stool Stool Occult Blood (MIRIAN) - Final Occult Blood Positive Discharge Diet: No Restrictions Discharge Activity: No Restrictions Home Medications: Medications to take at Discharge Pramipexole Di-HCl [Mirapex] 0.25 mg PO QHS 12/27/17 allopurinol 300 mg tablet 300 mg PO DAILY #90 tab 10/08/18 levothyroxine 50 mcg tablet 50 mcg PO DAILY #90 tab 10/08/18 Apremilast [Otezla] 30 mg PO BID 03/31/19 Gabapentin [Neurontin] 100 mg PO BID 03/31/19 Apixaban [Eliquis] 5 mg PO BID 05/15/19 Diltiazem HCl [Cardizem Cd] 120 mg PO DAILY 05/15/19 Duloxetine HCl [Cymbalta] 30 mg PO DAILY 05/15/19 Furosemide 20 mg PO DAILY 05/15/19 Metoprolol Tartrate [Lopressor (beta linda)] 100 mg PO BID 05/15/19 Pravastatin Sodium 40 mg PO DAILY 05/15/19 Primary Care Physician: Danie Sparks MD [Primary Care Provider] - Disposition: Hospice Medical Facility Minutes spent on discharge:: 45 Patient Condition:: Poor Medical Necessity - Tobacco Use Smoking Status: Former smoker - Tells me she quit in 2009 and prior to that smoked for about 50 years. Tobacco Use: Non-smoker Meaningful Use Info Meaningful Use Diagnoses (Choose all that apply): CHF - CHF MAITE/ARB ordered at discharge?: No Reason MAITE/ARB not ordered?: Worsening renal disease Documented LVEF (%): 55 Inpatient E&M: 70405 Disch Hosp
== END 2019-05-19 13:12 | disposition hospice, inpatient (51) | DRG 291 ==
LOC: ED 16:17 → ICU 18:26 → MS3 18:39 → ICU 05-17 10:40 → MS3 05-18 18:06
PROVIDERS: Internal Medicine; Physician Assistant; Admitting Provider Internal Medicine; Emergency Provider Emergency Medicine; PCP Internal Medicine; Visit Provider Internal Medicine
DX: I13.0 Hypertensive heart and chronic kidney disease with heart failure and stage 1 through stage 4 chronic kidney disease, or unspecified chronic kidney disease (principal); I50.33 Acute on chronic diastolic (congestive) heart failure; N17.9 Acute kidney failure, unspecified; L03.115 Cellulitis of right lower limb; E87.0 Hyperosmolality and hypernatremia; R18.8 Other ascites; L03.113 Cellulitis of right upper limb; J91.8 Pleural effusion in other conditions classified elsewhere; I48.19 Other persistent atrial fibrillation; B95.61 Methicillin susceptible Staphylococcus aureus infection as the cause of diseases classified elsewhere; M25.552 Pain in left hip; I87.2 Venous insufficiency (chronic) (peripheral); R29.6 Repeated falls; Z86.711 Personal history of pulmonary embolism; Z85.3 Personal history of malignant neoplasm of breast; Z79.01 Long term (current) use of anticoagulants; Z90.710 Acquired absence of both cervix and uterus; Z90.12 Acquired absence of left breast and nipple; Z87.891 Personal history of nicotine dependence; Z66 Do not resuscitate; Z85.72 Personal history of non-Hodgkin lymphomas; Z86.718 Personal history of other venous thrombosis and embolism; I36.1 Nonrheumatic tricuspid (valve) insufficiency; I27.21 Secondary pulmonary arterial hypertension; N18.3 Chronic kidney disease, stage 3 (moderate); E78.5 Hyperlipidemia, unspecified; R32 Unspecified urinary incontinence; L40.9 Psoriasis, unspecified; I42.9 Cardiomyopathy, unspecified; Z85.828 Personal history of other malignant neoplasm of skin; E03.9 Hypothyroidism, unspecified
CPT/HCPCS: 36415; 36600; 71045; 71250; 72192; 73502; 80048; 80076; 81001; 82140; 82274; 82728; 82803; 83540; 83550; 83605; 83735; 83880; 84100; 84439; 84443; 84484; 85025; 85045; 85610; 85652; 86140; 87040; 87070; 87077; 87186; 87205; 87640; 93005; 93306; 97163; 97167; 97802; 99251; 99285; J1756; J7040; J7050; A4216; G0463; J0295; J1940